=== PATIENT | female | born 1950 | race Caucasian/White ===

== ENCOUNTER → 2020-05-10 12:41 | Outpatient (BNVA) | payer MEDICARE, OTHER, SELFPAY | PROVIDERS: PCP Internal Medicine; Referring Provider Internal Medicine; Visit Provider Internal Medicine | DX: I49.1 Atrial premature depolarization (principal); I49.3 Ventricular premature depolarization; Z79.899 Other long term (current) drug therapy | CPT/HCPCS: 93005; 99214 ==

== ENCOUNTER 2020-08-05 08:45 | Outpatient (REF) | payer MEDICARE, OTHER, SELFPAY ==
--- NOTE | 2020-08-05 | US_ITS ---
EXAMINATION: US ABDOMEN COMPLETE CLINICAL INFORMATION: History of hepatitis C. COMPARISON: Ultrasound abdomen complete 01/30/2017. TECHNIQUE: Real-time imaging of the abdominal viscera. FINDINGS: PANCREAS: The pancreas is homogeneous in echotexture without enlargement or focal lesion. ABDOMINAL AORTA: The proximal, mid, and distal segments are normal in caliber. INFERIOR VENA CAVA: Visualized portions are normal. LIVER: The liver is normal size, hepatic contour but mildly echogenic. No focal hepatic lesion. There is no intrahepatic biliary duct dilatation seen. GALLBLADDER: The bile is echogenic. The gallbladder is physiologically distended without evidence of stones, polyps, wall thickening or pericholecystic fluid. COMMON BILE DUCT: Normal in caliber measuring 0.3 cm in diameter. RIGHT KIDNEY: There is an anechoic cyst in the upper/midpole measuring 1.6 x 1.4 x 1.3 cm. No additional lesions seen. No echogenic stones, caliectasis or hydronephrosis seen. The kidney measures 11.8 cm in maximum dimension. LEFT KIDNEY: Normal. No hydronephrosis. No renal calculi or focal parenchymal lesions. The kidney measures 12.1 cm in maximum dimension. SPLEEN: Normal. The spleen measures 9.4 cm in maximum dimension. FREE FLUID: None. US/US abdomen complete IMPRESSION: Slightly heterogeneous liver without any focal lesions. There is echogenic mobile bile but no echogenic stones or wall thickening. There is an upper midpole right renal cyst. The rest of the abdominal ultrasound is unremarkable.
[2020-08-06 11:47] LABS: Alpha Fetoprotein 6.4 ng/mL
== END 2020-08-05 08:46 | disposition home or self-care (01) ==
LOC: HO.US 08:45
PROVIDERS: PCP Internal Medicine; Visit Provider Internal Medicine
DX: Z86.19 Personal history of other infectious and parasitic diseases (principal)
CPT/HCPCS: 36415; 76700; 82105

== ENCOUNTER → 2020-11-08 08:46 | Outpatient (BNVA) | payer MEDICARE, OTHER, SELFPAY | PROVIDERS: PCP Internal Medicine; Visit Provider Internal Medicine | DX: I49.1 Atrial premature depolarization (principal); I49.3 Ventricular premature depolarization; Z51.81 Encounter for therapeutic drug level monitoring; Z79.899 Other long term (current) drug therapy | CPT/HCPCS: 93005; 99212 ==

== ENCOUNTER 2021-02-02 03:42 | Emergency (ER) | payer MEDICARE, OTHER, SELFPAY ==
[2021-02-02 05:30] VITALS: BP 148/78; PULSE 74; RESP 16; TEMP 36.4; O2SAT 97; BMI 24.5
[2021-02-02 06:00] VITALS: RESP 18
--- NOTE | 2021-02-02 06:01 | ED.WOUNDLAC ---
HPI - Wound/Laceration General Chief Complaint: Wound/Laceration Stated Complaint: Fall Time Seen by Provider: 02/02/21 06:00 Source: patient Mode of arrival: ambulatory History of Present Illness HPI narrative: 70-year-old female presents with skin tears to left lower extremity after sustaining a mechanical fall without head strike or LOC and states that her last tetanus was 2016. Related Data Home Medications Medication Instructions Recorded Confirmed cholecalciferol (vitamin D3) 50 50 mcg PO DAILY 05/10/20 11/08/20 mcg (2,000 unit) capsule eletriptan 40 mg tablet 40 mg PO PRN tab 05/10/20 11/08/20 lysine 1,000 mg tablet 1,000 mg PO DAILY 05/10/20 11/08/20 riboflavin (vitamin B2) 100 mg 400 mg PO DAILY 05/10/20 11/08/20 tablet Previous Rx's Medication Instructions Recorded flecainide 50 mg tablet 50 mg PO BID #180 tab 05/10/20 metoprolol succinate 25 mg 12.5 mg PO DAILY 90 Days #45 tab 11/08/20 tablet,extended release 24 hr Allergies Allergy/AdvReac Type Severity Reaction Status Date / Time No Known Allergies Allergy Verified 11/08/20 08:51 Review of Systems Review of Systems: Pertinent positives and negatives as stated in HPI 10 point review systems is otherwise negative. [facility] Past Medical History Source: nursing notes reviewed Medical History PAC (premature atrial contraction) PVCs (premature ventricular contractions) Surgical History History of foot surgery History of hip replacement History of melanoma excision History of tonsillectomy Family History Family History Father No problems noted. Mother No problems noted. Social History Social History Advance Directives: No Advance Directives Information Provided: No Physical Exam Vital Signs: Vital Signs: Last Vital Signs Temp 97.5 F 02/02/21 05:30 Pulse 74 02/02/21 05:30 Resp 18 02/02/21 06:00 BP 148/78 H 02/02/21 05:30 Pulse Ox 97 02/02/21 05:30 Body Mass Index 24.5 VITAL SIGNS: Reviewed. GENERAL: Well developed, well nourished, in no acute distress. HEAD: Normocephalic/atraumatic EYES: PERRLA, EOMI EARS: Ext canals without abnormality OROPHARYNX: no oral lesions noted, posterior pharynx clear NECK: Supple, no adenopathy LUNGS: Normal breath sounds. No adventitious sounds or accessory muscle use. SpO2<97> CARDIOVASCULAR: Regular rate and rhythm without noted murmurs ABDOMEN: Soft, non-tender, non-distended with bowel sounds. LEFT LOWER EXTREMITY: 3 discrete skin tears on left anterior lower leg, hemostatic SKIN: Inspection of the skin reveals no rashes NEUROLOGIC: Alert and oriented x 4. Course Course Course Narrative: 70-year-old female with history and clinical presentation consistent with skin tears that were approximated. Patient tolerated procedure well and was discharged home Discharge Plan Discharge Clinical Impression: Noninfected skin tear of left lower extremity Patient Disposition: Home, Self-Care Instructions: Skin Tear (ED) Additional Instructions: 1. Resume all home medications as prescribed. 2. Recommend changing the dressing once a day and you may switch over to bacitracin instead of Vaseline/Xeroform gauze. 3. Recommend rinsing gently with water and blotting dry and then following with application of bacitracin over the skin tears and then layering Telfa pads over that with application of a gauze roll and then applying the Clay wrap from your ankle up towards your knee. You will likely need to do this daily for 1 week. 4. Please follow-up with your primary care provider in the next 2-3 days for re-evaluation. Return to the ER for acute worsening of your symptoms or any concerns regarding infection. Prescriptions: No Action eletriptan 40 mg tablet 40 mg PO PRNRF: 0 riboflavin (vitamin B2) 100 mg tablet 400 mg PO DAILY RF: 0 cholecalciferol (vitamin D3) 50 mcg (2,000 unit) capsule 50 mcg PO DAILY RF: 0 lysine 1,000 mg tablet 1,000 mg PO DAILY RF: 0 flecainide 50 mg tablet 50 mg PO BID Qty: 180 RF: 4 metoprolol succinate 25 mg tablet extended release 24 hr 12.5 mg PO DAILY 90 Days Qty: 45 RF: 4 Referrals: Ree Camp MD [Primary Care Provider] - 2 days (Three skin tears, moderate size, to left lower extremity.) Interventions: ED Discharge Assessment Last Done: 02/02/21 06:24 Discharge Date/Time: 02/02/21 06:39
== END 2021-02-02 06:39 | disposition home or self-care (01) ==
PROVIDERS: Emergency Provider Student in an Organized Health Care Education/Training Program; PCP Internal Medicine
DX: S81.812A Laceration without foreign body, left lower leg, initial encounter (principal); W19.XXXA Unspecified fall, initial encounter; Y93.9 Activity, unspecified; Y92.9 Unspecified place or not applicable; Y99.9 Unspecified external cause status
CPT/HCPCS: 99283; 99284

== ENCOUNTER → 2021-05-09 09:11 | Outpatient (BNVA) | payer MEDICARE, OTHER, SELFPAY | PROVIDERS: PCP Internal Medicine; Referring Provider Internal Medicine; Visit Provider Internal Medicine | DX: I49.1 Atrial premature depolarization (principal); I49.3 Ventricular premature depolarization; Z51.81 Encounter for therapeutic drug level monitoring; Z79.899 Other long term (current) drug therapy | CPT/HCPCS: 93005; 99212 ==

== ENCOUNTER → 2021-11-01 09:19 | Outpatient (BNVA) | payer MEDICARE, OTHER, SELFPAY | PROVIDERS: PCP Internal Medicine; Referring Provider Internal Medicine; Visit Provider Internal Medicine | DX: I49.1 Atrial premature depolarization (principal); I49.3 Ventricular premature depolarization; I44.0 Atrioventricular block, first degree; Z79.899 Other long term (current) drug therapy | CPT/HCPCS: 93005; 99212 ==

== ENCOUNTER 2022-03-27 08:29 | Day surgery (SDC) | payer MEDICARE, OTHER, SELFPAY ==
[2022-03-22 08:56] VITALS: BMI 24.0
[2022-03-24 08:46] VITALS: BMI 24.0
--- NOTE | 2022-03-24 12:57 | MHC.SHP ---
Pre-Procedural Eval Section A Date of Service: 03/24/22 The patient is an INPATIENT: No Changes since office visit: No Cold of Flu in the past 2 weeks, No New Medical Problems, No Changes in Medication and No Patient answered all questions The History & Physical has been completed within 30 days and I have reviewed it.: Yes Section B Chief Complaint: cataract Allergies: Allergies Allergy/AdvReac Type Severity Reaction Status Date / Time No Known Allergies Allergy Verified 03/22/22 13:45 Plan Diagnosis/Plan: Unchanged I have reviewed the history and physical and performed a pertinent physical examination on my patient. No changes have occurred unless specified.
[2022-03-27 08:57] VITALS: BP 148/86; PULSE 75; RESP 18; TEMP 36.6; O2SAT 96
[2022-03-27] MEDS: Tetracaine HCl/PF 0.5% Oph Sol 4 ML DROPS 1 DROP EYE-RIGHT (09:00)
[2022-03-27] MEDS: Tropicamide 1 % Ophth Sol 3 ML BTL 1 DROP EYE-RIGHT ×3 (09:00→09:20)
[2022-03-27] MEDS: Cyclopentolate 1 % Ophth Sol 2 ML DRPBTL 1 DROP EYE-RIGHT ×3 (09:00→09:20)
[2022-03-27] MEDS: Lactated Ringers 500 ML 50 ML IVCONT (09:00)
[2022-03-27] MEDS: Phenylephrine HCL 2.5% Oph SoL 2 ML BOTTLE 1 DROP EYE-RIGHT ×3 (09:01→09:20)
--- NOTE | 2022-03-27 09:45 | P.CONAN_ITS ---
HPI - Anesthesia Eval Consult details Narrative: right eye cataract PMFSH Active Problems Active Problems: All Active Problems (Updated 03/24/22 @ 08:43 by Marcela Jewell RN) Encounter for monitoring anti-arrhythmic therapy (Acute) First degree heart block by electrocardiogram (Acute) Bleeding disorder (Acute) Osteoarthritis of right hip (Acute) MVP (mitral valve prolapse) (Acute) Migraine (Acute) MTHFR gene mutation (Acute) PVCs (premature ventricular contractions) (Acute) PAC (premature atrial contraction) (Acute) Past Medical History Medical History Bleeding disorder History of Weiner's esophagus Hx of hepatitis C Hx of melanoma of skin Migraine MTHFR gene mutation MVP (mitral valve prolapse) Osteoarthritis of right hip PAC (premature atrial contraction) Post-operative nausea and vomiting PVCs (premature ventricular contractions) Family History Family History Father Leukemia Mother SLE (systemic lupus erythematosus) Sister HTN (hypertension) Hypercholesterolemia Family history of problems with anesthesia: No Surgical History Surgical History H/O colonoscopy History of bunionectomy of both great toes History of foot surgery History of hip replacement History of melanoma excision History of tonsillectomy Hx of breast augmentation History of Problems with Anesthesia: No Social History Social History Housing: House Are you a primary rn progressive care to a significant other at home: No Do you presently have visiting nurse or other home services: No Alcohol intake: current Alcohol intake frequency: a few times a week Patient Tobacco Use Status: Never used Tobacco e-Cigarette/Vaping Use: Never Used Use of substances other than those prescribed or required for medical reasons: No Have you been hit, kicked, punched, or otherwise hurt by someone within the past year? If so, by whom?: No Are you DNR?: No Advance Directives: Yes Advance Directives Information Provided: Yes Advance Directives on File: Yes Advance Directives Date on File: 10/15/17 Recently lost weight without trying: No Eating poorly because of decreased appetite: No Nutrition Risks: No Nutritional Risk Poor oral hygiene: No service: No Current occupational status: retired Cognitive needs: No Hearing needs: No Vision needs: Yes Meds Allergies Allergy/AdvReac Type Severity Reaction Status Date / Time No Known Allergies Allergy Verified 03/27/22 08:41 Active Medications: Current Medications Lactated Ringer's (Lr) 500 mls @ 50 mls/hr IVCONT .Q10H HENRY Last Admin: 03/27/22 09:00 Dose: 50 mls/hr Povidone Iodine (Povidone Iodine 5 % Ophth Soln 30 Ml Bottle) 1 appl EYE-RIGHT PREOP PRN PRN Reason: Pre-Op Surgical Implant Prophy Home Medications Medication Instructions Recorded Confirmed Last Taken Type cholecalciferol (vitamin D3) 50 50 mcg PO DAILY 05/10/20 03/24/22 Unknown History mcg (2,000 unit) capsule lysine 1,000 mg tablet 1,000 mg PO DAILY 05/10/20 03/24/22 Unknown History vitamin B12 500 mcg-folic acid 400 1 tab PO DAILY 06/02/21 03/24/22 Unknown History mcg tablet latanoprost 0.005 % eye drops 1 drp ophthalmic (eye) BEDTIME 03/22/22 03/24/22 Unknown History psyllium husk 0.4 gram capsule 0.4 g PO BEDTIME 03/22/22 03/24/22 Unknown History (Metamucil) magnesium glycinate-mag oxide 120 mg PO DAILY 03/24/22 03/24/22 Unknown History Exam Exam Date and Time: March 27, 2022 0945 Height,Weight and Vital Signs: Height 5 ft 10 in Weight 76.204 kg Last Vital Signs Temp 97.9 F 03/27/22 08:57 Pulse 75 03/27/22 08:57 Resp 18 03/27/22 08:57 BP 148/86 H 03/27/22 08:57 Pulse Ox 96 03/27/22 08:57 O2 Del Method 03/27/22 08:57 Airway Mallampati Class: II TM Dist: >3cm Neck ROM: Full Loose/Missing/Broken Teeth: No Heart: rrr+s1s2 Lungs: cta b/l Assessment and Plan Assessment Anesthesia Assessment: Anesthesia Plan Discussed and Chart Reviewed Final Anesthetic Review Family History of Problems with Anesthesia: No History of Problems with Anesthesia: No NPO: Yes ASA Class: II Final Preanesthetic Review: No Changes in Pt Med Stat, Meds/Allgs Chart Reviewed, Consent Obtained/Reviewed and Anes Risks/Benef Reviewed Patient Risk: Low Procedure Risk: Low Assessment/Block/Sedation in SS: Assess/Block/Sedation-SS Anesthetic Plan Anesthetic Plan: MAC: and Agree w/ Assess. and Plan Disposition: Standard PACU
--- NOTE | 2022-03-27 10:35 | P.PCNO_ITS ---
Ophthalmology Procedure Procedure Date of Service: 03/27/22 Ophthalmology Viscoelastic: Edwige Gant Dual Pack Pro Ophthalmology Lenses: TECGRICELDA [id number] (20) Procedure Notes: PREOPERATIVE DIAGNOSIS: Decreased visual acuity right eye secondary to cataract POSTOPERATIVE DIAGNOSIS: Same PROCEDURE: Right cataract extraction with intraocular lens insertion SURGEON: Dave Evans M.D. ANESTHESIA: Topical/MAC ESTIMATED BLOOD LOSS: None COMPLICATIONS: Zonular weakness After obtaining informed consent, the patient was brought to the operating room suite and placed in the supine position. After adequate sedation per anesthesia, topical drops of Tetracaine were given to the right eye. The eye was then prepped and draped in the usual sterile fashion. The operating room microscope was then positioned over the operative eye and a lid speculum placed. A paracentesis was created. Viscoelastic was then instilled into the anterior chamber. A three plane incision was then created temporally, utilizing a 2.85 mm keratome. Capsulotomy forceps were then utilized to create a circular tear capsulotomy. Hydrodissection and hydrodelineation were carried out until adequate mobilization of the nucleus occurred. Phacoemulsification was then utilized to remove the dense central nu cleus followed by removal of the cortical material utilizing the automated aspiration irrigation unit. Mild zonular weakness was notedand a capsular ring was placed. Viscoelastic was instilled into the posterior capsular bag followed by placement of a posterior chamber intraocular lens without difficulty. The residual Viscoelastic was then removed utilizing the automated IA machine. The wound was checked and found to be watertight. The patient tolerated the procedure well and the lid speculum was removed. Intracameral injection of Vigamox 0.1 mL followed by a subtenon injection of Kenalog-40 0.2 mL were administered. The patient will be seen in the a.m.
[2022-03-27 10:59] VITALS: BP 129/72; PULSE 61; RESP 18; TEMP 36.6; O2SAT 98
== END 2022-03-27 11:20 | disposition home or self-care (01) ==
PROVIDERS: PCP Internal Medicine; Visit Provider Ophthalmology
PROC: (CPT 66985; principal; 2022-03-27 10:00)
DX: H25.11 Age-related nuclear cataract, right eye (principal); H40.051 Ocular hypertension, right eye; H59.88 Other intraoperative complications of eye and adnexa, not elsewhere classified; H27.8 Other specified disorders of lens; Y84.8 Other medical procedures as the cause of abnormal reaction of the patient, or of later complication, without mention of misadventure at the time of the procedure; Y92.234 Operating room of hospital as the place of occurrence of the external cause
CPT/HCPCS: 66982; J2405; J3300; V2632

== ENCOUNTER 2022-04-03 08:45 | Day surgery (SDC) | payer MEDICARE, OTHER, SELFPAY ==
[2022-03-22 08:57] VITALS: BMI 24.0
[2022-03-24 08:49] VITALS: BMI 24.0
--- NOTE | 2022-03-30 13:46 | MHC.SHP ---
Pre-Procedural Eval Section A Date of Service: 03/30/22 The patient is an INPATIENT: No Changes since office visit: No Cold of Flu in the past 2 weeks, No New Medical Problems, No Changes in Medication and No Patient answered all questions The History & Physical has been completed within 30 days and I have reviewed it.: Yes Section B Chief Complaint: cataract Allergies: Allergies Allergy/AdvReac Type Severity Reaction Status Date / Time No Known Allergies Allergy Verified 03/27/22 08:41 Plan Diagnosis/Plan: Unchanged I have reviewed the history and physical and performed a pertinent physical examination on my patient. No changes have occurred unless specified.
--- NOTE | 2022-03-31 09:51 | P.CONAN_ITS ---
Documented by User: Roberta Alcocer NP 03/31/22 09:52 HPI - Anesthesia Eval Consult details Narrative: 71yo F for Left Cataract Extraction IOL Insertion PCP cleared Right eye 03/27/22 with MAC: Zofran 4 PMFSH Active Problems Active Problems: All Active Problems (Updated 03/24/22 @ 08:43 by Marcela Jewell RN) Encounter for monitoring anti-arrhythmic therapy (Acute) First degree heart block by electrocardiogram (Acute) Bleeding disorder (Acute) Osteoarthritis of right hip (Acute) MVP (mitral valve prolapse) (Acute) Migraine (Acute) MTHFR gene mutation (Acute) PVCs (premature ventricular contractions) (Acute) PAC (premature atrial contraction) (Acute) Past Medical History Medical History Bleeding disorder History of Weiner's esophagus Hx of hepatitis C Hx of melanoma of skin Migraine MTHFR gene mutation MVP (mitral valve prolapse) Osteoarthritis of right hip PAC (premature atrial contraction) Post-operative nausea and vomiting PVCs (premature ventricular contractions) Family History Family History Father Leukemia Mother SLE (systemic lupus erythematosus) Sister HTN (hypertension) Hypercholesterolemia Family history of problems with anesthesia: No Surgical History Surgical History H/O colonoscopy History of bunionectomy of both great toes History of foot surgery History of hip replacement History of melanoma excision History of tonsillectomy Hx of breast augmentation History of Problems with Anesthesia: No Social History Social History Housing: House Are you a primary day care director to a significant other at home: No Do you presently have visiting nurse or other home services: No Alcohol intake: current Alcohol intake frequency: a few times a week Patient Tobacco Use Status: Never used Tobacco e-Cigarette/Vaping Use: Never Used Use of substances other than those prescribed or required for medical reasons: No Have you been hit, kicked, punched, or otherwise hurt by someone within the past year? If so, by whom?: No Are you DNR?: No Advance Directives: Yes Advance Directives Information Provided: Yes Advance Directives on File: Yes Advance Directives Date on File: 10/15/17 Recently lost weight without trying: No Eating poorly because of decreased appetite: No Nutrition Risks: No Nutritional Risk Poor oral hygiene: No service: No Current occupational status: retired Cognitive needs: No Hearing needs: No Vision needs: Yes Meds Allergies Allergy/AdvReac Type Severity Reaction Status Date / Time No Known Allergies Allergy Verified 03/27/22 08:41 Home Medications Medication Instructions Recorded Confirmed Last Taken Type cholecalciferol (vitamin D3) 50 50 mcg PO DAILY 05/10/20 03/24/22 Unknown History mcg (2,000 unit) capsule lysine 1,000 mg tablet 1,000 mg PO DAILY 05/10/20 03/24/22 Unknown History vitamin B12 500 mcg-folic acid 400 1 tab PO DAILY 06/02/21 03/24/22 Unknown History mcg tablet latanoprost 0.005 % eye drops 1 drp ophthalmic (eye) BEDTIME 03/22/22 03/24/22 Unknown History psyllium husk 0.4 gram capsule 0.4 g PO BEDTIME 03/22/22 03/24/22 Unknown History (Metamucil) magnesium glycinate-mag oxide 120 mg PO DAILY 03/24/22 03/24/22 Unknown History Exam Exam Date and Time: March 31, 2022 0951 Height,Weight and Vital Signs: Height 5 ft 10 in Weight 76.204 kg Assessment and Plan Assessment Anesthesia Assessment: Chart Reviewed Final Anesthetic Review Family History of Problems with Anesthesia: No History of Problems with Anesthesia: No Documented by User: Miguel Ángel Clinton MD 04/03/22 10:55 [facility] Past Medical History Medical History Bleeding disorder History of Weiner's esophagus Hx of hepatitis C Hx of melanoma of skin Migraine MTHFR gene mutation MVP (mitral valve prolapse) Osteoarthritis of right hip PAC (premature atrial contraction) Post-operative nausea and vomiting PVCs (premature ventricular contractions) Family History Family History Father Leukemia Mother SLE (systemic lupus erythematosus) Sister HTN (hypertension) Hypercholesterolemia Surgical History Surgical History H/O colonoscopy History of bunionectomy of both great toes History of foot surgery History of hip replacement History of melanoma excision History of tonsillectomy Hx of breast augmentation Social History Social History Housing: House Are you a primary day care director to a significant other at home: No Do you presently have visiting nurse or other home services: No Alcohol intake: current Alcohol intake frequency: a few times a week Patient Tobacco Use Status: Never used Tobacco e-Cigarette/Vaping Use: Never Used Use of substances other than those prescribed or required for medical reasons: No Have you been hit, kicked, punched, or otherwise hurt by someone within the past year? If so, by whom?: No Are you DNR?: No Advance Directives: Yes Advance Directives Information Provided: Yes Advance Directives on File: Yes Advance Directives Date on File: 10/15/17 Recently lost weight without trying: No Eating poorly because of decreased appetite: No Nutrition Risks: No Nutritional Risk Poor oral hygiene: No service: No Current occupational status: retired Cognitive needs: No Hearing needs: No Vision needs: Yes Meds Allergies Allergy/AdvReac Type Severity Reaction Status Date / Time No Known Allergies Allergy Verified 03/27/22 08:41 Home Medications Medication Instructions Recorded Confirmed Last Taken Type cholecalciferol (vitamin D3) 50 50 mcg PO DAILY 05/10/20 03/24/22 Unknown History mcg (2,000 unit) capsule lysine 1,000 mg tablet 1,000 mg PO DAILY 05/10/20 03/24/22 Unknown History vitamin B12 500 mcg-folic acid 400 1 tab PO DAILY 06/02/21 03/24/22 Unknown History mcg tablet latanoprost 0.005 % eye drops 1 drp ophthalmic (eye) BEDTIME 03/22/22 03/24/22 Unknown History psyllium husk 0.4 gram capsule 0.4 g PO BEDTIME 03/22/22 03/24/22 Unknown History (Metamucil) magnesium glycinate-mag oxide 120 mg PO DAILY 03/24/22 03/24/22 Unknown History Exam Airway Mallampati Class: II TM Dist: >3cm Neck ROM: Full Loose/Missing/Broken Teeth: No Heart: rrr+s1s2 Lungs: cta b/l Assessment and Plan Assessment Anesthesia Assessment: Anesthesia Plan Discussed Final Anesthetic Review NPO: Yes ASA Class: III Final Preanesthetic Review: No Changes in Pt Med Stat, Meds/Allgs Chart Reviewed, Consent Obtained/Reviewed and Anes Risks/Benef Reviewed Patient Risk: Intermediate Procedure Risk: Low Assessment/Block/Sedation in SS: Assess/Block/Sedation-SS Anesthetic Plan Anesthetic Plan: MAC: and Agree w/ Assess. and Plan Disposition: Standard PACU
[2022-04-03] MEDS: Tetracaine HCl/PF 0.5% Oph Sol 4 ML DROPS 1 DROP EYE-LEFT (10:26)
[2022-04-03] MEDS: Cyclopentolate 1 % Ophth Sol 2 ML DRPBTL 1 DROP EYE-LEFT ×3 (10:31→10:51)
[2022-04-03] MEDS: Tropicamide 1 % Ophth Sol 3 ML BTL 1 DROP EYE-LEFT ×3 (10:44→10:51)
[2022-04-03] MEDS: Phenylephrine HCL 2.5% Oph SoL 2 ML BOTTLE 1 DROP EYE-LEFT ×3 (10:46→10:53)
--- NOTE | 2022-04-03 11:26 | HO.PNOPHT ---
Ophthalmology Procedure Procedure Date of Service: 04/03/22 Ophthalmology Viscoelastic: Healdavid Duet Dual Pack Pro Ophthalmology Lenses: TECGRICELDA [id number] (21) Procedure Notes: PREOPERATIVE DIAGNOSIS: Decreased visual acuity left eye secondary to cataract POSTOPERATIVE DIAGNOSIS: Same PROCEDURE: Left cataract extraction with intraocular lens insertion SURGEON: Dave Evans M.D. ANESTHESIA: Topical/MAC ESTIMATED BLOOD LOSS: None COMPLICATIONS: None After obtaining informed consent, the patient was brought to the operation room suite and placed in the supine position. After adequate sedation per anesthesia, topical drops of Tetracaine were given to the left eye. The eye was then prepped and draped in the usual sterile fashion. The operating room microscope was then positioned over the operative eye and a lid speculum placed. A paracentesis was created. Viscoelastic was then instilled into the anterior chamber. A three plane incision was then created temporally, utilizing a 2.85 mm keratome. Capsulotomy forceps were then utilized to create a circular tear capsulotomy. Hydrodissection and hydrodelineation were carried out until adequate mobilization of the nucleus occurred. Phacoemulsification was then utilized to remove the dense central nucleus followed by removal of the cortical material utilizing the automated aspiration irrigation unit. Viscoat elastic was instilled into the posterior capsular bag followed by placement of a posterior chamber intraocular lens without difficulty. The residual Viscoat elastic was then removed utilizing the automated IA machine. The wound was check and found to be watertight. The patient tolerated the procedure well and the lid speculum was removed. Intracameral injection of Vigamox 0.1 mL followed by a subtenon injection of Kenalog-40 0.2 mL were administered. The patient will be seen in the a.m.
[2022-04-03 11:53] VITALS: BP 147/68; PULSE 64; RESP 16; TEMP 36.4; O2SAT 100
== END 2022-04-03 14:34 | disposition home or self-care (01) ==
PROVIDERS: PCP Internal Medicine; Visit Provider Ophthalmology
PROC: (CPT 66985; principal; 2022-04-03 11:20)
DX: H25.12 Age-related nuclear cataract, left eye (principal); H52.4 Presbyopia; H40.051 Ocular hypertension, right eye; G43.909 Migraine, unspecified, not intractable, without status migrainosus; Z79.899 Other long term (current) drug therapy
CPT/HCPCS: 66984; J3300; V2632

== ENCOUNTER → 2022-04-18 09:31 | Outpatient (BNVA) | payer MEDICARE, OTHER, SELFPAY | PROVIDERS: PCP Internal Medicine; Referring Provider Internal Medicine; Visit Provider Internal Medicine | DX: I49.1 Atrial premature depolarization (principal); Z51.81 Encounter for therapeutic drug level monitoring; I49.3 Ventricular premature depolarization; I44.0 Atrioventricular block, first degree; Z79.899 Other long term (current) drug therapy | CPT/HCPCS: 93005; 99212 ==

== ENCOUNTER → 2022-04-27 11:16 | Outpatient (REF) | payer MEDICARE, OTHER, SELFPAY ==
--- NOTE | 2022-04-27 11:19 | HM_ITS ---
* Total monitoring time 3 days. * Underlying rhythm is sinus. Average rate 76/Min. Range 36 to 152/Min. * Frequent supraventricular ectopy. Pitman of 9.3%. Short runs noted. * Rare ventricular ectopy with burden of less than 1%. * Patient marker correlates with PVC as well as PACs. MTDD
== END ==
LOC: HO.CARD 11:16
PROVIDERS: Visit Provider Internal Medicine
DX: I49.1 Atrial premature depolarization (principal); R00.2 Palpitations
CPT/HCPCS: 93242

== ENCOUNTER 2022-08-07 12:29 | Outpatient (REF) | payer MEDICARE, OTHER, SELFPAY ==
--- NOTE | ~2022-08-07 | XR_ITS ---
EXAMINATION: XR FOOT, LEFT CLINICAL INFORMATION: Pain in the left foot COMPARISON: None TECHNIQUE: 3 views of the left foot. FINDINGS: No acute abnormality. No fracture or dislocation. No focal bone lesion or abnormal periosteal reaction. There is mild degenerative change of the minimal marginal spur of the metatarsal head and proximal phalange of the first MTP joint of the great toe. Old change of resection of the head of the fifth metatarsal. Small exostosis at the dorsum of foot involving the talar neck. Small spur of the posterior calcaneus at the insertion of Achilles tendon. There is a small plantar calcaneal spur. XR/XR foot LT min 3V IMPRESSION: 1. No acute abnormality. 2. Mild degenerative change of the first MTP joint. 3. Prior resection of the head of the fifth metatarsal.
== END 2022-08-07 12:30 | disposition home or self-care (01) ==
LOC: HO.HMGCX 12:29
PROVIDERS: PCP Internal Medicine; Visit Provider Physician Assistant
DX: M79.672 Pain in left foot (principal)
CPT/HCPCS: 73630

== ENCOUNTER 2022-08-10 10:40 | Outpatient (REF) | payer MEDICARE, OTHER, SELFPAY ==
[2022-08-10 10:56] LABS: MANUAL DIFF FLAG NO
[2022-08-10 10:58] LABS: Basophils Percent Auto 0.6 % (0-2); Eosinophils Absolute Auto 0.1 X10*3/uL (0.0-0.4); Eosinophils Percent Auto 1.6 % (0-4); Hematocrit 42.1 % (37.0-47.0); Hemoglobin 13.5 g/dl (12.0-16.0); Imm Gran Abs Auto 0.01 X10*3/uL (0.00-0.03); Imm Gran Pct Auto 0.2 % (0.0-0.4); Lymphocytes Absolute Auto 1.3 X10*3/uL (1.2-4.9); Lymphocytes Percent Auto 24.9 % (20-40); Mean Corpuscular HGB Conc 32.1 g/dl (31.0-35.0); Mean Corpuscular Volume 93.6 fL (80.0-98.0); Mean Platelet Volume 9.7 fL (9.4-12.3); Monocytes Absolute Auto 0.6 X10*3/uL (0.1-1.2); Neutrophils Absolute Auto 3.1 x10*3/uL (2.0-8.3); Neutrophils Percent Auto 61.7 % (45-73); Platelet Count 195 X10*3/uL (160-400)
[2022-08-10 11:11] LABS: Prothrombin Time 11.2 SEC (10.0-13.1)
[2022-08-10 11:18] LABS: Alanine Aminotransferase 12 U/L (0-31); Albumin Level 4.4 g/dL (3.5-5.0); Alkaline Phosphatase 64 U/L (39-117); Aspartate Amino Transferase 19 U/L (5-31); Bilirubin Direct 0.2 mg/dL (0.0-0.5); Bilirubin Total 0.6 mg/dL (0.0-1.0); Total Protein 7.2 g/dL (6.5-8.0)
[2022-08-14 14:09] LABS: Alpha Fetoprotein 5.2 ng/mL
[2022-08-16 15:33] LABS: FIB-ALT 10 U/L (6-29); FIB-Alpha-2-Macroglobulin 215 mg/dL (106-279); FIB-Apolipoprotein A1 256 mg/dL (101-198); FIB-GGT 13 U/L (3-65); FIB-Haptoglobin 122 mg/dL (43-212); FIB-Total Bilirubin 0.5 mg/dL (0.2-1.2); Liver Fibrosis Score 0.09; Liver Fibrosis Stage F0; Nec Inflam Act Grade A0; Nec Inflam Act Score 0.02
== END 2022-08-10 10:41 | disposition home or self-care (01) ==
LOC: HO.LAB 10:40
PROVIDERS: PCP Internal Medicine; Visit Provider Internal Medicine
DX: Z86.19 Personal history of other infectious and parasitic diseases (principal)
CPT/HCPCS: 36415; 80076; 81596; 82105; 85025; 85610

== ENCOUNTER 2022-08-16 10:18 | Outpatient (REF) | payer MEDICARE, OTHER, SELFPAY ==
--- NOTE | ~2022-08-16 | US_ITS ---
EXAMINATION: US COMPLETE ABDOMEN WITH LIVER ELASTOGRAPHY CLINICAL INFORMATION: Hepatitis C. COMPARISON: Abdominal ultrasound dated August 05, 2020. TECHNIQUE: Real-time imaging of the abdominal viscera. Noninvasive ultrasound liver fibrosis assessment is performed using Constanza ElastPQ point quantification shear wave elastography (2D-SWE) with a C5-2 MHz transducer. Multiple elastography samples are obtained. FINDINGS: PANCREAS: Head and body appear unremarkable. Tail not visualized. ABDOMINAL AORTA: The proximal, middle, and distal aortic segments are normal in caliber. INFERIOR VENA CAVA: Visualized portions appear unremarkable. LIVER: The liver appears unremarkable size, contour and echogenicity. No focal lesion or intrahepatic biliary duct dilatation appreciated. The right lobe measures 13.6 cm in length. The left lobe measures 10.9 cm in length. Portal flow is towards the liver (hepatopetal). Relative compliance of the liver measures 1.3 meters per second. The findings are consistent with minimal risk of clinically significant hepatic fibrosis, Metavir F0 or F1. GALLBLADDER: The gallbladder is physiologically distended without evidence of stones, sludge, polyps, wall thickening or pericholecystic fluid. COMMON BILE DUCT: Normal in caliber measuring 0.5 cm in diameter. RIGHT KIDNEY: No hydronephrosis. No renal calculi or focal parenchymal lesion identified. The kidney measures 11.1 cm in maximum dimension. LEFT KIDNEY: No hydronephrosis. No renal calculi or focal parenchymal lesion identified. The kidney measures 10.6 cm in maximum dimension. SPLEEN: The spleen measures 9.5 cm in maximum dimension. FREE FLUID: None. US/US abdomen comp w elastography IMPRESSION: Minimal risk of clinically significant fibrosis.
== END 2022-08-16 10:19 | disposition home or self-care (01) ==
LOC: HO.US 10:18
PROVIDERS: Visit Provider Internal Medicine
DX: Z86.19 Personal history of other infectious and parasitic diseases (principal)
CPT/HCPCS: 76705; 76981

== ENCOUNTER 2022-09-05 08:17 | Outpatient (REF) | payer MEDICARE, OTHER, SELFPAY | END 2022-09-05 08:18 | disposition home or self-care (01) | LOC: HO.LAB 08:17 | PROVIDERS: PCP Internal Medicine; Visit Provider Internal Medicine | DX: Z13.89 Encounter for screening for other disorder (principal) ==

== ENCOUNTER 2022-09-06 06:50 | Day surgery (SDC) | payer MEDICARE, OTHER, SELFPAY ==
[2022-09-06] VITALS (7 sets, daily range): BP systolic 97–133; BP diastolic 51–92; PULSE 60–83; RESP 14–16; TEMP 36.2–36.8; O2SAT 94–100; BMI 23.3
[2022-09-06] MEDS: Acetaminophen 325 MG TABLET 975 MG PO (07:42)
[2022-09-06] MEDS: Hydrocortisone Sod Succ/PF 100 MG VIAL IVPUSH (07:43)
[2022-09-06] MEDS: diphenhydrAMINE HCL 50 MG/ML VIAL 25 MG IVPUSH (07:43)
[2022-09-06] MEDS: Lactated Ringers 1,000 ML 100 ML IVCONT (07:53)
[2022-09-06 07:54] LABS: INTERNATIONAL NORM RATIO 1.1 (0.9-1.1); Prothrombin Time 12.1 SEC (10.0-13.1)
--- NOTE | 2022-09-06 08:35 | HO.ANESPROP2 ---
HPI - Anesthesia Eval Consult details Narrative: for EGD and colonoscopy [facility] Active Problems Active Problems: All Active Problems (Updated 09/06/22 @ 07:27 by Susy Mendoza RN) Encounter for monitoring anti-arrhythmic therapy (Acute) First degree heart block by electrocardiogram (Acute) Bleeding disorder (Acute) Osteoarthritis of right hip (Acute) MVP (mitral valve prolapse) (Acute) Migraine (Acute) MTHFR gene mutation (Acute) PVCs (premature ventricular contractions) (Acute) PAC (premature atrial contraction) (Acute) Past Medical History Medical History (Updated 09/06/22 @ 07:27 by Susy Mendoza RN) Bleeding disorder Cataract (lens) fragments in eye following cataract surgery, bilateral History of Weiner's esophagus Hx of hepatitis C Hx of melanoma of skin Migraine MTHFR gene mutation MVP (mitral valve prolapse) Osteoarthritis of right hip PAC (premature atrial contraction) Post-operative nausea and vomiting PVCs (premature ventricular contractions) Sleep apnea Family History Family History Father Leukemia Mother SLE (systemic lupus erythematosus) Sister HTN (hypertension) Hypercholesterolemia Family history of problems with anesthesia: No Surgical History Surgical History H/O colonoscopy History of bunionectomy of both great toes History of foot surgery History of hip replacement History of melanoma excision History of tonsillectomy Hx of breast augmentation History of Problems with Anesthesia: Yes (PONV) Social History Social History Housing: House Are you a primary career portals teacher to a significant other at home: No Do you presently have visiting nurse or other home services: No Alcohol intake: current Alcohol intake frequency: a few times a week Patient Tobacco Use Status: Never used Tobacco e-Cigarette/Vaping Use: Never Used Use of substances other than those prescribed or required for medical reasons: No Are you DNR?: No Advance Directives: Yes Advance Directives on File: Yes Advance Directives Date on File: 10/15/17 Recently lost weight without trying: No How much weight loss: 2-13 pounds Nutrition Risks: No Nutritional Risk service: No Current occupational status: retired Cognitive needs: No Hearing needs: No Vision needs: Yes Meds Allergies Allergy/AdvReac Type Severity Reaction Status Date / Time No Known Allergies Allergy Verified 08/07/22 11:55 Active Medications: Current Medications Sodium Biphosphate/Sodium Phosphate (Sodium Phosphate,[place]-Dibasic 133 Ml Enema) 133 ml SD ONCE PRN PRN Reason: Poor Colonoscopy Prep Results Home Medications Medication Instructions Recorded Confirmed Last Taken Type cholecalciferol (vitamin D3) 50 50 mcg PO DAILY 05/10/20 09/06/22 Unknown History mcg (2,000 unit) capsule lysine 1,000 mg tablet 1,000 mg PO DAILY 05/10/20 09/06/22 Unknown History vitamin B12 500 mcg-folic acid 400 1 tab PO DAILY 06/02/21 09/06/22 Unknown History mcg tablet senna 600 mg tablet 600 mg PO BID 06/07/22 09/06/22 Unknown History Exam Exam Date and Time: September 06, 2022 0835 Height,Weight and Vital Signs: Height 5 ft 10 in Weight 73.936 kg Last Vital Signs Temp 97.7 F 09/06/22 08:33 Pulse 65 09/06/22 08:33 Resp 16 09/06/22 08:33 BP 127/92 H 09/06/22 08:33 Pulse Ox 98 09/06/22 07:32 O2 Del Method 09/06/22 07:32 Pertinent Lab Results Pertinent Lab Results: Laboratory Tests 09/05/22 09/06/22 08:38 07:21 PT 12.1 INR 1.1 Blood Type O Positive Antibody Screen NEGATIVE Airway Mallampati Class: I TM Dist: >3cm Neck ROM: Full Loose/Missing/Broken Teeth: No Heart: ok Lungs: ok Assessment and Plan Assessment Anesthesia Assessment: Anesthesia Plan Discussed and Chart Reviewed Final Anesthetic Review Family History of Problems with Anesthesia: No History of Problems with Anesthesia: Yes (PONV) NPO: Yes ASA Class: III Final Preanesthetic Review: No Changes in Pt Med Stat, Meds/Allgs Chart Reviewed, Consent Obtained/Reviewed and Anes Risks/Benef Reviewed Patient Risk: Intermediate Procedure Risk: Intermediate Anesthetic Plan Anesthetic Plan: MAC: and Agree w/ Assess. and Plan Disposition: Standard PACU
--- NOTE | 2022-09-06 09:52 | PM.OP ---
Brief Operative Note Date of Service: 09/06/22 Pre-op diagnosis: Weiner's, Screening Post-op diagnosis: other (Hiatal hernia, Polyp) Procedure: EGD with biopsies, Colonoscopy to the cecum and TI with bx/removal of polyp Surgeon: Jamsihd Loredo Anesthesia: MAC Was an Butting Saw Operator used for this Procedure?: No Estimated blood loss (mL): 2.0 Pathology: other (A. EG Junction at 40cm B. Transverse colon polyp) Condition: stable Disposition: PACU
--- NOTE | 2022-09-06 20:20 | OP_ITS ---
SURGEON: Jamshid Loredo MD INDICATIONS: The patient presents for evaluation of gastroesophageal reflux, history of Weiner's esophagus, and colorectal cancer screening. Full consent has been obtained from her for this, including risks of bleeding and perforation. PREOPERATIVE DIAGNOSIS: POSTOPERATIVE DIAGNOSIS: PROCEDURE PERFORMED: Esophagogastroduodenoscopy with biopsies and colonoscopy to the cecum and terminal ileum with biopsy and removal of polyp. ESTIMATED BLOOD LOSS: COMPLICATIONS: ANESTHESIA: Medication used, monitored anesthesia care. ASSISTANTS: SPECIMENS: PREOPERATIVE DIAGNOSES: Weiner's esophagus and colorectal cancer screening. POSTOPERATIVE DIAGNOSES: Weiner's esophagus and colorectal cancer screening, minimal hiatal hernia, small colon polyp, diverticulosis, internal hemorrhoids. DESCRIPTION OF PROCEDURE: The patient was placed in the left lateral decubitus position. The Olympus video gastroscope was passed in the posterior oropharynx and upper esophagus under direct vision. The scope was passed slowly to the distal esophagus. The gastroesophageal junction appeared at 40 cm. There was some very minimal irregularity consistent with reflux, but no evidence of esophagitis nor any definitive evidence of Weiner's esophagus. The scope entered into the stomach. The scope was advanced to the pylorus, and the duodenum was cannulated to the descending portion. The duodenum, including the bulb, appeared normal without mass or ulceration. The scope was withdrawn back into the stomach. The gastric antrum and body appeared normal with good peristalsis. The scope was retroflexed visualizing the proximal stomach carefully, which appeared normal, without any sign of mass or ulceration. The scope was straightened and withdrawn back into the esophagus. Biopsies were taken at the EG junction at 40 cm. Proximal to this, the esophageal mucosa appeared normal. The scope was withdrawn from the patient. She was turned around for the colonoscopy. The digital rectal exam revealed no abnormalities. The Olympus video pediatric colonoscope was entered into the rectum and advanced easily to the cecum. Once in the cecum, I did identify normal-appearing cecal pouch with appendiceal orifice and a normal-appearing ileocecal valve. The terminal ileum was cannulated and appeared normal. The scope was withdrawn back into the colon. The entire cecum and ileocecal valve appeared normal. The scope was slowly withdrawn assessing all mucosal surfaces carefully. Preparation was excellent. In the transverse colon there was an approximately 3 mm polyp which was biopsied and completely removed by cold biopsy forceps. I did not visualize any other polyps, colitis nor angiodysplasia. There was a mild amount of sigmoid diverticulosis. In the rectum, scope was retroflexed, visualizing small internal hemorrhoids, but no other pathology. The rectal mucosa appeared normal. The scope was straightened and withdrawn from the patient. She tolerated the procedure well and was returned to the recovery area in stable condition. IMPRESSION: 1. Minimal hiatal hernia, history of reflux, rule out Weiner's esophagus. 2. Small colon polyp. 3. Mild diverticulosis. 4. Small internal hemorrhoids. PLAN: The results of the biopsies will be checked. Given her age and these findings, as well as previous exams, I do not think she would need any further screening colonoscopies nor upper endoscopies. Recent workup with liver ultrasound and lab work did not reveal any abnormalities in regard to the distant history of hepatitis C. She was advised to see me in 1 year for a followup visit. MD BIANCA Argueta/ANOOP / [id number] MTDD
== END 2022-09-06 11:07 | disposition home or self-care (01) ==
PROVIDERS: PCP Internal Medicine; Visit Provider Internal Medicine
PROC: (CPT 45380; principal; 2022-09-06 08:30)
DX: Z12.11 Encounter for screening for malignant neoplasm of colon (principal); D12.3 Benign neoplasm of transverse colon; K57.30 Diverticulosis of large intestine without perforation or abscess without bleeding; K64.8 Other hemorrhoids; K22.70 Barrett's esophagus without dysplasia; K21.9 Gastro-esophageal reflux disease without esophagitis; K44.9 Diaphragmatic hernia without obstruction or gangrene; Z86.19 Personal history of other infectious and parasitic diseases; Z79.899 Other long term (current) drug therapy
CPT/HCPCS: 45380; 43239; 36415; 85610; 86850; 86900; 86901; 88305; J1200; J2405; J3010; P9073

== ENCOUNTER → 2022-10-16 12:14 | Outpatient (BNVA) | payer MEDICARE, OTHER, SELFPAY | PROVIDERS: PCP Internal Medicine; Referring Provider Internal Medicine; Visit Provider Internal Medicine | DX: Z01.810 Encounter for preprocedural cardiovascular examination (principal); I49.1 Atrial premature depolarization; I49.3 Ventricular premature depolarization; I44.0 Atrioventricular block, first degree; Z51.81 Encounter for therapeutic drug level monitoring; Z79.899 Other long term (current) drug therapy | CPT/HCPCS: 93005; 99212 ==

== ENCOUNTER 2023-04-24 10:25 | Outpatient (AMB) | payer MEDICARE, OTHER, SELFPAY ==
--- NOTE | 2023-04-24 10:28 | MHC.OFFVIS ---
Intake Vital Signs 04/24/23 10:31 Height 5 ft 10 in Weight 171 lb 1.259 oz BMI 24.5 BP 112/62 Blood Pressure Location Lt brachial Position Sitting Pulse 78 Intake Visit Reasons: 6 month follow-up Intake Note: 6 month follow up w/ EKG Quality Control Associate Required: No Accompanied by: Self / Same As Patient Allergies No Known Allergies Allergy (Verified 10/16/22 12:33) Medication List - Last Reconciled 04/24/23 by Ulices Perez MD cholecalciferol (vitamin D3) 50 mcg PO DAILY eletriptan 40 mg PO BID PRN flecainide 50 mg PO BID lysine 1,000 mg PO DAILY metoprolol succinate ER 12.5 mg (1/2 x 25 mg) PO DAILY 90 days psyllium husk (Metamucil) 0.4 grams PO DAILY senna 600 mg PO BID HPI HPI Comments History of Present Illness Details Izabella returns for follow-up regarding palpitations. She is on a small dose of beta-blockers well as flecainide. From the cardiac standpoint, no specific complaints. Feels fine. Otherwise, no specific concerns. [facility] Medical History (Updated 04/05/23 @ 00:47 by Ree Camp MD) Sleep apnea in adult Sleep apnea Cataract (lens) fragments in eye following cataract surgery, bilateral Post-operative nausea and vomiting Bleeding disorder Osteoarthritis of right hip Hx of melanoma of skin MVP (mitral valve prolapse) Migraine Hx of hepatitis C History of Weiner's esophagus MTHFR gene mutation PVCs (premature ventricular contractions) PAC (premature atrial contraction) Surgical History (Updated 04/24/23 @ 10:33 by Autumn Barajas) H/O colonoscopy History of bunionectomy of both great toes Hx of breast augmentation History of hip replacement History of melanoma excision History of foot surgery History of tonsillectomy Family History Father Leukemia Mother SLE (systemic lupus erythematosus) Sister HTN (hypertension) Hypercholesterolemia Social History Housing: House Are you a primary insurance healthcare consultant to a significant other at home: No Do you presently have visiting nurse or other home services: No Alcohol intake: current Alcohol intake frequency: a few times a week Patient Tobacco Use Status: Never used Tobacco e-Cigarette/Vaping Use: Never Used Advance Directives Date on File: 10/15/17 service: No Current occupational status: retired Cognitive needs: No Hearing needs: No Vision needs: Yes Review of Systems Const Denies weakness ENT Denies dizziness Card Denies chest pain, Denies chest pain with activity, Denies syncope, Denies rapid heart rate, Denies pedal edema, Denies edema, Denies leg edema, Denies lightheadedness, Denies palpitations, Denies dyspnea, Denies dyspnea on exertion and Denies orthopnea Resp Denies cough, Denies dyspnea and Denies dyspnea on exertion GI Denies hematochezia and Denies change in stool character Musc Denies abnormal gait, Denies muscle cramps, Denies muscle weakness, Denies numbness, Denies radiating pain into limb and Denies tingling Neuro Denies abnormal gait, Denies dizziness, Denies syncope, Denies numbness, Denies tingling and Denies weakness Endo Denies palpitations Physical Exam Vital Signs: Last Vital Signs Pulse 78 04/24/23 10:31 BP 112/62 04/24/23 10:31 BMI result Body Mass Index 24.5 Const General: comfortable and no acute distress Orientation/consciousness: patient oriented x3 HEENT Other: Unremarkable Head: Yes normal to inspection Neck Neck: Yes normal visual inspection Chest Chest palpation & inspection: normal inspection of the chest Resp Auscultation: clear to auscultation bilaterally Cardio Palpation: normal PMI Heart sounds: S1 normal heart sound present, S2 normal heart sound present, no gallops, no murmurs and no rubs GI Palpation (GI): Soft to palpation Back/Spine/Pelvis Other: unremarkable Skin General skin exam: no rashes or lesions noted Neuro General: patient oriented x3 Extrem General: Yes normal to inspection Psych Mental Status: mental status grossly normal Office Procedures EKG Details: EKG with sinus rhythm at 78/Min; NM prolongation to 280 millisecond; premature atrial contraction; [place]. [id number], Complete Assessment & Plan Assessment & Plan (1) PAC (premature atrial contraction): Code(s): I49.1 - Atrial premature depolarization (2) PVCs (premature ventricular contractions): Code(s): I49.3 - Ventricular premature depolarization (3) First degree heart block by electrocardiogram: Code(s): I44.0 - Atrioventricular block, first degree (4) Encounter for monitoring anti-arrhythmic therapy: Code(s): Z51.81 - Encounter for therapeutic drug level monitoring; Z79.899 - Other lobsterman (current) drug therapy Plan Cardiac studies reviewed. Holter 2021 shows underlying sinus rhythm and occasional premature atrial /ventricular complexes but no other arrhythmias. Echocardiogram from 2018-difficult study mainly due to body habitus but LVEF thought to be about 50%. Coronary CTA 2018- does not show any significant coronary disease. Currently, stable on flecainide and metoprolol. May continue without changes. Follow-up in 6 months. Coding Level of Care Code Est Pt Level 4 (05556) Diagnoses PAC (premature atrial contraction) I49.1 PVCs (premature ventricular contractions) I49.3 First degree heart block by electrocardiogram I44.0 Encounter for monitoring anti-arrhythmic therapy Z51.81; Z79.899 CPT Codes EKG - CPT: 03289-[id number], Complete ([id number])
[2023-04-24 10:31] VITALS: BP 112/62; PULSE 78; BMI 24.5
== END 2023-04-24 10:52 | disposition home or self-care (01) ==
PROVIDERS: PCP Internal Medicine; Visit Provider Internal Medicine
DX: I49.1 Atrial premature depolarization (principal); I49.3 Ventricular premature depolarization; I44.0 Atrioventricular block, first degree; Z51.81 Encounter for therapeutic drug level monitoring; Z79.899 Other long term (current) drug therapy
CPT/HCPCS: 93010; 99214

== ENCOUNTER → 2023-04-24 10:25 | Outpatient (BNVA) | payer MEDICARE, OTHER, SELFPAY | PROVIDERS: PCP Internal Medicine; Visit Provider Internal Medicine | DX: I49.1 Atrial premature depolarization (principal); I49.3 Ventricular premature depolarization; I44.0 Atrioventricular block, first degree; Z51.81 Encounter for therapeutic drug level monitoring; Z79.899 Other long term (current) drug therapy | CPT/HCPCS: 93005; 99212 ==

== ENCOUNTER 2023-06-12 08:27 | Outpatient (AMB) | payer MEDICARE, OTHER, SELFPAY ==
--- NOTE | 2023-06-12 08:37 | AM.OFFVISMDC ---
Intake Vital Signs 06/12/23 08:38 Height 5 ft 10 in Weight 172 lb BMI 24.7 BP 128/76 Blood Pressure Location Lt brachial Position Sitting Pulse 64 Pulse Source Pulse Oximeter Pulse Oximetry (%) 96 Oxygen Delivery Method Room Air Intake Visit Reasons: JOSE E [id number] 05/16/22 Bill ACP on file-Health Care Pr Allergies No Known Allergies Allergy (Verified 06/12/23 08:57) Medication List - Last Reconciled 06/12/23 by Ree Camp MD cholecalciferol (vitamin D3) 50 mcg PO DAILY eletriptan 40 mg PO BID PRN flecainide 50 mg PO BID lysine 1,000 mg PO DAILY metoprolol succinate ER 12.5 mg (1/2 x 25 mg) PO DAILY 90 days psyllium husk (Metamucil) 0.4 grams PO DAILY senna 600 mg PO BID HPI YUNGV [id number] 05/16/22 Bill ACP on file-Health Care Pr HPI Details SWV ? 73-year-old lady presents today for her subsequent Annual Wellness Visit, initial visit.? She is up-to-date with her screening mammogram, has an appointment already scheduled for next month for her repeat screening. Her last bone density scan was done 09/01/2021 which showed normal findings. She no longer gets cervical cancer screenings, has had normal Paps in the past. She had a screening colonoscopy done 09/06/[address] Loredo with removal of a tubular adenoma, to get it recheck again in 1-2 years. She is up-to-date with her lipid and diabetes mellitus screening, done 02/13/2020 with normal findings. She is up-to-date with her pneumonia vaccination and Shingrix vaccine as well as Tdap, has not yet had her COVID booster but does not want to get it nor does she want to get RSV vaccine. She does have an appointment to get her flu shot at the pharmacy scheduled for this week. ? Medical / Social History Reviewed? Past Medical History ?Yes . ? [place] of Care / Care Team list updated ?Yes . ? Surgical/Hospitalization History ?Yes . ? Current Medications (including OTC and supplements) ?Yes . ? Family History ?Yes . ? Tobacco Control form ?Yes . ? AUDIT-C (Alcohol use) form ?Yes . ? Illicit drug use in Social History ?Yes . ? Current diagnosis of depression? ?No ? Appropriate PHQ2/PHQ9 completed ?Yes . ? Data entered by ?Storekeeper Helper and reviewed by provider ? Fall Risk ? Fall History? Have you had any falls with injury in the past year? ?No . ? Have you had two or more falls in the past year? ?No . ? Fall Risk Assessment: ?No falls in the past year . ? HRA filled out by the patient, reviewed by Provider and scanned. ? SWV ? Balance? Romberg ?Yes . ? Tandem walk ?Yes . ? Walk and Turn ?Yes . ? Rise from sit to stand ?Yes . ?Vision? Corrective lens ?Yes ? Vision screen ? Up-to-date, she sees Dr. Evans for her routine eye exam ?Hearing? Whisper test ?failed, does have decreased hearing, thinking of getting fitted for hearing aid in the near future ?Written Plan?Completed. See Patient Documents.? HPI Comments History of Present Illness Details She also has been complaining of difficulty with maintaining sleep, frequently would wake up every 2 hours to use the bathroom, and unable to go back to sleep. She has tried [id number] sleep aids in the past some of which gave heard opposite effect and kept her very wired. He also has tried taking Ambien, but it stopped working. She has history of obstructive sleep apnea, failed CPAP, referred [facility] [place] who initiated home sleep study to be done. Patient states that she will be contacted with results once available [facility] Medical History (Updated 06/13/23 @ 02:40 by Ree Camp MD) Insomnia Sleep apnea in adult Sleep apnea Cataract (lens) fragments in eye following cataract surgery, bilateral Post-operative nausea and vomiting Bleeding disorder Osteoarthritis of right hip Hx of melanoma of skin MVP (mitral valve prolapse) Migraine Hx of hepatitis C History of Weiner's esophagus MTHFR gene mutation PVCs (premature ventricular contractions) PAC (premature atrial contraction) Surgical History (Updated 06/12/23 @ 09:00 by Ree Camp MD) Hx of esophagogastroduodenoscopy H/O colonoscopy History of bunionectomy of both great toes Hx of breast augmentation History of hip replacement History of melanoma excision History of foot surgery History of tonsillectomy Family History Father Leukemia Mother SLE (systemic lupus erythematosus) Sister HTN (hypertension) Hypercholesterolemia Social History Housing: House Are you a primary director day care center to a significant other at home: No Do you presently have visiting nurse or other home services: No Alcohol intake: current Alcohol intake frequency: a few times a week Patient Tobacco Use Status: Never used Tobacco e-Cigarette/Vaping Use: Never Used Advance Directives Date on File: 10/15/17 service: No Current occupational status: retired Cognitive needs: No Hearing needs: No Vision needs: Yes Female Reproductive History Menstrual Date of Mammogram: 06/22/22 Date of last Bone Density Screenin09/01/21 Questionnaire Medicare Wellness Checkup [age] What gender do you identify with?: female During the past 4 weeks, how much have you been bothered by emotional problems such as feeling anxious, depressed, irritable, sad or downhearted, and blue?: slightly During the past 4 weeks, has your physical & emotional health limited your social activities with family, friends, neighbors, or groups?: not at all During the past 4 weeks, how much bodily pain have you generally had?: mild pain During the past 4 weeks, was someone available to help you if you needed & wanted help?: yes, as much as I wanted During the past 4 weeks, what was the hardest physical activity you could do for at least 2 minutes?: heavy Can you get to places out of walking distance without help? (For eg., can you travel alone on buses, taxis or drive your car?): Yes Can you go shopping for groceries or clothes without someone's help?: Yes Can you prepare your own meals?: Yes Can you do your housework without help?: Yes Because of any health problems, do you need the help of another person with your personal care needs such as eating, bathing, dressing or getting around the house?: No Can you handle your own money without help?: Yes During the past 4 weeks, how would you rate your health in general?: very good During the past 4 weeks how have things been going for you?: very well; could hardly better Are you having difficulties driving your car?: no Do you always fasten your seat belt when you are in a car?: yes, usually During past 4 weeks, have you been bothered by the following: never: Falling or dizzy when standing up, Sexual problems?, Trouble eating well?, Teeth or denture problems? and Problems using the telephone? and sometimes: Tiredness or fatigue? Have you fallen 2 or more times in the past year?: No Are you afraid of falling?: No Are you a smoker?: no During the past 4 weeks, how many drinks of wine, beer, or other alcoholic beverages did you have?: 2-5 drinks per week Do you exercise for about 20 minutes 3 or more times a week?: yes, most of the time Have you been given information to help with the following?: no: Hazards in your house that might hurt you? and no: Keeping track of your medications? How often do you have trouble taking medicines the way you have been told to take them?: I always take medicine as prescribed How confident are you that you can control & manage most of your health problems?: very confident What is your race?: White Mini Mental State Exam (MMSE) Orientation What is the (year) (season) (date) (day) (month)?: year (2022), season (Fall), date (06/12/2023), day (Sunday) and month (May) Where are we (state) (county) (town or city) (hospital) (floor)?: state ([place]), county ([place]), town or city ([place]) and hospital/clinic ([facility]) Score Score: 9 Activity of Daily Living Bathing - sponge bath, tub bath or shower: receives no assistance (gets in/out by self, if usual bathing means Dressing - getting clothes from closets & drawers, including inner/outer garments & fasteners.: gets clothes & gets completely dressed without help Toileting - going to the 'toilet room' for urine/bowel elimination & cleaning self/arranging clothes: goes to toilet room, cleans self, arranges clothes without help Transfer: moves in & out of bed and chair without help (may use support object) Continence: has occasional 'accidents' Feeding: feeds self without help Total Score: 0 Information obtained from: patient Using telephone: independent Traveling: independent Shopping: independent Preparing meals: independent Housework: independent Taking medicine: independent Managing money: independent PHQ-9 Over the last 2 weeks, how often have you been bothered by any of the following problems? 1. Little interest or pleasure in doing things: not at all 2. Feeling down, depressed, or hopeless: not at all 3. Trouble falling or staying asleep, or sleeping too much: more than half the days 4. Feeling tired or having little energy: not at all 5. Poor appetite or overeating: not at all 6. Feeling bad about yourself - or that you are a failure or have let yourself or your family down: not at all 7. Trouble concentrating on things, such as reading the newspaper or watching television: not at all 8. Moving or speaking so slowly that other people could have noticed. Or the opposite - being so fidgety or restless that you have been moving around a lot more than usual: not at all 9. Thoughts that you would be better off or of hurting yourself in some way: not at all Total score: 2 Depression Screening Interpretation: Negative Depression Screening Done: Yes 99907 - PHQ-9 Billing: Yes Source: Developed by Drs. Jamshid Martines, Charu Valdes, Christopher Lee and colleagues, with an educational gary from [employer]. Review of Systems Const All systems reviewed & are unremarkable except as noted in HPI and below Physical Exam Vital Signs: Last Vital Signs Pulse 64 06/12/23 08:38 BP 128/76 06/12/23 08:38 Pulse Ox 96 06/12/23 08:38 Oxygen Delivery Method Room Air 06/12/23 08:38 BMI result Body Mass Index 24.7 Const General: cooperative, healthy appearing, comfortable and no acute distress Nutritional Appearance: average body habitus Orientation/consciousness: patient oriented x3 Limitations: no limitations HEENT Head: Yes normocephalic Ears: hearing grossly normal bilaterally, external ears normal and TM's normal bilaterally General nose exam: Normal external nose present and Normal nasal mucous membranes and turbinates present Face and sinus: Yes face symmetric Mouth: Normal oral and palatal mucosa present, tongue normal and oropharynx normal Neck Neck: Yes full ROM, Yes no lymphadenopathy and Yes supple Resp Auscultation: clear to auscultation bilaterally Cardio Other: S1-S2 present regular rate and rhythm Neuro General: patient oriented x3, gait normal, tone normal, moves all extremities, Normal light touch and pain sensation, no focal motor deficits and CN's II-XI intact bilaterally Gait exam (Neuro): Normal gait present Motor exam (neuro): 5/5 motor strength present throughout Psych Appearance: grossly normal and well kempt Mental Status: mental status grossly normal Speech and movement: Normal speech and movement present Affect: normal affect Assessment & Plan Assessment & Plan (1) Encounter for subsequent annual wellness visit (AWV) in Medicare patient: Code(s): Z00.00 - Encounter for general adult medical examination without abnormal findings Plan: Medicare wellness checklist reviewed, discussed with patient and updated. Copy given (2) Bleeding disorder: Comment: ff'd by Dr Muñoz at [facility] Code(s): D69.9 - Hemorrhagic condition, unspecified (3) Sleep apnea in adult: Code(s): G47.30 - Sleep apnea, unspecified Plan: Has been referred to [facility] [place] study and underwent home sleep study test with results still pending (4) Migraine: Code(s): G43.909 - Migraine, unspecified, not intractable, without status migrainosus Plan: Currently on eletriptan as needed (5) MTHFR gene mutation: Code(s): Z15.89 - Genetic susceptibility to other disease (6) PVCs (premature ventricular contractions): Code(s): I49.3 - Ventricular premature depolarization Plan: Currently on flecainide 50 mg 1 tablet twice a day and metoprolol succinate ER 12.5 mg daily, followed by cardiology (7) Insomnia: Code(s): G47.00 - Insomnia, unspecified Qualifiers: Insomnia type: primary Qualified Code(s): F51.01 - Primary insomnia Plan: Will try her on eszopiclone 2 mg per tablet to take 1 tablet once at bedtime. Call if no improvement of symptoms seen Medications: New eszopiclone 2 mg PO BEDTIME 30 tabs 0RF Quality Reporting (2019) Depression/Bipolar (159/160/161/177) PHQ-9: Total score: 2 Coding Level of Care Code Medicare Subsequent (G0439) Est Pt Level 3 (29031) Diagnoses Encounter for subsequent annual wellness visit (AWV) in Medicare patient Z00.00 Bleeding disorder D69.9 Sleep apnea in adult G47.30 Migraine G43.909 MTHFR gene mutation Z15.89 PVCs (premature ventricular contractions) I49.3 Primary insomnia F51.01 Insomnia type: primary CPT Codes Advance Care Planning - Advance Care Planning discussion: On file, no changes ([id number]) Advance Care Planning - Time spent: 1-15 minutes, on File ([id number]) Advance Care Planning Advance Care Planning discussion: On file, no changes Date of discussion: 06/12/23 Who was present: Patient Forms completed: Health Care Proxy and MOLST Time spent: 1-15 minutes, on File Actual minutes spent: 15
[2023-06-12 08:38] VITALS: BP 128/76; PULSE 64; O2SAT 96; BMI 24.7
== END 2023-06-12 09:35 | disposition home or self-care (01) ==
PROVIDERS: Visit Provider Internal Medicine
DX: Z00.00 Encounter for general adult medical examination without abnormal findings (principal); D69.9 Hemorrhagic condition, unspecified; G47.30 Sleep apnea, unspecified; F51.01 Primary insomnia; G43.909 Migraine, unspecified, not intractable, without status migrainosus; Z15.89 Genetic susceptibility to other disease; I49.3 Ventricular premature depolarization
CPT/HCPCS: 1123F; 99213; G0439

== ENCOUNTER 2023-10-09 07:48 | Outpatient (REF) | payer MEDICARE, OTHER, SELFPAY ==
--- NOTE | ~2023-10-09 | US_ITS ---
EXAMINATION: US COMPLETE ABDOMEN WITH LIVER ELASTOGRAPHY CLINICAL INFORMATION: Hepatitis C. COMPARISON: None available. TECHNIQUE: Real-time imaging of the abdominal viscera. Noninvasive ultrasound liver fibrosis assessment is performed using Constanza ElastPQ point quantification shear wave elastography (2D-SWE) with a C5-2 MHz transducer. Multiple elastography samples are obtained. FINDINGS: PANCREAS: Normal. The visualized pancreatic head and body are normal in appearance. The remainder of the pancreas is obscured from visualization by the overlying bowel gas. ABDOMINAL AORTA: The proximal, middle, and distal aortic segments are normal in caliber. There are atherosclerotic calcifications. INFERIOR VENA CAVA: Visualized portions are normal. LIVER: The liver demonstrates demonstrates normal size, contour and mild increase in echogenicity. No focal lesion or intrahepatic biliary duct dilatation. The right lobe measures 14.0 cm in length. The left lobe measures 12.0 cm in length. Portal flow is towards the liver (hepatopetal). Shear wave liver elastography median stiffness is 1.44 m/s (reference: normal median stiffness is 1.3 m/s or less). IQR/median stiffness to assess sampling precision is 0.13 (reference: good quality data set is IQR/median stiffness of 0.15 or less). GALLBLADDER: Normal. The gallbladder is physiologically distended without evidence of stones, sludge, polyps, wall thickening or pericholecystic fluid. COMMON BILE DUCT: Normal in caliber measuring 0.3 cm in diameter. RIGHT KIDNEY: At the interpolar aspect, a 1.7 cm benign, simple cyst is seen, which requires no imaging follow-up. No hydronephrosis. No renal calculi or focal parenchymal lesions. The kidney measures 11.7 cm in maximum dimension. LEFT KIDNEY: Normal. No hydronephrosis. No renal calculi or focal parenchymal lesions. The kidney measures 11.8 cm in maximum dimension. SPLEEN: Normal. The spleen measures 10.7 cm in maximum dimension. FREE FLUID: None. US/US abdomen comp w elastography IMPRESSION: 1. There is mild increase in hepatic echotexture, consistent with fatty infiltration or hepatocellular disease. Please correlate clinically. No focal hepatic mass or intrahepatic biliary dilatation is seen. 2. Liver elastography: In the absence of other known clinical signs, measurements rule out compensated advanced chronic liver disease. If there are known clinical signs, further testing may be needed for confirmation. When compared with prior exam, there is a statistically significant increase in liver stiffness (increase at least 10%). REFERENCE: Society of Radiologists in Ultrasound Liver Stiffness Thresholds (2020): LIVER STIFFNESS THRESHOLDS: *Liver Stiffness equal or less than 1.3 m/s: High probability of being normal. *Liver Stiffness less than 1.7 m/s: In the absence of other known clinical signs, rules out compensated advanced chronic liver disease. *Liver Stiffness 1.7-2.1 m/s: Suggestive of compensated advanced chronic liver disease but need further test for confirmation. *Liver Stiffness over 2.1 m/s: Rules in compensated advanced chronic liver disease. *Liver Stiffness over 2.4 m/s: Suggestive of clinically significant portal hypertension. QUALITY OF DATA SET: *IQR/Median value equal or less than 0.15 implies a quality data set. *IQR/Median value over 0.15 implies a poor quality data set. SIGNIFICANT CHANGE FROM PRIOR EXAM: Significant change if liver stiffness measurement is 10% or greater from prior exam. OTHER CONSIDERATIONS: The stage of liver fibrosis may be overestimated in the setting of acute hepatitis, liver inflammation, elevated liver function tests, hepatic vascular congestion, obstructive cholestasis, non-fasting state, and infiltrative diseases such as amyloidosis and lymphoma. In some patients with NAFLD, the liver stiffness thresholds for compensated advanced chronic liver disease may be lower. In causes other than viral hepatitis and NAFLD, liver stiffness thresholds are not well established.
== END 2023-10-09 07:49 | disposition home or self-care (01) ==
LOC: HO.US 07:48
PROVIDERS: PCP Internal Medicine; Visit Provider Internal Medicine
DX: Z86.19 Personal history of other infectious and parasitic diseases (principal)
CPT/HCPCS: 76700; 76981

== ENCOUNTER 2023-11-07 10:24 | Outpatient (AMB) | payer MEDICARE, OTHER, SELFPAY ==
--- NOTE | 2023-11-07 10:27 | MHC.OFFVIS ---
Vital Signs 11/07/23 10:28 Height 5 ft 10 in Weight 169 lb 12.095 oz BMI 24.4 BP 110/72 Blood Pressure Location Lt brachial Position Sitting Pulse 91 Intake Visit Reasons: 6 month f/u Intake Note: 6 month follow-up feeling ok Audit Senior Associate Required: No Allergies No Known Allergies Allergy (Verified 06/12/23 08:57) Medication List - Last Reconciled 11/07/23 by Ulices Perez MD cholecalciferol (vitamin D3) 50 mcg PO DAILY eletriptan 40 mg PO BID PRN eszopiclone 2 mg PO BEDTIME flecainide 50 mg PO BID lysine 1,000 mg PO DAILY metoprolol succinate ER 12.5 mg (1/2 x 25 mg) PO DAILY 90 days psyllium husk (Metamucil) 0.4 grams PO DAILY senna 600 mg PO BID HPI Comments Details: Izabella returns for follow-up regarding palpitations. She is on a small dose of beta-blockers well as flecainide. She still feels some palpitations off and on but not too much. For the most part, she is doing good. [facility] Medical History (Updated 08/27/23 @ 13:09 by Ree Camp MD) Moderate obstructive sleep apnea Insomnia Sleep apnea in adult Sleep apnea Cataract (lens) fragments in eye following cataract surgery, bilateral Post-operative nausea and vomiting Bleeding disorder Osteoarthritis of right hip Hx of melanoma of skin MVP (mitral valve prolapse) Migraine Hx of hepatitis C History of Weiner's esophagus MTHFR gene mutation PVCs (premature ventricular contractions) PAC (premature atrial contraction) Surgical History (Updated 06/12/23 @ 09:00 by Ree Camp MD) Hx of esophagogastroduodenoscopy H/O colonoscopy History of bunionectomy of both great toes Hx of breast augmentation History of hip replacement History of melanoma excision History of foot surgery History of tonsillectomy Family History Father Leukemia Mother SLE (systemic lupus erythematosus) Sister HTN (hypertension) Hypercholesterolemia Social History Housing: House Are you a primary acute care surgeon to a significant other at home: No Do you presently have visiting nurse or other home services: No Alcohol intake: current Alcohol intake frequency: a few times a week Patient Tobacco Use Status: Never used Tobacco e-Cigarette/Vaping Use: Never Used Advance Directives Date on File: 10/15/17 service: No Current occupational status: retired Cognitive needs: No Hearing needs: No Vision needs: Yes Review of Systems Const Denies chills, Denies fatigue, Denies fever(s), Denies frequent falls, Denies weakness, Denies weight gain and Denies weight loss ENT Denies dizziness Card Denies chest pain, Denies leg edema, Denies lightheadedness, Denies palpitations, Denies dyspnea, Denies dyspnea on exertion, Denies orthopnea and Denies other (loss of consciousness) Resp Denies cough, Denies dyspnea and Denies dyspnea on exertion GI Denies hematochezia and Denies change in stool character Musc Denies abnormal gait, Denies muscle weakness, Denies numbness, Denies radiating pain into limb and Denies tingling Neuro Denies abnormal gait, Denies dizziness, Denies frequent falls, Denies numbness, Denies tingling and Denies weakness Endo Denies fatigue and Denies palpitations Physical Exam Vital Signs: Last Vital Signs Pulse 91 11/07/23 10:28 BP 110/72 11/07/23 10:28 BMI result Body Mass Index 24.4 Const General: comfortable and no acute distress Orientation/consciousness: patient oriented x3 HEENT Other: Unremarkable Head: Yes normal to inspection Neck Neck: Yes normal visual inspection Chest Chest palpation & inspection: normal inspection of the chest Resp Auscultation: clear to auscultation bilaterally Cardio Palpation: normal PMI Heart sounds: S1 normal heart sound present, S2 normal heart sound present, no gallops, no murmurs and no rubs GI Palpation (GI): Soft to palpation Back/Spine/Pelvis Other: unremarkable Skin General skin exam: no rashes or lesions noted Neuro General: patient oriented x3 Extrem General: Yes normal to inspection Psych Mental Status: mental status grossly normal Office Procedures EKG Details: EKG with sinus rhythm at 91/Min; incomplete right bundle-branch block; can not exclude old septal infarct but could be from body habitus; borderline DC prolongation to 204 milliseconds; [place]. [id number], Complete Assessment & Plan Assessment & Plan (1) PAC (premature atrial contraction): Code(s): I49.1 - Atrial premature depolarization Category: Medical (2) PVCs (premature ventricular contractions): Code(s): I49.3 - Ventricular premature depolarization Category: Medical (3) First degree heart block by electrocardiogram: Code(s): I44.0 - Atrioventricular block, first degree Category: Medical (4) Encounter for monitoring anti-arrhythmic therapy: Code(s): Z51.81 - Encounter for therapeutic drug level monitoring; Z79.899 - Other joint terminal attack controller (current) drug therapy Category: Medical Plan Cardiac studies reviewed. Holter 2021 shows underlying sinus rhythm and occasional premature atrial /ventricular complexes but no other arrhythmias. Echocardiogram from 2018-difficult study mainly due to body habitus but LVEF thought to be about 50%. Coronary CTA 2018- does not show any significant coronary disease. Overall, generally stable but does get breakthrough palpitations off and on. She is asking about taking extra flecainide and okay to go up and take an extra 50 mg as needed. However, if she consistently goes to 100 mg b.i.d. dose, will need to come back for another EKG to ensure there is no conduction system disease. She is aware of that. We will repeat her cardiac studies before next appointment. She also has longstanding obstructive sleep apnea and that contributes to arrhythmias and she is aware of that. Orders: Orders CA echo transthoracic complete 6 Months I49.1 - Atrial premature depolarization ECG 3 day holter monitor 6 Months I49.1 - Atrial premature depolarization Coding Level of Care Code Est Pt Level 4 (56980) Diagnoses PAC (premature atrial contraction) I49.1 PVCs (premature ventricular contractions) I49.3 First degree heart block by electrocardiogram I44.0 Encounter for monitoring anti-arrhythmic therapy Z51.81; Z79.899 CPT Codes EKG - CPT: [id number], Complete ([id number])
[2023-11-07 10:28] VITALS: BP 110/72; PULSE 91; BMI 24.4
== END 2023-11-07 10:52 | disposition home or self-care (01) ==
PROVIDERS: PCP Internal Medicine; Visit Provider Internal Medicine
DX: I49.1 Atrial premature depolarization (principal); I49.3 Ventricular premature depolarization; I44.0 Atrioventricular block, first degree; Z51.81 Encounter for therapeutic drug level monitoring; Z79.899 Other long term (current) drug therapy
CPT/HCPCS: 93010; 99214

== ENCOUNTER → 2023-11-07 10:24 | Outpatient (BNVA) | payer MEDICARE, OTHER, SELFPAY | PROVIDERS: PCP Internal Medicine; Visit Provider Internal Medicine | DX: I49.1 Atrial premature depolarization (principal); I49.3 Ventricular premature depolarization; I44.0 Atrioventricular block, first degree; Z51.81 Encounter for therapeutic drug level monitoring; Z79.899 Other long term (current) drug therapy | CPT/HCPCS: 93005; 99212 ==

== ENCOUNTER 2023-11-15 07:48 | Outpatient (REF) | payer MEDICARE, OTHER, SELFPAY ==
[2023-11-15 08:24] LABS: Basophils Absolute Auto 0.1 X10*3/uL (0.0-0.2); Eosinophils Absolute Auto 0.3 X10*3/uL (0.0-0.4); Eosinophils Percent Auto 5.8 % (0-4); Hematocrit 41.3 % (37.0-47.0); Hemoglobin 13.2 g/dl (12.0-16.0); INTERNATIONAL NORM RATIO 0.9 (0.9-1.1); Imm Gran Abs Auto 0.02 X10*3/uL (0.00-0.03); Imm Gran Pct Auto 0.4 % (0.0-0.4); Lymphocytes Absolute Auto 1.5 X10*3/uL (1.2-4.9); Lymphocytes Percent Auto 29.2 % (20-40); MANUAL DIFF FLAG SCAN; Mean Corpuscular Hemoglobin 30.3 pg (27.0-33.0); Mean Corpuscular Volume 94.7 fL (80.0-98.0); Monocytes Absolute Auto 0.6 X10*3/uL (0.1-1.2); Monocytes Percent Auto 11.2 % (2-11); Neutrophils Absolute Auto 2.7 x10*3/uL (2.0-8.3); Neutrophils Percent Auto 52.4 % (45-73); PLT CLUMP 1; Prothrombin Time 11.1 SEC (11.1-13.3); Red Blood Count 4.36 X10*6/uL (4.20-5.50); Red Cell Distribution Width 13.5 % (11.0-16.0); SCAN SMEAR FLAG 1
[2023-11-15 08:52] LABS: Alanine Aminotransferase 9 U/L (0-31); Albumin Level 4.3 g/dL (3.5-5.0); Alkaline Phosphatase 69 U/L (39-117); Aspartate Amino Transferase 16 U/L (5-31); Bilirubin Direct 0.2 mg/dL (0.0-0.5); Bilirubin Total 0.6 mg/dL (0.0-1.0); Total Protein 7.6 g/dL (6.5-8.0)
[2023-11-15 09:38] LABS: White Blood Count 5.2 X10*3/uL (4.8-10.8)
[2023-11-15 09:47] LABS: SLIDE REVIEW VERIFIED
[2023-11-16 13:43] LABS: Alpha Fetoprotein 5.1 ng/mL
[2023-11-26 15:44] LABS: FIB-ALT 7 U/L (6-29); FIB-Alpha-2-Macroglobulin 193 mg/dL (106-279); FIB-Apolipoprotein A1 222 mg/dL (101-198); FIB-GGT 11 U/L (3-65); FIB-Haptoglobin 123 mg/dL (43-212); FIB-Total Bilirubin 0.6 mg/dL (0.2-1.2); Liver Fibrosis Score 0.11; Liver Fibrosis Stage F0; Nec Inflam Act Grade A0; Nec Inflam Act Score 0.01
== END 2023-11-15 07:49 | disposition home or self-care (01) ==
LOC: HO.LAB 07:48
PROVIDERS: PCP Internal Medicine; Visit Provider Internal Medicine
DX: Z86.19 Personal history of other infectious and parasitic diseases (principal)
CPT/HCPCS: 36415; 80076; 81596; 82105; 85025; 85610

== ENCOUNTER → 2024-04-03 08:25 | Outpatient (BNVA) | payer MEDICARE, OTHER, SELFPAY | PROVIDERS: PCP Internal Medicine; Visit Provider Internal Medicine ==

== ENCOUNTER → 2024-04-10 08:53 | Outpatient (REF) | payer MEDICARE, OTHER, SELFPAY ==
--- NOTE | 2024-04-10 08:55 | HM_ITS ---
* Total monitoring time 14 days. * Underlying rhythm is sinus with an average rate of 78/Min. * Frequent supraventricular ectopy with a burden of 16%. Brief runs noted. * Atrial fibrillation with rapid rate noted; longest episode 1hr 3min. Max rate 132/min. Overall burden 0.3%. * Ventricular ectopy noted with a burden of about 1%. Rare couplets, triplets, bigeminy, trigeminy. 3 very brief runs, longest 3 beats. * No significant pauses or AV blocks. * Patient marker used 3 times in association with sinus rhythm, supraventricular ectopy and ventricular ectopy. * Irregular heartbeat, lightheadedness in patient diary associated with sinus rhythm with supraventricular/ventricular ectopy. MTDD
--- NOTE | 2024-04-10 08:55 | CA_ITS ---
Transthoracic Echocardiogram Patient (Last, First, Middle): Izabella Beverly E Gender: Female Date of : 1950 Age: 73 Procedure Date: 04/10/2024 Procedure Type: Transthoracic Echocardiogram Location: OP Height: 177.8 cm Weight: 75.3 kg BSA: 1.93 m2 Heart Rate: bpm BP: 112 / 70 mmHg Glass Mould Cleaner: LEONIE Referring MD: Ulices Perez MD Symptoms: I49.1 - Atrial premature depolarization Study Quality: Technically Difficult ECG Rhythm: Sinus with PACs Conclusions: - The left ventricular systolic function is low normal. The visually estimated ejection fraction is between 50-55%. - No obvious valvular pathology seen on this study. Findings Procedure Information The quality of the study was technically difficult. The study quality is limited by patients body habitus. Left Ventricle Normal left ventricular cavity size. There is normal left ventricular wall thickness. The left ventricular systolic function is low normal. The visually estimated ejection fraction is between 50-55%. There is no evidence of regional wall motion abnormalities. Evidence suggests grade I (mild) diastolic dysfunction. Right Ventricle Normal right ventricular cavity size. There is low normal right ventricular systolic function. Atria The left atrium is mildly dilated. The right atrium is normal in size. Aortic Valve The aortic valve was not well visualized. There is no aortic valve stenosis. There is no aortic valve regurgitation. Mitral Valve The mitral valve appears normal. There is no mitral valve regurgitation. There is no mitral valve stenosis. Pulmonic Valve The pulmonic valve is likely normal. Tricuspid Valve There is trace tricuspid valve regurgitation. There is no evidence of pulmonary hypertension. Great Vessels The sinuses of valsalva and asc aorta are normal in size. Venous The inferior vena cava is mildly dilated and collapses greater than 50% with inspiration. Pericardium/Pleural There is no evidence of pericardial effusion. Prior Study Comparison No significant change compared to prior study dated: 07/03/2018. Recommendations, Care & Conclusions No obvious valvular pathology seen on this study. Measurements 2D Linear Measurements IVSd: 1.01 0.6-0.9/0.6-1.0 cm LVIDd: 4.19 3.9-5.3/4.2-5.9 cm LVIDd Index: 2.17 2.4-3.2/2.2-3.1 cm/m2 LVIDs: 2.98 2.0-3.6 cm LVPWd: 1.21 0.7-1.1 cm LA Diam: 3.20 2.7-3.8/3.0-4.0 cm LAIDs Index: 1.66 1.5-2.3 cm/m2 LV Mass: 197.41 67-162/88-224 g LV Mass Index: 102.28 43-95/49-115 g/m2 LVOT Diam: 2.10 3.0+(-)1.3 cm 2D Systolic Function EF 4C: 65.90 >55% EF 2C: 56.30 >55% EF BiP: 59.00 >55% Mitral Valve MV Pk E: 0.42 MV PK A: 0.74 MV Decel Time: 289.00 E/A: 0.60 E'Lateral: 5.16 E'Medial: 3.48 E/E' Med: 12.20 E/E' Lat: 8.20 PHT: 85.00 MVA PHT: 2.59 Decel Henry: 1.52 Aortic Valve AoV Pk Prabhakar: 1.11 AoV Mn Prabhakar: 0.73 AoV VTI: 0.25 AoV Pk Grad: 5.00 Aov Mn Grad: 3.00 BRITNEY Cont.VTI: 2.49 LVOT LVOT Pk Prabhakar: 0.69 LVOT Mn Prabhakar: 0.45 LVOT VTI: 0.18 LVOT Pk Grad: 2.00 LVOT Mn Grad: 1.00 LVOT Diam: 2.10 LVOT Area: 3.46 Diastolic Function MV Pk E: 0.42 MV Pk A: 0.74 E/A: 0.60 E'Medial: 3.48 E/E' Med: 12.20 E' Laterial: 5.16 E/E' Lat: 8.20 Right Ventricle TAPSE (mm): 18.90 TVS' Prabhakar: 9.89 Tricuspid Valve TR Pk Prabhakar: 1.81 TR Pk Grad: 13.00 RA Press: 8.00 RVSP: 21.00 Great Vessels Aorta Sinus of Valsalva: 3.15 2.0-3.5 cm Ao Asc: 3.30 2.1-3.4 cm Updated in Other Vendor System with Status of Final Ulices Perez MD electronically signed on 04/12/2024 9:54:54 AM with status of Final
== END ==
LOC: HO.CARD 08:53
PROVIDERS: PCP Internal Medicine; Visit Provider Internal Medicine
DX: I49.1 Atrial premature depolarization (principal); R00.2 Palpitations
CPT/HCPCS: 93246; 93306

== ENCOUNTER → 2024-04-10 08:55 | Outpatient (BNV) | payer MEDICARE, OTHER, SELFPAY | PROVIDERS: PCP Internal Medicine; Visit Provider Internal Medicine | DX: I47.10 Supraventricular tachycardia, unspecified (principal); I48.91 Unspecified atrial fibrillation | CPT/HCPCS: 93248; 93306 ==

== ENCOUNTER 2024-05-14 12:45 | Outpatient (AMB) | payer MEDICARE, OTHER, SELFPAY ==
[2024-05-14 12:50] VITALS: BP 100/64; PULSE 85; BMI 24.5
--- NOTE | 2024-05-14 12:50 | MHC.OFFVIS ---
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 100 mg in the PM; lysine 1,000 mg PO DAILY metoprolol succinate ER 12.5 mg (1/2 x 25 mg) PO DAILY 90 days multivitamin 1 tab PO DAILY psyllium husk (Metamucil) 0.4 grams PO DAILY senna 600 mg PO BID HPI Comments Details: Izabella returns for follow-up regarding palpitations. She is on a small dose of beta-blockers well as flecainide. She still feels palpitations off and on. Some days she feels okay but other days she can feel a lot. No other symptoms like angina. [facility] Medical History (Updated 05/14/24 @ 14:05 by Ulices Perez MD) Moderate obstructive sleep apnea Insomnia Sleep apnea in adult Sleep apnea Cataract (lens) fragments in eye following cataract surgery, bilateral Post-operative nausea and vomiting Bleeding disorder Osteoarthritis of right hip Hx of melanoma of skin MVP (mitral valve prolapse) Migraine Hx of hepatitis C History of Weiner's esophagus MTHFR gene mutation PVCs (premature ventricular contractions) PAC (premature atrial contraction) Surgical History Hx of esophagogastroduodenoscopy H/O colonoscopy History of bunionectomy of both great toes Hx of breast augmentation History of hip replacement History of melanoma excision History of foot surgery History of tonsillectomy Family History Father Leukemia Mother SLE (systemic lupus erythematosus) Sister HTN (hypertension) Hypercholesterolemia Social History Housing: House Are you a primary healthcare administrator to a significant other at home: No Do you presently have visiting nurse or other home services: No Alcohol intake: current Alcohol intake frequency: a few times a week Patient Tobacco Use Status: Never used Tobacco e-Cigarette/Vaping Use: Never Used Advance Directives Date on File: 10/15/17 service: No Current occupational status: retired Cognitive needs: No Hearing needs: No Vision needs: Yes Review of Systems Const Denies chills, Denies fatigue, Denies fever(s), Denies weight gain and Denies weight loss ENT Denies dizziness Card Denies chest pain, Denies leg edema, Denies lightheadedness, Denies palpitations, Denies dyspnea on exertion, Denies orthopnea and Denies other Resp Denies cough and Denies dyspnea on exertion GI Denies hematochezia and Denies change in stool character Musc Denies abnormal gait, Denies muscle weakness, Denies numbness, Denies radiating pain into limb and Denies tingling Neuro Denies abnormal gait, Denies dizziness, Denies numbness and Denies tingling Endo Denies fatigue and Denies palpitations Physical Exam Vital Signs: Last Vital Signs Pulse 85 05/14/24 12:50 BP 100/64 05/14/24 12:50 BMI result Body Mass Index 24.5 Const General: comfortable and no acute distress Orientation/consciousness: patient oriented x3 HEENT Other: Unremarkable Head: Yes normal to inspection Neck Neck: Yes normal visual inspection Chest Chest palpation & inspection: normal inspection of the chest Resp Auscultation: clear to auscultation bilaterally Cardio Palpation: normal PMI Heart sounds: S1 normal heart sound present, S2 normal heart sound present, no gallops, no murmurs and no rubs GI Palpation (GI): Soft to palpation Back/Spine/Pelvis Other: unremarkable Skin General skin exam: no rashes or lesions noted Neuro General: patient oriented x3 Extrem General: Yes normal to inspection Psych Mental Status: mental status grossly normal Office Procedures EKG Details: EKG shows underlying sinus rhythm at 85/Min; mild MD prolongation 238 milliseconds; incomplete right bundle-branch block pattern; can not exclude old septal infarct but could be from body habitus; corrected QT likely within normal limits but difficult to calculate as there is frequent ectopy. [id number], Complete Assessment & Plan Assessment & Plan (1) PAC (premature atrial contraction): Code(s): I49.1 - Atrial premature depolarization Category: Medical (2) PAF (paroxysmal atrial fibrillation): Code(s): I48.0 - Paroxysmal atrial fibrillation Category: Medical (3) PVCs (premature ventricular contractions): Code(s): I49.3 - Ventricular premature depolarization Category: Medical (4) First degree heart block by electrocardiogram: Code(s): I44.0 - Atrioventricular block, first degree Category: Medical (5) Encounter for monitoring anti-arrhythmic therapy: Code(s): Z51.81 - Encounter for therapeutic drug level monitoring; 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 In the Holter, underlying rhythm is sinus with frequent supraventricular ectopy and a burden of 16%. Brief episode of atrial fibrillation with rapid rate lasting for about an hour. Occasional ventricular ectopy. In the echocardiogram, LVEF is 50-55%. Coronary CTA 2018- does not show any significant coronary disease. As she still has very frequent supraventricular ectopy in spite of flecainide, we can stop it and try a different agent. We discussed options including Multaq and Amiodarone and we decided that we will try Multaq if the insurance approves. We will get an EKG few days after the switch. She will stop the flecainide for about a week or so for washout before starting Multaq. With regard to the atrial fibrillation episode, very brief and lasting just about an hour. We discussed about anticoagulation but apparently she has some bleeding tendency that she has had for decades but unknown etiology. She did see Hematology at [facility]. Hence we may have an issue with anticoagulation due to elevated bleeding risk. If she indeed has increasing atrial fibrillation burden, we will need to address this issue. For now, we will hold anticoagulation. She agrees with this plan. She also has longstanding obstructive sleep apnea and that contributes to arrhythmias and she is aware of that. Discussed with significant other. Patient to return for EKG few days after starting Multaq. Otherwise follow-up in 3 months. Medications: New dronedarone (Multaq) must administer with a meal/food 400 mg PO BID 180 tabs 1RF 90 days Discontinued flecainide Discontinued Reason: Doctor's Order 50 mg in the AM. 100 mg in the PM; 270 tabs 3RF I49.1 - Atrial premature depolarization Coding Level of Care Code Est Pt Level 4 (03667) Diagnoses PAC (premature atrial contraction) I49.1 PAF (paroxysmal atrial fibrillation) I48.0 PVCs (premature ventricular contractions) I49.3 First degree heart block by electrocardiogram I44.0 Encounter for monitoring anti-arrhythmic therapy Z51.81; Z79.899 CPT Codes EKG - CPT: 21545-[id number], Complete ([id number])
== END 2024-05-14 13:29 | disposition home or self-care (01) ==
LOC: HO.HCS 12:45
PROVIDERS: PCP Internal Medicine; Visit Provider Internal Medicine
DX: I49.1 Atrial premature depolarization (principal); I48.0 Paroxysmal atrial fibrillation; I49.3 Ventricular premature depolarization; I44.0 Atrioventricular block, first degree; Z51.81 Encounter for therapeutic drug level monitoring; Z79.899 Other long term (current) drug therapy
CPT/HCPCS: 93010; 99214

== ENCOUNTER → 2024-05-14 12:45 | Outpatient (BNVA) | payer MEDICARE, OTHER, SELFPAY | PROVIDERS: PCP Internal Medicine; Visit Provider Internal Medicine | DX: I49.1 Atrial premature depolarization (principal); R00.2 Palpitations; I48.0 Paroxysmal atrial fibrillation; I49.3 Ventricular premature depolarization; I44.0 Atrioventricular block, first degree; Z51.81 Encounter for therapeutic drug level monitoring; Z79.899 Other long term (current) drug therapy | CPT/HCPCS: 93005; 99212 ==

== ENCOUNTER 2024-06-17 13:23 | Outpatient (AMB) | payer MEDICARE, OTHER, SELFPAY ==
[2024-06-17 13:39] VITALS: BP 108/60; PULSE 91; O2SAT 96; BMI 24.5
--- NOTE | 2024-06-17 13:39 | A.OFFVIS_ITS ---
Intake Vital Signs 06/17/24 13:39 06/17/24 13:44 Height 5 ft 10 in Weight 171 lb BMI 24.5 24.5 BP 108/60 Blood Pressure Location Lt brachial Position Sitting Pulse 91 Pulse Source Pulse Oximeter Pulse Oximetry (%) 96 Oxygen Delivery Method Room Air Intake Visit Reasons: SWV [id number] Intake Note: Pt is here today for her SWV Allergies No Known Allergies Allergy (Verified 06/17/24 13:41) HPI SWV G0439 HPI Details [facility] Medical History (Updated 06/17/24 @ 14:34 by Ree Camp MD) Hx of fracture of rib Osteoarthritis of fingers of hands, bilateral Moderate obstructive sleep apnea Insomnia Sleep apnea in adult Sleep apnea Cataract (lens) fragments in eye following cataract surgery, bilateral Post-operative nausea and vomiting Bleeding disorder Osteoarthritis of right hip Hx of melanoma of skin MVP (mitral valve prolapse) Migraine Hx of hepatitis C History of Weiner's esophagus MTHFR gene mutation PVCs (premature ventricular contractions) PAC (premature atrial contraction) Surgical History Hx of esophagogastroduodenoscopy H/O colonoscopy History of bunionectomy of both great toes Hx of breast augmentation History of hip replacement History of melanoma excision History of foot surgery History of tonsillectomy Family History Father Leukemia Mother SLE (systemic lupus erythematosus) Sister HTN (hypertension) Hypercholesterolemia Social History Housing: House Are you a primary date night caregiver to a significant other at home: No Do you presently have visiting nurse or other home services: No Alcohol intake: current Alcohol intake frequency: a few times a week Patient Tobacco Use Status: Never used Tobacco e-Cigarette/Vaping Use: Never Used Advance Directives Date on File: 10/15/17 service: No Current occupational status: retired Cognitive needs: No Hearing needs: No Vision needs: Yes Questionnaire Medicare Wellness Checkup [age] What gender do you identify with?: female During the past 4 weeks, how much have you been bothered by emotional problems such as feeling anxious, depressed, irritable, sad or downhearted, and blue?: slightly During the past 4 weeks, has your physical & emotional health limited your social activities with family, friends, neighbors, or groups?: not at all During the past 4 weeks, how much bodily pain have you generally had?: mild pain During the past 4 weeks, was someone available to help you if you needed & wanted help?: yes, as much as I wanted During the past 4 weeks, what was the hardest physical activity you could do for at least 2 minutes?: very heavy Can you get to places out of walking distance without help? (For eg., can you travel alone on buses, taxis or drive your car?): Yes Can you go shopping for groceries or clothes without someone's help?: Yes Can you prepare your own meals?: Yes Can you do your housework without help?: Yes Because of any health problems, do you need the help of another person with your personal care needs such as eating, bathing, dressing or getting around the house?: No Can you handle your own money without help?: Yes During the past 4 weeks, how would you rate your health in general?: very good During the past 4 weeks how have things been going for you?: pretty well Are you having difficulties driving your car?: no Do you always fasten your seat belt when you are in a car?: yes, usually During past 4 weeks, have you been bothered by the following: never: Falling or dizzy when standing up, Sexual problems?, Trouble eating well?, Teeth or denture problems? and Problems using the telephone? and sometimes: Tiredness or fatigue? Have you fallen 2 or more times in the past year?: No Are you afraid of falling?: No During the past 4 weeks, how many drinks of wine, beer, or other alcoholic beverages did you have?: 2-5 drinks per week Do you exercise for about 20 minutes 3 or more times a week?: yes, all the time Have you been given information to help with the following?: no: Hazards in your house that might hurt you? and no: Keeping track of your medications? How often do you have trouble taking medicines the way you have been told to take them?: I always take medicine as prescribed How confident are you that you can control & manage most of your health problems?: very confident What is your race?: White PHQ-9 Over the last 2 weeks, how often have you been bothered by any of the following problems? 1. Little interest or pleasure in doing things: not at all 2. Feeling down, depressed, or hopeless: not at all 3. Trouble falling or staying asleep, or sleeping too much: several days 4. Feeling tired or having little energy: not at all 5. Poor appetite or overeating: not at all 6. Feeling bad about yourself - or that you are a failure or have let yourself or your family down: not at all 7. Trouble concentrating on things, such as reading the newspaper or watching television: not at all 8. Moving or speaking so slowly that other people could have noticed. Or the opposite - being so fidgety or restless that you have been moving around a lot more than usual: not at all 9. Thoughts that you would be better off or of hurting yourself in some way: not at all Total score: 1 Source: Developed by Drs. Jamshid Martines, Charu Valdes, Christopher Lee and colleagues, with an educational gary from [employer]. Physical Exam Vital Signs: Last Vital Signs Pulse 91 06/17/24 13:39 BP 108/60 06/17/24 13:39 Pulse Ox 96 06/17/24 13:39 Oxygen Delivery Method Room Air 06/17/24 13:39 BMI result Body Mass Index 24.5 Assessment & Plan Assessment & Plan (1) Postmenopausal status: Code(s): Z78.0 - Asymptomatic menopausal state (2) Nocturia more than twice per night: Code(s): R35.1 - Nocturia (3) Annual visit for general adult medical examination with abnormal findings: Code(s): Z00. - Encounter for general adult medical examination with abnormal findings Orders: Orders Lipid Panel Today Z00.01 - Encounter for general adult medical examination with abnormal findings XR DEXA axial skeleton Today Z78.0 - Asymptomatic menopausal state, Z87.81 - Personal history of (healed) traumatic fracture Vitamin D 25-OH Total Today Z00. - Encounter for general adult medical examination with abnormal findings Referrals Urology Referral R35.1 - Nocturia, Z00. - Encounter for general adult medical examination with abnormal findings Quality Reporting (2019) Depression/Bipolar (159/160/161/177) PHQ-9: Total score: 1 Coding Diagnoses Postmenopausal status Z78.0 Nocturia more than twice per night R35.1 Annual visit for general adult medical examination with abnormal findings Z00.01
--- NOTE | 2024-06-17 14:40 | A.OFFPC_ITS ---
Vital Signs 06/17/24 13:39 Height 5 ft 10 in Weight 171 lb BMI 24.5 BP 108/60 Blood Pressure Location Lt brachial Position Sitting Pulse 91 Pulse Source Pulse Oximeter Pulse Oximetry (%) 96 Oxygen Delivery Method Room Air Intake Visit Reasons: PE/secondary pays Intake Note: Pt is here for her PE Allergies No Known Allergies Allergy (Verified 06/17/24 15:50) Medication List - Last Reconciled 06/17/24 by Ree Camp MD dronedarone (Multaq) 400 mg PO BID 90 days eletriptan 40 mg PO BID PRN eszopiclone 2 mg PO BEDTIME PRN lysine 1,000 mg PO DAILY metoprolol succinate ER 12.5 mg (1/2 x 25 mg) PO DAILY 90 days multivitamin 1 tab PO DAILY psyllium husk (Metamucil) 0.4 grams PO DAILY senna 600 mg PO BID Tobacco use date assessed: 03/22/22 HPI PE/secondary pays HPI Details The patient is a 74-year-old female presenting for a comprehensive physical examination. She has a history of hyperlipidemia, noted with a history of elevated cholesterol first documented in 2019. There is a noted history of Hepatitis C, diagnosed in 1997 and treated successfully. She also describes long-standing osteoarthritis with symptoms exacerbated in cold weather, particularly affecting her finger joints. She reports receiving recent finger joint injections and struggles with difficult movements due to joint stiffness. The patient's medical history includes sleep apnea, for which a recent sleep study was conducted Has hx of PVC's First degree AV block, and a brief a history of atrial fibrillation lasting about one hour and occasional ectopic beats. There are no reported incidences of fainting. Management with Multaq has shown improvement. Anticoagulation discussed by her instructional services specialist, but apparently she has some bleeding tendency that she has had for decades but unknown etiology. She did see Hematology at [facility]. Hence, she may have an issue with anticoagulation due to elevated bleeding risk. If she indeed has increasing atrial fibrillation burden, they will need to address this issue. For now, they are holding off on anticoagulation. The patient experiences hearing loss and recently obtained hearing aids. Despite this, she still finds it difficult to discern speech clearly in noisy environments Takes prophylactic Lysine for cold sores. . Medical visits include regular check-ups with a kiosk sales representative for her Ostearthritis. She has been having nocturia, getting up frequently during the night, with ongoing inquiry regarding a urology referral. Lifestyle and social habits include limited alcohol consumption with routine exercise. - Recent vaccinations include flu; decli fredis COVID booster with past infection experiences. - Pneumonia vaccination with Prevnar 20 completed. - Shingles vaccination confirmed. - Tetanus vaccination in 2017. - Mammograms up to date, next due Decemb er 16th. - Bone density scan recommended, last re corded in 2021. - Regular lipid and glycemic checks emph asized. - Previous colonoscopy in 2022 - Engaged in stress-reducing activities and discussion about vitamin D and supplements. [facility] Medical History Hx of fracture of rib Osteoarthritis of fingers of hands, bilateral Moderate obstructive sleep apnea Insomnia Sleep apnea in adult Sleep apnea Cataract (lens) fragments in eye following cataract surgery, bilateral Post-operative nausea and vomiting Bleeding disorder Osteoarthritis of right hip Hx of melanoma of skin MVP (mitral valve prolapse) Migraine Hx of hepatitis C History of Weiner's esophagus MTHFR gene mutation PVCs (premature ventricular contractions) PAC (premature atrial contraction) Surgical History Hx of esophagogastroduodenoscopy H/O colonoscopy History of bunionectomy of both great toes Hx of breast augmentation History of hip replacement History of melanoma excision History of foot surgery History of tonsillectomy Family History Father Leukemia Mother SLE (systemic lupus erythematosus) Sister HTN (hypertension) Hypercholesterolemia Social History Housing: House Are you a primary primary care nurse practitioner to a significant other at home: No Do you presently have visiting nurse or other home services: No Alcohol intake: current Alcohol intake frequency: a few times a week Patient Tobacco Use Status: Never used Tobacco e-Cigarette/Vaping Use: Never Used Advance Directives Date on File: 10/15/17 service: No Current occupational status: retired Cognitive needs: No Hearing needs: No Vision needs: Yes Female Reproductive History Menstrual Menopause type: natural Date of Mammogram: 06/25/23 Date of last Bone Density Screenin09/01/21 Questionnaire PHQ-9 Over the last 2 weeks, how often have you been bothered by any of the following problems? 1. Little interest or pleasure in doing things: not at all 2. Feeling down, depressed, or hopeless: not at all 3. Trouble falling or staying asleep, or sleeping too much: several days 4. Feeling tired or having little energy: not at all 5. Poor appetite or overeating: not at all 6. Feeling bad about yourself - or that you are a failure or have let yourself or your family down: not at all 7. Trouble concentrating on things, such as reading the newspaper or watching television: not at all 8. Moving or speaking so slowly that other people could have noticed. Or the opposite - being so fidgety or restless that you have been moving around a lot more than usual: not at all 9. Thoughts that you would be better off or of hurting yourself in some way: not at all Total score: 1 Depression Screening Interpretation: Negative Depression Screening Done: Yes 16668 - PHQ-9 Billing: Yes Source: Developed by Drs. Jamshid Martines, Charu Valdes, Christopher Lee and colleagues, with an educational gary from [employer]. AUDIT C Alcohol Use Questionnaire (AUDIT-C) 1. How often do you have a drink containing alcohol?: Monthly or less 2. How many drinks containing alcohol do you have on a typical day when you are drinking?: 1 or 2 3. How often do you have six or more drinks on one occasion?: Never Total Score: 1 SREE-7 AMB Questionnaire SREE-7 Date SREE - 7 assessed: 06/17/24 Feeling nervous, anxious, or on edge: 0 = Not at all Not being able to stop or control worryin = Not at all Worrying too much about different things: 0 = Not at all Trouble relaxin = Not at all Being so restless that it is hard to sit still: 0 = Not at all Becoming easily annoyed or irritable: 0 = Not at all Feeling afraid as if something awful might happen: 0 = Not at all Total SREE-7 score (0-4 normal; 5-9 mild; 10-14 moderate; 15-21 severe): 0 Source: Developed by Kulwnider Sheehanet B.W. Lucio, Christopher Lee and colleagues, with an educational gary from [employer]. SREE-7 Assessment Billing SREE-7 Assessment Tool: SREE-7 Assessment 49573 Review of Systems Const Denies body aches, Denies chills, Denies fatigue, Denies fever(s), Denies headache(s), Denies weight gain and Denies weight loss Eyes Reports no additional complaints ENT Denies dizziness and Denies headache(s) Card Denies chest pain, Denies leg edema, Denies lightheadedness, Denies p alpitations, Denies dyspnea on exertion, Denies orthopnea and Denies other Resp Denies cough and Denies dyspnea on exertion GI Denies hematochezia and Denies change in stool character Reports as per HPI Musc Denies abnormal gait, Denies muscle weakness, Denies numbness, Denies radiating pain into limb and Denies tingling Skin/Breast Denies breast pain, Denies breast mass and Denies rash Neuro Denies abnormal gait, Denies dizziness, Denies headache(s), Denies numbness and Denies tingling Psych Reports no additional complaints Endo Denies fatigue and Denies palpitations Jonatan/Lymph Reports easy bleeding Aller/Immun Reports no additional complaints Physical exam (Primary Care) Vital Signs: Last Vital Signs Pulse 91 06/17/24 13:39 BP 108/60 06/17/24 13:39 Pulse Ox 96 06/17/24 13:39 Oxygen Delivery Method Room Air 06/17/24 13:39 BMI result Body Mass Index 24.5 Tobacco/Smoking Status: Tobacco use Status Tobacco use date assessed 03/22/22 06/17/24 14:40 Patient Tobacco Use Status Never used Tobacco 06/17/24 14:40 e-Cigarette/Vaping Use Never Used 06/17/24 14:40 PHQ-9: PHQ-9 Score PHQ-9: Total score 1 06/17/24 15:54 Depression Screening Interpretation: Negative Const Other: Alert oriented x3, in no acute distress noted , ambulatory, no acute distress Orientation/consciousness: patient oriented x3 HENMT Head: Yes normocephalic and Yes atraumatic Ears: TM's normal bilaterally and EAC's normal General nose exam: Normal external nose present and No nasal discharge present Face and sinus: Yes face symmetric Mouth: Normal oral and palatal mucosa present, lip normal, tongue normal and oropharynx normal Eyes General: appearance normal, both eyes and all related structures Neck Neck: Yes full ROM, Yes no lymphadenopathy and Yes supple Thyroid: Thyroid normal Carotids: normal carotid upstroke and no bruits Chest Breast/axilla palpation: normal palpation of the breasts Resp Effort & Inspection: normal respiratory effort and able to speak in complete sentences Auscultation: clear to auscultation bilaterally Cardio Other: S1-S2 present regular rate and rhythm GI Inspection: Yes normal to inspection Palpation (GI): Soft to palpation, nontender, no guarding and no masses Auscultation: normal bowel sounds General: Yes no CVA tenderness Back/Spine/Pelvis Back: no CVA tenderness and No back tenderness Skin General skin exam: no rashes or lesions noted Neuro General: patient oriented x3, gait normal, moves all extremities, Normal light touch and pain sensation and no focal motor deficits Extrem General: Yes full ROM, Yes no joint enlargement, Yes no pedal edema and Yes normal gait Psych Appearance: grossly normal Mental Status: mental status grossly normal Speech and movement: Normal speech and movement present Affect: normal affect Attitude: cooperative Thought process: Normal thought process present Thought content: Normal thought content present Coding Level of Care Code Est Pt Prev Care >65y(54794) Diagnoses Nocturia more than twice per night R35.1 Additional Codes SREE-7 Assessment Billing - SREE-7 Assessment Tool: SREE-7 Assessment 35422 ([id number]) PHQ-9 - 19925 - PHQ-9 Billing: Yes ([id number]) Assessment & Plan Assessment & Plan (1) Nocturia more than twice per night: Code(s): R35.1 - Nocturia Category: Medical Plan - Hyperlipidemia: Plan for recheck and management of cholesterol levels. - Osteoarthritis: Continue current interventions with recommended exercises and reassessment. - Sleep Apnea: Await sleep study results to evaluate the efficacy of the mandibular device. - Arrhythmia: Continue with Multaq; monitor and manage as symptoms dictate. - Hearing loss: Adjustments to hearing aids are recommended, further assessment if needed. - Rheumatoid Arthritis: Regular follow-ups with kiosk sales representative to manage joint issues. - Nocturia: Referral to urology for further evaluation and management. I emphasized the importance of having a comprehensive examination to address multiple health concerns and clearly swap the wellness assessment previously scheduled to a physical. We discussed the current management strategies for her osteoarthritis, emphasizing exercises and alternative therapies like Salonpas. I explained the changes in vaccine policies but respected her preferences. I answered her queries about the importance of regular check-ups, especially concerning bone health and cholesterol levels. We discussed the sleep study outcomes and future plans surrounding sleep apnea management while acknowledging the need for urological evaluation to comprehend the nocturia problem further. Follow-up arrangements were established depending on ongoing needs and responses to interventions. - Schedule and complete fasting blood work as ordered. - Follow up on hearing aid adjustments with the water systems engineer. - Continue current osteoarthritis management and engage in advised exercises. - Monitor and note any arrhythmia-related symptoms for reporting. - Maintain regular rheumatology appointments for arthritis management. - [facility] - Stay informed on sleep study results and subsequent steps. - Monitor nocturia symptoms and follow through with pending urology referral. - Attend upcoming mammogram appointment and coordinate with scheduling if possible. Patient was informed and verbally consented to the use of an ambient scribe for clinic note documentation during this visit. Orders: Orders Lipid Panel 06/17/24 Z00.01 - Encounter for general adult medical examination with abnormal findings XR DEXA axial skeleton 06/17/24 Z78.0 - Asymptomatic menopausal state, Z87.81 - Personal history of (healed) traumatic fracture Vitamin D 25-OH Total 06/17/24 Z00.01 - Encounter for general adult medical examination with abnormal findings Referrals Urology Referral R35.1 - Nocturia, Z00.01 - Encounter for general adult medical examination with abnormal findings
--- OUTSIDE RECORDS SUMMARY | 2024-06-24 14:26 | XMS_ITS | Clinical Summary ---
Author Organization Unknown Care Team Providers Care Shaper Set Up Operator Name Role Phone SANTIAGO SANDERS, BARBIE SEVERINO Unavailable Unavailanuel ARCINIEGA RN, MOMO Unavailable Unavailable Payers Payer Name Policy Type Policy Number Effective Date Expira tion Date MEDICARE.NGS.PDGM [id number] Problems Condition Name Condition Details Condition Category Status Onset Date Resolution Date Last Treatment Date Treating Clinician Comments AFTERCARE FOLLOWING JOINT REPLACEMENT SURGERY Active 12-15 00:00: 00 PRESENCE OF LEFT ARTIFICIAL HIP JOINT Active 12-15 00:00: 00 PERSONAL HISTORY OF MALIGNANT MELANOMA OF SKIN Active 30 00:00: 00 PRESENCE OF RIGHT ARTIFICIAL HIP JOINT Active 2-14 00:00: 00 CARE HOME (CURRENT) USE OF OPIATE ANALGESIC Active 12-15 00:00: 00 Allergies, Adverse Reactions, Alerts Allergy Name Allergy Type Status Severity Reaction(s) Onset Date Inactive Date Treating Clinician Comments NO KNOWN ALLERGIES Propensity to adverse reactions Active 4-10 11:20: 30 Medications Ordered Medication Name Filled Medication Name Start Date Stop Date Current Medication? Ordering Clinician Indication Dosage Frequency Signature (SIG) Comments Components acetaminoph en 325 mg tablet 12-15 00:00: 00 Yes [id number] PAIN MANAGEMENT 3 tablet EVERY 8 HOURS 3 tablet EVERY 8 HOURS (route: oral) Med Classific ation: Analgesic , Anti-infl ammatory or Antipyret ic bisacodyl 10 mg rectal suppository 12-15 00:00: 00 Yes [id number] CONSTIPATIO N 1 supposi tory, rectal DAILY 1 suppositor y, rectal DAILY (route: rectal) Med Classific ation: Gastroint estinal Therapy Agents cholecalcif guillaume (vitamin D3) 50 mcg (2,000 unit) capsule 12-15 00:00: 00 Yes [id number] SUPPLEMENT 1 capsule DAILY 1 capsule DAILY (route: oral) Med Classific ation: Electroly te Balance-N utritiona l Products eletriptan 40 mg tablet 12-15 00:00: 00 Yes [id number] MIGRAINE 1 tablet DAILY 1 tablet DAILY (route: oral) Med Classific ation: Central Nervous System Agents flecainide 50 mg tablet 12-15 00:00: 00 Yes [id number] IRREGULAR HEART RHYTHM 1 tablet 2 TIMES DAILY 1 tablet 2 TIMES DAILY (route: oral) Med Classific ation: Cardiovas cular Therapy Agents metoprolol succinate ER 25 mg tablet,exte nded release 24 hr 12-15 00:00: 00 Yes [id number] IRREGULAR HEART RHYTHM 0.5 tablet DAILY 0.5 tablet DAILY (route: oral) Med Classific ation: Cardiovas cular Therapy Agents oxycodone 5 mg tablet 12-15 00:00: 00 Yes [id number] PAIN MANAGEMENT 0.5-1.5 tablet EVERY 4 HOURS 0.5-1.5 tablet EVERY 4 HOURS (route: oral) Med Classific ation: Analgesic , Anti-infl ammatory or Antipyret ic polyethylen e glycol 3350 17 gram oral powder packet 12-15 00:00: 00 Yes [id number] CONSTIPATIO N 17 g DAILY 17 g DAILY (route: oral) Med Classific ation: Gastroint estinal Therapy Agents psyllium husk 0.52 gram capsule 12-15 00:00: 00 Yes [id number] SUPPLEMENT 4 capsule DAILY 4 capsule DAILY (route: oral) Med Classific ation: Gastroint estinal Therapy Agents Senna Lax 8.6 mg tablet 12-15 00:00: 00 Yes [id number] CONSTIPATIO N 2 tablet DAILY 2 tablet DAILY (route: oral) Med Classific ation: Gastroint estinal Therapy Agents Vital Signs Vital Name Observation Time Observation Value Commen ts Temperature 2022-12-26 09:08:00.000 97.1 [degF] Temperature 2022-12-25 09:06:00.000 97.5 [degF] Temperature 2022-12-21 11:05:00.000 97.2 [degF] Temperature 2022-12-20 16:39:00.000 97 [degF] Temperature 2022-12-18 13:16:00.000 97.2 [degF] Temperature 2022-12-15 10:02:00.000 97.3 [degF] BMI (%) 2022-12-15 10:00:38.000 25 kg/m2 Height 2022-12-15 09:36:27.000 70 [in_us] Pulse 2022-12-26 09:08:00.000 76 /min Pulse 2022-12-25 09:06:00.000 86 /min Pulse 2022-12-21 11:05:00.000 75 /min Pulse 2022-12-20 16:39:00.000 72 /min Pulse 2022-12-18 13:16:00.000 64 /min Pulse 2022-12-15 10:02:00.000 64 /min O2 Saturation (%) 2022-12-26 09:08:00.000 95 % O2 Saturation (%) 2022-12-25 09:06:00.000 97 % O2 Saturation (%) 2022-12-21 11:05:00.000 97 % O2 Saturation (%) 2022-12-18 13:16:00.000 97 % O2 Saturation (%) 2022-12-15 10:02:00.000 93 % Respirations 2022-12-26 09:08:00.000 16 /min Respirations 2022-12-25 09:06:00.000 18 /min Respirations 2022-12-21 11:05:00.000 18 /min Respirations 2022-12-20 16:39:00.000 18 /min Respirations 2022-12-18 13:16:00.000 18 /min Respirations 2022-12-15 10:02:00.000 16 /min Weight (lbs) 2022-12-15 10:00:38.000 175.5 [lb_av] Systolic Blood Pressure 2022-12-26 09:08:00.000 108 mm [Hg] Systolic Blood Pressure 2022-12-25 09:06:00.000 104 mm [Hg] Systolic Blood Pressure 2022-12-21 11:05:00.000 118 mm [Hg] Systolic Blood Pressure 2022-12-20 16:39:00.000 110 mm [Hg] Systolic Blood Pressure 2022-12-18 13:16:00.000 102 mm [Hg] Systolic Blood Pressure 2022-12-15 10:02:00.000 110 mm [Hg] Diastolic Blood Pressure 2022-12-26 09:08:00.000 68 mm [Hg] Diastolic Blood Pressure 2022-12-25 09:06:00.000 62 mm [Hg] Diastolic Blood Pressure 2022-12-21 11:05:00.000 60 mm [Hg] Diastolic Blood Pressure 2022-12-20 16:39:00.000 60 mm [Hg] Diastolic Blood Pressure 2022-12-18 13:16:00.000 70 mm [Hg] Diastolic Blood Pressure 2022-12-15 10:02:00.000 56 mm [Hg] Plan of Treatment Planned Activity Planned Date Details Comments Future Scheduled Test MEDICATION MANAGEMENT; SKILLED NURSE TO REVIEW MEDICATIONS FOR INTERACTIONS, EFFECTIVENESS OF DRUG THERAPY, AND SIGNS/SYMPTOMS OF ADVERSE REACTIONS. MAY INSTRUCT AND REINFORCE MEDICATION TEACHING RELATED TO THE USE OF MEDICATIONS, DOSAGE, FREQUENCY, PURPOSE, SIDE EFFECTS, AND TO REPORT COMPLICATIONS. [code = MEDICATION MANAGEMENT; SKILLED NURSE TO REVIEW MEDICATIONS FOR INTERACTIONS, EFFECTIVENESS OF DRUG THERAPY, AND SIGNS/SYMPTOMS OF ADVERSE REACTIONS. MAY INSTRUCT AND REINFORCE MEDICATION TEACHING RELATED TO THE USE OF MEDICATIONS, DOSAGE, FREQUENCY, PURPOSE, SIDE EFFECTS, AND TO REPORT COMPLICATIONS.] Future Scheduled Test FALL REDUC TION MANAGEMENT; NURSING TO PROVIDE SKILLED ASSESSMENT, EDUCATION, AND INTERVENTION TO IDENTIFY FALL RISK FACTORS SUCH MEDICATIONS THAT MAY CAUSE DIZZINESS, CHRONIC DISEASES, PSYCHOLOGICAL FACTORS, AND EMPOWER/EDUCATE PATIENT/CAREGIVER TO MINIMIZE FALL RISK. [code = FALL REDUCTION MANAGEMENT; NURSING TO PROVIDE SKILLED ASSESSMENT, EDUCATION, AND INTERVENTION TO IDENTIFY FALL RISK FACTORS SUCH MEDICATIONS THAT MAY CAUSE DIZZINESS, CHRONIC DISEASES, PSYCHOLOGICAL FACTORS, AND EMPOWER/EDUCATE PATIENT/CAREGIVER TO MINIMIZE FALL RISK.] Future Scheduled Test SKILLED NU RSE TO ASSESS, EVALUATE, AND DEVELOP AN INDIVIDUALIZED PLAN OF CARE. AGENCY MAY ACCEPT ORDERS FROM CONSULTING PHYSICIANS. SN TO OBSERVE/ASSESS RISK FOR FALLS AND INSTRUCT IN FALL PREVENTION, HOME SAFETY, MEDICATION MANAGEMENT, INFECTION PREVENTION, AND NUTRITION MANAGEMENT. SN MAY PERFORM O2 SATURATION LEVEL ON ADMISSION AND PRN TO ASSESS PATIENT, WITH NOTIFICATION TO THE PHYSICIAN IF SATURATION IS 90% IN THE ABSENCE OF MORE SPECIFIC PARAMETERS FROM THE PHYSICIAN. AGENCY MAY PERFORM A RESUMPTION OF CARE VISIT FOLLOWING ANY HOSPITAL ADMISSION. SKILLED NURSE TO ASSESS/EVALUATE CO-MORBID CONDITIONS AND ANY NEW CONDITIONS THAT PRESENT THEMSELVES DURING THIS EPISODE TO IDENTIFY CHANGES AND INTERVENE TO MINIMIZE COMPLICATIONS. [code = SKILLED NURSE TO ASSESS, EVALUATE, AND DEVELOP AN INDIVIDUALIZED PLAN OF CARE. AGENCY MAY ACCEPT ORDERS FROM CONSULTING PHYSICIANS. SN TO OBSERVE/ASSESS RISK FOR FALLS AND INSTRUCT IN FALL PREVENTION, HOME SAFETY, MEDICATION MANAGEMENT, INFECTION PREVENTION, AND NUTRITION MANAGEMENT. SN MAY PERFORM O2 SATURATION LEVEL ON ADMISSION AND PRN TO ASSESS PATIENT, WITH NOTIFICATION TO THE PHYSICIAN IF SATURATION IS 90% IN THE ABSENCE OF MORE SPECIFIC PARAMETERS FROM THE PHYSICIAN. AGENCY MAY PERFORM A RESUMPTION OF CARE VISIT FOLLOWING ANY HOSPITAL ADMISSION. SKILLED NURSE TO ASSESS/EVALUATE CO-MORBID CONDITIONS AND ANY NEW CONDITIONS THAT PRESENT THEMSELVES DURING THIS EPISODE TO IDENTIFY CHANGES AND INTERVENE TO MINIMIZE COMPLICATIONS.] Future Scheduled Test PAIN MANAG EMENT; SKILLED NURSE TO OBSERVE, ASSESS, AND PROVIDE EDUCATION ON PAIN MANAGEMENT TECHNIQUES. [code = PAIN MANAGEMENT; SKILLED NURSE TO OBSERVE, ASSESS, AND PROVIDE EDUCATION ON PAIN MANAGEMENT TECHNIQUES.] Future Scheduled Test RISK FOR H OSPITALIZATION; SKILLED NURSE TO INSTRUCT PATIENT/CAREGIVER ON RISK FOR HOSPITALIZATION/EMERGENCY ROOM VISITS, TEACH SIGNS AND SYMPTOMS THAT PUT PATIENT AT RISK, WHEN TO NOTIFY NURSE/PHYSICIAN OF COMPLICATIONS/DECLINE, AND WHEN TO CALL 911. [code = RISK FOR HOSPITALIZATION; SKILLED NURSE TO INSTRUCT PATIENT/CAREGIVER ON RISK FOR HOSPITALIZATION/EMERGENCY ROOM VISITS, TEACH SIGNS AND SYMPTOMS THAT PUT PATIENT AT RISK, WHEN TO NOTIFY NURSE/PHYSICIAN OF COMPLICATIONS/DECLINE, AND WHEN TO CALL 911.] Future Scheduled Test SKIN INTEG RITY - SN OBSERVE AND ASSESS INTEGUMENTARY STATUS TO IDENTIFY CHANGES AND INTERVENE TO MINIMIZE COMPLICATIONS. PROVIDE SKILLED TEACHING OF GENERAL WOUND AND SKIN CARE AND PREVENTION RELATED TO POTENTIAL FOR OR ACTUAL ALTERED SKIN INTEGRITY. SN TO ASSESS LEEFT HIP INCISION AT EVERY VISIT UNTIL HEALED,INSTRUCT ON CARE OF SURGICAL INCISION [code = SKIN INTEGRITY - SN OBSERVE AND ASSESS INTEGUMENTARY STATUS TO IDENTIFY CHANGES AND INTERVENE TO MINIMIZE COMPLICATIONS. PROVIDE SKILLED TEACHING OF GENERAL WOUND AND SKIN CARE AND PREVENTION RELATED TO POTENTIAL FOR OR ACTUAL ALTERED SKIN INTEGRITY. SN TO ASSESS LEEFT HIP INCISION AT EVERY VISIT UNTIL HEALED,INSTRUCT ON CARE OF SURGICAL INCISION ] Future Scheduled Test AGENCY MAY PERFORM A RESUMPTION OF CARE VISIT FOLLOWING ANY HOSPITAL ADMISSION. PHYSICAL THERAPY TO EVALUATE, ASSESS AND MONITOR, PROVIDE SKILLED THERAPEUTIC INTERVENTION, ACTIVITY, EDUCATION, AND TRAINING TO ADDRESS: TRANSFER TRAINING (PT) GAIT TRAINING (PT) THERAPEUTIC EXERCISES (PT) STAIR TRAINING (PT) PHYSICAL THERAPY TO OBSERVE WOUND/INCISION AND/OR INTACT DRESSING ON LEFT HIP AND REPORT EARLY SIGNS AND SYMPTOMS OF WOUND DETERIORATION, COMPLICATIONS, OR INFECTION TO RN CLINICAL QUILTER FIXER AND/OR PHYSICIAN. ORTHOPEDIC SURGICAL AFTERCARE (PT) MAY TEACH PATIENT APPLICATION OF CRYOTHERAPY FOR PAIN AND/OR SWELLING UP TO 20 MIN AT A TIME OVER INCISION/JOINT HIP REPLACEMENT SELF-MANAGEMENT (PT) IDENTIFY FALL RISK FACTORS AND ESTABLISH HOME EXERCISE PROGRAM TO MINIMIZE FALL RISK. MAY TEACH THE PATIENT FLOOR RECOVERY WHEN CLINICALLY APPROPRIATE (PT) [code = AGENCY MAY PERFORM A RESUMPTION OF CARE VISIT FOLLOWING ANY HOSPITAL ADMISSION. PHYSICAL THERAPY TO EVALUATE, ASSESS AND MONITOR, PROVIDE SKILLED THERAPEUTIC INTERVENTION, ACTIVITY, EDUCATION, AND TRAINING TO ADDRESS: TRANSFER TRAINING (PT) GAIT TRAINING (PT) THERAPEUTIC EXERCISES (PT) STAIR TRAINING (PT) PHYSICAL THERAPY TO OBSERVE WOUND/INCISION AND/OR INTACT DRESSING ON LEFT HIP AND REPORT EARLY SIGNS AND SYMPTOMS OF WOUND DETERIORATION, COMPLICATIONS, OR INFECTION TO RN CLINICAL QUILTER FIXER AND/OR PHYSICIAN. ORTHOPEDIC SURGICAL AFTERCARE (PT) MAY TEACH PATIENT APPLICATION OF CRYOTHERAPY FOR PAIN AND/OR SWELLING UP TO 20 MIN AT A TIME OVER INCISION/JOINT HIP REPLACEMENT SELF-MANAGEMENT (PT) IDENTIFY FALL RISK FACTORS AND ESTABLISH HOME EXERCISE PROGRAM TO MINIMIZE FALL RISK. MAY TEACH THE PATIENT FLOOR RECOVERY WHEN CLINICALLY APPROPRIATE (PT)] Goal 2022-12-26 Patient Goal - T O BE ABLE TO WALK OUT IN THE ROAD, TO GET BACK TO THE GYM Goal Provider Goal - PATIENT/CAREGIVER TO VERBALIZE, AND CONSISTENTLY DEMONSTRATE EFFECTIVE, SAFE MANAGEMENT OF MEDICATION INCLUDING KNOWLEDGE OF EFFECTIVENESS, POTENTIAL SIDE EFFECTS AND DRUG REACTIONS AND WHEN TO CONTACT THE APPROPRIATE CARE PROVIDER. PATIENT/CAREGIVER WILL BE ABLE TO VERBALIZE UNDERSTANDING OF MEDICATION REGIMEN AND ACCURATELY TAKE MEDICATIONS PRESCRIBED WITHOUT ADVERSE EFFECTS BY 02/12/23 Goal Provider Goal - PATIENT/CAREGIVER ABLE TO IDENTIFY FALL RISK FACTORS AND IMPLEMENT STRATEGIES TO MINIMIZE FALL RISK. PATIENT/CAREGIVER WILL VERBALIZE/DEMONSTRATE AN ABILITY TO ADHERE TO FALL REDUCTION SELF MANAGEMENT AND LIFE-STYLE CHANGES AT DISCHARGE. PERSONAL GOAL(S) STATED BY PATIENT/CAREGIVER WILL BE MET BY 02/12/23. Goal Provider Goal - A PLAN OF CARE WILL BE ESTABLISHED THAT MEETS THE PATIENTS NEEDS. PATIENT WILL DEMONSTRATE OXYGEN SATURATION WITHIN NORMAL LIMITS OR PATIENTS OPTIMAL LEVEL ESTABLISHED BY THE PHYSICIAN THROUGHOUT CARE. CHANGES TO CO-MORBID CONDITIONS AND ANY NEW CONDITIONS WILL BE IDENTIFIED AND REPORTED TO THE PHYSICIAN. Goal Provider Goal - PATIENT / CAREGIVER WILL VERBALIZE / DEMONSTRATE UNDERSTANDING OF PAIN CONTROL MEASURES BY 02/12/23 Goal Provider Goal - PATIENT/CAREGIVER WILL VERBALIZE UNDERSTANDING OF SIGNS AND SYMPTOMS THAT PUT THE PATIENT AT RISK FOR HOSPITALIZATION /EMERGENCY ROOM VISITS, WHEN TO NOTIFY NURSE/PHYSICIAN OF COMPLICATIONS/DECLINE AND WHEN TO CALL 911. Goal Provider Goal - CHANGES IN SKIN INTEGRITY STATUS WILL BE IDENTIFIED AND REPORTED TO THE PHYSICIAN FOR PROMPT INTERVENTION. PATIENT / CAREGIVER WILL VERBALIZE/DEMONSTRATE ADEQUATE KNOWLEDGE OF INTEGUMENTARY STATUS AND APPROPRIATE MEASURES TO PROMOTE SKIN INTEGRITY AND PREVENT INJURY BY EOE Goal Provider Goal - PT LTG: PATIENT WILL DEMONSTRATE IMPROVED TRANSFERS FROM SUP TO INDEP WITHIN 2 WEEKS PT LTG: PATIENT WILL DEMONSTRATE IMPROVED AMBULATION FROM SUP TO INDEP WITHIN 2 WEEKS PT STG: PATIENT WILL DEMONSTRATE INDEPENDENCE WITH BILATERAL LOWER EXTREMITY HEP WITHIN 1 WEEKS PT LTG: PATIENT WILL DEMONSTRATE INCREASED STRENGTH OF L HIP FROM 3+/5 TO 4/5 WITHIN 2 WEEKS IN ORDER TO IMPROVE GAIT AND TRANSFERS PT LTG: PATIENT WILL DEMONSTRATE IMPROVED ABILITY TO SAFELY NEGOTIATE STAIRS FROM SBA TO INDEP WITHIN 2 WEEKS THE PATIENT WILL NOT DEMONSTRATE ANY WOUND COMPLICATIONS DURING THE EPISODE OF CARE. PATIENT WILL DEMONSTRATE NORMAL HEALING FOLLOWING SURGERY WITH NO COMPLICATIONS BY END OF EPISODE. PT GOAL: PATIENT WILL DEMONSTRATE OPTIMAL OUTCOMES INCLUDING INCREASED ROM AND STRENGTH WITH NO COMPLICATIONS FOLLOWING DEMARIO BY END OF EPISODE. PATIENT/CAREGIVER WILL DEMONSTRATE ADHERENCE TO FALL REDUCTION SELF MANAGEMENT TO MINIMIZE FALL BY END OF EPISODE. Reason for Visit [facility] Encounters Start Date/Time End Date/Time Encounter Type Admission Type Attending [facility] Care Department Encounter ID Discharge Date Discharge Status Discharge Condition Discharge Reason Percent Goals Met 2022-12-15 00:00:00 2022-12-26 00:00:00 Outpatient NEW ADMISSION MOMO ARCINIEGA [facility] [id number] 2022-12-26 00:00:00 DISCHARGE TO HOME OR SELF CARE INDEPENDEN T IN THE COMMUNITY HH OR [facility]- GOALS MET 100.00
== END 2024-06-17 15:35 | disposition home or self-care (01) ==
PROVIDERS: PCP Internal Medicine; Visit Provider Internal Medicine
DX: Z00.00 Encounter for general adult medical examination without abnormal findings (principal); R35.1 Nocturia

== ENCOUNTER → 2024-06-17 13:23 | Outpatient (BNVA) | payer MEDICARE, OTHER, SELFPAY | PROVIDERS: PCP Internal Medicine; Visit Provider Internal Medicine | DX: Z00.01 Encounter for general adult medical examination with abnormal findings (principal); R35.1 Nocturia; E78.5 Hyperlipidemia, unspecified; Z78.0 Asymptomatic menopausal state; Z87.81 Personal history of (healed) traumatic fracture; R50.9 Fever, unspecified; M06.9 Rheumatoid arthritis, unspecified; G47.30 Sleep apnea, unspecified | CPT/HCPCS: 96127; 99397 ==

== ENCOUNTER 2024-07-03 20:23 | Inpatient (IN) | payer MEDICARE, OTHER, SELFPAY ==
--- NOTE | 2024-07-03 | ECG_ITS ---
Test Reason : CHEST PRESSURE Blood Pressure : / mmHG Vent. Rate : 118 BPM Atrial Rate : 000 BPM P-R Int : 000 ms QRS Dur : 088 ms QT Int : 294 ms P-R-T Axes : 000 005 057 degrees QTc Int : 412 ms Atrial fibrillation with rapid ventricular response with premature ventricular or aberrantly conducted complexes Nonspecific ST abnormality Abnormal ECG No previous ECGs available Referred By: Generic ED Physician Electronically Signed By:OTONIEL COWATR
--- NOTE | ~2024-07-03 | XR_ITS ---
EXAMINATION: XR CHEST CLINICAL INFORMATION: sob, chest pain COMPARISON: Chest 04/27/2015 TECHNIQUE: 2 views of the chest were obtained. FINDINGS: There is mild cardiomegaly with normal pulmonary vascularity. Both lungs are fairly well-expanded and clear of acute process. No gross bony abnormality seen. XR/XR chest 2V IMPRESSION: Cardiomegaly. No acute process seen. Electronically signed by: Henry Hernandez MD 07/03/2024 10:04 PM [facility]
--- OUTSIDE RECORDS SUMMARY | 2024-07-03 20:25 | XMS_ITS | Clinical Summary ---
Author Organization Unknown Care Team Providers Care Tap Out Operator Name Role Phone SANTIAGO SANDERS, BARBIE SEVERINO Unavailable Unavailanuel ARCINIEGA RN, MOMO Unavailable Unavailable Payers Payer Name Policy Type Policy Number Effective Date Expira tion Date MEDICARE.NGS.PDGM [id number] Problems Condition Name Condition Details Condition Category Status Onset Date Resolution Date Last Treatment Date Treating Clinician Comments AFTERCARE FOLLOWING JOINT REPLACEMENT SURGERY Active 12-15 00:00: 00 PRESENCE OF LEFT ARTIFICIAL HIP JOINT Active 12-15 00:00: 00 PERSONAL HISTORY OF MALIGNANT MELANOMA OF SKIN Active 30 00:00: 00 PRESENCE OF RIGHT ARTIFICIAL HIP JOINT Active 2-14 00:00: 00 [facility] (CURRENT) USE OF OPIATE ANALGESIC Active 12-15 [...] 325 mg tablet 12-15 00:00: 00 Yes [id number] PAIN MANAGEMENT 3 tablet EVERY 8 HOURS 3 tablet EVERY 8 HOURS (route: oral) Med Classific ation: Analgesic , Anti-infl ammatory or Antipyret ic bisacodyl 10 mg rectal suppository 12-15 00:00: 00 Yes [id number] CONSTIPATIO N 1 supposi tory, rectal DAILY 1 suppositor y, rectal DAILY (route: rectal) Med Classific ation: Gastroint estinal Therapy Agents cholecalcif guillaume (vitamin D3) 50 mcg (2,000 unit) capsule 12-15 00:00: 00 Yes [id number] SUPPLEMENT 1 capsule DAILY 1 capsule DAILY (route: oral) Med Classific ation: Electroly te Balance-N utritiona l Products eletriptan 40 mg tablet 12-15 00:00: 00 Yes [id number] MIGRAINE 1 tablet DAILY 1 tablet DAILY (route: oral) Med Classific ation: Central Nervous System Agents flecainide 50 mg tablet 12-15 00:00: 00 Yes [id number] IRREGULAR HEART RHYTHM 1 tablet 2 TIMES DAILY 1 tablet 2 TIMES DAILY (route: oral) Med Classific ation: Cardiovas cular Therapy Agents metoprolol succinate ER 25 mg tablet,exte nded release 24 hr 12-15 00:00: 00 Yes [id number] IRREGULAR HEART RHYTHM 0.5 tablet DAILY 0.5 tablet DAILY (route: oral) Med Classific ation: Cardiovas cular Therapy Agents oxycodone 5 mg tablet 12-15 00:00: 00 Yes [id number] PAIN MANAGEMENT 0.5-1.5 tablet EVERY 4 HOURS 0.5-1.5 tablet EVERY 4 HOURS (route: oral) Med Classific ation: Analgesic , Anti-infl ammatory or Antipyret ic polyethylen e glycol 3350 17 gram oral powder packet 12-15 00:00: 00 Yes [id number] CONSTIPATIO N 17 g DAILY 17 g DAILY (route: oral) Med Classific ation: Gastroint estinal Therapy Agents psyllium husk 0.52 gram capsule 12-15 00:00: 00 Yes [id number] SUPPLEMENT 4 capsule DAILY 4 capsule DAILY (route: oral) Med Classific ation: Gastroint estinal Therapy Agents Senna Lax 8.6 mg tablet 12-15 00:00: 00 Yes [id number] CONSTIPATIO N 2 tablet DAILY 2 tablet [...] DETERIORATION, COMPLICATIONS, OR INFECTION TO RN CLINICAL RECEIVER/LABORER AND/OR PHYSICIAN. ORTHOPEDIC SURGICAL AFTERCARE (PT) MAY [...] DETERIORATION, COMPLICATIONS, OR INFECTION TO RN CLINICAL RECEIVER/LABORER AND/OR PHYSICIAN. ORTHOPEDIC SURGICAL AFTERCARE (PT) MAY [...] End Date/Time Encounter Type Admission Type Attending [facility] Care Department Encounter ID Discharge Date Discharge Status Discharge Condition Discharge Reason Percent Goals Met 2022-12-15 00:00:00 2022-12-26 00:00:00 Outpatient NEW ADMISSION MOMO ARCINIEGA [facility] [id number] 2022-12-26 00:00:00 DISCHARGE TO HOME OR SELF CARE INDEPENDEN T IN THE COMMUNITY HH OR PAL- GOALS MET 100.00
[2024-07-03 20:32] VITALS: BP 165/96; PULSE 123; RESP 20; TEMP 36.8; O2SAT 97; BMI 23.8
--- NOTE | 2024-07-03 20:32 | ED.SOB ---
HPI - SOB/Dyspnea General Chief Complaint: Chest Pain Stated Complaint: SOB, Chest Pain Time Seen by Provider: 07/03/24 20:53 Source: patient Mode of arrival: ambulatory Limitations: no limitations History of Present Illness ED Provider: Autumn Orellana NP HPI Narrative: Patient is a 74-year-old female past medical history of ROD, bleeding disorder, mitral valve prolapse, hepatitis-C, MTHFR gene mutation, paroxysmal atrial fibrillation, PAC/PVC who presents emergency department for evaluation. She follows closely with [facility] Cardiology Dr. Perez, most recent Holter monitor revealing underlying rhythm to be sinus with frequent supraventricular ectopy and a brief episode of atrial fibrillation with a rapid late lasting for about an hour, echo with LVEF 50-55%. She is not anticoagulated due to an unknown bleeding disorder, she describes extensive bleeding even from minor procedures, follows with Dr. Marroquin through [facility], ongoing for 40+ years, without specific identifiable cause. She was previously treated with a low dose beta-lynette and flecainide which was most recently transitioned to Multaq after office visit 05/14/2024. She states that she was feeling improvement in her symptoms and was having less frequent symptomatic episodes. However she states over the past 4 days she is now having shortness of breath on exertion and a heaviness in her chest which is atypical. She has had to leave her exercise step class which by her account is high exertion due to the shortness of breath that she is experiencing. She was also dyspneic when going up the stairs. She states that she has noticed an increase in the palpitations and her smart watch has been indicating atrial fibrillation more consistently even while at rest. Related Data Home Medications ?Medication ?Instructions ?Recorded ?Confirmed lysine 1,000 mg tablet 1,000 mg PO DAILY 05/10/20 05/14/24 senna 600 mg tablet 600 mg PO BID 06/07/22 05/14/24 psyllium husk 0.4 gram capsule 0.4 g PO DAILY 10/16/22 05/14/24 (Metamucil) multivitamin 1 tab PO DAILY 05/14/24 05/14/24 Previous Rx's ?Medication ?Instructions ?Recorded metoprolol succinate 25 mg 12.5 mg (1/2 x 25 mg) PO DAILY 90 03/12/24 tablet,extended release 24 hr days #45 tabs dronedarone 400 mg tablet (Multaq) 400 mg PO BID 90 days #180 tabs 05/14/24 eletriptan 40 mg tablet 40 mg PO BID PRN Migraine Headache 05/16/24 #9 tabs eszopiclone 2 mg tablet 2 mg PO BEDTIME PRN insomnia #30 05/16/24 tabs Allergies Allergy/AdvReac Type Severity Reaction Status Date / Time No Known Allergies Allergy Verified 07/03/24 20:36 Review of Systems Review of Systems: Yes all other systems are reviewed and are negative [facility] Past Medical History Attestation statement: The following information was validated with the patient. Source: old records reviewed Medical History Hx of fracture of rib Osteoarthritis of fingers of hands, bilateral Moderate obstructive sleep apnea Insomnia Sleep apnea in adult Sleep apnea Cataract (lens) fragments in eye following cataract surgery, bilateral Post-operative nausea and vomiting Bleeding disorder Osteoarthritis of right hip Hx of melanoma of skin MVP (mitral valve prolapse) Migraine Hx of hepatitis C History of Weiner's esophagus MTHFR gene mutation PVCs (premature ventricular contractions) PAC (premature atrial contraction) Surgical History Hx of esophagogastroduodenoscopy H/O colonoscopy History of bunionectomy of both great toes Hx of breast augmentation History of hip replacement History of melanoma excision History of foot surgery History of tonsillectomy Family History Family History Father Leukemia Mother SLE (systemic lupus erythematosus) Sister HTN (hypertension) Hypercholesterolemia Social History Social History Housing: House Are you a primary acute care physician to a significant other at home: No Do you presently have visiting nurse or other home services: No Alcohol intake: current Alcohol intake frequency: 0-2 drinks per day Alcohol type: wine Patient Tobacco Use Status: Never used Tobacco Smoked in Last 30 Days: No e-Cigarette/Vaping Use: Never Used Use of substances other than those prescribed or required for medical reasons: No Advance Directives: Yes Advance Directives on File: Yes Advance Directives Date on File: 10/15/17 service: No Current occupational status: retired Cognitive needs: No Hearing needs: No Vision needs: Yes Physical Exam Vital Signs: Vital Signs: Last Vital Signs Temp 97.6 F 07/03/24 22:20 Pulse 82 07/03/24 22:20 Resp 19 07/03/24 22:20 BP 129/85 07/03/24 22:20 Pulse Ox 96 07/03/24 22:20 O2 Del Method Room Air 07/03/24 22:20 BMI result Body Mass Index 23.8 Appearance: Alert.?Oriented to person, place and time. No acute distress.?Normal affect. Eyes: Pupils equal, round and reactive to light.? ENT: Pharynx normal.?? Neck: Normal inspection.? Neck supple.?? CVS: Heart sounds normal. Irregularly irregular rhythm? Pulses normal.?? Respiratory: No respiratory distress.? Lung sounds clear to auscultation bilaterally?? Abdomen: Soft and non-tender. Normoactive bowel sounds. Skin: Skin warm and dry.? Normal skin color.? Extremities: No lower extremity edema.? No calf ttp? Neuro: Moves all extremities spontaneously. Sensation intact bilaterally. No focal neuro deficits. Ambulates with normal steady gait. Course Course Course Narrative: This is a Rapid Medical Examination (RME) performed by Trinh Cole PA-C in triage. Full HPI, ROS, assessment and treatment plan per primary provider in the Main ED. 74 yo female with history of afib not on anticoagulation due to an unknown bleeding disorder, who follows w/ Dr. Perez and was recently changed from flecinide to Multaq, low dose lopressor presents to the ER for evaluation SOB and PARTIDA that started 4 days ago after exercising at the gym. also reports central chest pressure, nonradiating and comes w/ SOB. EF 50-55% on recent ECHO. found to be in rapid afib here. Plan: ekg, cxr, labs, viral studies Medications Administered Discontinued Medications Generic Name Dose Route Start Last Admin Trade Name Freq PRN Reason Stop Dose Admin Digoxin 0.25 mg 07/03/24 21:57 07/03/24 22:48 Digoxin 0.25 Mg Tablet PO 07/03/24 21:58 0.25 mg ONCE ONE Administration Protocol Medical Decision Making Medical Decision Making MDM Narrative: Patient is a 74-year-old female with past medical history of ROD, bleeding disorder, mitral valve prolapse, hepatitis-C, MTHFR gene mutation, paroxysmal atrial fibrillation, PAC/PVC presenting for evaluation of shortness a breath dyspnea on exertion chest heaviness as per HPI. Initial EKG revealing atrial flutter, At the time my evaluation rate is consistently in the 90s-low 100s, would defer rate control at this time pending consultation with Dr. Perez from cardiology. She is not amenable to anticoagulation this time until consulting with her monitoring analyst. Clinically she does not appear to be volume overloaded on pedal edema, LS CTA. She is in no respiratory distress at rest. Differential Diagnosis Differential Diagnoses: The differential diagnosis associated with the presentation includes (Atrial flutter, atrial fibrillation, CHF, pulmonary embolism, ACS) Admission/Observation Consideration of admission/observation: Escalation of care including admission/observation considered (See narrative above and below for further detail.) Consult Healthcare Provider Management of the patient was discussed with: Hospitalist (Dr. Garrido) and Resident Service Coordinator Consulted with Cardiology Dr. Perez - patient is amenable to inpatient stay. He recommends initiating digoxin 250 mcg PO now and repeat in 6 hours. Keep NPO. Multaq to be discontinued at this time. Recommends admission to hospitalist service Lab Data MDM Lab Attestation statement: I reviewed the patient's lab results. CBC is without leukocytosis, no anemia, thrombocytopenia; 86,000. No electrolyte derangement. No BATSHEVA. LFTs within normal range. High sensitive troponin 3.2. BNP 292. Urinalysis without evidence of infection. Viral serologies are negative. 07/03/24 20:48 07/03/24 20:48 Labs: Lab Results 07/03/24 07/03/24 07/03/24 Range/Units 20:43 20:44 20:48 WBC 7.0 (4.8-10.8) X10*3/uL RBC 4.43 (4.20-5.50) X10*6/uL Hgb 13.6 (12.0-16.0) g/dl Hct 41.6 (37.0-47.0) % MCV 93.9 (80.0-98.0) fL MCH 30.7 (27.0-33.0) pg MCHC 32.7 (31.0-35.0) g/dl RDW 12.7 (11.0-16.0) % Plt Count 86 L D (160-400) X10*3/uL MPV 12.3 (9.4-12.3) fL Immature Gran % (Auto) 0.3 (0.0-0.4) % Neut % (Auto) 60.1 (45-73) % Lymph % (Auto) 24.3 (20-40) % [place] % (Auto) 10.6 (2-11) % Eos % (Auto) 4.0 (0-4) % Baso % (Auto) 0.7 (0-2) % Lymph # (Auto) 1.7 (1.2-4.9) X10*3/uL [place] # (Auto) 0.7 (0.1-1.2) X10*3/uL Eos # (Auto) 0.3 (0.0-0.4) X10*3/uL Baso # (Auto) 0.1 (0.0-0.2) X10*3/uL Abs Immat Gran (auto) 0.02 (0.00-0.03) X10*3/uL Absolute Neuts (auto) 4.2 (2.0-8.3) x10*3/uL Absolute Nucleated RBC 0.000 (0.0-0.012) X10*3/uL Nucleated RBC % (auto) 0.0 (0.0-0.2) /100WBC Sodium 141 (135-145) mmol/L Potassium 4.8 (3.3-5.1) mmol/L Chloride 107 (96-108) mmol/L Carbon Dioxide 26 (22-29) mmol/L Anion Gap 13 (12-20) BUN 21 H (9-16) mg/dL Creatinine 1.18 (0.5-1.4) mg/dL Estim Creat Clear Calc 43.9 Estimated GFR 45 Random Glucose 106 (60-115) mg/dL Calcium 9.2 (8.4-10.2) mg/dL Magnesium 2.3 (1.6-2.6) mg/dL Total Bilirubin 0.2 (0.0-1.0) mg/dL Direct Bilirubin < 0.2 (0.0-0.5) mg/dL AST 27 (5-31) U/L ALT 23 (0-31) U/L Alkaline Phosphatase 75 (39-117) U/L Troponin I High Sens 3.2 (<3.5-17.0) ng/L B-Natriuretic Peptide 292 H (<100) pg/mL Total Protein 7.7 (6.5-8.0) g/dL Albumin 4.4 (3.5-5.0) g/dL Urine Color Yellow Urine Appearance Clear Urine pH 5.0 (5.0-9.0) Ur Specific [place] 1.025 (1.005-1.025) Urine Protein Negative (Neg-Trace) mg/dL Urine Glucose (UA) Negative (Negative) mg/dL Urine Ketones Trace (Negative) mg/dL Urine Blood Negative (Negative) Urine Nitrite Negative (Negative) Ur Leukocyte Esterase Trace H (Negative) Urine RBC 0-2 (0-2) /HPF Urine WBC 0-5 (0-5) /HPF Ur Squamous Epith Cells 0-2 (0-2) /HPF Urine Bacteria None Seen (None Seen) Hyaline Casts 0-2 (0-2) /LPF Influenza Type A (PCR) NEGATIVE (Negative) Influenza Type B (PCR) NEGATIVE (Negative) RSV RNA Qual (PCR) NEGATIVE (Negative) SARS-CoV-2 RNA (RT-PCR) NEGATIVE (Negative) Independent Interpretation I performed an independent interpretation of an: EKG (My interpretation is atrial flutter with QTC 412, no ST elevation, no ST depression, ventricular rate of 118) and Plain X-Ray (No pleural effusions, consolidation or infiltrate) Independent Historian Clinical information obtained from an independent historian. History obtained from or confirmed by: Spouse External Record Review External record reviewed: Outpatient record Prescription Management I considered prescription management with: Other (See narrative above) Critical Care Time Critical Care Time Critical Care Time: Yes Total Critical Care Time: 35 Attestation: I personally attest to this critical care time spent taking care of the patient exclusive of all other billable procedures was approximately 35 minutes including initial evaluation of patient, ordering tests, x-ray interpretation, EKG interpretation, chart review, consulting Cardiology, documentation, re-evaluation. Discharge Plan Discharge Clinical Impression: Paroxysmal atrial fibrillation Patient Disposition: Admitted As Inpatient
--- NOTE | 2024-07-03 20:34 | MHC.EDTECH ---
Patient brought to triage area,EKG taken per order and signed by provider
[2024-07-03 20:55] LABS: MANUAL DIFF FLAG NO
[2024-07-03 20:56] LABS: Appearance Urine Clear; Color Urine Yellow; Glucose Urine UA Negative (Negative); Leukocyte Esterase Urine Trace (Negative); Nitrite Urine Negative (Negative); Specific Gravity - Urine 1.025 (1.005-1.025); UMIC TRIGGER UACC YES; Urine Blood Negative (Negative); Urine Ketones Trace mg/dL (Negative); Urine Protein Negative (Neg-Trace)
[2024-07-03 21:01] LABS: Bacteria Urine None Seen (None Seen); Hyaline Casts Urine 0-2 /LPF (0-2); RBC Urine 0-2 /HPF (0-2); Squamous Epithelial Cell Urine 0-2 /HPF (0-2); WBC Urine 0-5 /HPF (0-5)
[2024-07-03 21:05] LABS: Basophils Absolute Auto 0.1 X10*3/uL (0.0-0.2); Basophils Percent Auto 0.7 % (0-2); Eosinophils Absolute Auto 0.3 X10*3/uL (0.0-0.4); Hematocrit 41.6 % (37.0-47.0); Hemoglobin 13.6 g/dl (12.0-16.0); Imm Gran Abs Auto 0.02 X10*3/uL (0.00-0.03); Imm Gran Pct Auto 0.3 % (0.0-0.4); Lymphocytes Absolute Auto 1.7 X10*3/uL (1.2-4.9); Lymphocytes Percent Auto 24.3 % (20-40); Mean Corpuscular HGB Conc 32.7 g/dl (31.0-35.0); Mean Corpuscular Hemoglobin 30.7 pg (27.0-33.0); Mean Corpuscular Volume 93.9 fL (80.0-98.0); Mean Platelet Volume 12.3 fL (9.4-12.3); Monocytes Absolute Auto 0.7 X10*3/uL (0.1-1.2); Monocytes Percent Auto 10.6 % (2-11); Neutrophils Absolute Auto 4.2 x10*3/uL (2.0-8.3); Neutrophils Percent Auto 60.1 % (45-73); Red Blood Count 4.43 X10*6/uL (4.20-5.50); Red Cell Distribution Width 12.7 % (11.0-16.0)
[2024-07-03 21:09] LABS: Alanine Aminotransferase 23 U/L (0-31); Albumin Level 4.4 g/dL (3.5-5.0); Alkaline Phosphatase 75 U/L (39-117); Anion Gap 13 (12-20); Aspartate Amino Transferase 27 U/L (5-31); Bilirubin Direct < 0.2 mg/dL (0.0-0.5); Bilirubin Total 0.2 mg/dL (0.0-1.0); Blood Urea Nitrogen 21 mg/dL (9-16); Calcium 9.2 mg/dL (8.4-10.2); Carbon Dioxide 26 mmol/L (22-29); Chloride 107 mmol/L (96-108); Creatinine Clr Calc Pharmacy 43.9; Estimated Glomerular Filt Rate 45; Glucose Random 106 mg/dL (60-115); Magnesium 2.3 mg/dL (1.6-2.6); Potassium 4.8 mmol/L (3.3-5.1); Sodium 141 mmol/L (135-145); Total Protein 7.7 g/dL (6.5-8.0)
[2024-07-03 21:11] LABS: Platelet Count 86 X10*3/uL (160-400)
[2024-07-03 21:15] LABS: B Type Natriuretic Peptide 292 pg/mL (<100)
[2024-07-03 21:16] LABS: Troponin-I High Sensitivity 3.2 ng/L (<3.5-17.0)
[2024-07-03 21:18] VITALS: BP 110/63; PULSE 106; PULSE 110; PULSE 94; RESP 15; TEMP 36.6; O2SAT 94
[2024-07-03 21:39] LABS: Influenza A PCR NEGATIVE (Negative); Influenza B PCR NEGATIVE (Negative); Resp Syncy Virus RNA Qual PCR NEGATIVE (Negative); SARS COV2 PCR INHOUSE NEGATIVE (Negative)
--- OUTSIDE RECORDS SUMMARY | 2024-07-03 22:06 | XMS_ITS | Clinical Summary ---
Author Organization Unknown Care Team Providers Care Watch Inspector Name Role Phone SANTIAGO SANDERS, BARBIE SEVERINO Unavailable Unavailanuel ARCINIEGA RN, MOMO Unavailable Unavailable Payers Payer Name Policy Type Policy Number Effective Date Expira tion Date MEDICARE.NGS.PDGM [id number] Problems Condition Name Condition Details Condition Category Status Onset Date Resolution Date Last Treatment Date Treating Clinician Comments AFTERCARE FOLLOWING JOINT REPLACEMENT SURGERY Active 12-15 00:00: 00 PRESENCE OF LEFT ARTIFICIAL HIP JOINT Active 12-15 00:00: 00 PERSONAL HISTORY OF MALIGNANT MELANOMA OF SKIN Active 30 00:00: 00 PRESENCE OF RIGHT ARTIFICIAL HIP JOINT Active 2-14 00:00: 00 USP (CURRENT) USE OF OPIATE ANALGESIC Active 12-15 [...] 325 mg tablet 12-15 00:00: 00 Yes [id number] PAIN MANAGEMENT 3 tablet EVERY 8 HOURS 3 tablet EVERY 8 HOURS (route: oral) Med Classific ation: Analgesic , Anti-infl ammatory or Antipyret ic bisacodyl 10 mg rectal suppository 12-15 00:00: 00 Yes [id number] CONSTIPATIO N 1 supposi tory, rectal DAILY 1 suppositor y, rectal DAILY (route: rectal) Med Classific ation: Gastroint estinal Therapy Agents cholecalcif guillaume (vitamin D3) 50 mcg (2,000 unit) capsule 12-15 00:00: 00 Yes [id number] SUPPLEMENT 1 capsule DAILY 1 capsule DAILY (route: oral) Med Classific ation: Electroly te Balance-N utritiona l Products eletriptan 40 mg tablet 12-15 00:00: 00 Yes [id number] MIGRAINE 1 tablet DAILY 1 tablet DAILY (route: oral) Med Classific ation: Central Nervous System Agents flecainide 50 mg tablet 12-15 00:00: 00 Yes [id number] IRREGULAR HEART RHYTHM 1 tablet 2 TIMES DAILY 1 tablet 2 TIMES DAILY (route: oral) Med Classific ation: Cardiovas cular Therapy Agents metoprolol succinate ER 25 mg tablet,exte nded release 24 hr 12-15 00:00: 00 Yes [id number] IRREGULAR HEART RHYTHM 0.5 tablet DAILY 0.5 tablet DAILY (route: oral) Med Classific ation: Cardiovas cular Therapy Agents oxycodone 5 mg tablet 12-15 00:00: 00 Yes [id number] PAIN MANAGEMENT 0.5-1.5 tablet EVERY 4 HOURS 0.5-1.5 tablet EVERY 4 HOURS (route: oral) Med Classific ation: Analgesic , Anti-infl ammatory or Antipyret ic polyethylen e glycol 3350 17 gram oral powder packet 12-15 00:00: 00 Yes [id number] CONSTIPATIO N 17 g DAILY 17 g DAILY (route: oral) Med Classific ation: Gastroint estinal Therapy Agents psyllium husk 0.52 gram capsule 12-15 00:00: 00 Yes [id number] SUPPLEMENT 4 capsule DAILY 4 capsule DAILY (route: oral) Med Classific ation: Gastroint estinal Therapy Agents Senna Lax 8.6 mg tablet 12-15 00:00: 00 Yes [id number] CONSTIPATIO N 2 tablet DAILY 2 tablet [...] DETERIORATION, COMPLICATIONS, OR INFECTION TO RN CLINICAL PARISH NURSE AND/OR PHYSICIAN. ORTHOPEDIC SURGICAL AFTERCARE (PT) MAY [...] DETERIORATION, COMPLICATIONS, OR INFECTION TO RN CLINICAL PARISH NURSE AND/OR PHYSICIAN. ORTHOPEDIC SURGICAL AFTERCARE (PT) MAY [...] End Date/Time Encounter Type Admission Type Attending [facility] Care Department Encounter ID Discharge Date Discharge Status Discharge Condition Discharge Reason Percent Goals Met 2022-12-15 00:00:00 2022-12-26 00:00:00 Outpatient NEW ADMISSION MOMO ARCINIEGA [facility] [id number] 2022-12-26 00:00:00 DISCHARGE TO HOME OR SELF CARE INDEPENDEN T IN THE [facility] OR [facility]- GOALS MET 100.00
--- NOTE | 2024-07-03 22:15 | PC.NURSE ---
Medication not available in pxysis. Called pharmacy. awaiting delivery
--- NOTE | 2024-07-03 22:18 | P.HPHOSP_ITS ---
History of Present Illness Date of Service: 07/03/24 Chief Complaint: Palpitations This is a 74-year-old female with pertinent history of paroxysmal atrial fibrillation, frequent PVCs/PACs, unknown bleeding disorder, insomnia, migraine, obstructive sleep apnea who presents to the emergency department for evaluation of palpitations. Patient states she started having palpitations 2 days prior to presentation. It is worse with exertion. Also has been having dyspnea during her episodes of palpitations. No orthopnea or PND. No leg swelling. Patient was seen by Cardiology on 05/14/2024 when flecainide was discontinued and patient was started on Multaq. Recent Holter monitor with AFib with RVR and frequent supraventricular ectopy. Patient is not on anticoagulation due to elevated bleeding risk due to unknown bleeding disorder and follows with [facility]. No fever, chills, chest pain, abdominal pain, changes in urinary or bowel habits. In the emergency department, patient was found to be in AFib with RVR. Cardiology was consulted who requested admission. Review of Systems 2 Constitutional: Constitutional: Reports fatigue Cardiovascular: Cardiovascular: Reports rapid heart rate Respiratory: Respiratory: Reports no additional respiratory complaints Gastrointestinal: Gastrointestinal: Reports no additional gastrointestinal complaints Genitourinary: Genitourinary: Reports no additional female genitourinary complaints Endocrine: Endocrine: Reports fatigue [facility] Medical History Hx of fracture of rib Osteoarthritis of fingers of hands, bilateral Moderate obstructive sleep apnea Insomnia Sleep apnea in adult Sleep apnea Cataract (lens) fragments in eye following cataract surgery, bilateral Post-operative nausea and vomiting Bleeding disorder Osteoarthritis of right hip Hx of melanoma of skin MVP (mitral valve prolapse) Migraine Hx of hepatitis C History of Weiner's esophagus MTHFR gene mutation PVCs (premature ventricular contractions) PAC (premature atrial contraction) Family History Father Leukemia Mother SLE (systemic lupus erythematosus) Sister HTN (hypertension) Hypercholesterolemia Surgical History Hx of esophagogastroduodenoscopy H/O colonoscopy History of bunionectomy of both great toes Hx of breast augmentation History of hip replacement History of melanoma excision History of foot surgery History of tonsillectomy Social History Housing: House Are you a primary customer care voice consultant to a significant other at home: No Do you presently have visiting nurse or other home services: No Alcohol intake: current Alcohol intake frequency: 0-2 drinks per day Alcohol type: wine Patient Tobacco Use Status: Never used Tobacco Smoked in Last 30 Days: No e-Cigarette/Vaping Use: Never Used Use of substances other than those prescribed or required for medical reasons: No Advance Directives: Yes Advance Directives on File: Yes Advance Directives Date on File: 10/15/17 service: No Current occupational status: retired Cognitive needs: No Hearing needs: No Vision needs: Yes Meds Allergies Allergy/AdvReac Type Severity Reaction Status Date / Time No Known Allergies Allergy Verified 07/03/24 20:36 Home Medications ?Medication ?Instructions ?Recorded ?Confirmed ?Last Taken ?Type lysine 1,000 mg tablet 1,000 mg PO DAILY 05/10/20 05/14/24 Unknown History senna 600 mg tablet 600 mg PO BID 06/07/22 05/14/24 Unknown History psyllium husk 0.4 gram capsule 0.4 g PO DAILY 10/16/22 05/14/24 Unknown History (Metamucil) multivitamin 1 tab PO DAILY 05/14/24 05/14/24 Unknown History Physical Exam 2 Vital Signs and Narrative: Vital Signs: Last Vital Signs Temp 97.8 F 07/03/24 21:18 Pulse 110 H 07/03/24 21:18 Resp 15 07/03/24 21:18 BP 110/63 07/03/24 21:18 Pulse Ox 94 07/03/24 21:18 O2 Del Method Room Air 07/03/24 21:18 BMI result Body Mass Index 23.8 Middle-aged female lying in bed in no distress Neck supple, no JVD Irregularly irregular, S1-S2 heard Regular breath sounds bilaterally, no wheezing or crackles appreciated Abdomen soft nontender, no guarding, no rigidity Patient is awake, alert and oriented to self, place, time and person ; no focal motor deficit Psych: Normal mood No pedal edema Results Labs 07/03/24 20:48 07/03/24 20:48 Labs: Laboratory Results - last 24 hr 07/03/24 07/03/24 07/03/24 20:43 20:44 20:48 MCV 93.9 MCH 30.7 MCHC 32.7 RDW 12.7 Plt Count 86 L D MPV 12.3 Immature Gran % (Auto) 0.3 Neut % (Auto) 60.1 Lymph % (Auto) 24.3 [place] % (Auto) 10.6 Eos % (Auto) 4.0 Baso % (Auto) 0.7 Lymph # (Auto) 1.7 [place] # (Auto) 0.7 Eos # (Auto) 0.3 Baso # (Auto) 0.1 Abs Immat Gran (auto) 0.02 Absolute Neuts (auto) 4.2 Absolute Nucleated RBC 0.000 Nucleated RBC % (auto) 0.0 Anion Gap 13 Estim Creat Clear Calc 43.9 Estimated GFR 45 Random Glucose 106 Calcium 9.2 Magnesium 2.3 Total Bilirubin 0.2 Direct Bilirubin < 0.2 AST 27 ALT 23 Alkaline Phosphatase 75 Troponin I High Sens 3.2 B-Natriuretic Peptide 292 H Total Protein 7.7 Albumin 4.4 Urine Color Yellow Urine Appearance Clear Urine pH 5.0 Ur Specific [place] 1.025 Urine Protein Negative Urine Glucose (UA) Negative Urine Ketones Trace Urine Blood Negative Urine Nitrite Negative Ur Leukocyte Esterase Trace H Urine RBC 0-2 Urine WBC 0-5 Ur Squamous Epith Cells 0-2 Urine Bacteria None Seen Hyaline Casts 0-2 Influenza Type A (PCR) NEGATIVE Influenza Type B (PCR) NEGATIVE RSV RNA Qual (PCR) NEGATIVE SARS-CoV-2 RNA (RT-PCR) NEGATIVE Imaging Radiologist's Impressions: Impressions Chest X-Ray 07/03/24 20:31 IMPRESSION: Cardiomegaly. No acute process seen. Electronically signed by: Henry Hernandez MD 07/03/2024 10:04 PM [facility] Assessment and Plan (1) PAF (paroxysmal atrial fibrillation): Status: Acute Plan This is a 74-year-old female with pertinent history of paroxysmal atrial fibrillation, frequent PVCs/PACs, unknown bleeding disorder, insomnia, migraine, obstructive sleep apnea who presents to the emergency department for evaluation of palpitations. #. AFib with RVR, symptomatic: Will admit patient with cardiac monitoring. Cardiology was consulted from the ER. Stop Multaq and initiating digoxin. Unable to do anticoagulation due to elevated bleeding risk #. Insomnia: On eszopiclone p.r.n. #. Migraine: On Eletriptan p.r.n. #. Obstructive sleep apnea: Uses mandibular advancement device at night Med rec pending DVT prophylaxis: Mechanical. Unable to do prophylactic Lovenox due to thrombocytopenia Full code Admit as inpatient and will require two night minimum hospital stay for close monitoring of heart rate (as above), which is not possible in a lesser acute setting. Specialist consult pending Quality Stroke Does the patient have a stroke diagnosis?: No VTE Prior VTE?: No VTE Risk Level:: Medical - moderate - high VTE Device Contraindication: N/A - Device Ordered VTE Drug Contraindication: Treatment Not Indicated
[2024-07-03 22:20] VITALS: BP 129/85; PULSE 82; RESP 19; TEMP 36.4; O2SAT 96
[2024-07-03] MEDS: Digoxin 0.25 MG TABLET PO (22:48)
[2024-07-04] MEDS: 0.9 % Sodium Chloride Flush 3 ML SYRINGE IVFLUSH ×2 (00:39→09:19)
[2024-07-04 00:55] VITALS: BP 125/74; PULSE 76; RESP 22; TEMP 36.6; O2SAT 95
[2024-07-04 03:18] VITALS: BP 145/81; PULSE 96; RESP 20; TEMP 36.4; O2SAT 97
[2024-07-04] MEDS: Digoxin 0.25 MG TABLET PO (04:13)
[2024-07-04 07:04] LABS: Hematocrit 42.8 % (37.0-47.0); Hemoglobin 13.9 g/dl (12.0-16.0); Mean Corpuscular HGB Conc 32.5 g/dl (31.0-35.0); Mean Corpuscular Hemoglobin 30.9 pg (27.0-33.0); Mean Corpuscular Volume 95.1 fL (80.0-98.0); PLT CLUMP 1; Red Cell Distribution Width 12.7 % (11.0-16.0)
[2024-07-04 07:25] LABS: Anion Gap 11 (12-20); Blood Urea Nitrogen 18 mg/dL (9-16); Calcium 9.2 mg/dL (8.4-10.2); Carbon Dioxide 28 mmol/L (22-29); Chloride 108 mmol/L (96-108); Creatinine Clr Calc Pharmacy 51.7; Estimated Glomerular Filt Rate 54; Glucose Random 97 mg/dL (60-115); Potassium 4.6 mmol/L (3.3-5.1); Sodium 142 mmol/L (135-145)
[2024-07-04 08:00] VITALS: BP 130/75; PULSE 75; RESP 18; TEMP 36.4; O2SAT 96
--- NOTE | 2024-07-04 08:18 | PHA.MEDREC ---
Pharmacy Consult ? Medication Reconciliation Pharmacy has completed the medication reconciliation. Spoke with patient at bedside, she was able to tell me all her medications which matched claims. She states she was switched from Flecanide to Dronedarone recently, and from psyllium husk to miralax. Also stated she is taking a Prevagen supplement. Last took her meds yesterday.
[2024-07-04 08:46] LABS: Platelet Count (Citrate) 197 X10*3/uL (150-310)
[2024-07-04] MEDS: polyethylene glycoL 3350 17 GM POWD.PACK PO (09:13)
[2024-07-04] MEDS: Metoprolol Succinate ER 12.5 MG HALFTAB.ER.24H PO (09:14)
[2024-07-04] MEDS: Sennosides 8.6 MG TABLET PO (09:14)
[2024-07-04] MEDS: Multivitamin TABLET 1 TAB PO (09:14)
--- NOTE | 2024-07-04 09:36 | PM.CNCAR ---
History of Present Illness History of Present Illness Date of Service: 07/04/24 Chief complaint: Palpitations Narrative: This is a cardiology consultation regarding atrial fibrillation. Patient is well known to us and is followed up in the clinic. Last appointment was in April of this year. She has a history of frequent supraventricular ectopy with a burden of almost 16%. She also has paroxysmal atrial fibrillation. She was maintained on a small dose of beta-blockers and flecainide vital spite of this, she was still having palpitations and we stopped the flecainide and started Multaq. For the last few days, she states that she has not been feeling good and was having increasing shortness of breath and hence came to the ER. In that context, diagnosed with atrial fibrillation rapid rate. Multaq was stopped and then she was started on digoxin load. Currently, she is still in atrial fibrillation but the rate seems lower. She is okay when she is resting but when she starts doing physical activities, she can feel short of breath. Some palpitations. No angina. She is not able to take anticoagulation because of a bleeding disorder for which she sees Hematology at [facility]. Review of Systems Review of Systems: Yes all other systems are reviewed and are negative Constitutional: Constitutional: Reports as per HPI and Reports no additional constitutional complaints Eyes: Eyes: Reports as per HPI and Denies no additional eye complaints ENT: Denies system reviewed and no additional complaints, except as documented and Reports as per HPI Cardiovascular: Cardiovascular: Reports as per HPI, Reports no additional cardiovascular complaints, Denies acrocyanosis, Denies cool extremities, Denies chest pain, Denies leg edema, Denies lightheadedness, Reports palpitations and Reports dyspnea Respiratory: Respiratory: Reports as per HPI, Denies no additional respiratory complaints and Reports dyspnea Gastrointestinal: Gastrointestinal: Reports as per HPI and Denies no additional gastrointestinal complaints Genitourinary: Genitourinary: Reports as per HPI Musculoskeletal: Musculoskeletal: Reports no additional musculoskeletal complaints and Reports as per HPI Integumentary/Breasts: Skin/Breast: Reports system reviewed and no additional complaints, except as docu Neurologic: Reports system reviewed and no additional complaints, except as documented and Reports as per HPI Psychiatric: Psychiatric: Reports no additional psychiatric complaints and Reports as per HPI Endocrine: Endocrine: Reports no additional endocrine complaints, Reports as per HPI and Reports palpitations Hematologic/Lymphatic: Hematologic/Lymphatic: Reports no additional hematologic/lymphatic complaints and Reports as per HPI Allergic/Immunologic: Allergic/Immunologic: Reports no additional allergic/immunologic complaints and Reports as per HPI PMFSH Past Medical History Medical History Hx of fracture of rib Osteoarthritis of fingers of hands, bilateral Moderate obstructive sleep apnea Insomnia Sleep apnea in adult Sleep apnea Cataract (lens) fragments in eye following cataract surgery, bilateral Post-operative nausea and vomiting Bleeding disorder Osteoarthritis of right hip Hx of melanoma of skin MVP (mitral valve prolapse) Migraine Hx of hepatitis C History of Weiner's esophagus MTHFR gene mutation PVCs (premature ventricular contractions) PAC (premature atrial contraction) Family History Family History Father Leukemia Mother SLE (systemic lupus erythematosus) Sister HTN (hypertension) Hypercholesterolemia Surgical History Surgical History Hx of esophagogastroduodenoscopy H/O colonoscopy History of bunionectomy of both great toes Hx of breast augmentation History of hip replacement History of melanoma excision History of foot surgery History of tonsillectomy Social History Social History Household Members: Spouse Housing: House Are you a primary hospice care transitions coordinator to a significant other at home: No Do you presently have visiting nurse or other home services: No Alcohol intake: current Alcohol intake frequency: 0-2 drinks per day Alcohol type: wine Patient Tobacco Use Status: Never used Tobacco e-Cigarette/Vaping Use: Never Used Advance Directives Date on File: 10/15/17 service: No Current occupational status: retired Cognitive needs: No Hearing needs: No Vision needs: Yes Meds Allergies Allergy/AdvReac Type Severity Reaction Status Date / Time No Known Allergies Allergy Verified 07/03/24 20:36 Active Medications: Current Medications Acetaminophen (Acetaminophen 325 Mg Tablet) 650 mg PO Q6H PRN PRN Reason: Pain, Mild (Pain Scale 1-3), fever or headache Calcium Carbonate (Calcium Carbonate 750 Mg Tab.Chew) 750 mg PO Q4H PRN PRN Reason: Heartburn Digoxin (Digoxin 0.25 Mg Tablet) 0.25 mg PO ONCE@0400 HENRY; Protocol Last Admin: 12/20/24 04:13 Dose: 0.25 mg Magnesium Hydroxide (Milk Of Magnesia 30 Ml Oral.Susp) 30 ml PO DAILY PRN PRN Reason: Constipation Melatonin (Melatonin 3 Mg Tablet) 6 mg PO BEDTIME PRN PRN Reason: Insomnia Metoprolol Succinate (Metoprolol Succinate Er 12.5 Mg Halftab.Er.24h) 12.5 mg PO DAILY COUNT INCLUDES THE [facility]; Protocol Last Admin: 07/04/24 09:14 Dose: 12.5 mg Multivitamins/Vitamin C (Multivitamin Tablet) 1 tab PO DAILY COUNT INCLUDES THE [facility] Last Admin: 07/04/24 09:14 Dose: 1 tab Non-Formulary Medication (Eletriptan) 40 mg PO BID PRN PRN Reason: Migraine Headache Non-Formulary Medication (Eszopiclone) 2 mg PO BEDTIME PRN PRN Reason: insomnia Polyethylene Glycol (Polyethylene Glycol 3350 17 Gm Powd.Pack) 17 gm PO DAILY COUNT INCLUDES THE [facility] Last Admin: 07/04/24 09:13 Dose: 17 gm Senna (Sennosides 8.6 Mg Tablet) 8.6 mg PO BID COUNT INCLUDES THE [facility] Last Admin: 07/04/24 09:14 Dose: 8.6 mg Sodium Chloride (0.9 % Sodium Chloride Flush 3 Ml Syringe) 3 ml IVFLUSH PSYCHIATRIC Last Admin: 07/04/24 09:19 Dose: 3 ml Home Medications ?Medication ?Instructions ?Recorded ?Confirmed ?Last Taken ?Type lysine 1,000 mg tablet 1,000 mg PO DAILY 05/10/20 07/04/24 07/03/24 History senna 600 mg tablet 600 mg PO BID 06/07/22 07/04/24 07/03/24 History multivitamin 1 tab PO DAILY 05/14/24 07/04/24 07/03/24 History Prevagen 1 tab PO DAILY 07/04/24 07/04/24 07/03/24 History polyethylene glycol 3350 17 gram 17 g PO DAILY 07/04/24 07/04/24 07/03/24 History oral powder packet Physical Exam Vital Signs: Vital Signs: Last Vital Signs Temp 97.5 F 07/04/24 08:00 Pulse 75 07/04/24 08:00 Resp 18 07/04/24 08:00 BP 130/75 07/04/24 08:00 Pulse Ox 96 07/04/24 08:00 O2 Del Method Room Air 07/04/24 08:00 BMI result Body Mass Index 23.8 Const: General: comfortable and no acute distress Orientation/consciousness: patient oriented x3 HEENT: Other: Unremarkable Head: Yes normal to inspection Neck: Neck: Yes normal visual inspection Chest: Chest palpation & inspection: normal inspection of the chest Resp: Auscultation: clear to auscultation bilaterally Cardio: Palpation: normal PMI Heart sounds: S1 normal heart sound present, S2 normal heart sound present, no gallops, no murmurs and no rubs GI: Palpation (GI): Soft to palpation Back/Spine/Pelvis: Other: unremarkable Skin: General skin exam: no rashes or lesions noted Neuro: General: patient oriented x3 Extrem: General: Yes normal to inspection Psych: Mental Status: mental status grossly normal Objective Labs and Meds 07/04/24 06:42 07/04/24 06:42 Lab results: Laboratory Results - last 24 hr 07/03/24 07/03/24 07/03/24 20:43 20:44 20:48 WBC 7.0 RBC 4.43 Hgb 13.6 Hct 41.6 MCV 93.9 MCH 30.7 MCHC 32.7 RDW 12.7 Plt Count 86 L D MPV 12.3 Immature Gran % (Auto) 0.3 Neut % (Auto) 60.1 Lymph % (Auto) 24.3 [place] % (Auto) 10.6 Eos % (Auto) 4.0 Baso % (Auto) 0.7 Lymph # (Auto) 1.7 [place] # (Auto) 0.7 Eos # (Auto) 0.3 Baso # (Auto) 0.1 Abs Immat Gran (auto) 0.02 Absolute Neuts (auto) 4.2 Absolute Nucleated RBC 0.000 Nucleated RBC % (auto) 0.0 Plt Count ,Citrate Sodium 141 Potassium 4.8 Chloride 107 Carbon Dioxide 26 Anion Gap 13 BUN 21 H Creatinine 1.18 Estim Creat Clear Calc 43.9 Estimated GFR 45 Random Glucose 106 Calcium 9.2 Magnesium 2.3 Total Bilirubin 0.2 Direct Bilirubin < 0.2 AST 27 ALT 23 Alkaline Phosphatase 75 Troponin I High Sens 3.2 B-Natriuretic Peptide 292 H Total Protein 7.7 Albumin 4.4 Urine Color Yellow Urine Appearance Clear Urine pH 5.0 Ur Specific [place] 1.025 Urine Protein Negative Urine Glucose (UA) Negative Urine Ketones Trace Urine Blood Negative Urine Nitrite Negative Ur Leukocyte Esterase Trace H Urine RBC 0-2 Urine WBC 0-5 Ur Squamous Epith Cells 0-2 Urine Bacteria None Seen Hyaline Casts 0-2 Influenza Type A (PCR) NEGATIVE Influenza Type B (PCR) NEGATIVE RSV RNA Qual (PCR) NEGATIVE SARS-CoV-2 RNA (RT-PCR) NEGATIVE 07/04/24 07/04/24 06:42 08:33 WBC 6.0 RBC 4.50 Hgb 13.9 Hct 42.8 MCV 95.1 MCH 30.9 MCHC 32.5 RDW 12.7 Plt Count TNP MPV Not Reportable Immature Gran % (Auto) Neut % (Auto) Lymph % (Auto) [place] % (Auto) Eos % (Auto) Baso % (Auto) Lymph # (Auto) [place] # (Auto) Eos # (Auto) Baso # (Auto) Abs Immat Gran (auto) Absolute Neuts (auto) Absolute Nucleated RBC 0.000 Nucleated RBC % (auto) 0.0 Plt Count ,Citrate 197 Sodium 142 Potassium 4.6 Chloride 108 Carbon Dioxide 28 Anion Gap 11 L BUN 18 H Creatinine 1.00 Estim Creat Clear Calc 51.7 Estimated GFR 54 Random Glucose 97 Calcium 9.2 Magnesium Total Bilirubin Direct Bilirubin AST ALT Alkaline Phosphatase Troponin I High Sens B-Natriuretic Peptide Total Protein Albumin Urine Color Urine Appearance Urine pH Ur Specific [place] Urine Protein Urine Glucose (UA) Urine Ketones Urine Blood Urine Nitrite Ur Leukocyte Esterase Urine RBC Urine WBC Ur Squamous Epith Cells Urine Bacteria Hyaline Casts Influenza Type A (PCR) Influenza Type B (PCR) RSV RNA Qual (PCR) SARS-CoV-2 RNA (RT-PCR) ECG Interpretation: EKG shows atrial fibrillation at a rate of 118/Min. PVCs. In the prior EKG from April, sinus rhythm with frequent PACs. There is prolonged SD at 238 milliseconds. Imaging Radiologist's impression: Impressions Chest X-Ray 07/03/24 20:31 IMPRESSION: Cardiomegaly. No acute process seen. Electronically signed by: Henry Hernandez MD 07/03/2024 10:04 PM [facility] Assessment and Plan (1) Atrial fibrillation with rapid ventricular response: Status: Acute (2) Bleeding disorder: Status: Acute Plan Cardiac studies reviewed. While she is in sinus rhythm, she has a prolonged SD. Frequent supraventricular ectopy. Upon arrival, she was in atrial fibrillation with slightly rapid rate, but currently rate is around 70/Min but still in atrial fibrillation. In the echocardiogram, LVEF 50-55%. No significant valvular findings. For medications, she has failed both Multaq as well as flecainide. She runs lowish blood pressures and hence we can only give her a small dose of beta-lynette. Keep her on digoxin. 125 mcg daily maintenance. Check levels in 1-2 weeks. We discussed about that. With regard to anticoagulation, she has a history of bleeding disorder followed by Dr. Muñoz at [facility]. I requested an appointment with him and he agrees to see her soon. Need to decide if we can safely put her on at least short-term anticoagulation. Long-term, she may be better off with a Watchman device. With regard to the atrial fibrillation management itself, if we can indeed do short-term anticoagulation, then possibly pulmonary vein isolation but that is still leaves her with a high PAC burden and future likelihood of recurrent atrial fibrillation. Then, we may just keep her on a small dose of amiodarone for that purpose and accept the associated risks. Other option would be to do AV yareli ablation with conduction system pacing as she does have conduction system disease at baseline as well. For this reason, we will refer her to Dr. Fields at [facility] for further evaluation. Discussed about this today with patient and she agrees with the plan. She will avoid strenuous exertion for the time being as she does go slightly rapid and also gets short of breath. Minimize activity and await the above appointments. Procedures Date of Service Date of Service: 07/04/24
--- NOTE | 2024-07-04 11:19 | MHC.CM.PN ---
IMM 07/04/24, EMR REVIEWED, PT W/PALPITATIONS, CM MET W/PT WHO REPORTS WHO LIVES W/HER , IS FULLY INDEP W/ALL CARE, DENIES USE OF DME OTHER THAN HER MANDIBULAR ADVANCEMENT DEVICE FOR SLEEP APNEA, NO HOME SERVICES, PT'S GOAL FOR DC IS HOME NO SERVICES. PCP/HCP ON FILE VERIFIED. PLAN FOR PT TO DISCHARGE LATER TODAY W/OUTPT FOLLOW-UP AND FAMILY FOR TRANSPORT.
[2024-07-04 12:00] VITALS: BP 114/66; PULSE 78; RESP 18; TEMP 36.6; O2SAT 94
--- NOTE | 2024-07-04 13:59 | P.DS_ITS ---
DS: Providers Provider Date of Service: 07/04/24 Date of admission: 07/03/24 22:16 Date of discharge: 07/04/24 Primary care physician: Ree Camp MD Consults: 07/03/24 22:15 Consult to Cardiology Routine Consulting Provider: [facility] Reason for consultation: afib with rvr Has provider been notified: Yes DS: Diagnosis Discharge Diagnosis (1) Atrial fibrillation with rapid ventricular response: Status: Acute (2) Bleeding disorder: Status: Acute DS: Summary Hospital Course Hospital Course: From the history and physical by the admitting hospitalist, Chante Garrido MD, 07/03/24: This is a 74-year-old female with pertinent history of paroxysmal atrial fibrillation, frequent PVCs/PACs, unknown bleeding disorder, insomnia, migraine, obstructive sleep apnea who presents to the emergency department for evaluation of palpitations. Patient states she started having palpitations 2 days prior to presentation. It is worse with exertion. Also has been having dyspnea during her episodes of palpitations. No orthopnea or PND. No leg swelling. Patient was seen by Cardiology on 05/14/2024 when flecainide was discontinued and patient was started on Multaq. Recent Holter monitor with AFib with RVR and frequent supraventricular ectopy. Patient is not on anticoagulation due to elevated bleeding risk due to unknown bleeding disorder and follows with [facility] Hematology. No fever, chills, chest pain, abdominal pain, changes in urinary or bowel habits. In the emergency department, patient was found to be in AFib with RVR. Cardiology was consulted who requested admission. And from the cardiology consultation by Ulices Perez MD, 07/04/24: This is a cardiology consultation regarding atrial fibrillation. Patient is well known to us and is followed up in the clinic. Last appointment was in April of this year. She has a history of frequent supraventricular ectopy with a burden of almost 16%. She also has paroxysmal atrial fibrillation. She was maintained on a small dose of beta-blockers and flecainide vital spite of this, she was still having palpitations and we stopped the flecainide and started Multaq. For the last few days, she states that she has not been feeling good and was having increasing shortness of breath and hence came to the ER. In that context, diagnosed with atrial fibrillation rapid rate. Multaq was stopped and then she was started on digoxin load. Currently, she is still in atrial fibrillation but the rate seems lower. She is okay when she is resting but when she starts doing physical activities, she can feel short of breath. Some palpitations. No angina. She is not able to take anticoagulation because of a bleeding disorder for which she sees Hematology at [facility]... ...While she is in sinus rhythm, she has a prolonged CO. Frequent supraventricular ectopy. Upon arrival, she was in atrial fibrillation with slightly rapid rate, but currently rate is around 70/Min but still in atrial fibrillation. In the echocardiogram, LVEF 50-55%. No significant valvular findings. For medications, she has failed both Multaq as well as flecainide. She runs lowish blood pressures and hence we can only give her a small dose of beta- lynette. Keep her on digoxin. 125 mcg daily maintenance. Check levels in 1-2 weeks. We discussed about that. With regard to anticoagulation, she has a history of bleeding disorder followed by Dr. Muñoz at [facility]. I requested an appointment with him and he agrees to see her soon. Need to decide if we can safely put her on at least short-term anticoagulation. Long-term, she may be better off with a Watchman device. With regard to the atrial fibrillation management itself, if we can indeed do short-term anticoagulation, then possibly pulmonary vein isolation but that is still leaves her with a high PAC burden and future likelihood of recurrent atrial fibrillation. Then, we may just keep her on a small dose of amiodarone for that purpose and accept the associated risks. Other option would be to do AV yareli ablation with conduction system pacing as she does have conduction system disease at baseline as well. For this reason, we will refer her to Dr. Weber at [facility] for further evaluation. Discussed about this today with patient and she agrees with the plan. She will avoid strenuous exertion for the time being as she does go slightly rapid and also gets short of breath. Minimize activity and await the above appointments. She ended up converting to sinus rhythm. She was placed on 125 mcg/day of digoxin with a level to be checked in 2 weeks. She will need follow-up appointments as above with Dr Jose Weber [[facility]], Dr Charly Muñoz [[facility]], and Dr Contreras. Time Attestation Discharge Coordination Time (in mins): 40 Quality: Safe Use of Opioids Does Pt have an Active Cancer Diagnosis on the Problem List?: No Quality: Stroke Does the patient have a stroke diagnosis?: No Physical Exam Vital Signs: Vital Signs: Last Vital Signs Temp 97.8 F 07/04/24 12:00 Pulse 78 07/04/24 12:00 Resp 18 07/04/24 12:00 BP 114/66 07/04/24 12:00 Pulse Ox 94 07/04/24 12:00 O2 Del Method Room Air 07/04/24 12:00 BMI result Body Mass Index 23.8 Gen: in no acute distress HEENT: sclera anicteric, moist mucus membranes Neck: supple Lungs: clear to auscultation bilaterally Heart: irregular, no murmurs Abd: soft, non-tender, non-distended Ext: no edema Skin: warm/well-perfused Neuro: alert and oriented x3, no focal findings Psych: appropriate affect DS: Data Data Completed and Pending Completed studies during hospitalization [Text1]: Laboratory Results WBC 6.0 X10*3/uL (4.8-10.8) 07/04/24 06:42 RBC 4.50 X10*6/uL (4.20-5.50) 07/04/24 06:42 Hgb 13.9 g/dl (12.0-16.0) 07/04/24 06:42 Hct 42.8 % (37.0-47.0) 07/04/24 06:42 MCV 95.1 fL (80.0-98.0) 07/04/24 06:42 MCH 30.9 pg (27.0-33.0) 07/04/24 06:42 MCHC 32.5 g/dl (31.0-35.0) 07/04/24 06:42 RDW 12.7 % (11.0-16.0) 07/04/24 06:42 Plt Count TNP 07/04/24 06:42 MPV Not Reportable 07/04/24 06:42 Immature Gran % (Auto) 0.3 % (0.0-0.4) 07/03/24 20:48 Neut % (Auto) 60.1 % (45-73) 07/03/24 20:48 Lymph % (Auto) 24.3 % (20-40) 07/03/24 20:48 [place] % (Auto) 10.6 % (2-11) 07/03/24 20:48 Eos % (Auto) 4.0 % (0-4) 07/03/24 20:48 Baso % (Auto) 0.7 % (0-2) 07/03/24 20:48 Lymph # (Auto) 1.7 X10*3/uL (1.2-4.9) 07/03/24 20:48 [place] # (Auto) 0.7 X10*3/uL (0.1-1.2) 07/03/24 20:48 Eos # (Auto) 0.3 X10*3/uL (0.0-0.4) 07/03/24 20:48 Baso # (Auto) 0.1 X10*3/uL (0.0-0.2) 07/03/24 20:48 Abs Immat Gran (auto) 0.02 X10*3/uL (0.00-0.03) 07/03/24 20:48 Absolute Neuts (auto) 4.2 x10*3/uL (2.0-8.3) 07/03/24 20:48 Absolute Nucleated RBC 0.000 X10*3/uL (0.0-0.012) 07/04/24 06:42 Nucleated RBC % (auto) 0.0 /100WBC (0.0-0.2) 07/04/24 06:42 Plt Count ,Citrate 197 X10*3/uL (150-310) 07/04/24 08:33 Sodium 142 mmol/L (135-145) 07/04/24 06:42 Potassium 4.6 mmol/L (3.3-5.1) 07/04/24 06:42 Chloride 108 mmol/L (96-108) 07/04/24 06:42 Carbon Dioxide 28 mmol/L (22-29) 07/04/24 06:42 Anion Gap 11 (12-20) L 07/04/24 06:42 BUN 18 mg/dL (9-16) H 07/04/24 06:42 Creatinine 1.00 mg/dL (0.5-1.4) 07/04/24 06:42 Estim Creat Clear Calc 51.7 07/04/24 06:42 Estimated GFR 54 07/04/24 06:42 Random Glucose 97 mg/dL (60-115) 07/04/24 06:42 Calcium 9.2 mg/dL (8.4-10.2) 07/04/24 06:42 Magnesium 2.3 mg/dL (1.6-2.6) 07/03/24 20:48 Total Bilirubin 0.2 mg/dL (0.0-1.0) 07/03/24 20:48 Direct Bilirubin < 0.2 mg/dL (0.0-0.5) 07/03/24 20:48 AST 27 U/L (5-31) 07/03/24 20:48 ALT 23 U/L (0-31) 07/03/24 20:48 Alkaline Phosphatase 75 U/L (39-117) 07/03/24 20:48 Troponin I High Sens 3.2 ng/L (<3.5-17.0) 07/03/24 20:48 B-Natriuretic Peptide 292 pg/mL (<100) H 07/03/24 20:48 Total Protein 7.7 g/dL (6.5-8.0) 07/03/24 20:48 Albumin 4.4 g/dL (3.5-5.0) 07/03/24 20:48 Urine Color Yellow 07/03/24 20:43 Urine Appearance Clear 07/03/24 20:43 Urine pH 5.0 (5.0-9.0) 07/03/24 20:43 Ur Specific [place] 1.025 (1.005-1.025) 07/03/24 20:43 Urine Protein Negative mg/dL (Neg-Trace) 07/03/24 20:43 Urine Glucose (UA) Negative mg/dL (Negative) 07/03/24 20:43 Urine Ketones Trace mg/dL (Negative) 07/03/24 20:43 Urine Blood Negative (Negative) 07/03/24 20:43 Urine Nitrite Negative (Negative) 07/03/24 20:43 Ur Leukocyte Esterase Trace (Negative) H 07/03/24 20:43 Urine RBC 0-2 /HPF (0-2) 07/03/24 20:43 Urine WBC 0-5 /HPF (0-5) 07/03/24 20:43 Ur Squamous Epith Cells 0-2 /HPF (0-2) 07/03/24 20:43 Urine Bacteria None Seen (None Seen) 07/03/24 20:43 Hyaline Casts 0-2 /LPF (0-2) 07/03/24 20:43 Influenza Type A (PCR) NEGATIVE (Negative) 07/03/24 20:44 Influenza Type B (PCR) NEGATIVE (Negative) 07/03/24 20:44 RSV RNA Qual (PCR) NEGATIVE (Negative) 07/03/24 20:44 SARS-CoV-2 RNA (RT-PCR) NEGATIVE (Negative) 07/03/24 20:44 Impressions Chest X-Ray 07/03/24 20:31 IMPRESSION: Cardiomegaly. No acute process seen. Electronically signed by: Henry Hernandez MD 07/03/2024 10:04 PM [facility] Discharge Plan Discharge Anticipated Discharge Date/Time: 07/04/24 13:59 Patient Disposition: Home, Self-Care Discharge Diagnosis: paroxysmal atrial fibrillation bleeding disorder Referrals: Ree Camp MD [Primary Care Provider] - 1 Week Jose Weber MD [Physician] - 1 Week ([facility] REFERING YOU TO DR. WEBER AT [facility]. ) Charly Muñoz MD [Physician] - 2 Weeks Ulices Perez MD [Physician] - 2 Weeks Discharge Medications: New digoxin 125 mcg (0.125 mg) Tablet 0.125 mg PO DAILY Qty: 30 0RF Protocol: Hold for HR <: HOLD for HR < : 60 Continued metoprolol succinate 25 mg tablet extended release 24 hr 12.5 mg PO DAILY 90 Days Qty: 45 3RF eletriptan 40 mg tablet 40 mg PO BID PRN (Reason: Migraine Headache) Qty: 9 2RF eszopiclone 2 mg tablet 2 mg PO BEDTIME PRN (Reason: insomnia) Qty: 30 0RF polyethylene glycol 3350 17 gram Powder In Packet 17 g PO DAILY Prevagen 1 tab PO DAILY senna 600 mg tablet 600 mg PO BID lysine 1,000 mg tablet 1,000 mg PO DAILY multivitamin Tablet 1 tab PO DAILY Discharge Orders: Discharge Order (Routine); Ordered 07/04/24 Ordered By: Chintan Rodriguez Diet: Advance to usual diet Activity on Discharge: As tolerated Stand Alone Forms: Patient Portal Discharge page, Work/School Release Print Language: [place] Other Ambulatory Orders: Digoxin (Routine) Timeframe: 2 Weeks Facility: [facility] - Location: Laboratory Ordered By: Chintan Rodriguez Care Plan Goals: cardiac health Health Concerns: paroxysmal atrial fibrillation bleeding disorder Plan of Treatment: stop dronaderone [Multaq] take digoxin 125 mcg daily; check level in 2 weeks follow up with: - Dr Jose Weber, [facility] in 1-2 weeks - Dr Ulices Perez, [facility] Cardiology in 2 weeks - Dr Charly Muñoz, [facility] in 2 weeks Please follow up with your primary care doctor within 1 week. Return to the hospital if you experience recurrent or worsening symptoms. Assessment: See Discharge Summary.
== END 2024-07-04 14:45 | disposition home or self-care (01) | DRG 309 ==
LOC: HO.ED 22:04 → HO.EDOVER 22:26 → HO.IMC 07-04 00:23
PROVIDERS: Physician Assistant; Admitting Provider Student in an Organized Health Care Education/Training Program; Emergency Provider Emergency Medicine; PCP Internal Medicine; Visit Provider Family Medicine
DX: I48.0 Paroxysmal atrial fibrillation (principal); D68.9 Coagulation defect, unspecified; E72.12 Methylenetetrahydrofolate reductase deficiency; G47.00 Insomnia, unspecified; D69.6 Thrombocytopenia, unspecified; G43.909 Migraine, unspecified, not intractable, without status migrainosus; G47.33 Obstructive sleep apnea (adult) (pediatric); Z20.822 Contact with and (suspected) exposure to COVID-19; Z79.899 Other long term (current) drug therapy
CPT/HCPCS: 0241U; 36415; 71046; 80048; 80076; 81001; 83735; 83880; 84484; 85025; 85027; 93005; 99285

== ENCOUNTER → 2024-07-03 22:16 | Outpatient (BNV) | payer MEDICARE, OTHER, SELFPAY | PROVIDERS: Admitting Provider Student in an Organized Health Care Education/Training Program; Emergency Provider Emergency Medicine; PCP Internal Medicine; Visit Provider Internal Medicine | DX: I48.91 Unspecified atrial fibrillation (principal); D69.9 Hemorrhagic condition, unspecified | CPT/HCPCS: 93010; 99222 ==

== ENCOUNTER → 2024-07-03 22:16 | Outpatient (BNV) | payer MEDICARE, OTHER, SELFPAY | PROVIDERS: Admitting Provider Student in an Organized Health Care Education/Training Program; Emergency Provider Emergency Medicine; PCP Internal Medicine; Visit Provider Student in an Organized Health Care Education/Training Program | DX: I48.91 Unspecified atrial fibrillation (principal); D69.9 Hemorrhagic condition, unspecified | CPT/HCPCS: 99222; 99239 ==

== ENCOUNTER 2024-07-15 10:50 | Outpatient (REF) | payer MEDICARE, OTHER, SELFPAY ==
--- OUTSIDE RECORDS SUMMARY | 2024-07-15 11:02 | XMS_ITS | Clinical Summary ---
Author Organization Unknown Care Team Providers Care Manager Of Revenue Name Role Phone SANTIAGO SANDERS, BARBIE SEVERINO Unavailable Unavailanuel ARCINIEGA RN, MOMO Unavailable Unavailable Payers Payer Name Policy Type Policy Number Effective Date Expira tion Date MEDICARE.NGS.PDGM [id number] Problems Condition Name Condition Details Condition Category Status Onset Date Resolution Date Last Treatment Date Treating Clinician Comments AFTERCARE FOLLOWING JOINT REPLACEMENT SURGERY Active 12-15 00:00: 00 PRESENCE OF LEFT ARTIFICIAL HIP JOINT Active 12-15 00:00: 00 PERSONAL HISTORY OF MALIGNANT MELANOMA OF SKIN Active 30 00:00: 00 PRESENCE OF RIGHT ARTIFICIAL HIP JOINT Active 2-14 00:00: 00 FDC (CURRENT) USE OF OPIATE ANALGESIC Active 12-15 [...] 325 mg tablet 12-15 00:00: 00 Yes [id number] PAIN MANAGEMENT 3 tablet EVERY 8 HOURS 3 tablet EVERY 8 HOURS (route: oral) Med Classific ation: Analgesic , Anti-infl ammatory or Antipyret ic bisacodyl 10 mg rectal suppository 12-15 00:00: 00 Yes [id number] CONSTIPATIO N 1 supposi tory, rectal DAILY 1 suppositor y, rectal DAILY (route: rectal) Med Classific ation: Gastroint estinal Therapy Agents cholecalcif guillaume (vitamin D3) 50 mcg (2,000 unit) capsule 12-15 00:00: 00 Yes [id number] SUPPLEMENT 1 capsule DAILY 1 capsule DAILY (route: oral) Med Classific ation: Electroly te Balance-N utritiona l Products eletriptan 40 mg tablet 12-15 00:00: 00 Yes [id number] MIGRAINE 1 tablet DAILY 1 tablet DAILY (route: oral) Med Classific ation: Central Nervous System Agents flecainide 50 mg tablet 12-15 00:00: 00 Yes [id number] IRREGULAR HEART RHYTHM 1 tablet 2 TIMES DAILY 1 tablet 2 TIMES DAILY (route: oral) Med Classific ation: Cardiovas cular Therapy Agents metoprolol succinate ER 25 mg tablet,exte nded release 24 hr 12-15 00:00: 00 Yes [id number] IRREGULAR HEART RHYTHM 0.5 tablet DAILY 0.5 tablet DAILY (route: oral) Med Classific ation: Cardiovas cular Therapy Agents oxycodone 5 mg tablet 12-15 00:00: 00 Yes [id number] PAIN MANAGEMENT 0.5-1.5 tablet EVERY 4 HOURS 0.5-1.5 tablet EVERY 4 HOURS (route: oral) Med Classific ation: Analgesic , Anti-infl ammatory or Antipyret ic polyethylen e glycol 3350 17 gram oral powder packet 12-15 00:00: 00 Yes [id number] CONSTIPATIO N 17 g DAILY 17 g DAILY (route: oral) Med Classific ation: Gastroint estinal Therapy Agents psyllium husk 0.52 gram capsule 12-15 00:00: 00 Yes [id number] SUPPLEMENT 4 capsule DAILY 4 capsule DAILY (route: oral) Med Classific ation: Gastroint estinal Therapy Agents Senna Lax 8.6 mg tablet 12-15 00:00: 00 Yes [id number] CONSTIPATIO N 2 tablet DAILY 2 tablet [...] DETERIORATION, COMPLICATIONS, OR INFECTION TO RN CLINICAL CLIENT SOLUTIONS SPECIALIST AND/OR PHYSICIAN. ORTHOPEDIC SURGICAL AFTERCARE (PT) MAY [...] DETERIORATION, COMPLICATIONS, OR INFECTION TO RN CLINICAL CLIENT SOLUTIONS SPECIALIST AND/OR PHYSICIAN. ORTHOPEDIC SURGICAL AFTERCARE (PT) MAY [...] End Date/Time Encounter Type Admission Type Attending [facility] Care Department Encounter ID Discharge Date Discharge Status Discharge Condition Discharge Reason Percent Goals Met 2022-12-15 00:00:00 2022-12-26 00:00:00 Outpatient NEW ADMISSION MOMO ARCINIEGA [facility] [id number] 2022-12-26 00:00:00 DISCHARGE TO HOME OR SELF CARE INDEPENDEN T IN THE COMMUNITY HH OR PAL- GOALS MET 100.00
--- OUTSIDE RECORDS SUMMARY | 2024-07-15 11:03 | XMS_ITS | Clinical Summary ---
Author Organization Unknown Care Team Providers Care Press Operator Assistant Name Role Phone SANTIAGO SANDERS, BARBIE SEVERINO Unavailable Unavailanuel ARCINIEGA RN, MOMO Unavailable Unavailable Payers Payer Name Policy Type Policy Number Effective Date Expira tion Date MEDICARE.NGS.PDGM [id number] Problems Condition Name Condition Details Condition Category [...] 325 mg tablet 12-15 00:00: 00 Yes [id number] PAIN MANAGEMENT 3 tablet EVERY 8 HOURS 3 tablet EVERY 8 HOURS (route: oral) Med Classific ation: Analgesic , Anti-infl ammatory or Antipyret ic bisacodyl 10 mg rectal suppository 12-15 00:00: 00 Yes [id number] CONSTIPATIO N 1 supposi tory, rectal DAILY 1 suppositor y, rectal DAILY (route: rectal) Med Classific ation: Gastroint estinal Therapy Agents cholecalcif guillaume (vitamin D3) 50 mcg (2,000 unit) capsule 12-15 00:00: 00 Yes [id number] SUPPLEMENT 1 capsule DAILY 1 capsule DAILY (route: oral) Med Classific ation: Electroly te Balance-N utritiona l Products eletriptan 40 mg tablet 12-15 00:00: 00 Yes [id number] MIGRAINE 1 tablet DAILY 1 tablet DAILY (route: oral) Med Classific ation: Central Nervous System Agents flecainide 50 mg tablet 12-15 00:00: 00 Yes [id number] IRREGULAR HEART RHYTHM 1 tablet 2 TIMES DAILY 1 tablet 2 TIMES DAILY (route: oral) Med Classific ation: Cardiovas cular Therapy Agents metoprolol succinate ER 25 mg tablet,exte nded release 24 hr 12-15 00:00: 00 Yes [id number] IRREGULAR HEART RHYTHM 0.5 tablet DAILY 0.5 tablet DAILY (route: oral) Med Classific ation: Cardiovas cular Therapy Agents oxycodone 5 mg tablet 12-15 00:00: 00 Yes [id number] PAIN MANAGEMENT 0.5-1.5 tablet EVERY 4 HOURS 0.5-1.5 tablet EVERY 4 HOURS (route: oral) Med Classific ation: Analgesic , Anti-infl ammatory or Antipyret ic polyethylen e glycol 3350 17 gram oral powder packet 12-15 00:00: 00 Yes [id number] CONSTIPATIO N 17 g DAILY 17 g DAILY (route: oral) Med Classific ation: Gastroint estinal Therapy Agents psyllium husk 0.52 gram capsule 12-15 00:00: 00 Yes [id number] SUPPLEMENT 4 capsule DAILY 4 capsule DAILY (route: oral) Med Classific ation: Gastroint estinal Therapy Agents Senna Lax 8.6 mg tablet 12-15 00:00: 00 Yes [id number] CONSTIPATIO N 2 tablet DAILY 2 tablet [...] DETERIORATION, COMPLICATIONS, OR INFECTION TO RN CLINICAL PLATING TANK OPERATOR AND/OR PHYSICIAN. ORTHOPEDIC SURGICAL AFTERCARE (PT) MAY [...] DETERIORATION, COMPLICATIONS, OR INFECTION TO RN CLINICAL PLATING TANK OPERATOR AND/OR PHYSICIAN. ORTHOPEDIC SURGICAL AFTERCARE (PT) MAY [...] End Date/Time Encounter Type Admission Type Attending [facility] Care Department Encounter ID Discharge Date Discharge Status Discharge Condition Discharge Reason Percent Goals Met 2022-12-15 00:00:00 2022-12-26 00:00:00 Outpatient NEW ADMISSION MOMO ARCINIEGA [facility] [id number] 2022-12-26 00:00:00 DISCHARGE TO HOME OR SELF CARE INDEPENDEN T IN THE COMMUNITY HH OR PAL- GOALS MET 100.00
[2024-07-15 14:17] LABS: Cholesterol 251 mg/dL (<200); HDL Cholesterol 74 mg/dL (>40); LDL Cholesterol Calculated 156 mg/dL (<100); Triglycerides 106 mg/dL (<150); Vitamin D 25-OH Total 103.1 ng/mL (>30)
== END 2024-07-15 10:51 | disposition home or self-care (01) ==
LOC: HO.HMGCLDS 10:50
PROVIDERS: PCP Internal Medicine; Visit Provider Internal Medicine
DX: Z00.01 Encounter for general adult medical examination with abnormal findings (principal); Z13.6 Encounter for screening for cardiovascular disorders; I48.0 Paroxysmal atrial fibrillation; F51.01 Primary insomnia; G47.33 Obstructive sleep apnea (adult) (pediatric); D69.9 Hemorrhagic condition, unspecified
CPT/HCPCS: 36415; 80061; 82306; 99495

== ENCOUNTER 2024-07-15 11:17 | Outpatient (AMB) | payer MEDICARE, OTHER, SELFPAY ==
--- OUTSIDE RECORDS SUMMARY | 2024-07-15 11:19 | XMS_ITS | Clinical Summary ---
Author Organization Unknown Care Team Providers Care Senior Caregiver Name Role Phone SANTIAGO SANDERS, BARBIE SEVERINO Unavailable Unavailanuel ARCINIEGA RN, MOMO Unavailable Unavailable Payers Payer Name Policy Type Policy Number Effective Date Expira tion Date MEDICARE.NGS.PDGM [id number] Problems Condition Name Condition Details Condition Category Status Onset Date Resolution Date Last Treatment Date Treating Clinician Comments AFTERCARE FOLLOWING JOINT REPLACEMENT SURGERY Active 12-15 00:00: 00 PRESENCE OF LEFT ARTIFICIAL HIP JOINT Active 12-15 00:00: 00 PERSONAL HISTORY OF MALIGNANT MELANOMA OF SKIN Active 30 00:00: 00 PRESENCE OF RIGHT ARTIFICIAL HIP JOINT Active 2-14 00:00: 00 [facility]PC (CURRENT) USE OF OPIATE ANALGESIC Active 12-15 [...] 325 mg tablet 12-15 00:00: 00 Yes [id number] PAIN MANAGEMENT 3 tablet EVERY 8 HOURS 3 tablet EVERY 8 HOURS (route: oral) Med Classific ation: Analgesic , Anti-infl ammatory or Antipyret ic bisacodyl 10 mg rectal suppository 12-15 00:00: 00 Yes [id number] CONSTIPATIO N 1 supposi tory, rectal DAILY 1 suppositor y, rectal DAILY (route: rectal) Med Classific ation: Gastroint estinal Therapy Agents cholecalcif guillaume (vitamin D3) 50 mcg (2,000 unit) capsule 12-15 00:00: 00 Yes [id number] SUPPLEMENT 1 capsule DAILY 1 capsule DAILY (route: oral) Med Classific ation: Electroly te Balance-N utritiona l Products eletriptan 40 mg tablet 12-15 00:00: 00 Yes [id number] MIGRAINE 1 tablet DAILY 1 tablet DAILY (route: oral) Med Classific ation: Central Nervous System Agents flecainide 50 mg tablet 12-15 00:00: 00 Yes [id number] IRREGULAR HEART RHYTHM 1 tablet 2 TIMES DAILY 1 tablet 2 TIMES DAILY (route: oral) Med Classific ation: Cardiovas cular Therapy Agents metoprolol succinate ER 25 mg tablet,exte nded release 24 hr 12-15 00:00: 00 Yes [id number] IRREGULAR HEART RHYTHM 0.5 tablet DAILY 0.5 tablet DAILY (route: oral) Med Classific ation: Cardiovas cular Therapy Agents oxycodone 5 mg tablet 12-15 00:00: 00 Yes [id number] PAIN MANAGEMENT 0.5-1.5 tablet EVERY 4 HOURS 0.5-1.5 tablet EVERY 4 HOURS (route: oral) Med Classific ation: Analgesic , Anti-infl ammatory or Antipyret ic polyethylen e glycol 3350 17 gram oral powder packet 12-15 00:00: 00 Yes [id number] CONSTIPATIO N 17 g DAILY 17 g DAILY (route: oral) Med Classific ation: Gastroint estinal Therapy Agents psyllium husk 0.52 gram capsule 12-15 00:00: 00 Yes [id number] SUPPLEMENT 4 capsule DAILY 4 capsule DAILY (route: oral) Med Classific ation: Gastroint estinal Therapy Agents Senna Lax 8.6 mg tablet 12-15 00:00: 00 Yes [id number] CONSTIPATIO N 2 tablet DAILY 2 tablet [...] DETERIORATION, COMPLICATIONS, OR INFECTION TO RN CLINICAL DINING SERVICES MANAGER AND/OR PHYSICIAN. ORTHOPEDIC SURGICAL AFTERCARE (PT) MAY [...] DETERIORATION, COMPLICATIONS, OR INFECTION TO RN CLINICAL DINING SERVICES MANAGER AND/OR PHYSICIAN. ORTHOPEDIC SURGICAL AFTERCARE (PT) MAY [...] End Date/Time Encounter Type Admission Type Attending [facility] Care Department Encounter ID Discharge Date Discharge Status Discharge Condition Discharge Reason Percent Goals Met 2022-12-15 00:00:00 2022-12-26 00:00:00 Outpatient NEW ADMISSION MOMO ARCINIEGA [facility] [id number] 2022-12-26 00:00:00 DISCHARGE TO HOME OR SELF CARE INDEPENDEN T IN THE COMMUNITY HH OR PAL- GOALS MET 100.00
[2024-07-15 11:46] VITALS: BP 132/90; PULSE 77; O2SAT 97; BMI 24.2
--- NOTE | 2024-07-15 11:46 | MHC.PC.OV ---
Vital Signs 07/15/24 11:46 Height 5 ft 10 in Weight 169 lb BMI 24.2 BP 132/90 H Blood Pressure Location Lt brachial Position Sitting Pulse 77 Pulse Source Pulse Oximeter Pulse Oximetry (%) 97 Oxygen Delivery Method Room Air Intake Visit Reasons: TCM Intake Note: Pt is here today for her TCM f/u Allergies No Known Allergies Allergy (Verified 07/15/24 12:11) Medication List - Last Reconciled 07/15/24 by Ree Camp MD digoxin 0.125 mg See Protocol PO DAILY eletriptan 40 mg PO BID PRN eszopiclone 2 mg PO BEDTIME PRN lysine 1,000 mg PO DAILY metoprolol succinate ER 12.5 mg (1/2 x 25 mg) PO DAILY 90 days multivitamin 1 tab PO DAILY polyethylene glycol 3350 17 grams PO DAILY [Prevagen 1 tab PO DAILY] senna 600 mg PO BID Tobacco use date assessed: 07/15/24 Fall risk assessment: No Falls in past year Last assessed Fall Risk: 07/15/24 Dental Screening Dental Screen Date: 07/15/24 Did you have a dental visit in the last 12 months?: Yes Did you have a dental problem in the last 6 months where you did not have access to dental care?: No Was dental information given to patient?: Patient has dentist HPI TCM HPI Details 74 Year old lady here to for a TCM visit. She has history of paroxysmal atrial fibrillation, with frequent PVCs and PACs, unknown bleeding disorder, insomnia, migraine, obstructive sleep apnea who was recently admitted due to having palpitations days prior to presentation. Patient states that was worse with exertion and accompanied by dyspnea. Denies any leg swelling no chest pain. She was previously on flecainide and beta-lynette but was still having palpitations, does flecainide was stopped and started on Multaq. Recent Holter monitor showed AFib with RVR and frequent supraventricular ectopy. Multaq was stopped during her recent admission, and was started on digoxin. Patient is not on any anticoagulation due to elevated bleeding risk from an unknown bleeding disorder and follows with Dr. Muñoz at [facility]. She was advised to consult with him with regards to whether she can be safely put on short-term anticoagulation, and discussion regarding Watchman device maybe feasible. She has been referred to Dr. Fields at [facility] for further evaluation with regards to treatment of her recurrent atrial fibrillation. During this admission patient converted to sinus rhythm currently on 08/04 5 mcg per day of digoxin with levels to be checked again in 2 weeks. She has an appointment again for follow-up with Dr. Perez on 07/21/2023 and is scheduled to follow-up with Dr. Darlene soto and Dr. Brenden Fields at [facility]. At present patient states that she has been feeling better, with no complaints of chest pain, no palpitations or shortness of breath or lightheadedness. [facility] Medical History (Updated 07/21/24 @ 01:11 by Ree Camp MD) Hx of fracture of rib Osteoarthritis of fingers of hands, bilateral Moderate obstructive sleep apnea Insomnia Sleep apnea in adult Sleep apnea Cataract (lens) fragments in eye following cataract surgery, bilateral Post-operative nausea and vomiting Bleeding disorder Osteoarthritis of right hip Hx of melanoma of skin MVP (mitral valve prolapse) Migraine Hx of hepatitis C History of Weiner's esophagus MTHFR gene mutation PVCs (premature ventricular contractions) PAC (premature atrial contraction) Surgical History Hx of esophagogastroduodenoscopy H/O colonoscopy History of bunionectomy of both great toes Hx of breast augmentation History of hip replacement History of melanoma excision History of foot surgery History of tonsillectomy Family History Father Leukemia Mother SLE (systemic lupus erythematosus) Sister HTN (hypertension) Hypercholesterolemia Social History Household Members: Spouse Housing: House Are you a primary career discovery teacher to a significant other at home: No Do you presently have visiting nurse or other home services: No Alcohol intake: current Alcohol intake frequency: 0-2 drinks per day Alcohol type: wine Patient Tobacco Use Status: Never used Tobacco e-Cigarette/Vaping Use: Never Used Advance Directives Date on File: 10/15/17 service: No Current occupational status: retired Cognitive needs: No Hearing needs: No Vision needs: Yes Questionnaire Thrive Questionnaire Date Thrive assessed: 07/04/24 I am a: Patient What is your living situation today?: I have a steady place to live Within the past 12 months, did the food you bought not last and you didn't have the money to get more?: Never true Within the past 12 months, did you worry whether your food would run out before you got money to buy more?: Never true Do you have trouble paying for medicines?: No Do you have trouble getting transportation to medical appointments?: No Do you have trouble paying your heating and electricity bill?: No Do you have trouble taking care of your child, family member or friend?: No Do you have trouble with day-to-day activities such as bathing, preparing meals, shopping, managing finances, etc.?: No Are you currently unemployed and looking for a job?: No Are you interested in more education?: No Please select the resources that you would like help with: None Currently or been in a relationship where the following occur: No concerns reported THRIVE Score: 0 AUDIT C Alcohol Use Questionnaire (AUDIT-C) 1. How often do you have a drink containing alcohol?: 2-3 times a week Total Score: 3 SREE-7 AMB Questionnaire SREE-7 Date SREE - 7 assessed: 06/17/24 Feeling nervous, anxious, or on edge: 1 = Several days Not being able to stop or control worryin = Not at all Worrying too much about different things: 0 = Not at all Trouble relaxin = Not at all Being so restless that it is hard to sit still: 0 = Not at all Becoming easily annoyed or irritable: 0 = Not at all Feeling afraid as if something awful might happen: 0 = Not at all Total SREE-7 score (0-4 normal; 5-9 mild; 10-14 moderate; 15-21 severe): 1 Source: Developed by Drs. Jamshid Martines, Charu Valdes, Christopher Lee and colleagues, with an educational gary from [employer]. Review of Systems Const Denies body aches, Denies fatigue, Denies fever(s) and Denies headache(s) Eyes Reports no additional complaints ENT Denies dizziness and Denies headache(s) Card Denies chest pain, Denies leg edema, Denies lightheadedness, Denies palpitations and Denies orthopnea Resp Denies cough GI Denies hematochezia and Denies change in stool character Reports as per HPI Musc Denies abnormal gait, Denies muscle weakness, Denies numbness, Denies radiating pain into limb and Denies tingling Neuro Denies abnormal gait, Denies dizziness, Denies headache(s), Denies numbness and Denies tingling Psych Reports no additional complaints Endo Denies fatigue and Denies palpitations Jonatan/Lymph Reports easy bleeding Aller/Immun Reports no additional complaints Physical exam (Primary Care) Vital Signs: Last Vital Signs Pulse 77 07/15/24 11:46 BP 132/90 H 07/15/24 11:46 Pulse Ox 97 07/15/24 11:46 Oxygen Delivery Method Room Air 07/15/24 11:46 BMI result Body Mass Index 24.2 Tobacco/Smoking Status: Tobacco use Status Tobacco use date assessed 07/15/24 07/15/24 11:58 Patient Tobacco Use Status Never used Tobacco 07/15/24 11:46 e-Cigarette/Vaping Use Never Used 07/15/24 11:46 Thrive Assessment: Date of Thrive Assessment Date Thrive assessed 07/04/24 07/15/24 11:46 Currently or been in a relationship where the following occur: No concerns reported Const Other: Alert oriented x3, in no acute distress noted , ambulatory, no acute distress Orientation/consciousness: patient oriented x3 [facility] General nose exam: Normal external nose present Face and sinus: Yes face symmetric Mouth: Normal oral and palatal mucosa present and oropharynx normal Eyes General: appearance normal, both eyes and all related structures Neck Neck: Yes full ROM, Yes no lymphadenopathy and Yes supple Thyroid: Thyroid normal Resp Effort & Inspection: normal respiratory effort and able to speak in complete sentences Auscultation: clear to auscultation bilaterally Cardio Other: S1-S2 present regular rate and rhythm GI Inspection: Yes normal to inspection Palpation (GI): Soft to palpation, nontender, no guarding and no masses Auscultation: normal bowel sounds General: Yes no CVA tenderness Back/Spine/Pelvis Back: no CVA tenderness and No back tenderness Skin General skin exam: no rashes or lesions noted Neuro General: patient oriented x3, gait normal, moves all extremities, Normal light touch and pain sensation and no focal motor deficits Extrem General: Yes full ROM, Yes no joint enlargement, Yes no pedal edema and Yes normal gait Coding Level of Care Code TCM High MDM <= 14 days Diagnoses Paroxysmal atrial fibrillation I48.0 Primary insomnia F51.01 Insomnia type: primary Moderate obstructive sleep apnea G47.33 Bleeding disorder D69.9 Assessment & Plan Assessment & Plan (1) Paroxysmal atrial fibrillation: Code(s): I48.0 - Paroxysmal atrial fibrillation Category: Medical Plan: Currently on digoxin 0.125 mcg daily. Now in sinus rhythm, has an appointment for follow-up with Dr. Perez on 07/21/2024 and has been referred to see Dr. Brenden Fields for further evaluation and management. (2) Insomnia: Code(s): G47.00 - Insomnia, unspecified Category: Medical Qualifiers: Insomnia type: primary Qualified Code(s): F51.01 - Primary insomnia Plan: Takes eszopiclone 2 mg per tablet 1/2-1 tablet at bedtime as needed for episodes of insomnia. (3) Moderate obstructive sleep apnea: Comment: Seen on last sleep study 05/25/2023, needs CPAP Code(s): G47.33 - Obstructive sleep apnea (adult) (pediatric) Category: Medical Plan: Using CPAP (4) Bleeding disorder: Comment: ff'd by Dr Muñoz at [facility] Code(s): D69.9 - Hemorrhagic condition, unspecified Category: Medical Plan: Followed by Dr. Muñoz Medications: Refilled eszopiclone 2 mg PO BEDTIME PRN 30 tabs 0RF insomnia
== END 2024-07-15 13:44 | disposition home or self-care (01) ==
PROVIDERS: PCP Internal Medicine; Visit Provider Internal Medicine
DX: I48.0 Paroxysmal atrial fibrillation (principal); F51.01 Primary insomnia; G47.33 Obstructive sleep apnea (adult) (pediatric); D69.9 Hemorrhagic condition, unspecified

== ENCOUNTER → 2024-07-21 09:19 | Outpatient (REF) | payer MEDICARE, OTHER, SELFPAY | LOC: HO.CARD 09:19 | PROVIDERS: PCP Internal Medicine; Visit Provider Internal Medicine | DX: I48.91 Unspecified atrial fibrillation (principal) | CPT/HCPCS: 93242 ==

== ENCOUNTER → 2024-07-21 09:22 | Outpatient (BNV) | payer MEDICARE, OTHER, SELFPAY | PROVIDERS: PCP Internal Medicine; Visit Provider Internal Medicine | DX: I44.1 Atrioventricular block, second degree (principal) | CPT/HCPCS: 93244 ==

== ENCOUNTER 2024-07-24 07:56 | Outpatient (REF) | payer MEDICARE, OTHER, SELFPAY ==
--- NOTE | ~2024-07-24 | MM_ITS ---
EXAMINATION: Dual-Energy X-ray Absorptiometry - Bone Density Study HISTORY: Estrogen deficiency TECHNIQUE: [employer] Resistant Bedding Dual energy absorptiometry (DEXA) of the lumbar spine and distal radius was performed. The hips were not evaluated due to history of bilateral total hip arthroplasty. COMPARISON: There are no prior studies for comparison. FINDINGS: The bone mineral density of the lumbar spine is 1.387 with a T-score of 1.7, and a Z-score of 3.1. The bone mineral density of the distal radius is 0.769 with a T-score of -1.2, and a Z-score of 1.1. MM/XR DEXA appendicular skeleton IMPRESSION: Based on bone mineral density, and according to World Health Organization (WHO) criteria, the diagnosis is consistent with osteopenia. All bone density values are in grams per centimeter squared. At this facility, the least significant change in BMD with 95% confidence is 0.022 at the lumbar spine, 0.027 at the hip, and 0.023 at the distal 1/3 radius. Electronically signed by: Jamshid Wright MD 08/05/2024 07:02 AM BLAIR
--- OUTSIDE RECORDS SUMMARY | 2024-07-24 07:58 | XMS_ITS | Clinical Summary ---
Author Organization Unknown Care Team Providers Care Footwear Sales Associate Name Role Phone SANTIAGO SANDERS, BARBIE SEVERINO Unavailable Unavailanuel ARCINIEGA RN, MOMO Unavailable Unavailable Payers Payer Name Policy Type Policy Number Effective Date Expira tion Date MEDICARE.NGS.PDGM [id number] Problems Condition Name Condition Details Condition Category Status Onset Date Resolution Date Last Treatment Date Treating Clinician Comments AFTERCARE FOLLOWING JOINT REPLACEMENT SURGERY Active 12-15 00:00: 00 PRESENCE OF LEFT ARTIFICIAL HIP JOINT Active 12-15 00:00: 00 PERSONAL HISTORY OF MALIGNANT MELANOMA OF SKIN Active 30 00:00: 00 PRESENCE OF RIGHT ARTIFICIAL HIP JOINT Active 2-14 00:00: 00 [employer] BPM DEVELOPER (CURRENT) USE OF OPIATE ANALGESIC Active 12-15 [...] 325 mg tablet 12-15 00:00: 00 Yes [id number] PAIN MANAGEMENT 3 tablet EVERY 8 HOURS 3 tablet EVERY 8 HOURS (route: oral) Med Classific ation: Analgesic , Anti-infl ammatory or Antipyret ic bisacodyl 10 mg rectal suppository 12-15 00:00: 00 Yes [id number] CONSTIPATIO N 1 supposi tory, rectal DAILY 1 suppositor y, rectal DAILY (route: rectal) Med Classific ation: Gastroint estinal Therapy Agents cholecalcif guillaume (vitamin D3) 50 mcg (2,000 unit) capsule 12-15 00:00: 00 Yes [id number] SUPPLEMENT 1 capsule DAILY 1 capsule DAILY (route: oral) Med Classific ation: Electroly te Balance-N utritiona l Products eletriptan 40 mg tablet 12-15 00:00: 00 Yes [id number] MIGRAINE 1 tablet DAILY 1 tablet DAILY (route: oral) Med Classific ation: Central Nervous System Agents flecainide 50 mg tablet 12-15 00:00: 00 Yes [id number] IRREGULAR HEART RHYTHM 1 tablet 2 TIMES DAILY 1 tablet 2 TIMES DAILY (route: oral) Med Classific ation: Cardiovas cular Therapy Agents metoprolol succinate ER 25 mg tablet,exte nded release 24 hr 12-15 00:00: 00 Yes [id number] IRREGULAR HEART RHYTHM 0.5 tablet DAILY 0.5 tablet DAILY (route: oral) Med Classific ation: Cardiovas cular Therapy Agents oxycodone 5 mg tablet 12-15 00:00: 00 Yes [id number] PAIN MANAGEMENT 0.5-1.5 tablet EVERY 4 HOURS 0.5-1.5 tablet EVERY 4 HOURS (route: oral) Med Classific ation: Analgesic , Anti-infl ammatory or Antipyret ic polyethylen e glycol 3350 17 gram oral powder packet 12-15 00:00: 00 Yes [id number] CONSTIPATIO N 17 g DAILY 17 g DAILY (route: oral) Med Classific ation: Gastroint estinal Therapy Agents psyllium husk 0.52 gram capsule 12-15 00:00: 00 Yes [id number] SUPPLEMENT 4 capsule DAILY 4 capsule DAILY (route: oral) Med Classific ation: Gastroint estinal Therapy Agents Senna Lax 8.6 mg tablet 12-15 00:00: 00 Yes [id number] CONSTIPATIO N 2 tablet DAILY 2 tablet [...] DETERIORATION, COMPLICATIONS, OR INFECTION TO RN CLINICAL DECISION SUPPORT ANALYST AND/OR PHYSICIAN. ORTHOPEDIC SURGICAL AFTERCARE (PT) MAY [...] DETERIORATION, COMPLICATIONS, OR INFECTION TO RN CLINICAL DECISION SUPPORT ANALYST AND/OR PHYSICIAN. ORTHOPEDIC SURGICAL AFTERCARE (PT) MAY [...] End Date/Time Encounter Type Admission Type Attending [facility] Care Department Encounter ID Discharge Date Discharge Status Discharge Condition Discharge Reason Percent Goals Met 2022-12-15 00:00:00 2022-12-26 00:00:00 Outpatient NEW ADMISSION MOMO ARCINIEGA [facility] [id number] 2022-12-26 00:00:00 DISCHARGE TO HOME OR SELF CARE INDEPENDEN T IN THE COMMUNITY HH OR PAL- GOALS MET 100.00
--- OUTSIDE RECORDS SUMMARY | 2024-07-24 07:58 | XMS_ITS | Clinical Summary ---
Author Organization Unknown Care Team Providers Care Plug Maker Name Role Phone SANTIAGO SANDERS, BARBIE SEVERINO Unavailable Unavailanuel ARCINIEGA RN, MOMO Unavailable Unavailable Payers Payer Name Policy Type Policy Number Effective Date Expira tion Date MEDICARE.NGS.PDGM [id number] Problems Condition Name Condition Details Condition Category Status Onset Date Resolution Date Last Treatment Date Treating Clinician Comments AFTERCARE FOLLOWING JOINT REPLACEMENT SURGERY Active 12-15 00:00: 00 PRESENCE OF LEFT ARTIFICIAL HIP JOINT Active 12-15 00:00: 00 PERSONAL HISTORY OF MALIGNANT MELANOMA OF SKIN Active 30 00:00: 00 PRESENCE OF RIGHT ARTIFICIAL HIP JOINT Active 2-14 00:00: 00 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 (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) USE OF OPIATE ANALGESIC Active 12-15 [...] 325 mg tablet 12-15 00:00: 00 Yes [id number] PAIN MANAGEMENT 3 tablet EVERY 8 HOURS 3 tablet EVERY 8 HOURS (route: oral) Med Classific ation: Analgesic , Anti-infl ammatory or Antipyret ic bisacodyl 10 mg rectal suppository 12-15 00:00: 00 Yes [id number] CONSTIPATIO N 1 supposi tory, rectal DAILY 1 suppositor y, rectal DAILY (route: rectal) Med Classific ation: Gastroint estinal Therapy Agents cholecalcif guillaume (vitamin D3) 50 mcg (2,000 unit) capsule 12-15 00:00: 00 Yes [id number] SUPPLEMENT 1 capsule DAILY 1 capsule DAILY (route: oral) Med Classific ation: Electroly te Balance-N utritiona l Products eletriptan 40 mg tablet 12-15 00:00: 00 Yes [id number] MIGRAINE 1 tablet DAILY 1 tablet DAILY (route: oral) Med Classific ation: Central Nervous System Agents flecainide 50 mg tablet 12-15 00:00: 00 Yes [id number] IRREGULAR HEART RHYTHM 1 tablet 2 TIMES DAILY 1 tablet 2 TIMES DAILY (route: oral) Med Classific ation: Cardiovas cular Therapy Agents metoprolol succinate ER 25 mg tablet,exte nded release 24 hr 12-15 00:00: 00 Yes [id number] IRREGULAR HEART RHYTHM 0.5 tablet DAILY 0.5 tablet DAILY (route: oral) Med Classific ation: Cardiovas cular Therapy Agents oxycodone 5 mg tablet 12-15 00:00: 00 Yes [id number] PAIN MANAGEMENT 0.5-1.5 tablet EVERY 4 HOURS 0.5-1.5 tablet EVERY 4 HOURS (route: oral) Med Classific ation: Analgesic , Anti-infl ammatory or Antipyret ic polyethylen e glycol 3350 17 gram oral powder packet 12-15 00:00: 00 Yes [id number] CONSTIPATIO N 17 g DAILY 17 g DAILY (route: oral) Med Classific ation: Gastroint estinal Therapy Agents psyllium husk 0.52 gram capsule 12-15 00:00: 00 Yes [id number] SUPPLEMENT 4 capsule DAILY 4 capsule DAILY (route: oral) Med Classific ation: Gastroint estinal Therapy Agents Senna Lax 8.6 mg tablet 12-15 00:00: 00 Yes [id number] CONSTIPATIO N 2 tablet DAILY 2 tablet [...] DETERIORATION, COMPLICATIONS, OR INFECTION TO RN CLINICAL SENIOR TAX MANAGER AND/OR PHYSICIAN. ORTHOPEDIC SURGICAL AFTERCARE (PT) [...] DETERIORATION, COMPLICATIONS, OR INFECTION TO RN CLINICAL SENIOR TAX MANAGER AND/OR PHYSICIAN. ORTHOPEDIC SURGICAL AFTERCARE (PT) [...] End Date/Time Encounter Type Admission Type Attending [facility] Care Department Encounter ID Discharge Date Discharge Status Discharge Condition Discharge Reason Percent Goals Met 2022-12-15 00:00:00 2022-12-26 00:00:00 Outpatient NEW ADMISSION MOMO [facility] [id number] 2022-12-26 00:00:00 DISCHARGE TO HOME OR SELF CARE INDEPENDEN T IN THE [facility] OR [facility]- GOALS MET 100.00
== END 2024-07-24 07:57 | disposition home or self-care (01) ==
LOC: HO.MAMMO 07:56
PROVIDERS: PCP Internal Medicine; Visit Provider Internal Medicine
DX: Z13.820 Encounter for screening for osteoporosis (principal); Z78.0 Asymptomatic menopausal state; Z87.81 Personal history of (healed) traumatic fracture
CPT/HCPCS: 77081

== ENCOUNTER → 2024-07-24 08:15 | Outpatient (BNV) | payer MEDICARE, OTHER, SELFPAY | PROVIDERS: PCP Internal Medicine; Visit Provider Radiology Diagnostic Radiology | DX: M85.89 Other specified disorders of bone density and structure, multiple sites (principal) | CPT/HCPCS: 77081 ==

== ENCOUNTER 2024-08-13 13:13 | Outpatient (REF) | payer MEDICARE, OTHER, SELFPAY ==
[2024-08-13 15:57] LABS: TSH reflex Free T4 0.78 uIU/mL (0.32-4.0)
== END 2024-08-13 13:14 | disposition home or self-care (01) ==
LOC: HO.LAB 13:13
PROVIDERS: PCP Internal Medicine; Visit Provider Internal Medicine
DX: I49.3 Ventricular premature depolarization (principal); I48.0 Paroxysmal atrial fibrillation; I49.1 Atrial premature depolarization; I44.0 Atrioventricular block, first degree; R94.6 Abnormal results of thyroid function studies
CPT/HCPCS: 36415; 84443; 93005; 99212

== ENCOUNTER → 2024-08-21 07:42 | Outpatient (BNVA) | payer MEDICARE, OTHER, SELFPAY | PROVIDERS: PCP Internal Medicine; Visit Provider Nurse Practitioner Family | DX: R35.1 Nocturia (principal) | CPT/HCPCS: 51798; 81003; 99202 ==

== ENCOUNTER 2024-09-11 09:51 | Outpatient (REF) | payer MEDICARE, OTHER, SELFPAY ==
[2024-09-11 10:27] LABS: Basophils Percent Auto 0.5 % (0-2); Hemoglobin 14.5 g/dl (12.0-16.0); Lymphocytes Percent Auto 22.8 % (20-40); PLT CLUMP 1; SCAN SMEAR FLAG 1
[2024-09-11 10:29] LABS: Eosinophils Absolute Auto 0.4 X10*3/uL (0.0-0.4); Eosinophils Percent Auto 6.1 % (0-4); Hematocrit 44.2 % (37.0-47.0); Imm Gran Abs Auto 0.03 X10*3/uL (0.00-0.03); Imm Gran Pct Auto 0.5 % (0.0-0.4); Lymphocytes Absolute Auto 1.4 X10*3/uL (1.2-4.9); MANUAL DIFF FLAG SCAN; Mean Corpuscular HGB Conc 32.8 g/dl (31.0-35.0); Mean Corpuscular Hemoglobin 30.8 pg (27.0-33.0); Mean Corpuscular Volume 93.8 fL (80.0-98.0); Monocytes Absolute Auto 0.6 X10*3/uL (0.1-1.2); Monocytes Percent Auto 10.2 % (2-11); Neutrophils Absolute Auto 3.8 x10*3/uL (2.0-8.3); Neutrophils Percent Auto 59.9 % (45-73); Red Blood Count 4.71 X10*6/uL (4.20-5.50); Red Cell Distribution Width 12.3 % (11.0-16.0)
[2024-09-11 10:38] LABS: INTERNATIONAL NORM RATIO 0.9 (0.9-1.1); Prothrombin Time 10.7 SEC (10.9-12.4)
[2024-09-11 10:47] LABS: White Blood Count 6.3 X10*3/uL (4.8-10.8)
[2024-09-11 10:48] LABS: SLIDE REVIEW VERIFIED
--- OUTSIDE RECORDS SUMMARY | 2024-09-11 11:20 | XMS_ITS ---
Author Organization [facility] Address [address] [place] [address] Care Team Providers Care Box Nailer Name Role Phone Conrado SANDERS, Ree Primary Care Provider Jamshid Dang [phone] ALLERGIES No Known Allergies RESULTS Component Value Reference Range Notes Prothrombin Time INR Reviewed date:09/11/2024 10:44:32 AM Interpretation: Performing Lab:[facility], [address] [place] [id number] Notes/Report: Prothrombin Time 10.7 10.9-12.4 SEC INTERNATIONAL NORM RATIO 0.9 0.9-1.1 INTERNATIONAL NORMALIZED RATIO (INR) REFERENCE RANGES Reference Range For patients not on anticoagulant therapy: 0.9 - 1.1 INR ranges for oral anticoagulant therapy: For prevention and treatment of venous thrombosis and pulmonary embolism: 2.0 - 3.0 For acute myocardial infarction with aspirin therapy: 2.0 - 3.0 For acute myocardial infarction without aspirin therapy: 3.0 - 4.0 For patients with mechanical prosthetic heart valves: 2.5 - 3.5 REASON FOR VISIT Patient presents today for hx hep c MEDICATIONS Medication SIG (Take, Route, Frequency, Duration) Notes Start Date End Date Status Betamethasone Dipropionate prn Not-Taking Amiodarone HCl 200 MG Oral for 14 Days Active Senna Laxative 8.6 MG 1tablets at am Ora lly daily Active Metoprolol Tartrate 25 MG 1 tablet with food Orally once a day Active Relpax 40 MG TAKE 1 TABLET BY EMMA MAY REPEAT DOSE IN HOURS IF NEEDED MAX 2TAB/24HRS Oral for 5 Active Lysine 1000mg Active Metamucil 0.36 GM 5 capsules once a da y once a day prn Active Lunesta 2 MG Oral Tablet Active Hair Skin Nails - as directed Orally Active SOCIAL HISTORY Sex Assigned At : Social History Observation Description Sex Assigned At Unknown Alcohol Screen Question Answer Notes Did you have a drink contain ing alcohol in the past year? Yes How often did you have a dri nk containing alcohol in the past year? 2 to 4 times a month (2 points) How many drinks did you have on a typical day when you were drinking in the past year? 1 or 2 drinks (0 point) How often did you have 6 or more drinks on one occasion in the past year? Never (0 point) Points 2 Interpretation Negative PROBLEMS Problem Type ICD Code Onset Dates Problem Status W/U Status Risk SNOMED Code Notes Problem Constipation (K59.00) Active confirmed Constipation (29874820) VITAL SIGNS Blood pressure systolic 111 mm Hg 09/11/19 25 Blood pressure diastolic 11 mm Hg 025 Height 70 in 09/11/2024 Weight 170 lbs 09/11/2024 BMI 24.39 kg/m2 09/11/2024 Encounters Encounter Location Date Provider Diagnosis [facility] [address] [place] [id number] 09/11/2024 Jamshid Loredo Gastroesophageal ref lux disease without esophagitis K21.9 ; History of hepatitis C Z86.19 and Constipation K59.00 ASSESSMENTS Encounter Date Diagnosis Assessment Notes Treatment Notes Treatment Clinical Notes 09/11/2024 Gastroesophageal ref lux disease without esophagitis (ICD-10 - K21.9) 09/11/2024 History of hepatitis C (ICD-10 - Z86.19) 09/11/2024 Constipation (ICD-10 - K59.00) Try adding 2 Metamucil fiber pills with a lot of water to the daily Senokot. Use the Miralax as needed. PLAN OF TREATMENT Treatment Notes Assessment Notes Constipation Try adding 2 Metamuc il fiber pills with a lot of water to the daily Senokot. Use the Miralax as needed. Pending Test Test Name Order Date LIVER PROFILE 09/11/2024 CBC w DIFF 09/11/2024 ALPHA-FETOPROTEIN,TUMOR MARKER Liver Fibrosis Pnl 09/11/2024 US abdomen comp w elastography Next Appt Details Follow Up: 1 Year, Reason: Provider Name:Jamshid Loredo , 09/10/2025 09:00:00 AM, [address] [place] [address], [address], [place], [phone],
--- OUTSIDE RECORDS SUMMARY | 2024-09-11 11:20 | XMS_ITS | Patient Health Record ---
Author Organization [facility] Address [address] [place] [address] Care Team Providers Care Scout Professional Sports Name Role Phone Conrado SANDERS, Ree Hall Primary Care Provider Un available Barrett Caceres Unavailable [phone] Allergies No Known Allergies Reason For Referral No Information Medications Medication SIG (Take, Route, Frequency, Duration) Notes Start Date End Date Status Vitamin D3 Active Walking Boot/Pneumatic As directed Wear Daily for Until further notice 09/07/2022 Not-Los ing Relpax PRN Active Vitamin B12 Not-Taki ng Physical Therapy . . . 2-3x/week--use U S and ES and or iontophoresis for 30 days Active Metoprolol Succinate ER 25 MG Oral for 90 Active Senokot S Senna Active L-Lysine Active Metamucil Active Flecainide Acetate 50 MG Oral for 90 Active Latanoprost 0.005 % Ophthalmic for 90 Not-Taking Immunizations Vaccine Route Administration Date Status Comme nts COVID-19 Pfizer BioNTech Vaccine Unknown 10/21/2021 Administered 07/02/20,07/23/20 04/17/21 Influenza Unknown 05/24/2022 Administered Social History Tobacco Use: Social History Observation Description Date Details (start date - stop date) Never Smoker NA - NA Tobacco Use/Smoking Question Answer Notes Are you a: nonsmoker Additional Findings: Tobacco Non-User Current no n-smoker Alcohol Screen Question Answer Notes Did you have a drink contain ing alcohol in the past year? Yes How often did you have a dri nk containing alcohol in the past year? 4 or more times a week (4 points) Points 4 Interpretation Positive Tobacco use other than smoking: Question Answer Notes Are you an other tobacco user? No Problems Problem Type SNOMED Code ICD Code Onset Dates Problem Status W/U Status Risk Notes Problem Localized, primary osteoarthritis of the ankle and/or foot (134250144) Primary osteoarthritis, left ankle and foot (M19.072) Active confirmed Problem 66192177 Leg length discrepancy (M21.70) Active confirmed Plan Of Treatment Pending Test Test Name Order Date X ray : Foot, left 3V 09/07/2022 Insurance Providers Payer Name Payer Address Payer Phone Subscriber Number Group Number Insured Name Patient Relationship to Insured Coverage Start Date Coverage End Date Medicare National Govt [employer] [address] [place] [address] [id number] Izabella Estrella Self - patient is the insured [facility] ([facility] [address] [place] [address] [id number] Faraz Estrella Spouse - patient is the spouse of the insured Medical (General) History Medical History History ICD Code Arthritis hip pain Cataracts covid-19 Migraines Heart disease Measles Mumps Chicken pox Joint implants/screws Transfusions bleeding disorder needs platelets pre op Surgical History Surgery Date(Month/Year) tonsillectomy and adenoidectomy child right hip arthroplasty 08/29/2016 skin melenoma x3 D&C 1975 KENNETH cataract surgery OU 03/2022
--- OUTSIDE RECORDS SUMMARY | 2024-09-11 11:21 | XMS_ITS ---
Author Organization [facility] Address [address] [place] [address] Care Team Providers Care Safety Assistant Name Role Phone Ree Camp MD Primary Care Provider Jamshid Dang Unavailable [phone] ALLERGIES No Known Allergies REASON FOR VISIT Patient presents today for HEP C MEDICATIONS Medication SIG (Take, Route, Frequency, Duration) Notes Start Date End Date Status Flecainide Acetate 50 MG as directed Orally bid Active Metoprolol Tartrate 25 MG 1/2 tablet wit h food Orally once a day Active Relpax 40 MG TAKE 1 TABLET BY MAY REPEAT DOSE IN HOURS IF NEEDED MAX 2TAB/24HRS Oral for 5 Active Senna Laxative 8.6 MG 1tablets at am Ora lly daily Active Betamethasone Dipropionate Active Lysine 1000mg Active Vitamin D 2000mg Act luci Metamucil 0.36 GM 5 capsules once a da y once a day Active Turmeric 500 MG as directed Orally Active SOCIAL HISTORY Sex Assigned At : Social History Observation Description Sex Assigned At Unknown Alcohol Screen Question Answer Notes Did you have a drink contain ing alcohol in the past year? Yes How often did you have a dri nk containing alcohol in the past year? 4 or more times a week (4 points) How many drinks did you have on a typical day when you were drinking in the past year? 1 or 2 drinks (0 point) How often did you have 6 or more drinks on one occasion in the past year? Never (0 point) Points 4 Interpretation Positive VITAL SIGNS Temperature 96.2 degrees Fahrenheit 09/11/19 24 Blood pressure systolic 000 mm Hg 09/11/19 24 Blood pressure diastolic 00 mm Hg 024 Height 70 in 09/11/2023 Weight 171 lbs 09/11/2023 BMI 24.53 kg/m2 09/11/2023 Encounters Encounter Location Date Provider Diagnosis 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 (ICD-10 - K22.70) 09/11/2023 History of hepatitis C (ICD-10 - Z86.19) 09/11/2023 Gastroesophageal ref lux disease without esophagitis (ICD-10 - K21.9) 09/11/2023 Change in bowel habi ts (ICD-10 - R19.4) PLAN OF TREATMENT Pending Test Test Name Order Date LIVER PROFILE 09/11/2023 CBC w DIFF 09/11/2023 Prothrombin Time INR 09/11/2023 Alpha Fetoprotein 09/11/2023 Liver Fibrosis Pnl 09/11/2023 US abdomen comp w elastography Next Appt Details Follow Up: 1 Year, Reason: Provider Name:Jamshid Loredo , 09/10/2025 09:00:00 AM, [address], [address], [place], [address], Progress Notes * Examination Category Sub-Category Detail Notes General Examination GENERAL APPEARANCE: pleasant , well nourished, well developed, in no acute distress EYES: sclera non-icteric NECK/THYROID: no cervical lymphade nopathy, neck supple HEART: S1, S2 normal LUNGS: clear to auscultatio n bilaterally ABDOMEN: normal bowel sounds, no guarding or rigidity, no hepatosplenomegaly, no masses palpable, soft, nontender, nondistended. NEUROLOGIC: alert and oriented SKIN: nonjaundiced, no spi waldo angiomata. EXTREMITIES: no edema ORAL CAVITY: mucosa moist
--- OUTSIDE RECORDS SUMMARY | 2024-09-11 11:21 | XMS_ITS | Data Portability ---
Author Organization [facility], OFFICE Address [address] [address] Assessment Encounter Date Assessment Date Assessment LastModified by Organization Details LastModified Time 08/02/2020 08/02/2020 Izabelal has deep groin pain which can occur at start up or after walking more than a mile. I've recommended a CBC, ESR, CRP, and MARS MR. This visit was conducted as a real-time telehealth interactive video visit during this the national emergency and ongoing COVID-19 pandemic. She was identified and consented to this telehealth visit. She was at her home and I was at my home office. I spent a total of 15 minutes during this clinical encounter. Greater than 50% of the time was devoted to counseling and coordinating care. This included reviewing records and pertinent studies, discussing diagnostic evaluation and workup, planning therapeutic interventions, and formulating the future disposition of care. sbm Not available 08/02/2020 15:10:30 09/06/2020 09/06/2020 Izabella's right hip remains bothersome. She can function at a high level, walking 4 miles often, but she always has some degree of awareness. Her hip was asymptomatic until the fall of 2018. Her inflammatory markers were not concerning. Her MR shows a gluteus minimus tear and atrophy. I plan to review the images with radiology and discuss further. This visit was conducted as a real-time telehealth interactive video visit during this the national emergency and ongoing COVID-19 pandemic. She was identified and consented to this telehealth visit. She was at her home and I was at my home office. I spent a total of 15 minutes during this clinical encounter. Greater than 50% of the time was devoted to counseling and coordinating care. This included reviewing records and pertinent studies, discussing diagnostic evaluation and workup, planning therapeutic interventions, and formulating the future disposition of care. sbm Not available 09/06/2020 20:11:10 11/08/2020 11/08/2020 Mrs. Beverly continues to have pain and limitation that are consistent with the MR finding of a gluteus minimus tear. We plan to obtain Dr. Ortiz's opinion concerning repair. This visit was conducted as a real-time telehealth interactive video visit during this the national emergency and ongoing COVID-19 pandemic. She was identified and consented to this telehealth visit. I spent a total of 10 minutes during this clinical encounter. Greater than 50% of the time was devoted to counseling and coordinating care. This included reviewing records and pertinent studies, discussing diagnostic evaluation and workup, planning therapeutic interventions, and formulating the future disposition of care. sbm Not available 11/08/2020 12:27:55 05/15/2022 05/15/2022 We discussed the issues related to her treatment. 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 She has a functional disability from the arthritis. Her biggest problem is trying to stand and walk after sitting. Activity worsens that. Conservative therapy in the form of NSAIDs and flexibility and muscle strengthening exercises have been insufficiently helpful. Total hip arthroplasty is therefore appropriately indicated. We discussed the issues related to total hip arthroplasty in a lot of detail today including the preoperative process, the operative techniques, less invasive techniques, computer-assisted techniques, the types of implants, and the perioperative risks. In addition, we discussed the typical course following surgery and reasonable expectations for recovery, outcome, activity level, and long-term followup. We will discuss scheduling options and determine the time of surgical treatment depending upon what she'd like to do. sbm Not available 05/15/2022 12:03:48 01/26/2023 01/26/2023 Mrs. Beverly is progressing well now following elective LTHR. She had a lot of bruising and groin pain early on. The bruising is gone. The groin pain is mostly better and still improving. She's going to continue to work on progression to all reasonable activities as tolerated. This visit was conducted as a real-time telehealth interactive video visit. She was identified and consented to this telehealth visit. I spent a total of 15 minutes during this encounter. Greater than 50% of the time was devoted to counseling and coordinating care. This included reviewing records and pertinent studies, discussing diagnostic evaluation and workup, planning therapeutic interventions, and formulating the future disposition of care. sbm Not available 01/26/2023 18:47:30 Plan of Treatment Reminders Order Date Submit Date Provider Last Modified By Organization Details Last Modified Time Details Appointments None record ed. Lab None record ed. Referral None record ed. Procedures None record ed. Surgeries None record ed. Imaging None record ed. Medication Orders None record ed. Patient TargetsNo targets recorded. Patient InstructionsNo instructions recorded. Reason for Referral None Reported. Results Created Date Observation Date Name Description Value Unit Range Abnormal Flag Note LastModifiedBy Organization Detail LastModifiedTime 08/30/19 21 imagi ng/di agnos tic resul t No observ ation record ed. Not Available 08/30 10:58:32 Result Notes None recorded. 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 Leticia Blandon MA - [facility] 01/26/2023 14:20:41 Ankle/Foot Surgery completed Juve Fountain MD [address], [place], [address], [place] - [facility] and [facility] 05/17/2016 15:06:23 General Surgery completed Juve Fountain MD [address], [place], [address], [place] - [facility] 05/17/2016 15:06:57 Tonsillectomy/A denoidectomy completed Juve Fountain MD [address], [place], [address], [place] - [facility]Ass[facility] and [facility] 05/17/2016 15:07:05 Hand Surgery completed Juve Fountain MD [address], [place], [address], [place] - [facility]Ass[facility]d and [facility] 05/17/2016 15:07:23 Imaging Results Imaging Date Name Status LastModified by [facility] Details LastModified Time 08/30/2020 imaging/diag nostic result completed [email or web address] Information not available 08/30/2020 10:58:32 Procedure Notes None recorded. Medical Equipment None Reported. Allergies No known drug allergies Medications Name Sig Start Date Stop Date Status Note LastModified by Organization Details LastModified Time celecoxib 200 mg capsule Pre op: Take 2 tablets po the night before surgery and 1 tablet po the morning of surgery. Post op: One po qd 11/29 completed Not Available Not Available Not Available cyclobenzap rine 10 mg tablet TAKE 1 TABLET BY MOUTH 2 TIMES A DAY IF NEEDED FOR MUSCLE SPASMS FOR UP TO 10 DAYS. active Not Available Not Available No t Available amoxicillin 500 mg capsule Take 4 capsule(s ) 1hr prior to dental work 2023 active Not Available Not Available Not Avai lable latanoprost 0.005 % eye drops PUT 1 DROP INTO RIGHT EYE EVERY DAY AT BEDTIME active Not Available Not Available No t Available methocarbam ol 500 mg tablet TAKE 1 TABLET BY MOUTH EVERY 6 HOURS NEEDED FOR MUSCLE SPASMS NOT COVERED active Not Available Not Available No t Available Vitamin B-2 100 mg tablet TAKE 4 TABLETS BY MOUTH ONCE A DAY active Not Available Not Available No t Available azithromyci n 250 mg tablet active Not Available Not Available Not Available ofloxacin 0.3 % eye drops active Not Available Not Available Not Available ranitidine 300 mg tablet active Not Available Not Available Not Available sumatriptan 100 mg tablet active Not Available Not Available Not Available ondansetron HCl 4 mg tablet TAKE 1 TABLET BY MOUTH EVERY 6 HOURS FOR 7 DAYS. active Not Available Not Available No t Available prednisone 20 mg tablet TAKE 3 TABLETS BY MOUTH 1 TIME EACH DAY FOR 5 DAYS. active Not Available Not Available No t Available fluorouraci l 5 % topical cream PLEASE SEE ATTACHED FOR DETAILED DIRECTION S active Not Available Not Available No t Available prednisone 5 mg tablet active Not Available Not Available Not Available moxifloxaci n 400 mg tablet active Not Available Not Available Not Available prochlorper azine maleate 10 mg tablet Take 1 tablet 3 times a day by oral route. active Not Available Not Available No t Available tramadol 50 mg tablet active Not Available Not Available No t Available oxycodone-a cetaminophe n 5 mg-325 mg tablet PLEASE SEE ATTACHED FOR DETAILED DIRECTION S active Not Available Not Available No t Available lorazepam 0.5 mg tablet active Not Available Not Available Not Available cephalexin 500 mg capsule active Not Available Not Available Not Available ranitidine 300 mg capsule active Not Available Not Available Not Available flecainide 50 mg tablet TAKE 1 TABLET BY MOUTH TWICE A DAY active Not Available Not Available No t Available betamethaso ne dipropionat e 0.05 % topical cream APPLY SPARINGLY TOPICALLY TWICE A DAY FOR ECZEMA ON FEET. active Not Available Not Available No t Available gabapentin 300 mg capsule active Not Available Not Available Not Available omeprazole 20 mg capsule,del ayed release active Not Available Not Available Not Available mupirocin 2 % topical ointment APPLY 1-2 TIMES DAILY TO BIOPSY SITE UNTIL HEALED. active Not Available Not Available No t Available gabapentin 100 mg capsule active Not Available Not Available Not Available metoprolol succinate ER 25 mg tablet,exte nded release 24 hr TAKE 1/2 TABLET BY MOUTH EVERY DAY active Not Available Not Available No t Available warfarin 1 mg tablet Pre op: Starting 7 days prior to surgery take 1 tablet po nightly, Post op: Take as directed, up to 10 tablets, nightly po. 11/29 completed Not Available Not Available Not Available timolol maleate 0.5 % eye drops INSTILL 1 DROP IN RIGHT EYE EVERY MORNING active Not Available Not Available No t Available cefdinir 300 mg capsule active Not Available Not Available Not Available naproxen 500 mg tablet PLEASE SEE ATTACHED FOR DETAILED DIRECTION S active Not Available Not Available No t Available oxycodone 5 mg tablet PLEASE SEE ATTACHED FOR DETAILED DIRECTION S active Not Available Not Available No t Available neomycin 3.5 mg/g-polymy chadd B 10,000 unit/g-dexa meth 0.1 % eye oint APPLY 1/4 INCH STRIP TO AFFECTED AREA THREE TO FOUR TIMES A DAY AFTER HOT PACK AND MASSAGE active Not Available Not Available No t Available enoxaparin 40 mg/0.4 mL subcutaneou s syringe active Not Available Not Available No t Available ezetimibe 10 mg tablet active Not Available Not Available Not Available divalproex ER 250 mg tablet,exte nded release 24 hr active Not Available Not Available Not Available eletriptan 40 mg tablet TAKE 1 TABLET BY MOUTH TWICE A DAY NEEDED FOR MIGRAINE active Not Available Not Available No t Available levomefolat e calcium 7.5 mg tablet active Not Available Not Available Not Available dexamethaso ne sodium phosphate (PF) 10 mg/mL injection solution APPLY TOPICALLY VIA IONTOPHOR ESIS DURING PHYSICAL THERAPY active Not Available Not Available No t Available Eliquis 2.5 mg tablet Take 1 tablet(s) 2 TIMES A DAY by oral route for 30 days after surgery 2022 active Not Available Not Available Not Avai kim GarrisonaxNATALIE COVID-19 Ag Self Test kit REFER TO MANUFACTU RER INSTRUCTI ONS INCLUDED IN PACKAGING active Not Available Not Available No t Available Vitals Date Recorded Body height Body mass index (BMI) Body weight Provider Name and Address Organization Details Last Updated DateTime 05/15/2022 177.8 cm 23 kg/m2 53454.78 g Leticia Blandon MA - [facility] 05/15/2022 10:22:23 Date Recorded Body height Body mass index (BMI) Body weight Provider Name and Address Organization Details Last Updated DateTime 01/26/2023 177.8 cm 23.4 kg/m2 67466.56 g Leticia Blandon MA - [facility]Ass[facility] 01/26/2023 14:21:07 Social History Question Answer Notes LastModified by Organizat ion Details LastModified Time Tobacco Smoking Status Never Smoker Juve Fountain MD [address] [place] [address],[facility] [address], [place], [address], [place] - [facility]Ass[facility]d and [facility] 05/17/2016 15:06:04 Do You Have An Advance Directive? Yes [email or web address] Information not available 05/15/2022 Do You Have A Medical Power Of Kitchen Supervisor? Yes [email or web address] Information not available 05/15/2022 What Was The Date Of Your Most Recent Tobacco Screening? 05/15/2022 [email or web address] Information not available 05/15/2022 Do You Or Have You Ever Used Any Other Forms Of Tobacco Or Nicotine? No [email or web address] Information not available 05/15/2022 Sex: Unknown Functional Status Question Answer Note LastModified by Organization D etails LastModified Time Are you able to care for yourself? Yes [email or web address] Information n ot available 05/15/2022 Mental Status None recorded. Family History Relationship Description Onset Age of this Age Resolved Age Notes LastModified by Organization Details LastModified Time Paternal Grandmother Arthritis sbm Not available 08/2015 15:05:52 Medical History Condition Response Heart Problems N Coronary Artery Disease N Gout N Anxiety/Depression N Blood Transfusion N Hernia N Migraines Y Thyroid Problems N COPD N Pacemaker N Anemia N Heart Attack ([place]) N Ulcers N Diabetes N Bleeding Disorder Y Orthotics N Arthritis N Seizures/Epilepsy N Blood Clot N Tuberculosis N AIDS/HIV N Cancer N Stroke N Asthma N Peripheral Vascular Disease N High Cholesterol N Hepatitis Y Liver Disease N Rheumatoid Arthritis N Pulmonary Embolism N Hypertension N Osteoporosis N Kidney Disease N Gynecological HistoryNo gynecological history recorded. Obstetrics History GPAL:G 0 P 0 0 0 0 Past Encounters Encounter ID Performer Location Encounter Start Date Encounter Closed Date Diagnosis/Indication Diagnosis SNOMED-CT Code Diagnosis ICD10 Code Diagnosis Note [id number] Juve Fountain MD OFFICE [address] [facility] [place], [address] [address] 05/17/2016 13:13:11 05/17/2016 16:28:53 [id number] Juve Fountain MD OFFICE [address] [place], [address] [address] 09/22/2016 10:07:50 12/01/2016 16:26:04 [id number] Juve Fountain MD OFFICE [address] [place], [address] [address] 11/29/2016 09:31:35 12/06/2016 15:17:52 [id number] Juve Fountain MD OFFICE [address] [facility] [address] [address] 12/12/2017 09:55:50 01/23/2018 10:53:07 [id number] [facility] [address] [place] [address] 08/02/2020 12:21:04 08/02/2020 16:08:49 [id number] [facility] [place] [address] 09/06/2020 14:49:29 09/06/2020 21:08:21 [id number] Juve Fountain MD [facility] [address] [place] [address] 11/08/2020 09:39:24 11/08/2020 17:31:01 [id number] Juve Fountain MD OFFICE [address] [facility] [address] [place] [address] 05/15/2022 09:55:26 05/16/2022 02:37:55 [id number] Juve Fountain MD [facility] [address] [place] [address] 01/26/2023 14:19:34 01/28/2023 12:24:59 Health Concerns Section Related Observation LastModified by Organization Detai ls LastModified Time None Recorded Concern Status LastModified by Organization Details LastModified Time None Recorded Advance Directives Directive Y: Payers Encounter Date Sequence Insurance Name Policy Number Policy Lopez Covered Member ID Lopez Member ID Guarantor Name 08/02/2020 2 [facility] INDEMNITY PLAN - [employer] [id number] 38 Faraz E Siria [id number] Izabella Siria 08/02/2020 1 [place] [employer] Izabella E Siria [id number] Izabella Siria 09/06/2020 2 [employer] INDEMNITY PLAN - [employer] [id number] Faraz E Siria [id number] Izabella Siria 09/06/2020 1 [place] Izabella E Siria [id number] Izabella Siria 11/08/2020 2 [employer] IN[employer]ITY [employer]AN - [employer] [id number] Faraz E Siria [id number] Izabella Siria 11/08/2020 1 [place] Izabella E Siria [id number] Izabella Siria 05/15/2022 2 [employer] INDEMNITY PLAN - [employer] [id number] 38 Faraz E Siria [id number] Izabella Siria 05/15/2022 1 [place] Izabella E Siria [id number] Izabella Siria 01/26/2023 2 [facility] [id number] 38 Faraz Beverly [id number] Izabella Beverly 01/26/2023 1 [place] [facility] Izabella Beverly [id number] Izabella Beverly Notes Date Note Type Note Provider Name and Address Organization Details Recorded Time 08/02/2020 text/html Hip(s) AthenaReported bypatient.Location:r ight; groin Severity:mild Alleviating Factors:rest Aggravating Factors:twisting; turning when standing can hurt in the groin. Leg presses made it worse. Not really changing now. Step class for an hour is fine. Associated Symptoms:no weakness; no numbness; no tingling; no swelling; no redness; no warmth; no ecchymosis; no catching/locking; no popping/clicking; no buckling; no grinding; no instability; no radiation down leg; no drainage; no fever; no chills; no weight loss; no change in bowel/bladder habits Juve Fountain MD [address],[facility] [address], [place], [address], [place] - Comp-Assistd and [facility] 08/02/2020 15:10:35 09/06/2020 text/html Hip(s) AthenaReported bypatient.Location:r ight; groin; unchanged. Fine until the fall, possibly precipitated by leg presses. Pain sometimes transferring weight and after distance especially. Sometimes feels unready for a step. Severity:mild Alleviating Factors:rest Aggravating Factors:twisting; standing and turn and make it feel unreliable. Associated Symptoms:no weakness; no numbness; no tingling; no swelling; no redness; no warmth; no ecchymosis; no catching/locking; no popping/clicking; no buckling; no grinding; no instability; no radiation down leg; no drainage; no fever; no chills; no weight loss; no change in bowel/bladder habits Prior Imaging:x ray; MRI; CT scan Juve Fountain MD [address], [place], [address], [place] - Comp-Assistd and [facility]cnstrctive S[facility] 09/06/2020 20:11:15 11/08/2020 text/html Hip(s) AthenaReported bypatient.Location:r ight; groin; unchanged. Again, felt fine until the fall of 2018, possibly precipitated by leg presses. Pain sometimes transferring weight and after distance especially. Sometimes feels unready for a step. Severity:mild Alleviating Factors:rest Aggravating Factors:twisting; standing and turn and make it feel unreliable. Associated Symptoms:no weakness; no numbness; no tingling; no swelling; no redness; no warmth; no ecchymosis; no catching/locking; no popping/clicking; no buckling; no grinding; no instability; no radiation down leg; no drainage; no fever; no chills; no weight loss; no change in bowel/bladder habits Prior Imaging:x ray; MRI; CT scan Juve Fountain MD [address],[facility] [address], [address], [facility] - Comp-Assistd and Rcnstrctive Surgry 11/08/2020 12:27:59 05/15/2022 text/html Hip(s) AthenaReported bypatient.Location:l eft; buttocks Severity:moderate Duration:8 months Alleviating Factors:rest Aggravating Factors:going from sit to stand Associated Symptoms:no weakness; no numbness; no tingling; no swelling; no redness; no warmth; no ecchymosis; no catching/locking; no popping/clicking; no buckling; no grinding; no instability; no radiation down leg; no drainage; no fever; no chills; no weight loss; no change in bowel/bladder habits Prior Imaging:x ray; CT scan Previous PT:did not help Juev Fountain MD [address],[facility] [address], [place], [address], [place] - Comp-Assistd and Rcnstrctive Surgry 05/15/2022 12:03:52 01/26/2023 text/html Hip(s) AthenaReported bypatient.Location:l eft; groin Severity:mild Alleviating Factors:rest; stretching Aggravating Factors:exercise Associated Symptoms:no weakness; no numbness; no tingling; no swelling; no redness; no warmth; no ecchymosis; no catching/locking; no popping/clicking; no buckling; no grinding; no instability; no radiation down leg; no drainage; no fever; no chills; no weight loss; no change in bowel/bladder habits Prior Imaging:x ray; CT scan Previous PT:helped significantly Juve Fountain MD [address] [place] [address],[facility] [address], [place], [address], [facility] - Comp-Assistd and Rcnstrctive Surgry 01/26/2023 18:47:34 OBGyn Episode No OBEpisode recorded.
[2024-09-11 11:31] LABS: Alanine Aminotransferase 20 U/L (0-31); Albumin Level 4.3 g/dL (3.5-5.0); Alkaline Phosphatase 63 U/L (39-117); Aspartate Amino Transferase 22 U/L (5-31); Bilirubin Direct 0.2 mg/dL (0.0-0.5); Bilirubin Total 0.7 mg/dL (0.0-1.0); Total Protein 7.9 g/dL (6.5-8.0)
[2024-09-15 23:33] LABS: FIB-ALT 11 U/L (6-29); FIB-Alpha-2-Macroglobulin 201 mg/dL (106-279); FIB-Apolipoprotein A1 192 mg/dL (101-198); FIB-GGT 14 U/L (3-65); FIB-Haptoglobin 180 mg/dL (43-212); FIB-Total Bilirubin 0.6 mg/dL (0.2-1.2); Liver Fibrosis Score 0.15; Liver Fibrosis Stage F0; Nec Inflam Act Grade A0; Nec Inflam Act Score 0.02
[2024-09-16 10:58] LABS: Alpha Fetoprotein 4.5 ng/mL
== END 2024-09-11 09:52 | disposition home or self-care (01) ==
LOC: HO.10HDL 09:51
PROVIDERS: Visit Provider Internal Medicine
DX: Z86.19 Personal history of other infectious and parasitic diseases (principal)
CPT/HCPCS: 36415; 80076; 81596; 82105; 85025; 85610

== ENCOUNTER → 2024-10-10 08:46 | Outpatient (REF) | payer MEDICARE, OTHER, SELFPAY ==
--- NOTE | 2024-10-10 08:48 | CA_ITS ---
Acquisition Time: 2024-10-10 09:16:54 Total Exercise Time: 00:05:05 Test Indications: PRECORDIAL PAIN, PAROXYSMAL AFIB Medications: SEE MED SHEET Protocol: JAIDEN Max HR: 157 BPM 109% of Pred: 144 BPM Max BP: 132/78 mmHG Max Work Load: 7.0 METS Exercise stress test with exercise 6 mins 55 secs of Jaiden Protocol, achieving 107% MPHR, with reports of mild SOB, no chest pain, with frequent PACs, atrial runs- max 5 beats, frequent PVCs, longest 7 beats, nonconducted P waves- nonsymptoms with all the arrythmias, with normotensive response to exercise. Without EKG changes meeting criteria for ischemia. In recovery, breathing returned to baseline. Nuclear images pending. Test reviewed with Dr. Fraser. Referred By: Ulices Perez Electronically Signed By: Pierce Francois
== END ==
LOC: HO.CARD 08:46
PROVIDERS: PCP Internal Medicine; Visit Provider Internal Medicine
DX: R07.2 Precordial pain (principal); I48.0 Paroxysmal atrial fibrillation
CPT/HCPCS: 78452; 93017; A9500

== ENCOUNTER → 2024-10-10 08:48 | Outpatient (BNV) | payer MEDICARE, OTHER, SELFPAY | PROVIDERS: PCP Internal Medicine | DX: R06.02 Shortness of breath (principal); I49.1 Atrial premature depolarization; I49.3 Ventricular premature depolarization | CPT/HCPCS: 78452; 93016; 93018 ==

== ENCOUNTER 2024-10-13 08:15 | Outpatient (REF) | payer MEDICARE, OTHER, SELFPAY ==
--- NOTE | ~2024-10-13 | US_ITS ---
EXAMINATION: US ABDOMEN COMPLETE WITH LIVER ELASTOGRAPHY HISTORY: HEP C TECHNIQUE: Real-time grayscale ultrasound imaging of the abdomen was performed and images were reviewed. COMPARISON: Comparison is made with the prior examination dated 10/09/2023. FINDINGS: Liver: The right lobe of the liver measures 15.5 cm in size. The left lobe of the liver measures 10.5 cm in size. The liver demonstrates mildly heterogeneous increased echotexture, consistent with steatosis. No focal mass or intrahepatic biliary ductal dilatation is identified. There is normal hepatopedal flow in the portal vein. Ultrasound elastography of the liver was performed with 10 separate measurements of the liver parenchyma with the patient in the supine position. Measurements were obtained approximately 2 cm below Shirley's capsule and perpendicular to the capsule. Images are of satisfactory quality. The median shear wave velocity is 1.35 m/s (previously 1.44 m/s). The interquartile range/median (IQR/median) is 0.05. Gallbladder and biliary tree: The gallbladder is unremarkable, without evidence of calculi, wall thickening, or pericholecystic fluid. There is no sonographic Fountain sign. The common bile duct is normal in caliber measuring 3 mm. Kidneys: The right kidney measures 12.1 cm in length and demonstrates an upper pole cyst measuring 2.3 x 1.8 x 1.6 cm. The left kidney measures 10.8 cm in length. The kidneys are otherwise unremarkable, without evidence of masses, hydronephrosis, or calculi. Pancreas: The pancreatic head, neck, and body are unremarkable. The pancreatic tail is obscured by bowel gas. Spleen: The spleen is normal in size and contour, measuring 9.6 cm in length. Abdominal aorta and inferior vena cava: The visualized portions of the abdominal aorta and inferior vena cava are normal in caliber. There is no free fluid in the abdomen. US/US abdomen comp w elastography IMPRESSION: Mild hepatic steatosis. The median shear wave velocity in the liver is 1.35 m/s, corresponding to a median liver stiffness of 5.64 kPa. The IQR/median value is 0.05. This is indicative of a quality data set. Findings are indicative of a low elastography value which rules out advanced chronic liver disease in asymptomatic patients. REFERENCE: Society of Radiologists in Ultrasound Liver Stiffness Thresholds (2020): LIVER STIFFNESS THRESHOLDS: *Shear wave velocity less than 1.3 m/s (Liver Stiffness equal or less than 5 kPa): High probability of being normal. *Shear wave velocity less than 1.7 m/s (Liver Stiffness less than 9 kPa): In the absence of other known clinical signs, rules out compensated advanced chronic liver disease. *Shear wave velocity between 1.7-2.1 m/s (Liver Stiffness 9-13 kPa): Suggestive of compensated advanced chronic liver disease but need further test for confirmation. *Shear wave velocity between 2.1-2.4 m/s (Liver Stiffness 13-17 kPa): Rules in compensated advanced chronic liver disease. *Shear wave velocity greater than 2.4 m/s (Liver Stiffness over 17 kPa): Suggestive of clinically significant portal hypertension. QUALITY OF DATA SET: *IQR/Median value equal or less than 0.15 implies a quality data set. *IQR/Median value over 0.15 implies a poor quality data set. SIGNIFICANT CHANGE FROM PRIOR EXAM: Significant change if liver stiffness measurement is 10% or greater from prior exam. OTHER CONSIDERATIONS: The stage of liver fibrosis may be overestimated in the setting of acute hepatitis, liver inflammation, elevated liver function tests, hepatic vascular congestion, obstructive cholestasis, non-fasting state, and infiltrative diseases such as amyloidosis and lymphoma. In some patients with NAFLD, the liver stiffness thresholds for compensated advanced chronic liver disease may be lower. In causes other than viral hepatitis and NAFLD, liver stiffness thresholds are not well established. Electronically signed by: Jamshid Wright MD 10/13/2024 09:36 AM EDT
== END 2024-10-13 08:16 | disposition home or self-care (01) ==
LOC: HO.US 08:15
PROVIDERS: PCP Internal Medicine; Visit Provider Internal Medicine
DX: Z86.19 Personal history of other infectious and parasitic diseases (principal)
CPT/HCPCS: 76700; 76981

== ENCOUNTER → 2024-10-13 09:03 | Outpatient (BNV) | payer MEDICARE, OTHER, SELFPAY | PROVIDERS: PCP Internal Medicine; Visit Provider Radiology Diagnostic Radiology | DX: B19.20 Unspecified viral hepatitis C without hepatic coma (principal) | CPT/HCPCS: 76700; 76981 ==

== ENCOUNTER 2024-10-28 08:24 | Outpatient (REF) | payer MEDICARE, OTHER, SELFPAY ==
--- NOTE | ~2024-10-28 | US_ITS ---
CLINICAL HISTORY: R35.1 - Nocturia US Renal Comparison: US - US ABDOMEN COMP W ELASTOGRAPHY - 10/13/24 08:37 EDT Findings: Right kidney normal size and echotexture, 11.6 cm length. Simple appearing cyst in the upper pole measuring up to 2.4 cm, Unchanged. Left kidney normal size and echotexture, 11.0 cm length. No hydronephrosis of either kidney. Normal color Doppler. Urinary bladder is unremarkable. Prevoid volume 449 mL. Postvoid volume 51 mL. Bilateral ureteral jets are visualized. IMPRESSION: 1. Benign-appearing right renal cyst. Otherwise unremarkable kidneys. 2. Postvoid residual in the bladder of 51 mL. This document has been electronically signed by: Concepción Fitzgerald MD on 10/29/2024 09:09:33
--- OUTSIDE RECORDS SUMMARY | 2024-10-28 08:30 | XMS_ITS ---
Author Organization [facility] Address [address] [place] [address] Care Team Providers Care Gasoline Pump Installer Name Role Phone Conrado SANDERS, Ree Primary Care Provider Jamshid Dang [phone] REASON FOR VISIT please complete 09-11-24 note Encounters Encounter Location Date Provider Diagnosis [facility] [address] [place] [address] 10/08/2024 Jamshid Loredo Plan Of Treatment Next Appt Details Provider Name:Jamshid Loredo , 09/10/2025 09:00:00 AM, [address], [address], [place], [address], Progress Notes * BING GOODMAN EDOB: (74 yo F)Acc No.[id number]:10/08/2024 Patient:?BING GOODMAN :1950???Age:74 Y???Sex:Female [address] [place] [address] * true * Date:? Generated for Anita henning/Maribeth/eTransmitting on:?10/28/2024 08:30 AM EDT
--- OUTSIDE RECORDS SUMMARY | 2024-10-28 08:30 | XMS_ITS ---
Author Organization [facility] Address [address] [place] [address] Care Team Providers Care Mosaic Worker Name Role Phone Conrado SANDERS, Ree Primary Care Provider Jamshid Dang [phone] Allergies No Known Allergies Results Component Value Reference Range Notes Prothrombin Time INR Reviewed date:09/11/2024 10:44:32 AM Interpretation: Performing Lab:[facility], [address] [place] [phone] Notes/Report: Prothrombin Time 10.7 10.9-12.4 SEC INTERNATIONAL [...] mechanical prosthetic heart valves: 2.5 - 3.5 Liver Fibrosis Pnl Reviewed date:09/16/2024 12:46:34 PM Interpretation: Performing Lab:[facility], [address] [place] [phone] Notes/Report: Liver Fibrosis Score 0.15 Liver Fibrosis Stage F0 Liver Fibrosis Interpretation SEE NOTE no fibrosis Fibro Test Score (f) Metavir Score f>=0 and f<=0.21 : F0 (no fibrosis) f>0.21 and f<=0.27 : F0-F1 (no fibrosis) f>0.27 and f<=0.31 : F1 (minimal fibrosis) f>0.31 and f<=0.48 : F1-F2 (minimal fibrosis) f>0.48 and f<=0.58 : F2 (moderate fibrosis) f>0.58 and f<=0.72 : F3 (advanced fibrosis) f>0.72 and f<=0.74 : F3-F4 (advanced fibrosis) f>0.74 and f<=1.00 : F4 (severe fibrosis) Nec Inflam Act Score 0.02 Nec Inflam Act Grade A0 Nec Inflam Act Interpretation SEE NOTE no activity ActiTest Score (a) Metavir Score a>=0 and a<=0.17 : A0 (no activity) a>0.17 and a<=0.29 : A0-A1 (no activity) a>0.29 and a<=0.36 : A1 (minimal activity) a>0.36 and a<=0.52 : A1-A2 (minimal activity) a>0.52 and a<=0.60 : A2 (significant activity) a>0.60 and a<=0.62 : A2-A3 (significant activity) a>0.62 and a<=1.00 : A3 (severe activity) EKM-Lfkha-5-Macroglobulin 201 106-279 mg/dL FIB-Haptoglobin 180 43-212 mg/dL FIB-Apolipoprotein A1 192 101-198 mg/dL FIB-Total Bilirubin 0.6 0.2-1.2 mg/dL FIB-GGT 14 3-65 U/L FIB-ALT 11 6-29 U/L Reference ID [id number] Footnote SEE NOTE The reliability of results is dependent on compliance with the preanalytical and analytical conditions recommended by [employer]. The tests have to be deferred for: acute hemolysis, acute hepatitis, acute inflammation, extra hepatic cholestasis. The advice of a specialist should be sought for interpretation in chronic hemolysis and Gilbert's syndrome. The test interpretation is not validated in liver transplant patients. Isolated extreme values of one of the components should lead to caution in interpreting the results. In case of discordance between a biopsy result and a test, it is recommended to seek the advice of a specialist. The causes of these discordances could be due to a flaw of the test or to a flaw in the biopsy: i.e. a liver biopsy has a 33% variability rate for one fibrosis stage. FibroTest is interpretable for chronic hepatitis B and C, alcoholic and non alcoholic steatosis. ActiTest is interpretable for chronic hepatitis B and C. The performance characteristics have been determined by [employer] [facility]. It has not been cleared or approved by the U.S. Food and Drug Administration. Performance characteristics refer to the analytical performance of the test. [employer], the associated logo, [employer] and all associated [employer]roga are the registered trademarks of [employer]. All third democrat quiroga - (R) and (TM) - are the property of their respective owners. (C) 2249-9870 [employer]. All rights reserved. THIS TEST WAS PERFORMED AT: [employer] [facility] [place] [address] [place] [address] MOUNIKA MALDONADO MD,PHD,JACKIE REASON FOR VISIT Patient presents today for hx hep c Medications Medication SIG (Take, Route, Frequency, Duration) Notes Start Date End Date Status Betamethasone Dipropionate prn Not-Taking Amiodarone HCl 200 MG Oral for 14 Days Active Senna Laxative 8.6 MG 1tablets at am Ora lly daily Active Metoprolol Tartrate 25 MG 1 tablet with food Orally once a day Active Relpax 40 MG TAKE 1 TABLET BY EMMA TH MAY REPEAT DOSE IN HOURS IF NEEDED MAX 2TAB/24HRS Oral for 5 Active Lysine 1000mg Active Metamucil 0.36 GM 5 capsules once a da y once a day prn Active Lunesta 2 MG Oral Tablet Active Hair Skin Nails - as directed Orally Active Social History Alcohol Screen Question Answer Notes Did you [...] Never (0 point) Points 2 Interpretation Negative Section Notes: Nonsmoker; 1-2 drinks going out socially on weekend Problems Problem Type SNOMED Code ICD Code Onset Dates Problem Status W/U Status Risk Notes Problem Constipation (31287697) Constipation (K59.00) Active confirmed Vital Signs Blood pressure systolic 111 mm Hg 09/11/19 25 Blood pressure diastolic 11 mm Hg 025 Height 70 in 09/11/2024 Weight 170 lbs 09/11/2024 BMI 24.39 kg/m2 09/11/2024 Encounters Encounter Location Date Provider Diagnosis [facility] [address] [place] [address] 09/11/2024 Jamshid Loredo Gastroesophageal ref lux disease without esophagitis K21.9 ; History of hepatitis C Z86.19 and Constipation K59.00 Assessments Encounter Date Diagnosis (ICD Code) Assessment Notes Treatment Notes Treatment Clinical Notes Section Notes 09/11/2024 Gastroesophageal reflux disease without esophagitis (ICD-10 - K21.9) 09/11/2024 History of hepatitis C (ICD-10 - Z86.19) 09/11/2024 Constipation (ICD-10 - K59.00) Try adding 2 Metamucil fiber pills with a lot of water to the daily Senokot. Use the Miralax as needed. Plan Of Treatment Treatment Notes Assessment Notes Constipation Try adding 2 Metamuc il fiber pills with a lot of water to the daily Senokot. Use the Miralax as needed. Pending Test Test Name Order Date LIVER PROFILE 09/11/2024 CBC w DIFF 09/11/2024 ALPHA-FETOPROTEIN,TUMOR MARKER 5 US abdomen comp w elastography 5 Next Appt Details Follow Up: 1 Year, Reason: Provider Name:Jamshid Loredo , 09/10/2025 09:00:00 AM, [address], [address], [place], [address], Progress Notes * BING GOODMAN EDOB: (74 yo F)Acc No.[id number]:09/11/2024 Progress Notes Patient:?MAXINEBING BUNDY Provider:?Jamshid Loredo MD :1950???Age:74 Y???Sex:Female D ate:09/11/2024 Address:[address], [id number] Pcp:Ree Camp MD Subjective: * Chief Complaints: * ???Patient presents today fo r hx hep c * Medical History:? * Surgical History:?Bunion russ antonino Melanoma removed from right thigh 05/2012 Right hip replacement 08/2016Bilateral cataracts 03/2022Left hip replacement 2022 * Hospitalization/Major Diagno stic Procedure:?No Hospitalization History. * Family History:?Father: dece ased, Cancer of the blood.?Mother: , Lupus, diagnosed with HTN (hypertension).? No family history of colorectal cancer; daughter has Crohn's. * Social History:?Tobacco Use:?Tobacco Use/Smoking?Are you a: nonsmoker.?Drugs/Alcohol:?Alcohol Screen?Did you have a drink containing alcohol in the past year??Yes,?How often did you have a drink containing alcohol in the past year??2 to 4 times a month (2 points),?How many drinks did you have on a typical day when you were drinking in the past year??1 or 2 drinks (0 point),?How often did you have 6 or more drinks on one occasion in the past year??Never (0 point),?Points?2,?Interpretation?Negative.?Miscellaneous:?Marital status: . Occupation: retired. ???Nonsmoker; 1-2 drinks going out socially on weekend. * Medications:?TakingLunesta 2 MG Oral Tablet Hair Skin Nails - Capsule as directed Orally Metamucil 0.36 GM Capsule 5 capsules once a day once a day , Notes to Pharmacist: prnLysine 1000mg Relpax 40 MG Tablet TAKE 1 TABLET BY MOUTH MAY REPEAT DOSE IN HOURS IF NEEDED MAX 2TAB/24HRS Oral Metoprolol Tartrate 25 MG Tablet 1 tablet with food Orally once a day Senna Laxative 8.6 MG Tablet 1tablets at am Orally daily Amiodarone HCl 200 MG Tablet Oral Taking Lunesta 2 MG Oral Tablet Taking Hair Skin Nails - Capsule as directed Orally Taking Metamucil 0.36 GM Capsule 5 capsules once a day once a day , Notes to Pharmacist: prnTaking Lysine 1000mg Taking Relpax 40 MG Tablet TAKE 1 TABLET BY MOUTH MAY REPEAT DOSE IN HOURS IF NEEDED MAX 2TAB/24HRS Oral Taking Metoprolol Tartrate 25 MG Tablet 1 tablet with food Orally once a day Taking Senna Laxative 8.6 MG Tablet 1tablets at am Orally daily Taking Amiodarone HCl 200 MG Tablet Oral Not-Taking/PRNBetamethasone Dipropionate , Notes to Pharmacist: prnNot-Taking/PRN Betamethasone Dipropionate , Notes to Pharmacist: prnDiscontinuedFlecainide Acetate 50 MG Tablet as directed Orally bid Turmeric 500 MG Capsule as directed Orally Vitamin D 2000mg Medication List reviewed and reconciled with the patientDiscontinued Flecainide Acetate 50 MG Tablet as directed Orally bid Discontinued Turmeric 500 MG Capsule as directed Orally Discontinued Vitamin D 2000mg Medication List reviewed and reconciled with the patient * Allergies:?N.K.D.A.yes[Aller gies Verified] Objective: * Vitals:?Wt: 170 lbs, Ht: 70 in, BMI: 24.39 Index, BP: 111/11 mm Hg, Wt-k.11. Assessment: * Assessment: 1.?Gastroesophageal reflux d isease without esophagitis - K21.9 (Primary)???2.?History of hepatitis C - Z86.19???3.?Constipation - K59.00??? Plan: * Treatment: ? Value Reference Range ?Prothrombin Time 10.7 L 10.9-1 2.4 - SEC * ?INTERNATIONAL NORM RATIO 0.9 0.9-1.1 - ?LAB: Liver Fibrosis Pnl (Collection Date & Time - 09/11/2024 10:00 AM)* ? Value Reference Range ?Liver Fibrosis Score 0.15 - * ?Liver Fibrosis Stage F0 - * ?Liver Fibrosis Interpretation SEE NOTE - * ?Nec Inflam Act Score 0.02 - * ?Nec Inflam Act Grade A0 - * ?Nec Inflam Act Interpretation SEE NOTE - * ?GNA-Vzavw-0-Macroglobulin 201 106-279 - mg/dL * ?FIB-Haptoglobin 180 43-212 - mg/dL * ?FIB-Apolipoprotein A1 192 1 01-198 - mg/dL * ?FIB-Total Bilirubin 0.6 0.2 -1.2 - mg/dL * ?FIB-GGT 14 3-65 - U/L * ?FIB-ALT 11 6-29 - U/L * ?Reference ID [id number] - * ?Footnote SEE NOTE - ?Imaging: US abdomen comp w elastography* sched for 10/13/24 at 8:30 am [facility] [place] [facility] 2[facility]fasting 8 hrs prior * 2.?Constipation? Notes: Try adding 2 Metamucil fiber pills with a lot of water to the daily Senokot. Use the Miralaxas needed.?? * Procedure Codes:?1036F TOBAC CO [id number] BP SCR NOT PRFRM REC REASON NOS * Preventive Medicine:? ??Urinary Incontinence:?Urinary Incontinence?Assessment:?Absent,?Plan of care documented:?No, reason not specified.? ??Screenings:?Fall Risk Screening?Fall Risk Assessment:?No falls in the past year,?Screening:?No falls in the past year,?Assessment:?Not performed, no reason specified,?Plan of Care:?Not documented, no reason specified.? * Follow Up:?1 Year * * Sign off status: Completed true * Provider:?Jamshid Loredo MD Date:? 025 Generated for Anita henning/Maribeth/eTransmitting on:?10/28/2024 08:30 AM EDT
--- OUTSIDE RECORDS SUMMARY | 2024-10-28 08:31 | XMS_ITS ---
Author Organization [facility] Address [address] [place] [address] Care Team Providers Care Cook Dinner Name Role Phone Ree Camp MD Primary Care Provider Jamshid Dang Unavailable [phone] Allergies No Known Allergies REASON FOR VISIT Patient presents today for HEP C Medications Medication SIG (Take, Route, Frequency, Duration) [...] Turmeric 500 MG as directed Orally Active Social History Alcohol [...] Never (0 point) Points 4 Interpretation Positive Section Notes: Nonsmoker; 1 drink QD Vital Signs Temperature 96.2 degrees Fahrenheit 02/27/20 24 Blood pressure systolic 000 mm Hg 09/11/19 24 Blood pressure diastolic 00 mm Hg 024 Height 70 in 09/11/2023 Weight 171 lbs 09/11/2023 BMI 24.53 kg/m2 09/11/2023 Encounters Encounter Location Date Provider Diagnosis [facility] [address] [place] [address] 09/11/2023 Jamshid Loredo Weiner's esophagus without dysplasia K22.70 ; History of hepatitis C Z86.19 ; Gastroesophageal reflux disease without esophagitis K21.9 and Change in bowel habits R19.4 Assessments Encounter Date Diagnosis (ICD Code) Assessment Notes Treatment Notes Treatment Clinical Notes Section Notes 09/11/2023 Weiner's esophagus without dysplasia (ICD-10 - K22.70) Overall, Bing appears quite well. We did review her GI procedures from one year ago in regard to the minimal findings of both the upper endoscopy and colonoscopy. She is doing very well in regard to the previous history of reflux without any particular medication at the present time. I advised her that I do not think she will need any further screening colonoscopies for surveillance upper endoscopies at this point given the findings last year and her age. I advised her to continue her current bowel regimen as this does seem to be working well for her. Her previous history of hepatitis C appears very stable and without any sign of liver disease based on her exam, her history, and previous studies from just a year ago. I shall schedule her for her yearly abdominal ultrasound, alpha-fetoprotei n level, and the other tests as outlined below. If things remains stable I will plan to see her in one year for a followup office visit. I did advise her certainly call should any problems or questions I can be of assistance with the interim. Bing was comfortable with this plan. Thank you again for allowing me to participate in Bing's care. I shall continue to keep you advised of her progress. 09/11/2023 History of hepatitis C (ICD-10 - Z86.19) Overall, Bing appears quite well. We did review her GI procedures from one year ago in regard to the minimal findings of both the upper endoscopy and colonoscopy. She is doing very well in regard to the previous history of reflux without any particular medication at the present time. I advised her that I do not think she will need any further screening colonoscopies for surveillance upper endoscopies at this point given the findings last year and her age. I advised her to continue her current bowel regimen as this does seem to be working well for her. Her previous history of hepatitis C appears very stable and without any sign of liver disease based on her exam, her history, and previous studies from just a year ago. I shall schedule her for her yearly abdominal ultrasound, alpha-fetoprotei n level, and the other tests as outlined below. If things remains stable I will plan to see her in one year for a followup office visit. I did advise her certainly call should any problems or questions I can be of assistance with the interim. Bing was comfortable with this plan. Thank you again for allowing me to participate in Bing's care. I shall continue to keep you advised of her progress. 09/11/2023 Gastroesophageal reflux disease without esophagitis (ICD-10 - K21.9) Overall, Bing appears quite well. We did review her GI procedures from one year ago in regard to the minimal findings of both the upper endoscopy and colonoscopy. She is doing very well in regard to the previous history of reflux without any particular medication at the present time. I advised her that I do not think she will need any further screening colonoscopies for surveillance upper endoscopies at this point given the findings last year and her age. I advised her to continue her current bowel regimen as this does seem to be working well for her. Her previous history of hepatitis C appears very stable and without any sign of liver disease based on her exam, her history, and previous studies from just a year ago. I shall schedule her for her yearly abdominal ultrasound, alpha-fetoprotei n level, and the other tests as outlined below. If things remains stable I will plan to see her in one year for a followup office visit. I did advise her certainly call should any problems or questions I can be of assistance with the interim. Bing was comfortable with this plan. Thank you again for allowing me to participate in Bing's care. I shall continue to keep you advised of her progress. 09/11/2023 Change in bowel habits (ICD-10 - R19.4) Overall, Bing appears quite well. We did review her GI procedures from one year ago in regard to the minimal findings of both the upper endoscopy and colonoscopy. She is doing very well in regard to the previous history of reflux without any particular medication at the present time. I advised her that I do not think she will need any further screening colonoscopies for surveillance upper endoscopies at this point given the findings last year and her age. I advised her to continue her current bowel regimen as this does seem to be working well for her. Her previous history of hepatitis C appears very stable and without any sign of liver disease based on her exam, her history, and previous studies from just a year ago. I shall schedule her for her yearly abdominal ultrasound, alpha-fetoprotei n level, and the other tests as outlined below. If things remains stable I will plan to see her in one year for a followup office visit. I did advise her certainly call should any problems or questions I can be of assistance with the interim. Bing was comfortable with this plan. Thank you again for allowing me to participate in Bing's care. I shall continue to keep you advised of her progress. Plan Of Treatment Pending Test Test Name Order Date LIVER PROFILE 09/11/2023 CBC w DIFF 09/11/2023 Prothrombin Time INR 09/11/2023 Alpha Fetoprotein 09/11/2023 Liver Fibrosis Pnl 09/11/2023 US abdomen comp w elastography Next Appt Details Follow Up: 1 Year, Reason: Provider Name:Jamshid Loredo , 09/10/2025 09:00:00 AM, [address] [place] [address], [address], [place], [address], Progress Notes * BING GOODMAN EDOB: (73 yo F)Acc No.[id number]:09/11/2023 Progress Notes Patient:?BING GOODMAN E Provider:?Jamshid Loredo MD :1950???Age:73 Y???Sex:Female D ate:09/11/2023 Address:[address], [place], [place] Pcp:Ree Camp MD Subjective: * Chief Complaints: * ???Patient presents today fo r HEP C * HPI: ???incontinence:? I saw Bing in followup today in regard to her history of gastroesophageal reflux with associated Weiner's esophagus, constipation, and previous history of successfully treated hepatitis C. ?I last saw Bing in August of 2022, at which time she underwent an upper endoscopy and colonoscopy. The colonoscopy revealed a small tubular adenoma that was removed. The endoscopy revealed some minimal changes of reflux but biopsies were negative for any sign of Weiner's esophagus/intestinal metaplasia. Her abdominal ultrasound at that time did not reveal any sign of significant liver disease or portal hypertension. Laboratories at that time had revealed a normal CBC with platelet count, normal PT with INR, a normal liver profile, and a normal alpha-fetoprotein level. Her liver fibrosis score was normal at F0. ?She presently feels very well. She enjoys a good appetite, without any significant heartburn or dysphagia. She is presently not using any acid suppression. Her bowel movements remain stable on a regimen of fiber and senna. She has not noticed any signs of bleeding. She denies any abdominal pain, jaundice, weight loss, edema, increasing abdominal girth, pruritus, nor fatigue. * ROS:?General/Constitutional:?Change in appetite?denies.?Chills?denies.?Fatigue?denies.?Ophthalmologic:?Patient denies? Negative..?ENT:?Patient denies?Negative..?Respiratory:?Patient denies?No coughing/hemoptysis..?Cardiovascular:?Patient denies? No chest pain/orthopnea..?Gastrointestinal:?Comments?See HPI for details.?Genitourinary:?Patient denies? No dysuria/hematuria..?Musculoskeletal:?Patient denies? No specific arthralgias/myalgias..?Skin:?Patient denies?No rash/pruritus..?Neurologic:?Patient denies?No seizures-but does have a history of migraines-.?Psychiatric:?Patient denies?Negative..? * Medical History:? * Surgical History:?Bunion russ antonino Melanoma removed from right thigh 05/2012 Right hip replacement 08/2016Bilateral cataracts 03/2022Left hip replacement 2022 * Hospitalization/Major Diagno stic Procedure:?Denies Past Hospitalization * Family History:?Father: dece ased, Cancer of the blood.?Mother: , Lupus, diagnosed with HTN (hypertension).? No family history of colorectal cancer; daughter has Crohn's. * Social History:?Tobacco Use:?Tobacco Use/Smoking?Are you a: nonsmoker.?Drugs/Alcohol:?Alcohol Screen?Did you have a drink containing alcohol in the past year??Yes,?How often did you have a drink containing alcohol in the past year??4 or more times a week (4 points),?How many drinks did you have on a typical day when you were drinking in the past year??1 or 2 drinks (0 point),?How often did you have 6 or more drinks on one occasion in the past year??Never (0 point),?Points?4,?Interpretation?Positive.?Miscellaneous:?Marital status: . Occupation: retired. ???Nonsmoker; 1 drink QD. * Medications:?TakingTurmeric 500 MG Capsule as directed Orally Metamucil 0.36 GM Capsule 5 capsules once a day once a dayVitamin D 2000mg Lysine 1000mg Betamethasone Dipropionate Relpax 40 MG Tablet TAKE 1 TABLET BY MOUTH MAY REPEAT DOSE IN HOURS IF NEEDED MAX 2TAB/24HRS Oral Metoprolol Tartrate 25 MG Tablet 1/2 tablet with food Orally once a dayFlecainide Acetate 50 MG Tablet as directed Orally bidSenna Laxative 8.6 MG Tablet 1tablets at am Orally dailyTaking Turmeric 500 MG Capsule as directed Orally Taking Metamucil 0.36 GM Capsule 5 capsules once a day once a dayTaking Vitamin D 2000mg Taking Lysine 1000mg Taking Betamethasone Dipropionate Taking Relpax 40 MG Tablet TAKE 1 TABLET BY MOUTH MAY REPEAT DOSE IN HOURS IF NEEDED MAX 2TAB/24HRS Oral Taking Metoprolol Tartrate 25 MG Tablet 1/2 tablet with food Orally once a dayTaking Flecainide Acetate 50 MG Tablet as directed Orally bidTaking Senna Laxative 8.6 MG Tablet 1tablets at am Orally dailyDiscontinuedVitamin B12 Medication List reviewed and reconciled with the patientDiscontinued Vitamin B12 Medication List reviewed and reconciled with the patient * Allergies:?N.K.D.A.yes[Aller gies Verified] Objective: * Vitals:?Wt: 171 lbs, Ht: 70 in, BMI:24.53 Index, BP: 000/00 mm Hg, Temp: 96.2. * Examination: ???General Examination: ?GENERAL APPEARANCE:?pleasant, well nourished, well developed, in no acute distress.?EYES:?sclera non-icteric.?ORAL CAVITY:?mucosa moist.?NECK/THYROID:?no cervical lymphadenopathy, neck supple.?SKIN:?nonjaundiced, no spider angiomata..?HEART:?S1, S2 normal.?LUNGS:?clear to auscultation bilaterally.?ABDOMEN:?normal bowel sounds, no guarding or rigidity, no hepatosplenomegaly, no masses palpable, soft, nontender, nondistended..?EXTREMITIES:?no edema.?NEUROLOGIC:?alert and oriented.? Assessment: * Assessment: 1.?Weiner's esophagus witho ut dysplasia - K22.70 (Primary)?2.?History of hepatitis C - Z86.19?3.?Gastroesophageal reflux disease without esophagitis - K21.9?4.?Change in bowel habits - R19.4? Overall, Bing appears quit e well. We did review her GI procedures from one year ago in regard to the minimal findings of both the upper endoscopy and colonoscopy. She is doing very well in regard to the previous history of reflux without any particular medication at the present time. I advised her that I do not think she will need any further screening colonoscopies for surveillance upper endoscopies at this point given the findings last year and her age. I advised her to continue her current bowel regimen as this does seem to be working well for her. Her previous history of hepatitis C appears very stable and without any sign of liver disease based on her exam, her history, and previous studies from just a year ago. I shall schedule her for her yearly abdominal ultrasound, alpha-fetoprotein level, and the other tests as outlined below. If things remains stable I will plan to see her in one year for a followup office visit. I did advise her certainly call should any problems or questions I can be of assistance with the interim. Bing was comfortable with this plan. Thank you again for allowing me to participate in Bing's care. I shall continue to keep you advised of her progress. Plan: * Treatment: * * Procedure Codes:?3017F COLOR ECTAL CA SCREEN DOC [id number] TOBACCO NON-[id number] BP SCR NOT PRFRM REC REASON NOS * Preventive Medicine:? ??Urinary Incontinence:?Urinary Incontinence?Assessment:?Absent,?Plan of care documented:?No, reason not specified.? * Follow Up:?1 Year * * Sign off status: Completed true * Provider:?Jamshid Loredo MD Date:? 024 Generated for Anita henning/Maribeth/Michaelitting on:?10/28/2024 08:31 AM EDT History and Physical Notes * HPI (History of Present Illness) Category Sub-Category Detail Notes Category Not es incontinence I saw Bing in followup today in regard to her history of gastroesophageal reflux with associated Weiner's esophagus, constipation, and previous history of successfully treated hepatitis C. I last saw Bing in August of 2022, at which time she underwent an upper endoscopy and colonoscopy. The colonoscopy revealed a small tubular adenoma that was removed. The endoscopy revealed some minimal changes of reflux but biopsies were negative for any sign of Weiner's esophagus/intestinal metaplasia. Her abdominal ultrasound at that time did not reveal any sign of significant liver disease or portal hypertension. Laboratories at that time had revealed a normal CBC with platelet count, normal PT with INR, a normal liver profile, and a normal alpha-fetoprotein level. Her liver fibrosis score was normal at F0. She presently feels very well. She enjoys a good appetite, without any significant heartburn or dysphagia. She is presently not using any acid suppression. Her bowel movements remain stable on a regimen of fiber and senna. She has not noticed any signs of bleeding. She denies any abdominal pain, jaundice, weight loss, edema, increasing abdominal girth, pruritus, nor fatigue. Examination Category Sub-Category Detail Notes Category Not es General Examination GENERAL APPEARANCE: pleasant , well [...]
--- OUTSIDE RECORDS SUMMARY | 2024-10-28 08:31 | XMS_ITS | Data Portability ---
Author Organization [facility], OFFICE Address [address] [address] Assessment Encounter Date Assessment Date Assessment LastModified by Organization Details LastModified Time 08/02/2020 08/02/2020 Izabella has deep groin pain which can occur [...] Juve Fountain MD [address], [place], [address], [place] - [facility] 05/17/2016 15:06:23 General Surgery completed Juve Fountain MD [address], [place], [address], [place] [facility] 05/17/2016 15:06:57 Tonsillectomy/A denoidectomy completed Juve Fountain MD [address], [place], [address], [place] [facility] 05/17/2016 15:07:05 Hand Surgery completed Juve Fountain MD [address], [place], [address], [place] - [facility] 05/17/2016 15:07:23 Imaging Results Imaging Date Name Status [facility]Modified [facility] Details LastModified Time 08/30/2020 imaging/diag nostic result completed [email or web address] Information not available 08/30/2020 10:58:32 Procedure Notes [...] Updated DateTime 05/15/2022 177.8 cm 23 kg/m2 48011.78 g Leticia Blandon [place] - [facility] 05/15/2022 10:22:23 Date Recorded Body height Body mass index (BMI) Body weight Provider Name and Address Organization Details Last Updated DateTime 01/26/2023 177.8 cm 23.4 kg/m2 69442.56 g Leticia Blandon [place] - [facility] 01/26/2023 14:21:07 Social History Question Answer Notes LastModified by Organizat ion Details LastModified Time Tobacco Smoking Status Never Smoker Juve Fountain MD [address] [place] [address],[facility] [address], [place], [address], [place] - [facility] and [facility] 05/17/2016 15:06:04 Do You Have An Advance Directive? Yes [email or web address] Information not available 05/15/2022 Do You Have A Medical Power Of Banking Attorney? Yes [email or web address] Information not available 05/15/2022 What Was The Date Of Your Most Recent Tobacco Screening? 05/15/2022 [email or web address] Information not available 05/15/2022 Do You Or Have You Ever Used Any Other Forms Of Tobacco Or Nicotine? No Information not available 05/15/2022 Sex: Unknown Functional Status Question Answer Note LastModified by Organization D etails LastModified Time Are you able to care for yourself? Yes [email or web address] Information n ot available 05/15/2022 Mental Status None recorded. Family History Relationship Description Onset Age of this Age Resolved Age Notes LastModified by Organization Details LastModified Time Paternal Grandmother Arthritis [email or web address] Not available 08/2015 15:05:52 Medical History Condition Response Coronary Artery Disease N Heart Problems N Anxiety/Depression N Gout N Blood Transfusion N Hernia N Migraines Y Thyroid Problems N COPD N Pacemaker N Anemia N Ulcers N Heart Attack (IN) N Diabetes N Bleeding Disorder Y Orthotics [...] SNOMED-CT Code Diagnosis ICD10 Code Diagnosis Note [id number] Juve Fountain MD OFFICE [address] [facility] [place], [address] [address] 05/17/2016 13:13:11 05/17/2016 16:28:53 [id number] Juve Fountain MD OFFICE [address] [place], [address] [address] 09/22/2016 10:07:50 12/01/2016 16:26:04 [id number] Juve Fountain MD OFFICE [address] [place], [address] [address] 11/29/2016 09:31:35 12/06/2016 15:17:52 [id number] Juve Fountain MD OFFICE 125 [facility] [address] [address] 12/12/2017 09:55:50 01/23/2018 10:53:07 [id number] [facility] [address] [place] [address] 08/02/2020 12:21:04 08/02/2020 16:08:49 [id number] [facility] [place] [address] 09/06/2020 14:49:29 09/06/2020 21:08:21 [id number] Juve Fountain MD [facility] [address] [place] [address] 11/08/2020 09:39:24 11/08/2020 17:31:01 [id number] Juve Fountain MD OFFICE [address] [facility] [address] [place] [address] 05/15/2022 09:55:26 05/16/2022 02:37:55 [id number] Juve Fountain MD [facility] [address] [place] [address] 01/26/2023 14:19:34 01/28/2023 12:24:59 Health Concerns Section Related Observation LastModified by Organization Detai ls LastModified Time None Recorded Concern Status LastModified by Organization Details LastModified Time None Recorded Advance Directives Directive Y: Payers Encounter Date Sequence Insurance Name Policy Number Policy Lopez Covered Member ID Lopez Member ID Guarantor Name 08/02/2020 2 [facility]MERLY [facility] INDEMNITY PLAN - [employer] [id number] 38 [address] E Siria [id number] Izabella Siria 08/02/2020 1 [place] [employer] Izabella E Siria [id number] Izabella Siria 09/06/2020 2 [facility]LY [facility] INDEMNITY PLAN - [employer] [id number] Faraz E Siria [id number] Izabella Siria 09/06/2020 1 [place] [employer] Izabella E Siria [id number] Izabella Siria 11/08/2020 2 [facility] INDEMNITY PLAN - [employer] [id number] Faraz E Siria [id number] Izabella Siria 11/08/2020 1 [place] [employer] Izabella E Siria [id number] Izabella Siria 05/15/2022 2 [facility]LY [facility] INDEMNITY PLAN - [employer] [id number] 38 Faraz E Siria [id number] Izabella Siria 05/15/2022 1 [place] [employer] [place] Izabella E Siria [id number] Izabella Beverly 01/26/2023 2 [facility] [id number] 38 Faraz Beverly [id number] Izabella Beverly 01/26/2023 1 [place] [facility] Izabella Beverly [id number] Izabella Beverly Notes Date Note Type Note [...] change in bowel/bladder habits Juve Fountain MD [address] [place] [address], [address], [place] - [facility] 08/02/2020 [...] Juve Fountain MD [address], [place], [address], [place] - [facility] 09/06/2020 [...] Juve Fountain MD [address], [place], [address], [place] - [facility] 11/08/2020 12:27:59 [...] ray; CT scan Previous PT:did not help Juve Fountain MD [address], [place], [address], [place] - [facility]d and [facility] 05/15/2022 [...] Imaging:x ray; CT scan Previous PT:helped significantly Juev Fountain MD [address] [place] [address],[facility] [address], [place], [address], [place] - [facility]Ass[facility]d and [facility] 01/26/2023 18:47:34 OBGyn Episode No OBEpisode recorded.
--- OUTSIDE RECORDS SUMMARY | 2024-10-28 08:31 | XMS_ITS | Patient Health Record ---
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 Name Role Phone Conrado SANDERS, Ree Primary Care Provider Jamshid Dang Unavailable [phone] Allergies No Known Allergies Results Component Value Reference Range Notes Prothrombin Time INR Reviewed date:09/11/2024 10:44:32 AM Interpretation: Performing Lab:[facility], [address] [place] [phone] Notes/Report: Prothrombin Time 10.7 10.9-12.4 SEC INTERNATIONAL [...] Pnl Reviewed date:09/16/2024 12:46:34 PM Interpretation: Performing Lab:[facility], [address] [place] [phone] Notes/Report: Liver Fibrosis Score 0.15 Liver Fibrosis [...] a>0.62 and a<=1.00 : A3 (severe activity) ODY-Xwvjv-6-Macroglobuli n 201 106-279 mg/dL FIB-Haptoglobin 180 43-212 mg/dL FIB-Apolipoprotein A1 192 101-198 mg/dL FIB-Total Bilirubin 0.6 0.2-1.2 mg/dL FIB-GGT 14 3-65 U/L FIB-ALT 11 6-29 U/L Reference ID [id number] Footnote SEE NOTE The reliability of results is dependent on compliance with the preanalytical and analytical conditions recommended by Synchris. The tests have to be deferred for: [...] The performance characteristics have been determined by [facility]. It has not been cleared or approved by the U.S. Food and Drug Administration. Performance characteristics refer to the analytical performance of the test. You Software, the associated logo, [employer] and all associated [employer] are the registered trademarks of [employer]. All third republican quiroga - (R) and (TM) - are the property of their respective owners. (C) [id number] [employer]. All rights reserved. THIS TEST WAS PERFORMED AT: [facility] [address] [place] [address] MOUNIKA MALDONADO MD,PHD,JACKIE Complete Blood Count Auto Di ff Reviewed date:11/15/2023 09:51:23 AM Interpretation: Performing Lab:[facility], [address] [place] [phone] Notes/Report: White Blood Count 5.2 4.8-10.8 X10*3/uL Red Blood Count 4.36 4.20-5.50 X10*6/uL Hemoglobin 13.2 12.0-16.0 g/dl Hematocrit 41.3 37.0-47.0 % Mean Corpuscular Volume 94.7 80.0-98.0 fL Mean Corpuscular Hemoglobin 30.3 27.0-33.0 pg Mean Corpuscular HGB Conc 32.0 31.0-35.0 g/dl Red Cell Distribution Width 13.5 11.0-16.0 % Platelet Count TNP 160-400 X10*3/uL Platelet clumps noted. Platelet count will not be accurate. Platelet clumps noted. Platelet count will not be accurate. Recollecting the platelet count in a blue top tube may Recollecting the platelet count in a blue top tube may eliminate platelet clumps. Order platelet count blue top eliminate platelet clumps. Order platelet count blue top tube. A lavender top tube must be drawn if CBC is required. tube. A lavender top tube must be drawn if CBC is required. Mean Platelet Volume TNP 9.4-12.3 fL Neutrophils Percent Auto 52.4 45-73 % Imm Gran Pct Auto 0.4 0.0-0.4 % Lymphocytes Percent Auto 29.2 20-40 % Monocytes Percent Auto 11.2 2-11 % Eosinophils Percent Auto 5.8 0-4 % Basophils Percent Auto 1.0 0-2 % NRBC Pct Auto 0.0 0.0-0.2 /100WBC Neutrophils Absolute Auto 2.7 2.0-8.3 x10*3/uL Imm Gran Abs Auto 0.02 0.00-0.03 X10*3/uL Lymphocytes Absolute Auto 1.5 1.2-4.9 X10*3/uL Monocytes Absolute Auto 0.6 0.1-1.2 X10*3/uL Eosinophils Absolute Auto 0.3 0.0-0.4 X10*3/uL Basophils Absolute Auto 0.1 0.0-0.2 X10*3/uL NRBC Abs Auto 0.000 0.0-0.012 X10*3/uL White Blood Count 5.2 4.8-10.8 X10*3/uL Red Blood Count 4.36 4.20-5.50 X10*6/uL Hemoglobin 13.2 12.0-16.0 g/dl Hematocrit 41.3 37.0-47.0 % Mean Corpuscular Volume 94.7 80.0-98.0 fL Mean Corpuscular Hemoglobin 30.3 27.0-33.0 pg Mean Corpuscular HGB Conc 32.0 31.0-35.0 g/dl Red Cell Distribution Width 13.5 11.0-16.0 % Platelet Count TNP 160-400 X10*3/uL Platelet clumps noted. Platelet count will not be accurate. Platelet clumps noted. Platelet count will not be accurate. Recollecting the platelet count in a blue top tube may Recollecting the platelet count in a blue top tube may eliminate platelet clumps. Order platelet count blue top eliminate platelet clumps. Order platelet count blue top tube. A lavender top tube must be drawn if CBC is required. tube. A lavender top tube must be drawn if CBC is required. Mean Platelet Volume TNP 9.4-12.3 fL Neutrophils Percent Auto 52.4 45-73 % Imm Gran Pct Auto 0.4 0.0-0.4 % Lymphocytes Percent Auto 29.2 20-40 % Monocytes Percent Auto 11.2 2-11 % Eosinophils Percent Auto 5.8 0-4 % Basophils Percent Auto 1.0 0-2 % NRBC Pct Auto 0.0 0.0-0.2 /100WBC Neutrophils Absolute Auto 2.7 2.0-8.3 x10*3/uL Imm Gran Abs Auto 0.02 0.00-0.03 X10*3/uL Lymphocytes Absolute Auto 1.5 1.2-4.9 X10*3/uL Monocytes Absolute Auto 0.6 0.1-1.2 X10*3/uL Eosinophils Absolute Auto 0.3 0.0-0.4 X10*3/uL Basophils Absolute Auto 0.1 0.0-0.2 X10*3/uL NRBC Abs Auto 0.000 0.0-0.012 X10*3/uL C ORRECTED REPORT C ORRECTED REPORT Prothrombin Time INR Reviewed date:11/15/2023 09:50:47 AM Interpretation: Performing Lab:[facility], [address] [place] [phone] Notes/Report: Prothrombin Time 11.1 11.1-13.3 SEC INTERNATIONAL NORM RATIO 0.9 0.9-1.1 INTERNATIONAL [...] prosthetic heart valves: 2.5 - 3.5 Liver Panel Reviewed date:11/15/2023 09:50:56 AM Interpretation: Performing Lab:[facility], [address] [place] [phone] Notes/Report: Bilirubin Total 0.6 0.0-1.0 mg/dL Bilirubin Direct 0.2 0.0-0.5 mg/dL Aspartate Amino Transferase 16 5-31 U/L Alanine Aminotransferase 9 0-31 U/L Total Protein 7.6 6.5-8.0 g/dL Albumin Level 4.3 3.5-5.0 g/dL Alkaline Phosphatase 69 39-117 U/L Alpha Fetoprotein Reviewed date:11/28/2023 12:29:54 AM Interpretation: Performing Lab:[facility], [address] [place] [phone] Notes/Report: Alpha Fetoprotein 5.1 Reference Range: <6.1 The use of AFP as a tumor marker in females is not recommended. This test was performed using the Coleman [place] chemiluminescent method. Values obtained from different assay methods cannot be used interchangeably. AFP levels, regardless of value, should not be interpreted as absolute evidence of the presence or absence of disease. THIS TEST WAS PERFORMED AT: [email or web address] [address] [place] [phone] BRIE MALAGON MD Liver Fibrosis Pnl Reviewed date:11/28/2023 12:30:09 AM Interpretation: Performing Lab:[address] [phone] Notes/Report: Liver Fibrosis Score 0.11 Liver Fibrosis Stage F0 Liver Fibrosis Interpretation [...] F4 (severe fibrosis) Nec Inflam Act Score 0.01 Nec Inflam Act Grade A0 Nec Inflam [...] a>0.62 and a<=1.00 : A3 (severe activity) EEB-Jceji-1-Macroglobuli n 193 106-279 mg/dL FIB-Haptoglobin 123 43-212 mg/dL FIB-Apolipoprotein A1 222 101-198 mg/dL FIB-Total Bilirubin 0.6 0.2-1.2 mg/dL FIB-GGT 11 3-65 U/L FIB-ALT 7 6-29 U/L Reference ID [id number] Footnote SEE NOTE The reliability of results is dependent on compliance with the preanalytical and analytical conditions recommended by Synchris. The tests have to be deferred for: [...] The performance characteristics have been determined by [facility]. It has not been cleared or approved by the U.S. Food and Drug Administration. Performance characteristics refer to the analytical performance of the test. You Software, the associated logo, [employer] [place] and all associated [facility] [employer] quiroga are the registered trademarks of [employer]. All third republican quiroga - (R) and (TM) - are the property of their respective owners. (C) [id number] [employer]. All rights reserved. THIS TEST WAS PERFORMED AT: [facility] [address] [address] [address] MOUNIKA MALDONADO MD,PHD,JACKIE SLIDE REVIEW (Not yet review ed by provider) Interpretation: Performing Lab:[facility], [address] [place] [phone] Notes/Report: SLIDE REVIEW VERIFIED Complete Blood Count Auto Di ff Reviewed date:09/11/2024 11:02:14 AM Interpretation: Performing Lab:[facility], [address] [place] [phone] Notes/Report: White Blood Count 6.3 4.8-10.8 X10*3/uL Red Blood Count 4.71 4.20-5.50 X10*6/uL Hemoglobin 14.5 12.0-16.0 g/dl Hematocrit 44.2 37.0-47.0 % Mean Corpuscular Volume 93.8 80.0-98.0 fL Mean Corpuscular Hemoglobin 30.8 27.0-33.0 pg Mean Corpuscular HGB Conc 32.8 31.0-35.0 g/dl Red Cell Distribution Width 12.3 11.0-16.0 % Platelet Count TNP 160-400 X10*3/uL Platelet clumps noted. Platelet count will not be accurate. Platelet clumps noted. Platelet count will not be accurate. Recollecting the platelet count in a blue top tube may Recollecting the platelet count in a blue top tube may eliminate platelet clumps. Order platelet count blue top eliminate platelet clumps. Order platelet count blue top tube. A lavender top tube must be drawn if CBC is required. tube. A lavender top tube must be drawn if CBC is required. Mean Platelet Volume TNP 9.4-12.3 fL Neutrophils Percent Auto 59.9 45-73 % Imm Gran Pct Auto 0.5 0.0-0.4 % Lymphocytes Percent Auto 22.8 20-40 % Monocytes Percent Auto 10.2 2-11 % Eosinophils Percent Auto 6.1 0-4 % Basophils Percent Auto 0.5 0-2 % NRBC Pct Auto 0.0 0.0-0.2 /100WBC Neutrophils Absolute Auto 3.8 2.0-8.3 x10*3/uL Imm Gran Abs Auto 0.03 0.00-0.03 X10*3/uL Lymphocytes Absolute Auto 1.4 1.2-4.9 X10*3/uL Monocytes Absolute Auto 0.6 0.1-1.2 X10*3/uL Eosinophils Absolute Auto 0.4 0.0-0.4 X10*3/uL Basophils Absolute Auto 0.0 0.0-0.2 X10*3/uL NRBC Abs Auto 0.000 0.0-0.012 X10*3/uL White Blood Count 6.3 4.8-10.8 X10*3/uL Red Blood Count 4.71 4.20-5.50 X10*6/uL Hemoglobin 14.5 12.0-16.0 g/dl Hematocrit 44.2 37.0-47.0 % Mean Corpuscular Volume 93.8 80.0-98.0 fL Mean Corpuscular Hemoglobin 30.8 27.0-33.0 pg Mean Corpuscular HGB Conc 32.8 31.0-35.0 g/dl Red Cell Distribution Width 12.3 11.0-16.0 % Platelet Count TNP 160-400 X10*3/uL Platelet clumps noted. Platelet count will not be accurate. Platelet clumps noted. Platelet count will not be accurate. Recollecting the platelet count in a blue top tube may Recollecting the platelet count in a blue top tube may eliminate platelet clumps. Order platelet count blue top eliminate platelet clumps. Order platelet count blue top tube. A lavender top tube must be drawn if CBC is required. tube. A lavender top tube must be drawn if CBC is required. Mean Platelet Volume TNP 9.4-12.3 fL Neutrophils Percent Auto 59.9 45-73 % Imm Gran Pct Auto 0.5 0.0-0.4 % Lymphocytes Percent Auto 22.8 20-40 % Monocytes Percent Auto 10.2 2-11 % Eosinophils Percent Auto 6.1 0-4 % Basophils Percent Auto 0.5 0-2 % NRBC Pct Auto 0.0 0.0-0.2 /100WBC Neutrophils Absolute Auto 3.8 2.0-8.3 x10*3/uL Imm Gran Abs Auto 0.03 0.00-0.03 X10*3/uL Lymphocytes Absolute Auto 1.4 1.2-4.9 X10*3/uL Monocytes Absolute Auto 0.6 0.1-1.2 X10*3/uL Eosinophils Absolute Auto 0.4 0.0-0.4 X10*3/uL Basophils Absolute Auto 0.0 0.0-0.2 X10*3/uL NRBC Abs Auto 0.000 0.0-0.012 X10*3/uL C ORRECTED REPORT C ORRECTED REPORT Liver Panel Reviewed date:09/11/2024 11:55:27 AM Interpretation: Performing Lab:[facility], [address] [place] [phone] Notes/Report: Bilirubin Total 0.7 0.0-1.0 mg/dL Bilirubin Direct 0.2 0.0-0.5 mg/dL Aspartate Amino Transferase 22 5-31 U/L Alanine Aminotransferase 20 0-31 U/L Total Protein 7.9 6.5-8.0 g/dL Albumin Level 4.3 3.5-5.0 g/dL Alkaline Phosphatase 63 39-117 U/L Alpha Fetoprotein Reviewed date:09/16/2024 12:45:47 PM Interpretation: Performing Lab:[facility], [address] [place] [phone] Notes/Report: Alpha Fetoprotein 4.5 Reference Range: <6.1 The use of AFP as a tumor marker in females is not recommended. This test was performed using the Coleman [place] chemiluminescent method. Values obtained from different assay methods cannot be used interchangeably. AFP levels, regardless of value, should not be interpreted as absolute evidence of the presence or absence of disease. THIS TEST WAS PERFORMED AT: [email or web address] [address] [place] [phone] BRIE MALAGON MD SLIDE REVIEW Reviewed date:09/11/2024 11:02:22 AM Interpretation: Performing Lab:[facility], [address] [place] [phone] Notes/Report: SLIDE REVIEW VERIFIED US abdomen comp w elastograp hy Reviewed date:10/15/2024 08:03:36 AM Interpretation: Performing Lab: Notes/Report: [address] [address] Ultrasound Report Signed Patient: Izabella Goodman MR#: [id number] : 1950 Acct:[id number] Age/Sex: 74 / F ADM Date: 10/13/24 Loc: HO.US Attending Dr: Jamshid Loredo MD Ordering Physician: Jamshid Loredo MD Date of Service: 10/13/24 Procedure(s): US abdomen comp w elastography Accession Number(s): [id number] cc: Ree Camp MD; Jamshid Loredo MD EXAMINATION: US ABDOMEN COMPLETE WITH LIVER ELASTOGRAPHY HISTORY: HEP C TECHNIQUE: Real-time grayscale ultrasound imaging of the abdomen was performed and images were reviewed. COMPARISON: Comparison is made with the prior examination dated 10/09/2023. FINDINGS: Liver: The right lobe of the liver measures 15.5 cm in size. The left lobe of the liver measures 10.5 cm in size. The liver demonstrates mildly heterogeneous increased echotexture, consistent with steatosis. No focal mass or intrahepatic biliary ductal dilatation is identified. There is normal hepatopedal flow in the portal vein. Ultrasound elastography of the liver was performed with 10 separate measurements of the liver parenchyma with the patient in the supine position. Measurements were obtained approximately 2 cm below Shirley's capsule and perpendicular to the capsule. Images are of satisfactory quality. The median shear wave velocity is 1.35 m/s (previously 1.44 m/s). The interquartile range/median (IQR/median) is 0.05. Gallbladder and biliary tree: The gallbladder is unremarkable, without evidence of calculi, wall thickening, or pericholecystic fluid. There is no sonographic Fountain sign. The common bile duct is normal in caliber measuring 3 mm. Kidneys: The right kidney measures 12.1 cm in length and demonstrates an upper pole cyst measuring 2.3 x 1.8 x 1.6 cm. The left kidney measures 10.8 cm in length. The kidneys are otherwise unremarkable, without evidence of masses, hydronephrosis, or calculi. Pancreas: The pancreatic head, neck, and body are unremarkable. The pancreatic tail is obscured by bowel gas. Spleen: The spleen is normal in size and contour, measuring 9.6 cm in length. Abdominal aorta and inferior vena cava: The visualized portions of the abdominal aorta and inferior vena cava are normal in caliber. There is no free fluid in the abdomen. US/US abdomen comp w elastography IMPRESSION: Mild hepatic steatosis. The median shear wave velocity in the liver is 1.35 m/s, corresponding to a median liver stiffness of 5.64 kPa. The IQR/median value is 0.05. This is indicative of a quality data set. Findings are indicative of a low elastography value which rules out advanced chronic liver disease in asymptomatic patients. REFERENCE: Society of Radiologists in Ultrasound Liver Stiffness Thresholds (2020): LIVER STIFFNESS THRESHOLDS: *Shear wave velocity less than 1.3 m/s (Liver Stiffness equal or less than 5 kPa): High probability of being normal. *Shear wave velocity less than 1.7 m/s (Liver Stiffness less than 9 kPa): In the absence of other known clinical signs, rules out compensated advanced chronic liver disease. *Shear wave velocity between 1.7-2.1 m/s (Liver Stiffness 9-13 kPa): Suggestive of compensated advanced chronic liver disease but need further test for confirmation. *Shear wave velocity between 2.1-2.4 m/s (Liver Stiffness 13-17 kPa): Rules in compensated advanced chronic liver disease. *Shear wave velocity greater than 2.4 m/s (Liver Stiffness over 17 kPa): Suggestive of clinically significant portal hypertension. QUALITY OF DATA SET: *IQR/Median value equal or less than 0.15 implies a quality data set. *IQR/Median value over 0.15 implies a poor quality data set. SIGNIFICANT CHANGE FROM PRIOR EXAM: Significant change if liver stiffness measurement is 10% or greater from prior exam. OTHER CONSIDERATIONS: The stage of liver fibrosis may be overestimated in the setting of acute hepatitis, liver inflammation, elevated liver function tests, hepatic vascular congestion, obstructive cholestasis, non-fasting state, and infiltrative diseases such as amyloidosis and lymphoma. In some patients with NAFLD, the liver stiffness thresholds for compensated advanced chronic liver disease may be lower. In causes other than viral hepatitis and NAFLD, liver stiffness thresholds are not well established. Electronically signed by: Jamshid Wright MD 10/13/2024 09:36 AM EDT RP Dictated By: Jamshid Wright MD Signed By: <Electronically signed by Jamshid Wright MD in [place]> 10/13/24935 DD/ 2 TD/TT: 10/13/24902 Back Panel Padder: [place] [id number] Ultrasound Report Signed Patient: Izabella Goodman MR#: [id number] : 1950 Acct:[id number] Age/Sex: 74 / F ADM Date: 10/13/24 Loc: HO.US Attending Dr: Jamshid Loredo MD Ordering Physician: Jamshid Loredo MD Date of Service: 10/13/24 Procedure(s): US abdomen comp w elastography Accession Number(s): [id number] cc: Ree Camp MD; Jamshid Loredo MD EXAMINATION: US ABDO MEN COMPLETE WITH LIVER ELASTOGRAPHY HISTORY: HEP C TECHNIQUE: Real-time grayscale ultrasound imaging of the abdomen was performed and images were reviewed. COMPARISON: Comparis on is made with the prior examination dated 10/09/2023. FINDINGS: Liver: The right lob e of the liver measures 15.5 cm in size. The left lobe of the liver measures 10.5 cm in size. The liver demonstrates mildly heterogeneous increased echotexture, consistent with steatosis. No focal mass or intrahepatic biliary ductal dilatation is identified. There is normal hepatopedal flow in the portal vein. Ultrasound elastogra phy of the liver was performed with 10 separate measurements of the liver parenchyma with the patient in the supine position. Measuremen ts were obtained approximately 2 cm below Shirley's capsule an d perpendicular to the capsule. Images are of satisfactory quality. The median shear wav e velocity is 1.35 m/s (previously 1.44 m/s). The interquartile range/median (IQR/median) is 0.05. Gallbladder and bili naty tree: The gallbladder is unremarkable, without evidence of calculi, wall thickening, or pericholecystic fluid. There is no sonographic Fountain sign. The common bile duct is normal in caliber measuring 3 mm. Kidneys: The right kidney measures 12.1 cm in length and demonstrates an upper pole cyst measuring 2.3 x 1.8 x 1.6 cm. The left kidney measures 10.8 cm in length. The kidneys are otherwise unremarkable, without evidence of masses, hydronephrosis, or calculi. Pancreas: The pancreatic head, neck, and body are unremarkable. The pancreatic tail is obscured by bowel gas. Spleen: The spleen i s normal in size and contour, measuring 9.6 cm in length. Abdominal aorta and inferior vena cava: The visualized portions of the abdominal aorta and inferior vena cava are normal in caliber. There is no free flu id in the abdomen. US/US abdomen comp w elastography IMPRESSION: Mild hepatic steatosis. The median shear wav e velocity in the liver is 1.35 m/s, corresponding to a median liver stiffness of 5.64 kPa. The IQR/median value is 0.05. This is indicative o f a quality data set. Findings are indicat luci of a low elastography value which rules out advanced chronic tommie er disease in asymptomatic patients. REFERENCE: Society of Radiologi sts in Ultrasound Liver Stiffness Thresholds (2019): LIVER STIFFNESS THRESHOLDS: *Shear wave velocity less than 1.3 m/s (Liver Stiffness equal or less than 5 kPa): High probability of being normal. *Shear wave velocity less than 1.7 m/s (Liver Stiffness less than 9 kPa): In the absence of other known clinical signs, rules out compensated advanced chronic liver disease. *Shear wave velocity between 1.7-2.1 m/s (Liver Stiffness 9-13 kPa): Suggestive of compensated advanced chronic liver disease but need further test for confirmation. *Shear wave velocity between 2.1-2.4 m/s (Liver Stiffness 13-17 kPa): Rules in compensated advanced chronic liver disease. *Shear wave velocity greater than 2.4 m/s (Liver Stiffness over 17 kPa): Suggestive of clinically significant portal hypertension. QUALITY OF DATA SET: *IQR/Median value eq ual or less than 0.15 implies a quality data set. *IQR/Median value ov er 0.15 implies a poor quality data set. SIGNIFICANT CHANGE F ROM PRIOR EXAM: Significant change i f liver stiffness measurement is 10% or greater from prior exam. OTHER CONSIDERATIONS: The stage of liver fibrosis may be overestimated in the setting of acute hepatitis, tommie er inflammation, elevated liver function tests, hepatic vascular congestion, obstructive cholestasis, non-fasting state, and infiltrat luci diseases such as amyloidosis and lymphoma. In some patients with NAFLD, the liver stiffness thresholds for compensated advanced chronic liver disease may be lower. In causes other than viral hepatitis and NAFLD, liver stiffness thresholds are not well established. Electronically kasey d by: Jamshid Wright MD 10/13/2024 09:36 AM EDT RP Dictated By: Jamshid Wright MD Signed By: <Electronically signed by Jamshid Wright MD in [place]> 10/13/24935 DD/ 2 TD/TT: 10/13/24902 Back Panel Padder: Reason For Referral No Information Medications Medication SIG (Take, Route, Frequency, Duration) Notes Start Date End Date Status Lunesta 2 MG Oral Tablet Active Betamethasone Dipropionate prn Not-Taking Amiodarone HCl 200 [...] da y once a day prn Active Hair Skin Nails - as directed Orally Active Immunizations Vaccine Route Administration Date Status Comme nts Influenza Unknown 04/18/2017 Administered Influenza Unknown 03/16/2020 Administered Influenza Unknown 05/24/2022 Administered Social History Alcohol Screen Question Answer Notes [...] Points 2 Interpretation Negative Section Notes: Nonsmoker; 1 drink QD Nonsmoker; 1 drink QD Nonsmoker; 1 drink QD Nonsmoker; 1 drink QD Nonsmoker; 1 drink QD Nonsmoker; 1 drink QD Nonsmoker; 1-2 drinks going out socially on weekend Problems Problem Type SNOMED Code ICD Code Onset Dates Problem Status W/U Status Risk Notes Problem 261372714 Colon cancer screening (Z12.11) Active confirmed Problem Esophageal reflux (785043225) Esophageal reflux (K21.9) Active confirmed Problem Constipation (22574886) Constipation (K59.00) Active confirmed Problem Change in bowel habit (65988773) Change in bowel habits (R19.4) Active confirmed Problem 870935490 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 Problem 775607987 Nausea (R11.0) Active confirmed Problem 434314421 Gastroesophageal reflux disease without esophagitis (K21.9) Active confirmed Problem Weiner esophagus (406749182) Weiner esophagus (K22.70) Active confirmed Problem History of hepatitis C (79025814878056) History of hepatitis C (Z86.19) Active confirmed Problem 884650938 Indigestion (K30) Active confirmed Problem Diverticulosis of colon (012311762) Diverticulosis of colon (K57.30) Active confirmed Problem 50543086 Bleeding disorde r (D69.9) Active confirmed Problem 593633072 Platelet disease , 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 Vital Signs Blood pressure diastolic 11 mm Hg 09/11/2024 Height 70 in 09/11/2024 Blood pressure systolic 111 mm Hg 09/11/2024 Weight 170 lbs 09/11/2024 BMI 24.39 kg/m2 09/11/2024 Encounters Encounter Location Date Provider Diagnosis [facility] [address] [place] [phone] 09/11/2024 Jamshid Loredo Gastroesophageal ref lux disease without esophagitis K21.9 ; History of hepatitis C Z86.19 and Constipation K59.00 [facility] [address] [place] [phone] 10/08/2024 Jamshid Loredo Assessments Encounter Date Diagnosis (ICD Code) Assessment Notes Treatment Notes Treatment Clinical Notes Section Notes 09/11/2024 Gastroesophageal reflux disease without esophagitis (ICD-10 - K21.9) 09/11/2024 History of hepatitis C (ICD-10 - Z86.19) 09/11/2024 Constipation (ICD-10 - K59.00) Try adding 2 Metamucil fiber pills with a lot of water to the daily Senokot. Use the Miralax as needed. Plan Of Treatment Pending Test Test Name Order Date LIVER PROFILE 09/11/2023 LIVER PROFILE 09/11/2024 LIVER PROFILE 07/13/2022 CBC w DIFF 07/13/2022 CBC w DIFF 09/11/2023 CBC w DIFF 09/11/2024 TYPE AND SCREEN DONE NEED TRANSFUSION ALPHA-FETOPROTEIN,TUMOR MARKER 2 ALPHA-FETOPROTEIN,TUMOR MARKER 5 US ABD 07/29/2020 HCV LIVER FIBROSIS, FIBRO TEST 2 US ABDOMEN COMP WITH ELASTOGRAPHY 2021 Prothrombin Time INR 07/13/2022 Prothrombin Time INR 09/11/2023 Alpha Fetoprotein 09/11/2023 Liver Fibrosis Pnl 09/11/2023 US abdomen comp w elastography 5 US abdomen comp w elastography 4 US abdomen comp w elastography 4 SLIDE REVIEW 11/15/2023 Future Test Test Name Order Date UPPER GI ENDOSCOPY 05/21/2012 COLONOSCOPY 05/21/2012 UPPER GI ENDOSCOPY 09/09/2017 UPPER GI ENDOSCOPY 07/13/2022 COLONOSCOPY 07/13/2022 Next Appt Details Provider Name:Jamshid Loredo , 09/10/2025 09:00:00 AM, [address] [facility], [address], [place], [address], Insurance Providers Payer Name Payer Address Payer Phone Subscriber Number Group Number Insured Name Patient Relationship to Insured Coverage Start Date Coverage End Date MEDICARE OF [place] [address] [place] [id number] [phone] [id number] IZABELLA HUANG Self - patient is the insured [email or web address] ([employer]) [address] [place] [address] [id number] IZABELLA HUANG Self - patient is the insured Medical (General) History Medical History History ICD Code EGD 07/05/2007 Weiner's esophagus on endos copy in 2004--- normal duodenal biopsies and gastric biopsies were negative for H. pylori. Hep C that was successfully treated with Interferon TIW and Ribavirin for 1 year in [id number]---in 2009 she had a negative hepatitis C viral load, normal liver profile, normal alpha-fetoprotein level, and normal liver ultrasound. Migraines Miitral valve prolapse SVT in 2010-was on a Beta-lynette tempor arily-fine since Sees Dr. Muñoz for thrombocytopenia Negative colonoscopy in 2001 2012--negative colonoscopy e xcept for diverticulosis and internal hemorrhoids, and EGD was negative for Weiner's---no appreciable hiatal hernia Abdominal ultrasound in January of 2017 was negative except for some gallbladder sludge--no cholecystitis nor stones--LFT's and pancreatic enzymes were normal Intemittent bouts of nausea- --normal duodenal biopsies in 2004 and negative gastric biopsies for H.pylori in 2004; normal gastric emptying study in 2016 Sleep apnea---uses a mandibular advancem ent device EGD in 10/2016--small HH, oth erwise normal, including biopsies of duodenum, stomach, and EG Junction Atrial tachycardia-Dr. Perez Colonoscopy in August of 2022 with a s mall tubular adenoma removed Upper endoscopy in August of 2022 revealed some minimal changes of reflux but biopsies were negative for Weiner's esophagus/intestinal metaplasia Atrial fibrillation--going f or an ablation on 10/17/2024 and then a Watchman with Dr. Fields Surgical History Surgery Date(Month/Year) Left hip replacement 2022 Bilateral cataracts 03/2022 Right hip replacement 08/2016 Melanoma removed from right thigh 2 Bunion surgery
== END 2024-10-28 08:25 | disposition home or self-care (01) ==
LOC: HO.HMGCX 08:24
PROVIDERS: PCP Internal Medicine; Visit Provider Nurse Practitioner Family
DX: R35.1 Nocturia (principal)
CPT/HCPCS: 76770

== ENCOUNTER → 2024-10-28 08:25 | Outpatient (BNV) | payer MEDICARE, OTHER, SELFPAY | PROVIDERS: PCP Internal Medicine; Visit Provider Radiology Diagnostic Radiology | DX: R39.14 Feeling of incomplete bladder emptying (principal); N28.1 Cyst of kidney, acquired; R35.1 Nocturia | CPT/HCPCS: 76770 ==

== ENCOUNTER 2024-11-19 07:54 | Outpatient (AMB) | payer MEDICARE, OTHER, SELFPAY ==
--- NOTE | 2024-11-19 07:54 | A.OFFVIS_ITS ---
Intake Visit Reasons: 3m/US(set) Intake Note: Patient presents today for follow up on: nocturia and ultrasound results Imaging Completed: 10/28/24 Urology Medications: none Blood Thinner: Eliquis PVR: 0ml's Ultrasound Sonographer Required: No Accompanied by: Self / Same As Patient Allergies No Known Allergies Allergy (Verified 11/19/24 08:41) HPI Comments Details: Izabella is a pleasant 74-year-old female patient of Dr. Camp. She has a past medical history of osteoarthritis, obstructive sleep apnea, insomnia, cataracts, mitral valve prolapse, migraine, and bleeding disorder. She presents to the office today gfor a follow up. Of note, patient was seen approximately 3 months ago as a new patient for nocturia at which time a retroperitoneal ultrasound was ordered for further assessment evaluation. These results were reviewed and communicated with the patient today. 11/07 bilateral kidneys are normal in size and echotexture. Simple appearing cyst in the upper pole of the right kidney measuring up to 2.4 cm, unchanged. No hydronephrosis or renal calculi noted. The urinary bladder is unremarkable. Pre void bladder volume is approximately 450 mL. Postvoid bladder volume is approximately 50 mL. We did discussed potential causes of nocturia as well as further treatment options and risks and benefits of these treatment options. She does report history of sleep apnea and has a mandibular device for her sleep apnea in his due to undergo another sleep study to ensure mandibular device is working appropriately. She reports she continues to limit fluids prior to bed however does continue to experience episodes of nocturia. She does not wish to undergo further treatment options at this time. In office urinalysis results reviewed with the patient today. PVR 0 mL. She denies urinary urgency, urinary frequency, incontinence, hematuria, dysuria, foul smelling urine, changes to urinary stream, flank pain, fever, and or chills. She otherwise offers no other issues or concerns at this time. History of Present Illness The patient is a 74-year-old female presenting with nocturia. She reports ongoing issues with frequent urination at night despite discussing and implementing fluid restriction after evening meals in previous visits. An ultrasound validated the absence of anatomical issues such as blockages or stones. The patient has benign renal cysts confirmed by recent imaging, reassured by their prevalence and benign nature per radiology report. Her sleep apnea is managed with a mandibular advancement device, but nocturia persists, prompting further sleep studies. She understands the biological link between sleep apnea and nocturia, resulting in continued evaluation of her sleep management to potentially address this. Plan The current approach to managing the patient's nocturia includes focusing on her existing sleep apnea treatment, as nocturia may be influenced by apnea events. The patient will undergo further sleep tests to evaluate the effectiveness of her mandibular advancement device. Continued reassurance regarding her benign renal cysts is provided, with no additional intervention needed at this time due to their benign nature. The focus is on further optimizing sleep management to address nocturia indirectly. Patient was informed and verbally consented to the use of an ambient scribe for clinic note documentation during this visit. Discussion Notes During the consultation, we extensively reviewed the relationship between her sleep apnea and nocturia, discussing its impact on urine production through hormonal pathways influenced by nighttime oxygen levels. I emphasized to the patient the importance of ensuring effective sleep apnea management to potentially alleviate her nocturia symptoms, discussing that adjustments to her mandibular advancement device might aid in reducing apnea events. We agreed upon the necessity of follow-up sleep studies to verify her current apparatus' effec tiveness. Additionally, I reassured her about the benign nature of her renal cysts, which do not require intervention beyond routine observation at this time. [facility] Medical History Hx of fracture of rib Osteoarthritis of fingers of hands, bilateral Moderate obstructive sleep apnea Insomnia Sleep apnea in adult Sleep apnea Cataract (lens) fragments in eye following cataract surgery, bilateral Post-operative nausea and vomiting Bleeding disorder Osteoarthritis of right hip Hx of melanoma of skin MVP (mitral valve prolapse) Migraine Hx of hepatitis C History of Weiner's esophagus MTHFR gene mutation PVCs (premature ventricular contractions) PAC (premature atrial contraction) Surgical History Hx of esophagogastroduodenoscopy H/O colonoscopy History of bunionectomy of both great toes Hx of breast augmentation History of hip replacement History of melanoma excision History of foot surgery History of tonsillectomy Family History Father Leukemia Mother SLE (systemic lupus erythematosus) Sister HTN (hypertension) Hypercholesterolemia Social History Household Members: Spouse Housing: House Are you a primary patient care associate to a significant other at home: No Do you presently have visiting nurse or other home services: No Alcohol intake: current Alcohol intake frequency: 0-2 drinks per day Alcohol type: wine Patient Tobacco Use Status: Never used Tobacco e-Cigarette/Vaping Use: Never Used Advance Directives Date on File: 10/15/17 service: No Current occupational status: retired Cognitive needs: No Hearing needs: No Vision needs: Yes Review of Systems Const All systems reviewed & are unremarkable except as noted in HPI and below Physical Exam Const General: cooperative, healthy appearing, comfortable, no acute distress, well developed, alert and awake Orientation/consciousness: patient oriented x3 HEENT Head: Yes normal to inspection, Yes normocephalic and Yes atraumatic Ears: hearing grossly normal bilaterally Eyes General: appearance normal, both eyes and all related structures Neck Neck: Yes normal visual inspection and Yes trachea midline Chest Chest palpation & inspection: normal inspection of the chest Resp Effort & Inspection: normal respiratory effort and able to speak in complete sentences Cardio Rate: regular rate GI Inspection: Yes normal to inspection General: Yes no CVA tenderness Back/Spine/Pelvis Back: no CVA tenderness Skin General skin exam: no rashes or lesions noted Neuro General: patient oriented x3 Extrem General: Yes normal to inspection Psych Appearance: grossly normal and well kempt Mental Status: mental status grossly normal Speech and movement: Normal speech and movement present and Clear speech present Affect: normal affect Attitude: cooperative Thought process: Normal thought process present Thought content: Normal thought content present Insight: Fair insight present (Psych) Judgement: Fair judgement present (Psych) Office Procedures Post Void Residual Post Residual Void Post Void Residual (PVR): 0 35520-Absq Void Residual by ultrasound Results AMB Urinalysis, Automated UA Leukoctes 125 [place]/uL Last Edit by Juarez Cuadra on 11/19/24 08:43 UA Nitrite Last Edit by Juarez Cuadra on 11/19/24 08:43 UA Urobilinogen 0.2 mg/dL Last Edit by Juarez Cuadra on 11/19/24 08:43 UA Protein 0 mg/dL Last Edit by Juarez Cuadra on 11/19/24 08:43 UA pH 6.0 Last Edit by Juarez Cuadra on 11/19/24 08:43 UA Blood 10 [place]/uL Last Edit by Juarez Cuadra on 11/19/24 08:43 UA Specific [place] 1.025 Last Edit by Juarez Cuadra on 11/19/24 08:43 UA Ketone Last Edit by Juarez Cuadra on 11/19/24 08:43 UA Bilirubin 0 mg/dL Last Edit by Juarez Cuadra on 11/19/24 08:43 UA Glucose 0 mg/dL Last Edit by Juarez Cuadra on 11/19/24 08:43 Results Reviewed Results Reviewed: Laboratory Last Values Urine pH (Auto) 6.0 11/19/24 08:42 Specific [place] (Auto) 1.025 11/19/24 08:42 Urine Protein (Auto) 0 mg/dL 11/19/24 08:42 Glucose (UA)(Auto) 0 mg/dL 11/19/24 08:42 Urine Blood (Auto) 10 [place]/uL 11/19/24 08:42 Urine Bilirubin (Auto) 0 mg/dL 11/19/24 08:42 Urine Urobilinogen (Auto) 0.2 mg/dL 11/19/24 08:42 Leukocyte Esterase (Auto) 125 [place]/uL 11/19/24 08:42 Date of Service: 10/28/24 Procedure(s): US retroperitoneal comp US Renal Findings: Right kidney normal size and echotexture, 11.6 cm length. Simple appearing cyst in the upper pole measuring up to 2.4 cm, Unchanged. Left kidney normal size and echotexture, 11.0 cm length. No hydronephrosis of either kidney. Normal color Doppler. Urinary bladder is unremarkable. Prevoid volume 449 mL. Postvoid volume 51 mL. Bilateral ureteral jets are visualized. IMPRESSION: 1. Benign-appearing right renal cyst. Otherwise unremarkable kidneys. 2. Postvoid residual in the bladder of 51 mL. Assessment & Plan Assessment & Plan (1) Nocturia: Code(s): R35.1 - Nocturia Category: Medical Plan In office urinalysis results reviewed with the patient today; as noted above. PVR 0 mL. We discussed at length potential causes of nocturia. Recent retroperitoneal ultrasound results reviewed with the patient today We discussed correlation of sleep apnea with nocturia as well as other causes of nocturia Continue with lifestyle modifications to assist with nocturia as discussed. Follow-up PRN Orders: Orders AMB Urinalysis Automated Today Z13.9 - Encounter for screening, unspecified AMB Post Void Residual by ultrasound Today R35.1 - Nocturia Patient Instructions: The patient had an opportunity to ask questions regarding the treatment plan. All questions were answered. Physical exam, labs, and imaging were discussed and reviewed in detail. As well as risks, benefits, and discussion of treatment choices. No major barriers to understanding were identified. The patient expressed understanding and agreement with the above treatment plan. The patient was made aware they should contact our office by phone for worsening of their current condition, the appearance of new symptoms, or with any questions or concerns. Compliance is encouraged with any medications and follow up testing that is ordered. It is a privilege to be allowed the opportunity to participate in? your urological care.? Again, if you have any questions or concerns If you have any questions or concerns please do not hesitate to contact me. The office is [phone]. This note is constructed using voice recognition software. While every effort has been made to ensure accuracy ultrasound sonographer errors may have been included. Yours sincerely, CALLUM Morrison Coding Level of Care Code Est Pt Level 3 (98662) Diagnoses Nocturia R35.1 CPT Codes Post Residual Void - PVR CPT Code: 10994-Kwul Void Residual by ultrasound ([id number])
--- OUTSIDE RECORDS SUMMARY | 2024-11-19 07:56 | XMS_ITS | Data Portability ---
Author Organization [place] - [facility], [facility] - INPATIENT Address [address] [place] [address] Care Team Providers Care Flavoring Maker Name Role Phone BARBIE HENDERSON Primary Care Provider Assessment Encounter Date Assessment Date Assessment LastModified by Organization Details LastModified Time 11/23/2020 11/23/2020 DATA: Review of recently obtained MRI shows high-grade partial-thickness tearing of the gluteus minimus tendon with associated fatty atrophy. There is no significant inflammation or tearing of the gluteus medius tendon seen. There is a subtle insufficiency fracture at the left sacrum. IMPRESSION: It is unclear where the primary source of this pain is. She does have some tearing of the right gluteus minimus tendon; however, her exam does not correlate directly with that being the source of the pain. We did discuss at length the nature of her discomfort. We spent a significant portion of the time talking about left gluteus medius and minimus function, pathology, tearing, and treatment options. These include activity modification, oral anti-inflammatorie s, physical therapy, and injections, as well as surgery. It is unclear if this is the primary source of her pain, though. As such, we would like to move forward with a diagnostic injection into this area to see how much of her overall pain is improved. We discussed the pros and cons of cortisone in this setting with some partial-thickness tearing and atrophy. Following that discussion, she would like to move forward with cortisone in the injection. TREATMENT GIVEN: After discussion of the risks including, but not limited to infection, localized soreness and swelling, reaction to medications, the patient presented for their right hip cortisone injection. Confirmed that the patient does not have history of prior adverse reactions, active infections, or relevant allergies. There was no effusion, erythema, or warmth, and the skin was clear. The skin was sterilized with alcohol & Betadine. Ultrasound was used to visualize the greater trochanter, gluteus medius, and gluteus minimus tendons. Topical anesthesia was achieved with 3 cc of 2% lidocaine on a 21-gauge needle. Flutter Ultrasound was used to ensure accuracy of placement of the injection. After re-prepping with Betadine, 1 cc of Kenalog (40 mg/mL), 2 cc of 0.5% Marcaine, and 2 cc 1% lidocaine was injected with a 20-gauge spinal needle under ultrasound guidance using sterile gel and a sterile probe cover into the peritrochanteric space. Injection was visualized and confirmed on ultrasound. The injection was completed without complication and a Band-Aid was applied. The patient tolerated the procedure well and was instructed to avoid strenuous activity for the next 24-48 hours and use ice, NSAIDs or Tylenol for pain as needed. The patient will call immediately with any signs of infection or allergic reaction. PLAN: We will follow up with her in 6-8 weeks for reevaluation. She was in agreement with the plan. All questions were answered. The patient did complete the COVID-19 screening handout and was deemed healthy to move forward with this appointment. This visit is a aejk-tx-ahzj visit during the COVID-19 pandemic Public Health Emergency. Based on my clinical judgment, I felt that this visit could not be provided safely and appropriately via TeleHealth. Based on available information prior to presentation, the patient had a high risk of significant worsening and potential functional impairment affecting ADLs if the visit was not completed today. The patient was seen in the office after following PPE use, Workforce Safety, Patient Safety and Infection Control protocols for all services provided today in accordance with [facility] and CDC guidelines. There was additional practice expense incurred due to the Public Health Emergency. This additional expense includes but is not limited to: ? Additional clinical staff and medical technical marketing consultant time for pre-screening ? Time spent reviewing COVID social distancing guidelines, precautions, instructions, and signage ? Patient symptom checking upon arrival ? Application, removal, and purchasing of additional PPE ? Additional cleaning of exam room, equipment, supplies, as well as cleaning supplies for that purpose. Not available 11/25/2020 16:51:06 01/19/2021 01/19/2021 IMPRESSION: The patient is overall improved status post right hip gluteus medius and minimus tendon injection. PLAN: At this point she will continue with activity as tolerated and focus on strengthening. Ultimately, should the pain return we would consider a possible repeat injection versus PRP versus Tenex. I will follow up with her on an as-needed basis. She will call with any questions or concerns. All questions were answered today. Not available 03/03/2021 10:34:34 Plan of Treatment Reminders Order Date Submit Date Provider Last Modified By Organization Details Last Modified Time Details Appointments None recorded. Lab None recorded. Referral None recorded. Procedures None recorded. Surgeries None recorded. Imaging None recorded. Medication Orders Kenalog 40 mg/mL suspension for injection 2020 021 jeancarlos [facility] #[id number], [address] [place], [address], 12:16:56 Patient TargetsNo targets recorded. Patient InstructionsNo instructions recorded. Reason for Referral None Reported. Results Created Date Observation Date Name Description Value Unit Range Abnormal Flag Note LastModifiedBy Organization Detail LastModifiedTime 11/23/1908/26/2020 MRI, hip, w/o contr ast No observ ation record ed. [email or web address] Not Available 2020 15:21:10 Result Notes None recorded. Procedures Surgical History Date Name Laterality Status Provider Name and Address Organization Details Recorded Time 08/29/19 17 Orthopaedic Surgery completed Alvina Abernathy [place] - [facility] 01/19/2021 12:17:23 Imaging Results Imaging Date Name Status LastModified by Organiz ation Details LastModified Time 08/26/2020 MRI, hip, w/o contrast completed [email or web address] Information not available 11/22/2020 15:21:10 Procedure Notes None recorded. Medical Equipment None Reported. Allergies No known drug allergies Medications Name Sig Start Date Stop Date Status Note LastModified by Organization Details LastModified Time Vitamin B-2 100 mg tablet TAKE 4 TABLETS BY MOUTH ONCE A DAY active Not Available Not Available No t Available fluorouraci l 5 % topical cream APPLY ONE DAY PER WEEK, AM AND PM (IE SUNDAY AM /PM AND REPEAT WEEKLY) FOR SUN DAMAGE FOR 3 MONTHS active Not Available Not Available No t Available Kenalog 40 mg/mL suspension for injection Take 1 mL by injection route. 01/19 completed Not Available Not Available Not Available flecainide 50 mg tablet TAKE 1 TABLET BY MOUTH TWICE A DAY active Not Available Not Available No t Available betamethaso ne dipropionat e 0.05 % topical cream APPLY SPARINGLY TOPICALLY TWICE A DAY FOR ECZEMA ON FEET. active Not Available Not Available No t Available metoprolol succinate ER 25 mg tablet,exte nded release 24 hr TAKE 1/2 TABLET BY MOUTH ONCE DAILY active Not Available Not Available No t Available timolol maleate 0.5 % eye drops INSTILL 1 DROP IN RIGHT EYE EVERY MORNING active Not Available Not Available No t Available Vitamin B-12 1,000 mcg tablet Take by oral route. active Not Available Not Available No t Available neomycin 3.5 mg/g-polymy chadd B 10,000 unit/g-dexa meth 0.1 % eye oint APPLY 1/4 INCH STRIP TO AFFECTED AREA THREE TO FOUR TIMES A DAY AFTER HOT PACK AND MASSAGE 11/10 completed Not Available Not Available Not Available eletriptan 40 mg tablet HTAKE 1 TABLET BY MOUTH MAY REPEAT DOSE IN HOURS IF NEEDED MAX 2TAB/24HR S active Not Available Not Available No t Available Vitamin D active Not Available Not Yazmin ilable Not Available Vitals Date Recorded Body height Body mass index (BMI) Body weight Provider Name and Address Organization Details Last Updated DateTime 11/23/2020 177.8 cm 24.7 kg/m2 78444.89 g Alan Encinas [facility] 11/23/2020 11:01:09 Date Recorded Body height Body mass index (BMI) Body weight Provider Name and Address Organization Details Last Updated DateTime 01/19/2021 177.8 cm 24.7 kg/m2 08412.89 g Alvina Abernathy [facility] 01/19/2021 12:15:52 Social History Question Answer Notes LastModified by Organizat ion Details LastModified Time Tobacco Smoking Status Never Smoker Maggie rouse [place] - [facility] 11/23/2020 10:48:50 What Is Your Level Of Alcohol Consumption? Moderate Information not available 11/23/2020 Auto Related Injury? No Information not available 11/23/2020 What Is Your Level Of Caffeine Consumption? None Information not available 11/23/2020 Do You Or Have You Ever Used E-cigarettes Or Vape? 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 No Information not available 11/23/2020 Do You Or Have You Ever Used Smokeless Tobacco? Never Used Smokeless Tobacco Information not available 11/23/2020 What Types Of Sporting Activities Do You Participate In? I Belong To A Gym. I Lift Weights , Take Step Classes, Walk 4 Miles 3x Per Week. Use An Elliptical Machine , Treadmill, Stationary Bike And Rowing Machine Information not available 11/23/2020 Work Related Injury? No Information not available 11/23/2020 Sex: Unknown Functional Status Question Answer Note LastModified by Organization D etails LastModified Time What is your exercise level? Moderate Information not available 11/23/2020 Mental Status None recorded. Family History Relationship Description Onset Age of this Age Resolved Age Notes LastModified by Organization Details LastModified Time Father Family history of malignant neoplasm Leukem ia sdorrian Not available 11/23/2020 11:02:15 Medical History Condition Response Blood Clots / Phlebitis N Heart Problems N HIV or AIDS N Depression or Anxiety N High Blood Pressure N Irregular Heartbeat Y MRSA N Emphysema / Chronic Bronchitis N Any Other Significant Medical Issues Y Reaction to General/Local Anesthesia Y Weight Gain / Loss N Hepatitis / Jaundice N Kidney / Bladder Infections N Diabetes N Bleeding Disorder Y Hearing Loss N Angina, Heart Failure or Attack N Night Sweats N Seizures / Epilepsy N Osteoarthritis / Rheumatoid arthritis / Other Y Cancer N Stroke N Chemical Dependency / Alcoholism N Ulcer / Stomach Bleeding / Indigestion N Visual Loss or Glaucoma N Psoriasis / Skin Rash N Thyroid Disorder N Heart Disease N Asthma / Shortness of Breath / Sleep Sales Compensation Analyst ea (please specify) N Pulmonary Embolism N Gynecological HistoryNo gynecological history recorded. Obstetrics History GPAL:G 0 P 0 0 0 0 Immunizations Vaccine Type Date Status Note Provider Nam e and Address Organization Details Recorded Time SARS-COV-2 (COVID-19) vaccine, UNSPECIFIED 07/02/2020 completed Alan rouse [facility] 11/23/2020 11:01:47 SARS-COV-2 (COVID-19) vaccine, UNSPECIFIED 07/23/2020 completed Alan rouse [facility] 11/23/2020 11:01:40 Past Encounters Encounter ID Performer Location Encounter Start Date Encounter Closed Date Diagnosis/Indication Diagnosis SNOMED-CT Code Diagnosis ICD10 Code Diagnosis Note [id number] LU SHIN [facility] Office [address] [place] [phone] 11/23/2020 10:09:40 11/24/2020 10:08:31 Gluteal tendinitis 69550542 M76.01 Acetabular labrum tear 791326942 M24.151 [id number] LU SHIN [facility] [address] 01/19/2021 11:52:36 01/19/2021 14:40:08 Gluteal tendinitis 75712867 M76.01 Health Concerns Section Related Observation LastModified by Organization Detai ls LastModified Time None Recorded Concern Status LastModified by Organization Details LastModified Time None Recorded Advance Directives Directive None Recorded Payers Insurance Date Sequence Insurance Name Policy Number Policy Lopez Covered Member ID Lopez Member ID Guarantor Name 01/14/2021 1 [place] [employer]MENT [place] Izabella E Siria [id number] Izabella De La Garzapentier 03/04/2021 2 UNICARE - SENIOR SERVICES PLAN F (MEDICARE SUPPLEMENT) [id number] 38 Faraz Beverly [id number] Izabella Siria Notes Date Note Type Note Provider Name and Address Organization Details Recorded Time 11/23/2020 text/html CC: Right hip pa in. HX: Izabella is a very pleasant 70-year-old female who presents today with ongoing right hip pain. She did have a right hip total hip replacement with Dr. Fountain done at [facility] in 2017. She states that overall she has done well since that surgery, though she does state she has had a significant leg length discrepancy with the right leg significantly longer than the left since then. More recently, over the past 2 years, she has had an increase in discomfort primarily located on the lateral aspect of the hip. She did see Dr. Fountain for this, who ordered an MRI that showed partial-thickness tearing of the gluteus medius tendon with associated fatty atrophy. She states that she certainly is able to function on a day-to-day basis. She does go on 4-6 mile walks, and is quite active in the gym with quite a significant amount of weight lifting. She states that she does have somewhat of a hard time when she is trying to step up onto something as she has some weakness. However, pain is more of a complaint than weakness at this point. She locates the pain as primarily posterior in nature. She believes that the pain is fairly deep, though she does have some pain on the side of her hip. LU SHIN [address] [place] [address], [phone], [facility] 11/26/2020 09:05:27 01/19/2021 text/html COVID-19 STATEME NT: This visit was conducted as a real-time interactive audiovisual TeleHealth visit done over the [employer] mora. due to the National Emergency and ongoing COVID-19 Pandemic restrictions on movement. She was identified by name and date of , and consented to this visit conducted by TeleHealth. She was at her home in [place], and I was at my office in [place], [place]. This was done over the course of 20 minutes, including record review.HX: Izabella returns today for follow up regarding her right hip. She did previously have a right hip peritrochanteric injection done in November, which did give her significant relief of her symptoms. She still is noticing some improvement. Overall, she is pleased with her progress. She denies any numbness or tingling, and certainly has been able to return to more activity than prior to the injection. LU SHIN [address] [place] [address], [phone], [facility] 03/03/2021 17:01:51 OBGyn Episode No OBEpisode recorded.
--- OUTSIDE RECORDS SUMMARY | 2024-11-19 07:56 | XMS_ITS | Patient Health Record ---
Author Organization [facility] Address [address] [place] [address] Care Team Providers Care Mold Mover Name Role Phone Conrado SANDERS, Ree Hall Primary Care Provider Un available Barrett Caceres Unavailable [phone] Allergies No Known Allergies Reason For Referral [...] Administration Date Status Comme nts Influenza Unknown 05/24/2022 Administered COVID-19 Pfizer BioNTech Vaccine Unknown 10/21/2021 Administered 07/02/20,07/23/20 04/17/21 Social History Tobacco Use: Social History Observation [...] Problem Status W/U Status Risk Notes Problem Primary osteoarthritis, left ankle and foot (M19.072) Active confirmed Problem [id number] Leg length discrepancy (M21.70) Active confirmed Plan Of Treatment Pending Test Test Name Order Date X ray : Foot, left 3V 09/07/2022 Insurance Providers Payer Name Payer Address Payer Phone Subscriber Number Group Number Insured Name Patient Relationship to Insured Coverage Start Date Coverage End Date Medicare [facility] [employer] [address] [place] [address] [id number] Izabella Estrella Self - patient is the insured [employer]) [address] [place] [address] [id number] Faraz Estrella Spouse - patient is [...]
--- OUTSIDE RECORDS SUMMARY | 2024-11-19 07:56 | XMS_ITS ---
Author Organization [facility] Address [address] [place] [address] Care Team Providers Care Rn Imcu Name Role Phone Conrado SANDERS, Ree Primary Care Provider Jamshid Dang [phone] REASON FOR VISIT please complete 09-11-24 note Encounters Encounter Location Date Provider Diagnosis [facility] [address] [place] [address] 10/08/2024 Jamshid Loredo Plan Of Treatment Next Appt Details Provider Name:Jamshid Loredo , 09/10/2025 09:00:00 AM, [address], [address], [place], [address], Progress Notes * BING GOODMAN EDOB: (74 yo F)Acc No.[id number]:10/08/2024 Patient:?BING GOODMAN :1950???Age:74 Y???Sex:Female [address] [place] [address] * true * Date:? Generated for Anita henning/Maribeth/eTransmitting on:?11/19/2024 07:56 AM EDT
--- OUTSIDE RECORDS SUMMARY | 2024-11-19 07:56 | XMS_ITS ---
Author Organization [facility] Address [address] [place] [address] Care Team Providers Care General Adjuster Name Role Phone Conrado SANDERS, Ree Primary Care Provider Jamshid Dang [phone] Allergies No Known Allergies Results Component Value Reference Range Notes Prothrombin Time INR Reviewed date:09/11/2024 10:44:32 AM Interpretation: Performing Lab:[facility], [address] [place] [phone] Notes/Report: Prothrombin Time 10.7 10.9-12.4 SEC [employer]NATIONAL [...] Pnl Reviewed date:09/16/2024 12:46:34 PM Interpretation: Performing Lab:[facility], [address] [place] [phone] Notes/Report: Liver Fibrosis Score 0.15 Liver Fibrosis [...] a>0.62 and a<=1.00 : A3 (severe activity) TSH-Tkfvy-9-Macroglobulin 201 106-279 mg/dL FIB-Haptoglobin 180 43-212 mg/dL FIB-Apolipoprotein A1 192 101-198 mg/dL FIB-Total Bilirubin 0.6 0.2-1.2 mg/dL FIB-GGT 14 3-65 U/L FIB-ALT 11 6-29 U/L Reference ID [id number] Footnote SEE NOTE The reliability of results is dependent on compliance with the preanalytical and analytical conditions recommended by [employer].. The tests have to be deferred for: [...] The performance characteristics have been determined by [employer] [facility]. It has not been cleared or approved by the U.S. Food and Drug Administration. Performance characteristics refer to the analytical performance of the test. [employer], the associated logo, [employer] and all associated [employer] are the registered trademarks of [employer]. All third libertarian quiroga - (R) and (TM) - are the property of their respective owners. (C) [id number] [employer]. All rights reserved. THIS TEST WAS PERFORMED AT: [email or web address] [facility] [address] [place] [address] MOUNIKA MALDONADO MD,PHD,JACKIE REASON FOR VISIT Patient [...] Status W/U Status Risk Notes Problem Constipation (11303554) Constipation (K59.00) Active confirmed Vital Signs Blood pressure systolic 111 mm Hg 09/11/19 25 Blood pressure diastolic 11 mm Hg 025 Height 70 in 09/11/2024 Weight 170 lbs 09/11/2024 BMI 24.39 kg/m2 09/11/2024 Encounters Encounter Location Date Provider Diagnosis [facility] [address] [place] [address] 09/11/2024 Jamshid Loredo Gastroesophageal ref lux disease [...] Name:Jamshid Loredo , 09/10/2025 09:00:00 AM, [address], [address], [place], [address], Progress Notes * BING GOODMAN EDOB: (74 yo F)Acc No.[id number]:09/11/2024 Progress Notes Patient:?MAXINEBING BUNDY Provider:?Jamshid Loredo MD :1950???Age:74 Y???Sex:Female D ate:09/11/2024 Address:[address], [place] Pcp:Ree Camp MD Subjective: * Chief Complaints: [...] Inflam Act Interpretation SEE NOTE - * ?YPZ-Ejluk-9-Macroglobulin 201 106-279 - mg/dL * ?FIB-Haptoglobin 180 43-212 - mg/dL * ?FIB-Apolipoprotein A1 192 1 01-198 - mg/dL * ?FIB-Total Bilirubin 0.6 0.2 -1.2 - mg/dL * ?FIB-GGT 14 3-65 - U/L * ?FIB-ALT 11 6-29 - U/L * ?Reference ID [id number] - * ?Footnote SEE NOTE - ?Imaging: US abdomen comp w elastography* sched for 10/13/24 at 8:30 am [facility] ultrasound Dept 2nd Floorfasting 8 hrs prior * 2.?Constipation? Notes: Try adding 2 Metamucil fiber pills with a lot of water to the daily Senokot. Use the Miralaxas needed.?? * Procedure Codes:?1036F TOBAC CO [id number]-WAOCS1561 BP SCR NOT PRFRM REC REASON NOS [...] Loredo MD Date:? 025 Generated for Anita henning/Maribeth/eTjuliansmitting on:?11/19/2024 07:56 AM EDT
--- OUTSIDE RECORDS SUMMARY | 2024-11-19 07:57 | XMS_ITS ---
Author Organization [facility] Address [address] [place] [address] Care Team Providers Care Shredder Picker Name Role Phone Ree Camp MD Primary Care Provider Jamshid Dang Unavailable [phone] Allergies No Known Allergies REASON FOR VISIT Patient presents today for HEP C Medications Medication SIG (Take, Route, Frequency, Duration) Notes Start Date End Date Status Flecainide Acetate 50 MG as directed Orally bid Active Metoprolol Tartrate 25 MG 1/2 tablet wit h food Orally once a day Active Relpax 40 MG TAKE 1 TABLET BY November REPEAT DOSE IN HOURS IF NEEDED MAX [...] 09/11/2023 Encounters Encounter Location Date Provider Diagnosis [facility] [address] [place] [address] 09/11/2023 Jamshid Loredo 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 ??Urinary Incontinence:?Urinary Incontinence?Assessment:?Absent,?Plan of care documented:?No, reason not specified.? * Follow Up:?1 Year * * Sign off status: Completed true * Provider:?Jamshid Loredo MD Date:? 024 Generated for Anita henning/Maribeth/Radhasmitting on:?11/19/2024 07:57 AM EDT History and Physical Notes * [...]
--- OUTSIDE RECORDS SUMMARY | 2024-11-19 07:57 | XMS_ITS | Data Portability ---
Author Organization [facility], OFFICE Address [address] [address] Assessment Encounter Date Assessment Date Assessment LastModified [...] resul t No observ ation record ed. [email or web address] Not Available 08/30 10:58:32 Result Notes None recorded. 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 Leticia Blandon MA - Comp-Assistd and Rcnstrctive Surgry 01/26/2023 14:20:41 Ankle/Foot Surgery completed Juve Fountain MD [address], [place], [address], [place] - Comp-Assistd and Rcnstrctive Surgry 05/17/2016 15:06:23 General Surgery completed Juve Fountain MD [address], [place], [address], [place] - Comp-Assistd and Rcnstrctive Surgry 05/17/2016 15:06:57 Tonsillectomy/A denoidectomy completed Juve Fountain MD [address], [place], [address], [place] - Comp-Assistd and Rcnstrctive Surgry 05/17/2016 15:07:05 Hand Surgery completed Juve Fountain MD [address], [place], [address], [place] - Comp-Assistd and Rcnstrctive Surgry 05/17/2016 15:07:23 Imaging Results Imaging Date Name Status [facility] Details LastModified Time 08/30/2020 imaging/diag nostic result completed [email or web address] Information not available 08/30/2020 10:58:32 Procedure Notes [...] Updated DateTime 05/15/2022 177.8 cm 23 kg/m2 67116.78 g Leticia Blandon MA - Comp-Assistd and Rcnstrctive Surgry 05/15/2022 10:22:23 Date Recorded Body height Body mass index (BMI) Body weight Provider Name and Address Organization Details Last Updated DateTime 01/26/2023 177.8 cm 23.4 kg/m2 47832.56 g Leticia Blandon MA - Comp-Assistd and Rcnstrctive Surgry 01/26/2023 14:21:07 Social History Question Answer Notes LastModified by Organizat ion Details LastModified Time Tobacco Smoking Status Never Smoker Juve Fountain MD [address] [place] [address],[facility] [address], [place], [address], [place] - Comp-Assistd and Rcnstrctive Surgry 05/17/2016 15:06:04 Do You Have An Advance Directive? Yes [email or web address] Information not available 05/15/2022 Do You Have A Medical Power Of Vice President [employer]? Yes [email or web address] Information not available 05/15/2022 What Was The Date Of Your Most Recent Tobacco Screening? 05/15/2022 [email or web address] Information not available 05/15/2022 Do You Or Have You Ever Used Any Other Forms Of Tobacco Or Nicotine? No [email or web address] Information not available 05/15/2022 Sex: Unknown Functional Status Question Answer Note LastModified by Organization D etails LastModified Time Are you able to care for yourself? Yes [email or web address] Information n ot available 05/15/2022 Mental Status None recorded. Family History Relationship Description Onset Age of this Age Resolved Age Notes LastModified by Organization Details LastModified Time Paternal Grandmother Arthritis [email or web address] Not available 08/2015 15:05:52 Medical History Condition Response Coronary Artery Disease N Gout N Anxiety/Depression N Blood Transfusion N Hernia N COPD N Pacemaker N Orthotics N Arthritis N Blood Clot N Cancer N Stroke N High Cholesterol N Liver Disease N Rheumatoid Arthritis N Kidney Disease N Heart Problems N Migraines Y Thyroid Problems N Anemia N Heart Attack ([place]) N Ulcers N Diabetes N Bleeding Disorder Y Seizures/Epilepsy N Tuberculosis N AIDS/HIV N Asthma N Peripheral Vascular Disease N Hepatitis Y Pulmonary Embolism N Hypertension N Osteoporosis N Gynecological HistoryNo gynecological history recorded. Obstetrics History GPAL:G 0 P 0 0 0 0 Past Encounters Encounter ID Performer Location Encounter Start Date Encounter Closed Date Diagnosis/Indication Diagnosis SNOMED-CT Code Diagnosis ICD10 Code Diagnosis Note [id number] Juve Fountain MD OFFICE 125 [facility] [place], [address] [address] 05/17/2016 13:13:11 05/17/2016 16:28:53 [id number] Juve Fountain MD OFFICE [address] [facility] [place], [address] [address] 09/22/2016 10:07:50 12/01/2016 16:26:04 [id number] Juve Fountain MD OFFICE [address] [facility] [place], [address] [address] 11/29/2016 09:31:35 12/06/2016 15:17:52 [id number] Juve Fountain MD OFFICE 125 [facility] [address] [address] 12/12/2017 09:55:50 01/23/2018 10:53:07 [id number] Ju[facility] MD [facility] [address] [place] [address] 08/02/2020 12:21:04 08/02/2020 16:08:49 [id number] [facility] [place] [address] 09/06/2020 14:49:29 09/06/2020 21:08:21 [id number] Juve Fountain MD [facility] [address] [place] [address] 11/08/2020 09:39:24 11/08/2020 17:31:01 [id number] Juve Fountain MD OFFICE [address] [facility] [address] [place] [address] 05/15/2022 09:55:26 05/16/2022 02:37:55 [id number] Juve Fountain MD [facility] [address] [place] [address] 01/26/2023 14:19:34 01/28/2023 12:24:59 Health Concerns Section Related Observation LastModified by Organization Detai ls LastModified Time None Recorded Concern Status LastModified by Organization Details LastModified Time None Recorded Advance Directives Directive Y: Payers Encounter Date Sequence Insurance Name Policy Number Policy Lopez Covered Member ID Lopez Member ID Guarantor Name 08/02/2020 2 [facility] IN[facility] - UNICARE [id number] 38 Faraz E Siria [id number] Izabella Siria 08/02/2020 1 [place] [employer] Izabella E Siria [id number] Izabella Siria 09/06/2020 2 [facility] IN[employer]MN[employer] [facility] - [employer] [id number] Faraz E Siria [id number] Izabella Siria 09/06/2020 1 [place] [employer] Izabella E Siria [id number] Izabella Siria 11/08/2020 2 [facility] IN[employer]MN[employer] [facility] - [employer] [id number] Faraz E Siria [id number] Izabella Siria 11/08/2020 1 [place] [employer] Izabella E Siria [id number] Izabella Siria 05/15/2022 2 [facility] IN[facility]MN[facility] - [employer]IC[employer] [id number] Far[address] E Siria [id number] Izabella Siria 05/15/2022 1 [place] [employer] Izabella E Siria [id number] Izabella Beverly 01/26/2023 2 [facility] [id number] 38 Faraz Beverly [id number] Izabella Beverly 01/26/2023 1 [place] [facility] Izabella Beverly [id number] Izaeblla Beverly Notes Date Note Type Note Provider [...] change in bowel/bladder habits Juve Fountain MD [address] [place] [address], [address], [place] - Comp-Assistd and Rcnstrctive Surgry 08/02/2020 [...] Juve Fountain MD [address], [place], [address], [place] - Comp-Assistd and Rcnstrctive Surgry 09/06/2020 [...] Juve Fountain MD [address], [place], [address], [place] - Comp-Assistd and Rcnstrctive Surgry 11/08/2020 [...] Juve Fountain MD [address], [place], [address], [place] - Comp-Assistd and Rcnstrctive Surgry 05/15/2022 [...] scan Previous PT:helped significantly Juve Fountain MD [address] [place] [address],[facility] [address], [place], [address], [place] - Comp-Assistd and Rcnstrctive Surgry 01/26/2023 18:47:34 OBGyn Episode No OBEpisode recorded.
--- OUTSIDE RECORDS SUMMARY | 2024-11-19 07:57 | XMS_ITS | Patient Health Record ---
Author Organization [facility] Address [address] [place] [address] Care Team Providers Care Document Preparation Specialist Name Role Phone Conrado SANDERS, Ree Primary Care Provider Jamshid Dang Unavailable [phone] Allergies No Known Allergies Results Component Value Reference Range Notes Prothrombin Time INR Reviewed date:09/11/2024 10:44:32 AM Interpretation: Performing Lab:[facility], [address] [place] [phone] Notes/Report: Prothrombin Time 10.7 10.9-12.4 SEC [employer] [...] Pnl Reviewed date:09/16/2024 12:46:34 PM Interpretation: Performing Lab:[facility], [address] [place] [address] Notes/Report: Liver Fibrosis Score 0.15 Liver Fibrosis [...] a>0.62 and a<=1.00 : A3 (severe activity) SAY-Yzdpt-1-Macroglobuli n 201 106-279 mg/dL FIB-Haptoglobin 180 43-212 mg/dL FIB-Apolipoprotein A1 192 101-198 mg/dL FIB-Total Bilirubin 0.6 0.2-1.2 mg/dL FIB-GGT 14 3-65 U/L FIB-ALT 11 6-29 U/L Reference ID [id number] Footnote SEE NOTE The reliability of results is dependent on compliance with the preanalytical and analytical conditions recommended by Cleo. The tests have to be deferred for: [...] The performance characteristics have been determined by [facility]. It has not been cleared or approved by the U.S. Food and Drug Administration. Performance characteristics refer to the analytical performance of the test. [employer], the associated logo, [employer] and all associated [employer] quiroga are the registered trademarks of [employer]. All third republican quiroga - (R) and (TM) - are the property of their respective owners. (C) 9191-4418 [employer]. All rights reserved. THIS TEST WAS PERFORMED AT: [employer] [facility] [address] [place] [address] MOUNIKA MALDONADO MD,PHD,JACKIE Complete Blood Count Auto Di ff Reviewed date:09/11/2024 11:02:14 AM Interpretation: Performing Lab:[facility], [address] [place] [address] Notes/Report: White Blood Count 6.3 4.8-10.8 X10*3/uL [...] Panel Reviewed date:09/11/2024 11:55:27 AM Interpretation: Performing Lab:[address] [address] Notes/Report: Bilirubin Total 0.7 0.0-1.0 mg/dL Bilirubin Direct 0.2 0.0-0.5 mg/dL Aspartate Amino Transferase 22 5-31 U/L Alanine Aminotransferase 20 0-31 U/L Total Protein 7.9 6.5-8.0 g/dL Albumin Level 4.3 3.5-5.0 g/dL Alkaline Phosphatase 63 39-117 U/L Alpha Fetoprotein Reviewed date:09/16/2024 12:45:47 PM Interpretation: Performing Lab:[facility], [address] [place] [address] Notes/Report: Alpha Fetoprotein 4.5 Reference Range: <6.1 [...] of disease. THIS TEST WAS PERFORMED AT: [employer] [address] [place] [address] BRIE MALAGON MD SLIDE REVIEW Reviewed date:09/11/2024 11:02:22 AM Interpretation: Performing Lab:[facility], [address] [place] [address] Notes/Report: SLIDE REVIEW VERIFIED US abdomen comp w elastograp hy Reviewed date:10/15/2024 08:03:36 AM Interpretation: Performing Lab: Notes/Report: [address] [address] Ultrasound Report Signed Patient: Izabella Beverly MR#: [id number] : 1950 Acct:[id number] Age/Sex: 74 / F ADM Date: 10/13/24 Loc: HO.US Attending Dr: Jamshid Loredo MD Ordering Physician: Jamshid Loredo MD Date of Service: 10/13/24 Procedure(s): US abdomen comp w elastography Accession Number(s): [id number] cc: Ree Camp MD; Jamshid Loredo MD [...] of Radiologists in Ultrasound Liver Stiffness Thresholds (2019): LIVER [...] in OV> 10/13/24935 DD/ 2 TD/TT: 10/13/24902 [employer]: [place] [address] Ultrasound Report Signed Patient: Izabella Beverly MR#: [id number] : 1950 Acct:[id number] Age/Sex: 74 / F ADM Date: 10/13/24 Loc: HO.US Attending Dr: Jamshid Loredo MD Ordering Physician: Jamshid Loredo MD Date of Service: 10/13/24 Procedure(s): US abdomen comp w elastography Accession Number(s): [id number] cc: Ree Camp MD; Jamshid Loredo MD [...] Jamshid Wright MD 10/13/2024 09:36 AM EDT Dictated By: Jamshid Wright MD Signed By: <Electronically signed by Jamshid Wright MD in OV> 10/13/24935 DD/ 2 TD/TT: 10/13/24902 [employer]: Reason For Referral No Information Medications Medication [...] Problem Status W/U Status Risk Notes Problem 916801093 Colon cancer screening (Z12.11) Active confirmed Problem Esophageal reflux (003458783) Esophageal reflux (K21.9) Active confirmed Problem Constipation (81370062) Constipation (K59.00) Active confirmed Problem Change in bowel habit (23911474) Change in bowel habits (R19.4) Active confirmed Problem 295613821 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 Problem 668416922 Nausea (R11.0) Active confirmed Problem 550253593 Gastroesophageal reflux disease without esophagitis (K21.9) Active confirmed Problem Weiner esophagus (434701112) Weiner esophagus (K22.70) Active confirmed Problem History of hepatitis C (17651455086054) History of hepatitis C (Z86.19) Active confirmed Problem 598183916 Indigestion (K30) Active confirmed Problem Diverticulosis of colon (240142530) Diverticulosis of colon (K57.30) Active confirmed Problem 00507894 Bleeding disorde r (D69.9) Active confirmed Problem 671570573 Platelet disease , 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 Vital Signs Blood pressure diastolic 11 mm Hg 09/11/2024 Height 70 in 09/11/2024 Blood pressure systolic 111 mm Hg 09/11/2024 Weight 170 lbs 09/11/2024 BMI 24.39 kg/m2 09/11/2024 Encounters Encounter Location Date Provider Diagnosis [facility] [address] [facility] [address] [place] [address] 09/11/2024 Jamshid Loredo Gastroesophageal ref lux disease without esophagitis K21.9 ; History of hepatitis C Z86.19 and Constipation K59.00 [facility] [address] [place] [address] 10/08/2024 Jamshid Loredo Assessments Encounter Date Diagnosis [...] Test Name Order Date LIVER PROFILE 09/11/2024 LIVER PROFILE 07/13/2022 LIVER PROFILE 09/11/2023 CBC w DIFF 09/11/2024 CBC w DIFF 07/13/2022 CBC w DIFF 09/11/2023 TYPE AND SCREEN DONE NEED TRANSFUSION ALPHA-FETOPROTEIN,TUMOR MARKER 5 ALPHA-FETOPROTEIN,TUMOR MARKER 2 US ABD 07/29/2020 HCV LIVER FIBROSIS, FIBRO TEST 2 US ABDOMEN COMP WITH ELASTOGRAPHY 2021 Prothrombin Time INR 09/11/2023 Prothrombin Time INR 07/13/2022 Alpha Fetoprotein 09/11/2023 Liver Fibrosis Pnl 09/11/2023 US abdomen comp w elastography 4 US abdomen comp w elastography 5 US abdomen comp w elastography 4 SLIDE REVIEW 11/15/2023 Future Test Test Name Order Date UPPER GI ENDOSCOPY 05/21/2012 COLONOSCOPY 05/21/2012 UPPER GI ENDOSCOPY 09/09/2017 UPPER GI ENDOSCOPY 07/13/2022 COLONOSCOPY 07/13/2022 Next Appt Details Provider Name:Jamshid Loredo , 09/10/2025 09:00:00 AM, [address], [address], [place], [address], Insurance Providers Payer Name Payer Address Payer Phone Subscriber Number Group Number Insured Name Patient Relationship to Insured Coverage Start Date Coverage End Date [place]ARE OF [place] [address] [place] [id number] [phone] [id number] IZABELLA HUANG Self - patient is the insured [employer] ([employer]) [address] [place] [address] [id number] IZABELLA HUANG Self - patient is the insured Medical (General) History Medical History History ICD Code EGD 07/05/2007 Weiner's esophagus on endos copy in 2004--- normal duodenal biopsies and gastric biopsies were negative for H. pylori. Hep C that was successfully treated with Interferon TIW and Ribavirin for 1 year in 4022-8894---in 2009 she had a negative hepatitis C [...]
== END 2024-11-19 08:21 | disposition home or self-care (01) ==
LOC: HO.HUSH 07:54
PROVIDERS: PCP Internal Medicine; Visit Provider Nurse Practitioner Family
DX: Z13.9 Encounter for screening, unspecified (principal); R35.1 Nocturia
CPT/HCPCS: 99213

== ENCOUNTER → 2024-11-19 07:54 | Outpatient (BNVA) | payer MEDICARE, OTHER, SELFPAY | PROVIDERS: PCP Internal Medicine; Visit Provider Nurse Practitioner Family | DX: R35.1 Nocturia (principal) | CPT/HCPCS: 51798; 81003; 99212 ==

== ENCOUNTER 2025-03-24 14:32 | Outpatient (AMB) | payer MEDICARE, OTHER, SELFPAY ==
[2025-03-24 14:52] VITALS: BP 122/60; PULSE 75; BMI 23.7
--- NOTE | 2025-03-24 14:52 | MHC.OFFVIS ---
Vital Signs 03/24/25 14:52 Height 5 ft 10 in Weight 165 lb 5.547 oz BMI 23.7 BP 122/60 Blood Pressure Location Lt brachial Position Sitting Pulse 75 Pulse Source Monitor Intake Visit Reasons: 6 month f/up Allergies No Known Allergies Allergy (Verified 11/19/24 08:41) Medication List - Last Reconciled 03/24/25 by Ulices Perez MD aspirin 81 mg PO DAILY clopidogrel 75 mg PO DAILY eletriptan 40 mg PO BID PRN eszopiclone 2 mg PO BEDTIME PRN lysine 1,000 mg PO DAILY metoprolol succinate ER 25 mg PO DAILY 90 days senna 600 mg PO BID HPI Comments Details: Izabella returns for follow-up. She was followed up for the last several years for palpitations thought to be from frequent PACs. However, in the last year she has had atrial fibrillation as well. Tried different medications including Multaq, flecainide but did not have a good response and hence sent for EP evaluation. She has had atrial fibrillation ablation. Additionally, she has got some long-term bleeding disorder and hence felt not to be a good anticoagulation candidate. Hence underwent Watchman device. Overall, she has recovered well from these procedures. She is not known to have coronary disease. She has obstructive sleep apnea and she uses a mandibular device. [facility] Medical History Hx of fracture of rib Osteoarthritis of fingers of hands, bilateral Moderate obstructive sleep apnea Insomnia Sleep apnea in adult Sleep apnea Cataract (lens) fragments in eye following cataract surgery, bilateral Post-operative nausea and vomiting Bleeding disorder Osteoarthritis of right hip Hx of melanoma of skin MVP (mitral valve prolapse) Migraine Hx of hepatitis C History of Weiner's esophagus MTHFR gene mutation PVCs (premature ventricular contractions) PAC (premature atrial contraction) Surgical History Hx of esophagogastroduodenoscopy H/O colonoscopy History of bunionectomy of both great toes Hx of breast augmentation History of hip replacement History of melanoma excision History of foot surgery History of tonsillectomy Family History Father Leukemia Mother SLE (systemic lupus erythematosus) Sister HTN (hypertension) Hypercholesterolemia Social History (Reviewed 11/19/24 @ 08:42 by Juarez Cuadra [facility]) Household Members: Spouse Housing: House Are you a primary manager respiratory care to a significant other at home: No Do you presently have visiting nurse or other home services: No Alcohol intake: current Alcohol intake frequency: 0-2 drinks per day Alcohol type: wine Patient Tobacco Use Status: Never used Tobacco e-Cigarette/Vaping Use: Never Used Advance Directives Date on File: 10/15/17 service: No Current occupational status: retired Cognitive needs: No Hearing needs: No Vision needs: Yes Review of Systems Const Denies weakness ENT Denies dizziness Card Denies chest pain, Denies chest pain with activity, Denies syncope, Denies rapid heart rate, Denies pedal edema, Denies edema, Denies leg edema, Denies lightheadedness, Denies palpitations, Denies dyspnea, Denies dyspnea on exertion and Denies orthopnea Resp Denies cough, Denies dyspnea and Denies dyspnea on exertion GI Denies hematochezia and Denies change in stool character Musc Denies abnormal gait, Denies muscle cramps, Denies muscle weakness, Denies numbness, Denies radiating pain into limb and Denies tingling Neuro Denies abnormal gait, Denies dizziness, Denies syncope, Denies numbness, Denies tingling and Denies weakness Endo Denies palpitations Physical Exam Vital Signs: Last Vital Signs Pulse 75 03/24/25 14:52 BP 122/60 03/24/25 14:52 BMI result Body Mass Index 23.7 Const General: comfortable and no acute distress Orientation/consciousness: patient oriented x3 HEENT Other: Unremarkable Head: Yes normal to inspection Neck Neck: Yes normal visual inspection Chest Chest palpation & inspection: normal inspection of the chest Resp Auscultation: clear to auscultation bilaterally Cardio Palpation: normal PMI Heart sounds: S1 normal heart sound present, S2 normal heart sound present, no gallops, no murmurs and no rubs GI Palpation (GI): Soft to palpation Back/Spine/Pelvis Other: unremarkable Skin General skin exam: no rashes or lesions noted Neuro General: patient oriented x3 Extrem General: Yes normal to inspection Psych Mental Status: mental status grossly normal Office Procedures EKG Details: EKG with underlying sinus rhythm at 75/Min; no ischemic changes; [place]. [address]-Rmgmzanxfoloxslgk, Complete Assessment & Plan Assessment & Plan (1) PAF (paroxysmal atrial fibrillation): Code(s): I48.0 - Paroxysmal atrial fibrillation Category: Medical (2) PAC (premature atrial contraction): Code(s): I49.1 - Atrial premature depolarization Category: Medical (3) PVCs (premature ventricular contractions): Code(s): I49.3 - Ventricular premature depolarization Category: Medical Plan Cardiac studies reviewed. In the recent transesophageal echocardiogram from [facility], preserved LVEF, iatrogenic ASD and no significant valvular findings. Myocardial perfusion imaging study from 10/2024 with reversible lateral defect thought to be from breast implants/soft tissue attenuation. Coronary CTA 2018- does not show any significant coronary disease. In the last Holter from before ablation, underlying rhythm is sinus at an average rate of 78/Min. Supraventricular/ventricular ectopy and one episode of NSVT for 7 beats. Transient Mobitz type one AV block during sleep hours. Currently, status post atrial fibrillation ablation. It seems that she did have a couple of episodes of short atrial fibrillation but hopefully they will resolve. She can continue the beta-blockers. She is off all antiarrhythmics. We will check another Holter before the follow-up appointment. With regard to the Watchman device, she can stay on the regimen of aspirin/Plavix as recommended and then eventually just go on aspirin only. For the obstructive sleep apnea, she uses a mandibular sleep device. Follow up in 2 months. Discussion Notes I discussed with the patient the management of her atrial fibrillation and the importance of medication adherence, particularly with aspirin and Plavix post-Watchman device implantation. We reviewed the potential need for further monitoring and the possibility of additional procedures if arrhythmias persist. The patient was advised to maintain regular follow-ups and to report any new or worsening symptoms promptly. Patient was informed and verbally consented to the use of an ambient scribe for clinic note documentation during this visit. Orders: Orders ECG 7 day holter monitor 03/24/25 I48.0 - Paroxysmal atrial fibrillation Patient Instructions: - Continue taking aspirin and Plavix as prescribed. - Monitor for any new or worsening symptoms and report them immediately. - Attend all scheduled follow-up appointments. - Maintain a healthy lifestyle and adhere to medication regimen. Coding Level of Care Code Est Pt Level 4 (11727) Complex EM visit Add On G2211 Diagnoses PAF (paroxysmal atrial fibrillation) I48.0 PAC (premature atrial contraction) I49.1 PVCs (premature ventricular contractions) I49.3 CPT Codes EKG - CPT: 24136-Vycikqgttudvwucfa, Complete ([id number])
--- OUTSIDE RECORDS SUMMARY | 2025-03-24 17:05 | XMS_ITS | Encounter Summary ---
Author Organization [facility] Address [address] [facility] [address] [place] [address] Phone Care Team Providers Care Olive Grower Name Role Phone Apollo Patino MD Primary Care Provider + [phone] Reason for Referral * MRI/CAT Scan - Closed Specialty Diagnoses / Procedures Referred By Contac t Referred To Contact Radiology Diagnoses Recurrent sinusitis Nasal polyp Procedures CT Face Blake Salvador MD [address] [place] [address] [place] [address] Phone: tel: fax: Referral ID Status Reason Start Date Expiration Date Visits Re quested Visits Authorized [id number] Closed 02/28/2024 02/27/2025 1 1 Encounter Details Date Type Department Care Team (Late st Contact Info) Description 02/28/2024 Transcribe Orders Virtual Department [address] [place] [address] Blake Salvador MD [address] [place] [address] Dr SAHNI [place], [place] [phone] Recurrent sinusitis (Primary Dx); Nasal polyp Social History Tobacco Use Types Packs/Day Years Used Date Smoking Tobacco: Never Assessed Education Answer Date Recorded Are you interested in more education? Not on itzel e 02/29/2024 Are you concerned about learning? Not on file 02/29/2024 No 02/29/2024 No 02/29/2024 Digital Access Answer Date Recorded No 02/29/2024 No 02/29/2024 Reliable internet access at home? Not on file 02/29/2024 Device with a working camera? Not on file Comments Unknown Sex and Gender Information Value Date Recorded Sex Assigned at Not on file Legal Sex Female 10:05 PM EDT Gender Identity Not on file Sexual Orientation Not on file documented as of this encounter Plan of Treatment Not on file documented as of this encounter Results * CT FACE (SINUS) WITHOUT CONTRAST (04/07/2024 3:09 PM EDT) Anatomical Region Laterality Modality Face Computed Tomogra phy 04/08/2024 9:14 AM EDT Impressions 04/08/2024 9:23 AM EDT Minimal paranasal sinus disease. Narrative 04/08/2024 9:[address] FACE (SINUS) WITHOUT CONTRAST Referring clinician's provided indication for this examination in Epic: Outside Radiology Order; Recurrent sinusitis TECHNIQUE: Multidetector-row CT of the sinuses was performed without intravenous contrast using tailored dose modulation techniques. Images were reconstructed in the axial, coronal, and sagittal planes. COMPARISON: None available. FINDINGS: Frontal sinuses and frontoethmoidal junctions: Mild mucosal thickening around the frontoethmoidal junctions bilaterally. Anterior and posterior ethmoid air cells: Mild mucosal thickening. Maxillary sinuses and infundibula: Normal. Clear. Sphenoid sinuses and sphenoethmoidal recesses: Normal. Clear. Nasal cavity: Mild leftward nasal septal deviation. The right middle turbinate is pneumatized. Surgical anatomy: Ostiomeatal units: Intact. Infundibula: Bordered laterally and superiorly by orbital alvarez;ethmoid air cells. Onodi air cells or infraorbital air cells: Infraorbital air cell is noted on the left. Laminae papyracea: Intact. Ethmoid roofs and cribriform plates: Symmetric. Optic canals and carotid canals: Variant pneumatization pattern of the sphenoid sinuses with pneumatization of the left anterior clinoid process and bilateral lateral recesses. Imaged maxillary teeth: No periapical lucencies. Mastoid air cells and middle ear cavities: The middle ear cavities and right mastoid air cells are clear. There is partial opacification of the left mastoid air cells with surrounding hyperostosis. Temporomandibular joints: No significant degenerative remodeling. Brain: Images of the brain parenchyma are not of diagnostic quality for the soft tissues. No focal abnormality is visible with this technique. Orbits and globes: Patient is status post bilateral lens replacements. Procedure Note Hussein Soto MD - 04/08/2024 CT FACE (SINUS) WITHOUT CONTRAST Referring clinician's provided indication for this examination in [facility]:Outside Radiology Order; Recurrent sinusitis TECHNIQUE: Multidetector-row CT of the sinuses was performed withoutintravenous contrast using tailored dose modulation techniques. Imageswere reconstructed in the axial, coronal, and sagittal planes. COMPARISON: None available. FINDINGS: Frontal sinuses and frontoethmoidal junctions: Mild mucosal thickeningaround the frontoethmoidal junctions bilaterally. Anterior and posterior ethmoid air cells: Mild mucosal thickening. Maxillary sinuses and infundibula: Normal. Clear. Sphenoid sinuses and sphenoethmoidal recesses: Normal. Clear. Nasal cavity: Mild leftward nasal septal deviation. The right middleturbinate is pneumatized. Surgical anatomy: Ostiomeatal units: Intact. Infundibula: Bordered laterally and superiorly by orbital alvarez;ethmoidair cells. Onodi air cells or infraorbital air cells: Infraorbital air cell is notedon the left. Laminae papyracea: Intact. Ethmoid roofs and cribriform plates: Symmetric. Optic canals and carotid canals: Variant pneumatization pattern of thesphenoid sinuses with pneumatization of the left anterior clinoid processand bilateral lateral recesses. Imaged maxillary teeth: No periapical lucencies. Mastoid air cells and middle ear cavities: The middle ear cavities andright mastoid air cells are clear. There is partial opacification of theleft mastoid air cells with surrounding hyperostosis. Temporomandibular joints: No significant degenerative remodeling. Brain: Images of the brain parenchyma are not of diagnostic quality forthe soft tissues. No focal abnormality is visible with this technique. Orbits and globes: Patient is status post bilateral lens replacements. IMPRESSION: Minimal paranasal sinus disease. Blake Salvador MD IM CT HEAD/NECK Final Resul t documented in this encounter Visit Diagnoses Diagnosis Recurrent sinusitis- Primary Unspecified sinusitis (chronic) Nasal polyp Unspecified nasal polyp Recurrent sinusitis Unspecified sinusitis (chronic) Nasal polyp Unspecified nasal polyp documented in this encounter Care Teams Olive Grower Relationship Specialty Start Date End Date Apollo Patino MD [address] [place] [address] PCP - General 07/19/17 documented as of this encounter Additional Source Comments The information contained in this document represents components of the legal health record. It is not the complete legal health record.[facility]
--- OUTSIDE RECORDS SUMMARY | 2025-03-24 17:05 | XMS_ITS | Patient Health Record ---
Author Organization [facility] Address [address] [place] [address] Care Team Providers Care Woven Wood Shade Assembler Name Role Phone Conrado SANDERS, Ree Hall Primary Care Provider Un available Barrett Caceres Unavailable [phone] Allergies No Known Allergies Reason For Referral No Information Medications Medication SIG (Take, Route, Frequency, Duration) Notes Start Date End Date Status Vitamin D3 Active Walking Boot/Pneumatic As directed Wear Daily; Duration: Until further notice 09/07/2022 Not-Taking Relpax PRN Active Vitamin B12 Not-Taki ng Physical Therapy . . . 2-3x/week--use U S and ES and or iontophoresis; Duration: 30 days Active Metoprolol Succinate ER 25 MG Oral; Duration: 90 Active Senokot S Senna Active L-Lysine Active Metamucil Active Flecainide Acetate 50 MG Oral; Duration: 90 Active Latanoprost 0.005 % Ophthalmic; Duration : 90 Not-Taking Immunizations Vaccine Route Administration Date [...] primary osteoarthritis of the ankle and/or foot (024811795) Primary osteoarthritis, left ankle and foot (M19.072) Active confirmed Problem Leg length discrepancy (980627926) Leg length discrepancy (M21.70) Active confirmed Plan Of Treatment Pending Test Test Name Order Date X ray : Foot, left 3V 09/07/2022 Insurance Providers Payer Name Payer Address Payer Phone Subscriber Number Group Number Insured Name Patient Relationship to Insured Coverage Start Date Coverage End Date Medicare National Govt [employer] [facility] [address] [place] [address] [id number] Izabella Estrella Self - patient is the insured [facility] [address] [place] [address] [id number] Faraz Estrella Spouse - patient is [...]
--- OUTSIDE RECORDS SUMMARY | 2025-03-24 17:05 | XMS_ITS | Encounter Summary ---
Author Organization [facility] Address [address] [place] [address] Phone Care Team Providers Care Medical Staff Manager Name Role Phone Apollo Patino MD Primary Care Provider Encounter Details Date Type Department Care Team (Late st Contact Info) Description 02/28/2024 Procedure [facility], Ct Scan - [address] [address] Social History Tobacco Use Types Packs/Day Years [...] on file documented as of this encounter Visit Diagnoses Not on filedocumented in this encounter Care Teams Medical Staff Manager Relationship Specialty Start Date End Date Apollo Patino MD [address] [place] [address] PCP - General 07/19/17 documented as of this encounter Additional Source Comments The information contained in this document represents components of the legal health record. It is not the complete legal health record.[facility]
--- OUTSIDE RECORDS SUMMARY | 2025-03-24 17:06 | XMS_ITS | Clinical Summary ---
Author Organization [facility] Address [address] [id number] Phone Care Team Providers Care Bilingual Receptionist Name Role Phone Apollo Patino MD Primary Care Provider Social History Tobacco Use Types Packs/Day Years [...] on file Sexual Orientation Not on file Last Filed Vital Signs Vital Sign Reading Time Taken Comments Blood Pressure 126/64 02/19/2013 8:51 AM EDT Pulse 80 02/19/2013 8:51 AM EDT Temperature - - Respiratory Rate - - Oxygen Saturation - - Inhaled Oxygen Concentration - - Weight 80.3 kg (177 lb) 02/19/2013 8:51 AM EDT Height 177.8 cm (5' 10 ) 02/19/2013 8:51 AM EDT Body Mass Index 25.4 02/19/2013 8:51 AM EDT Plan of Treatment Not on file Medical Devices Not on file Insurance MEDICARE PART A & B Member Subscriber Plan / Payer (Ef fective 2013-Present) Name:Izabella Goodman Member ID:[id number] Relation to Subscriber:Self Name:Izabella Goodman Subscriber ID:[id number] Payer ID:[id number] Group ID:Not on file Type:Medicare Address: [facility] [employer] [facility] [address] [place] [address] [employer] MEDICARE SUPPLEMENT MEDICARE PART A & B Member Subscriber Plan / Payer (Ef fective 2013-Present) Name:Izabella Goodman Member ID:[id number] Relation to Subscriber:Self Name:Izabella Goodman Subscriber ID:[id number] Payer ID:[id number] Group ID:Not on file Type:Medicare Address: [employer] [facility] [address] [place] [address] [place] [address] [employer]ENSION MEDICARE SUPPLEMENT [place], [place] MEDICARE PART A & B MEDICARE PART A & B [place] MEDICARE PART A & B [facility] MEDICARE SUPPLEMENT MEDICARE PART A & B MEDICARE PART A & B [facility] [employer] MEDICARE SUPPLEMENT MEDICARE PART A & B [facility] [employer] MEDICARE SUPPLEMENT MEDICARE PART A & B [facility] [employer] MEDICARE SUPPLEMENT Care Teams Bilingual Receptionist Relationship Specialty Start Date End Date Apollo Patino MD [address] [place] [address] PCP - General 07/19/17 Additional Source Comments The information contained in this document represents components of the legal health record. It is not the complete legal health record.[facility]
--- OUTSIDE RECORDS SUMMARY | 2025-03-24 17:06 | XMS_ITS | Patient Health Record ---
Author Organization [facility] Address [address] [place] [address] Care Team Providers Care Supervisor Electronics Inspection Name Role Phone Conrado SANDERS, Ree Primary Care Provider Jamshid Dang Unavailable [phone] Allergies No Known Allergies Results Component Value Reference Range Notes Prothrombin Time INR Reviewed date:09/11/2024 10:44:32 AM Interpretation: Performing Lab:[facility], [address] [place] [phone] Notes/Report: Prothrombin Time 10.7 10.9-12.4 [employer] [...] Pnl Reviewed date:09/16/2024 12:46:34 PM Interpretation: Performing Lab:[facility], [address] [place] [phone] Notes/Report: Liver Fibrosis Score 0.15 Liver Fibrosis [...] a>0.62 and a<=1.00 : A3 (severe activity) STO-Ycnqx-5-Macroglobulin 201 106-279 mg/dL FIB-Haptoglobin 180 43-212 mg/dL FIB-Apolipoprotein A1 192 101-198 mg/dL FIB-Total Bilirubin 0.6 0.2-1.2 mg/dL FIB-GGT 14 3-65 U/L FIB-ALT 11 6-29 U/L Reference ID [id number] Footnote SEE NOTE The reliability of results is dependent on compliance with the preanalytical and analytical conditions recommended by [employer]. The tests have to be deferred for: [...] The performance characteristics have been determined by [employer] [facility]. It has not been cleared or approved by the U.S. Food and Drug Administration. Performance characteristics refer to the analytical performance of the test. [employer], the associated logo, [employer] and all associated [employer]roga are the registered trademarks of [employer]. All third democrat quiroga - (R) and (TM) - are the property of their respective owners. (C) 5708-4345 [employer]. All rights reserved. THIS TEST WAS PERFORMED AT: [facility] [facility] [address] [address] MOUNIKA MALDONADO MD,PHD,JACKIE Complete Blood Count Auto Di ff Reviewed date:09/11/2024 11:02:14 AM Interpretation: Performing Lab:[facility], [address] [place] [phone] Notes/Report: White Blood Count 6.3 4.8-10.8 X10*3/uL [...] 0.0-0.2 /100WBC Neutrophils Absolute Auto 3.8 2.0-8.3 x10*3/u L Imm Gran Abs Auto 0.03 0.00-0.03 X10*3/uL Lymphocytes Absolute Auto 1.4 1.2-4.9 X10*3/u L Monocytes Absolute Auto 0.6 0.1-1.2 X10*3/uL Eosinophils Absolute Auto 0.4 0.0-0.4 X10*3/u L Basophils Absolute Auto 0.0 0.0-0.2 X10*3/uL NRBC [...] 0.0-0.2 /100WBC Neutrophils Absolute Auto 3.8 2.0-8.3 x10*3/u L Imm Gran Abs Auto 0.03 0.00-0.03 X10*3/uL Lymphocytes Absolute Auto 1.4 1.2-4.9 X10*3/u L Monocytes Absolute Auto 0.6 0.1-1.2 X10*3/uL Eosinophils Absolute Auto 0.4 0.0-0.4 X10*3/u L Basophils Absolute Auto 0.0 0.0-0.2 X10*3/uL NRBC Abs Auto 0.000 0.0-0.012 X10*3/uL Liver Panel Reviewed date:09/11/2024 11:55:27 AM Interpretation: Performing Lab:[address] [address] Notes/Report: Bilirubin Total 0.7 0.0-1.0 mg/dL Bilirubin Direct 0.2 0.0-0.5 mg/dL Aspartate Amino Transferase 22 5-31 U/L Alanine Aminotransferase 20 0-31 U/L Total Protein 7.9 6.5-8.0 g/dL Albumin Level 4.3 3.5-5.0 g/dL Alkaline Phosphatase 63 39-117 U/L Alpha Fetoprotein Reviewed date:09/16/2024 12:45:47 PM Interpretation: Performing Lab:[address] [address] Notes/Report: Alpha Fetoprotein 4.5 Reference Range: <6.1 [...] of disease. THIS TEST WAS PERFORMED AT: [facility] [address] [address] BRIE MALAGON MD SLIDE REVIEW Reviewed date:09/11/2024 11:02:22 AM Interpretation: Performing Lab:[facility], [address] [place] [phone] Notes/Report: SLIDE REVIEW VERIFIED US abdomen comp w elastograp hy Reviewed date:10/15/2024 08:03:36 AM Interpretation: Performing Lab: Notes/Report: [address] [address] Ultrasound Report Signed Patient: Bing Beverly MR#: [id number] : 1950 Acct:[id number] Age/Sex: 74 / F ADM Date: 10/13/24 Loc: HO.US Attending Dr: Jamshid Loredo MD Ordering Physician: Jamshid Loredo MD Date of Service: 10/13/24 Procedure(s): US abdomen comp w elastography Accession Number(s): [id number] cc: Ree Camp MD; Jamshid Loredo MD [...] in OV> 10/13/24935 DD/ 2 TD/TT: 10/13/24902 Marine Fireman: Reason For Referral No Information Medications Medication [...] 40 MG TAKE 1 TABLET BY [facility] November REPEAT DOSE IN HOURS IF NEEDED [...] Problem Status W/U Status Risk Notes Problem 672746741 Colon cancer screening (Z12.11) Active confirmed Problem Esophageal reflux (437022853) Esophageal reflux (K21.9) Active confirmed Problem Constipation (46813197) Constipation (K59.00) Active confirmed Problem Change in bowel habit (80420830) Change in bowel habits (R19.4) Active confirmed Problem 680410839 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 Problem 133838867 Nausea (R11.0) Active confirmed Problem 789070677 Gastroesophageal reflux disease without esophagitis (K21.9) Active confirmed Problem Weiner esophagus (316015965) Weiner esophagus (K22.70) Active confirmed Problem History of hepatitis C (55104141836224) History of hepatitis C (Z86.19) Active confirmed Problem 232130570 Indigestion (K30) Active confirmed Problem Diverticulosis of colon (421158630) Diverticulosis of colon (K57.30) Active confirmed Problem 94450316 Bleeding disorde r (D69.9) Active confirmed Problem 857248550 Platelet disease , 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 Vital Signs Blood pressure diastolic 11 mm Hg 09/11/2024 Height 70 in 09/11/2024 Blood pressure systolic 111 mm Hg 09/11/2024 Weight 170 lbs 09/11/2024 BMI 24.39 kg/m2 09/11/2024 Encounters Encounter Location Date Provider Diagnosis [facility] [address] [place] [phone] 09/11/2024 Jamshid Loredo Gastroesophageal ref lux disease without esophagitis K21.9 ; History of hepatitis C Z86.19 and Constipation K59.00 [facility] [address] [place] [phone] 10/08/2024 Jamshid Loredo Assessments Encounter Date Diagnosis [...] 07/13/2022 LIVER PROFILE 09/11/2023 CBC w DIFF 09/11/2023 CBC w DIFF 09/11/2024 CBC w DIFF 07/13/2022 TYPE AND SCREEN DONE NEED TRANSFUSION ALPHA-FETOPROTEIN,TUMOR [...] COLONOSCOPY 07/13/2022 Next Appt Details Provider Name:Jamshid Mauricio Facundo , 09/10/2025 09:00:00 AM, [address] [facility] [address], [address], [place], [address], Insurance Providers Payer Name Payer Address Payer Phone Subscriber Number Group Number Insured Name Patient Relationship to Insured Coverage Start Date Coverage End Date MEDICARE OF [place] [address] [place] [phone] [id number] BING HUANG Self - patient is the insured [employer] ([employer]) [address] [place] [address] [id number] BING HUANG Self - patient is the insured Medical (General) History Medical History History ICD Code EGD 07/05/2007 Weiner's esophagus on endos copy in 2004--- normal duodenal biopsies and gastric biopsies were negative for H. pylori. Hep C that was successfully treated with Interferon TIW and Ribavirin for 1 year in 8637-9223---in 2009 she had a negative hepatitis C [...]
== END 2025-03-24 15:25 | disposition home or self-care (01) ==
LOC: HO.HCS 14:33
PROVIDERS: PCP Internal Medicine; Visit Provider Internal Medicine
DX: I48.0 Paroxysmal atrial fibrillation (principal); I49.1 Atrial premature depolarization; I49.3 Ventricular premature depolarization
CPT/HCPCS: 93010; 99214; G2211

== ENCOUNTER → 2025-03-24 14:32 | Outpatient (BNVA) | payer MEDICARE, OTHER, SELFPAY | PROVIDERS: PCP Internal Medicine; Visit Provider Internal Medicine | DX: I49.3 Ventricular premature depolarization (principal); I49.1 Atrial premature depolarization; I48.0 Paroxysmal atrial fibrillation; Z98.890 Other specified postprocedural states | CPT/HCPCS: 93005; 99212 ==

== ENCOUNTER → 2025-04-13 13:19 | Outpatient (REF) | payer MEDICARE, OTHER, SELFPAY ==
--- NOTE | 2025-04-13 13:21 | HM_ITS ---
Conclusion: 1. Patient was monitored for total period of 7 days 2. Baseline was normal sinus rhythm with average heart rate of 81 beats per minute 3. Frequent PVCs noted with total burden of 3.06% with frequent nonsustained ventricular tachycardia, total of 11 of them with longest lasting 6 beats at 187 beats per minute 4. Frequent PACs noted with total burden of about 4% with frequent SVT noted, longest lasting 1 minute and 2 seconds at 199 beats per minute 5. No significant pauses 6. No patient marked events MTDD
--- OUTSIDE RECORDS SUMMARY | 2025-04-13 14:45 | XMS_ITS | Patient Health Record ---
Author Organization [facility] [place] Address [address] [place] [address] Care Team Providers Care Remote Inpatient Coder Name Role Phone Conrado SANDERS, Ree Hall Primary Care Provider Un available Barrett Caceres Unavailable [phone] Allergies No Known Allergies Reason For Referral [...] primary osteoarthritis of the ankle and/or foot (426254323) Primary osteoarthritis, left ankle and foot (M19.072) Active confirmed Problem Leg length discrepancy (266148011) Leg length discrepancy (M21.70) Active confirmed Plan Of Treatment Pending Test Test Name Order Date X ray : Foot, left 3V 09/07/2022 Insurance Providers Payer Name Payer Address Payer Phone Subscriber Number Group Number Insured Name Patient Relationship to Insured Coverage Start Date Coverage End Date Medicare National Govt [facility] [address] [place] [address] [id number] Izabella Estrella Self - patient is the insured [facility] [address] [place] [address] [id number] Faraz Estrella Spouse - patient is [...]
--- OUTSIDE RECORDS SUMMARY | 2025-04-13 14:46 | XMS_ITS | Patient Health Record ---
Author Organization [facility] Address [address] [place] [address] Care Team Providers Care Can Sealer Name Role Phone Conrado SANDERS, Ree Primary Care Provider Jamshid Dang Unavailable [phone] Allergies No Known Allergies Results Component Value Reference Range Notes Prothrombin Time INR Reviewed date:09/11/2024 10:44:32 AM Interpretation: Performing Lab:[facility], [address] [place] [phone] Notes/Report: Prothrombin Time 10.7 10.9-12.4 SEC INTERNATIONAL [...] Pnl Reviewed date:09/16/2024 12:46:34 PM Interpretation: Performing Lab:[facility], [address] [place] [phone] Notes/Report: Liver Fibrosis Score 0.15 Liver Fibrosis [...] a>0.62 and a<=1.00 : A3 (severe activity) DAA-Nebcu-9-Macroglobulin 201 106-279 mg/dL FIB-Haptoglobin 180 43-212 mg/dL FIB-Apolipoprotein A1 192 101-198 mg/dL FIB-Total Bilirubin 0.6 0.2-1.2 mg/dL FIB-GGT 14 3-65 U/L FIB-ALT 11 6-29 U/L Reference ID [id number] Footnote SEE NOTE The reliability of results is dependent on compliance with the preanalytical and analytical conditions recommended by [employer]. The tests have to be deferred for: [...] The performance characteristics have been determined by [employer] [facility]. It has not been cleared or approved by the U.S. Food and Drug Administration. Performance characteristics refer to the analytical performance of the test. [employer], the associated logo, [employer] and all associated [employer] are the registered trademarks of [employer]. All third libertarian quiroga - (R) and (TM) - are the property of their respective owners. (C) 1290-1426 [employer]. All rights reserved. THIS TEST WAS PERFORMED AT: [facility] [address] [address] MOUNIKA MALDONADO MD,PHD,JACKIE Complete Blood Count Auto Di ff Reviewed date:09/11/2024 11:02:14 AM Interpretation: Performing Lab:[facility], [address] [place] [phone] Notes/Report: White Blood Count 6.3 4.8-10.8 X10*3/uL [...] Panel Reviewed date:09/11/2024 11:55:27 AM Interpretation: Performing Lab:[address] [address] Notes/Report: Bilirubin Total 0.7 0.0-1.0 mg/dL Bilirubin Direct 0.2 0.0-0.5 mg/dL Aspartate Amino Transferase 22 5-31 U/L Alanine Aminotransferase 20 0-31 U/L Total Protein 7.9 6.5-8.0 g/dL Albumin Level 4.3 3.5-5.0 g/dL Alkaline Phosphatase 63 39-117 U/L Alpha Fetoprotein Reviewed date:09/16/2024 12:45:47 PM Interpretation: Performing Lab:[address] [address] Notes/Report: Alpha Fetoprotein 4.5 Reference Range: <6.1 [...] of disease. THIS TEST WAS PERFORMED AT: [facility] [address] [address] BRIE MALAGON MD SLIDE REVIEW Reviewed date:09/11/2024 11:02:22 AM Interpretation: Performing Lab:[facility], [address] [place] [phone] Notes/Report: SLIDE REVIEW VERIFIED US abdomen comp w elastograp hy Reviewed date:10/15/2024 08:03:36 AM Interpretation: Performing Lab: Notes/Report: [address] [address] Ultrasound Report Signed Patient: Bing Beverly MR#: [id number] : 1950 Acct:[id number] Age/Sex: 74 / F ADM Date: 10/13/24 Loc: HO.US Attending Dr: Jamshid Loredo MD Ordering Physician: Jamshid Loredo MD Date of Service: 10/13/24 Procedure(s): US abdomen comp w elastography Accession Number(s): [id number] cc: Ree Camp MD; Jamshid Loredo MD [...] in OV> 10/13/24935 DD/ 2 TD/TT: 10/13/24902 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 Off Operator Scorer: Reason For Referral No Information Medications Medication [...] Problem Status W/U Status Risk Notes Problem 992252215 Colon cancer screening (Z12.11) Active confirmed Problem Esophageal reflux (927232705) Esophageal reflux (K21.9) Active confirmed Problem Constipation (06217851) Constipation (K59.00) Active confirmed Problem Change in bowel habit (13185452) Change in bowel habits (R19.4) Active confirmed Problem 296790837 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 Problem 957024544 Nausea (R11.0) Active confirmed Problem 006898518 Gastroesophageal reflux disease without esophagitis (K21.9) Active confirmed Problem Weiner esophagus (873956409) Weiner esophagus (K22.70) Active confirmed Problem History of hepatitis C (70320066466434) History of hepatitis C (Z86.19) Active confirmed Problem 335742363 Indigestion (K30) Active confirmed Problem Diverticulosis of colon (571703002) Diverticulosis of colon (K57.30) Active confirmed Problem 32460096 Bleeding disorde r (D69.9) Active confirmed Problem 926742064 Platelet disease , 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 Vital Signs Blood pressure diastolic 11 mm Hg 09/11/2024 Height 70 in 09/11/2024 Blood pressure systolic 111 mm Hg 09/11/2024 Weight 170 lbs 09/11/2024 BMI 24.39 kg/m2 09/11/2024 Encounters Encounter Location Date Provider Diagnosis [facility] [address] [place] [phone] 09/11/2024 Jamshid Loredo Gastroesophageal ref lux disease without esophagitis K21.9 ; History of hepatitis C Z86.19 and Constipation K59.00 [facility] [address] [place] [phone] 10/08/2024 Jamshid Loredo Assessments Encounter Date Diagnosis [...] Mauricio Facundo , 09/10/2025 09:00:00 AM, [address], [address], [place], [address], Insurance Providers Payer Name Payer Address Payer Phone Subscriber Number Group Number Insured Name Patient Relationship to Insured Coverage Start Date Coverage End Date MEDICARE OF [place] [address] [place] [phone] [id number] BING HUANG Self - patient is the insured [employer] ([employer]) [address] [place] [address] [id number] BING HUANG Self - patient is the insured Medical (General) History Medical History History ICD Code EGD 07/05/2007 Weiner's esophagus on endos copy in 2004--- normal duodenal biopsies and gastric biopsies were negative for H. pylori. Hep C that was successfully treated with Interferon TIW and Ribavirin for 1 year in [id number]---in 2009 she had a negative hepatitis C [...]
--- OUTSIDE RECORDS SUMMARY | 2025-04-13 14:46 | XMS_ITS | Encounter Summary ---
Author Organization [facility] Address [address] [place] [address] Phone Care Team Providers Care Senior Director Insight Name Role Phone Apollo Patino MD Primary Care Provider Encounter Details Date Type Department Care Team (Late st Contact Info) Description 02/28/2024 Procedure Pass [facility], Ct Scan - [address] [address] Social History Tobacco Use Types Packs/Day Years [...] on filedocumented in this encounter Care Teams Senior Director Insight Relationship Specialty Start Date End Date Apollo Patino MD [address] [place] [address] PCP - General 07/19/17 documented as of this encounter Additional Source Comments The information contained in this document represents components of the legal health record. It is not the complete legal health record.[facility]
--- OUTSIDE RECORDS SUMMARY | 2025-04-13 14:46 | XMS_ITS | Encounter Summary ---
Author Organization [facility] Address [address] [place] [address] Phone Care Team Providers Care Nursery Supervisor Name Role Phone Apollo Patino MD Primary Care Provider + [phone] Reason for Referral * MRI/CAT Scan - Closed Specialty Diagnoses / Procedures Referred By Contac t Referred To Contact Radiology Diagnoses Recurrent sinusitis Nasal polyp Procedures CT Face Blake Salvador MD [address] [place] [address] [place] [address] Phone: tel: fax: Referral ID Status Reason Start Date Expiration Date Visits Re quested Visits Authorized [id number] Closed 02/28/2024 02/27/2025 1 1 Encounter Details Date Type Department Care Team (Late st Contact Info) Description 02/28/2024 Transcribe Orders Virtual Department [address] [place] [address] Blake Salvador MD [address] [place] [address] Dr [place], [place] [phone] Recurrent sinusitis (Primary Dx); Nasal polyp Social [...] clinician's provided indication for this examination in [facility]:Outside Radiology Order; Recurrent sinusitis TECHNIQUE: Multidetector-row CT [...] polyp documented in this encounter Care Teams Nursery Supervisor Relationship Specialty Start Date End Date Apollo Patino MD [address] [place] [address] PCP - General 07/19/17 documented as of this encounter Additional Source Comments The information contained in this document represents components of the legal health record. It is not the complete legal health record.[facility]
--- OUTSIDE RECORDS SUMMARY | 2025-04-13 14:46 | XMS_ITS | Clinical Summary ---
Author Organization [facility] Address [address] [phone] Phone Care Team Providers Care Command Center Analyst Name Role Phone Apollo Patino MD Primary Care Provider [phone] Social History Tobacco Use Types Packs/Day Years [...] file Insurance MEDICARE PART A & B [employer] SUPPLEMENT MEDICARE PART A & B Member Subscriber Plan / Payer (Ef fective 2013-Present) Name:Izabella Goodman Member ID:[id number] Relation to Subscriber:Self Name:Izabella Goodman Subscriber ID:[id number] Payer ID:[id number] Group ID:Not on file Type:Medicare Address: [employer] [facility] [address] [place] [address] [place] [address] EXTENSION MEDICARE SUPPLEMENT [place], [place] MEDICARE PART A & B MEDICARE PART A & B [place] MEDICARE PART A & B [facility] MEDICARE SUPPLEMENT MEDICARE PART A & B MEDICARE PART A & B [facility] [employer] MEDICARE SUPPLEMENT MEDICARE PART A & B [facility] [employer] MEDICARE SUPPLEMENT MEDICARE PART A & B [facility] [employer] MEDICARE SUPPLEMENT Care Teams Command Center Analyst Relationship Specialty Start Date End Date Apollo Patino MD [address] [place] [address] PCP - General 07/19/17 Additional Source Comments The information contained in this document represents components of the legal health record. It is not the complete legal health record.[facility]
== END ==
LOC: HO.CARD 13:19
PROVIDERS: PCP Internal Medicine; Visit Provider Internal Medicine
DX: I48.0 Paroxysmal atrial fibrillation (principal)
CPT/HCPCS: 93242

== ENCOUNTER → 2025-04-13 13:21 | Outpatient (BNV) | payer MEDICARE, OTHER, SELFPAY | PROVIDERS: PCP Internal Medicine; Visit Provider Internal Medicine Cardiovascular Disease | DX: I49.1 Atrial premature depolarization (principal); I49.3 Ventricular premature depolarization; I47.10 Supraventricular tachycardia, unspecified | CPT/HCPCS: 93244 ==

== ENCOUNTER 2025-06-09 10:38 | Outpatient (AMB) | payer MEDICARE, OTHER, SELFPAY ==
[2025-06-09 10:51] VITALS: BP 110/64; PULSE 67; BMI 24.7
--- NOTE | 2025-06-09 10:51 | MHC.OFFVIS ---
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 She was followed up for the last several years for palpitations thought to be from frequent PACs. However, in the last year she has had atrial fibrillation as well. Tried different medications including Multaq, flecainide but did not have a good response and hence sent for EP evaluation. She has had atrial fibrillation ablation. Additionally, she has got some long-term bleeding disorder and hence felt not to be a good anticoagulation candidate. Underwent Watchman device. Overall, she has recovered well from these procedures. She is not known to have coronary disease. She has obstructive sleep apnea and she uses a mandibular device. Overall, she is generally okay but still feels intermittent palpitations. [facility], [facility] Medical History Hx of fracture of rib Osteoarthritis of fingers of hands, bilateral Moderate obstructive sleep apnea Insomnia Sleep apnea in adult Sleep apnea Cataract (lens) fragments in eye following cataract surgery, bilateral Post-operative nausea and vomiting Bleeding disorder Osteoarthritis of right hip Hx of melanoma of skin MVP (mitral valve prolapse) Migraine Hx of hepatitis C History of Weiner's esophagus MTHFR gene mutation PVCs (premature ventricular contractions) PAC (premature atrial contraction) Surgical History Hx of esophagogastroduodenoscopy H/O colonoscopy History of bunionectomy of both great toes Hx of breast augmentation History of hip replacement History of melanoma excision History of foot surgery History of tonsillectomy Family History Father Leukemia Mother SLE (systemic lupus erythematosus) Sister HTN (hypertension) Hypercholesterolemia Social History Household Members: Spouse Housing: House Are you a primary primary care physician to a significant other at home: No Do you presently have visiting nurse or other home services: No Alcohol intake: current Alcohol intake frequency: 0-2 drinks per day Alcohol type: wine Patient Tobacco Use Status: Never used Tobacco e-Cigarette/Vaping Use: Never Used Advance Directives Date on File: 10/15/17 service: No Current occupational status: retired Cognitive needs: No Hearing needs: No Vision needs: Yes Review of Systems Const Denies chills, Denies fatigue, Denies fever(s), Denies frequent falls, Denies weakness, Denies weight gain and Denies weight loss ENT Denies dizziness Card Denies chest pain, Denies leg edema, Denies lightheadedness, Denies palpitations, Denies dyspnea and Denies dyspnea on exertion Resp Denies cough, Denies dyspnea and Denies dyspnea on exertion GI Denies hematochezia Musc Denies abnormal gait, Denies muscle weakness, Denies numbness, Denies radiating pain into limb and Denies tingling Neuro Denies abnormal gait, Denies dizziness, Denies frequent falls, Denies numbness, Denies tingling and Denies weakness Endo Denies fatigue and Denies palpitations Physical Exam Vital Signs: Last Vital Signs Pulse 67 06/09/25 10:51 BP 110/64 06/09/25 10:51 BMI result Body Mass Index 24.7 Const General: comfortable and no acute distress Orientation/consciousness: patient oriented x3 HEENT Other: Unremarkable Head: Yes normal to inspection Neck Neck: Yes normal visual inspection Chest Chest palpation & inspection: normal inspection of the chest Resp Auscultation: clear to auscultation bilaterally Cardio Palpation: normal PMI Heart sounds: S1 normal heart sound present, S2 normal heart sound present, no gallops, no murmurs and no rubs GI Palpation (GI): Soft to palpation Back/Spine/Pelvis Other: unremarkable Skin General skin exam: no rashes or lesions noted Neuro General: patient oriented x3 Extrem General: Yes normal to inspection Psych Mental Status: mental status grossly normal Assessment & Plan Assessment & Plan (1) PAF (paroxysmal atrial fibrillation): Code(s): I48.0 - Paroxysmal atrial fibrillation Category: Medical (2) PAC (premature atrial contraction): Code(s): I49.1 - Atrial premature depolarization Category: Medical (3) PVCs (premature ventricular contractions): Code(s): I49.3 - Ventricular premature depolarization Category: Medical Plan Cardiac studies reviewed. In the MICHELLE from [facility], preserved LVEF, iatrogenic ASD and no significant valvular findings. Myocardial perfusion imaging study from 10/2024 with reversible lateral defect thought to be from breast implants/soft tissue attenuation. Coronary CTA 2018- does not show any significant coronary disease. In the most recent Holter, underlying rhythm is sinus with an average rate of 81/Min. Frequent PACs with short runs as well as frequent PVCs with a burden of 3% and short runs, up to 6 beats. Overall, status post atrial fibrillation ablation/Watchman but still with palpitations, presumably from PACs/PVCs. She is describing some nonspecific side effects like tiredness from metoprolol and possibly try atenolol in the future. With regard to the Watchman device, follow regimen from [facility] with regard to aspirin/Plavix. For the obstructive sleep apnea, she uses a mandibular sleep device. Due to her concern for PACs/PVCs getting worse with exercise, we will do an ETT for further evaluation. Discussion Notes I reviewed the recent week-long Holter monitor results with the patient, noting episodes of non-sustained ventricular tachycardia (NSVT), premature ventricular contractions (PVCs) at a 3% burden, and premature atrial contractions (PACs) at a ~4% burden. I reassured the patient that the NSVT episodes are momentary and carry an exceptionally rare risk of causing cardiac arrest. We discussed the patient's side effect of feeling draggy on metoprolol and considered atenolol, a water-soluble alternative that may cause less drowsiness. I recommended a stress test to evaluate the arrhythmias during exertion before making any medication changes. I advised the patient to continue the current metoprolol dose through the stress test. Regarding the patient's desire to discontinue Plavix, I advised that one form of antiplatelet therapy, either Plavix or aspirin, must be continued. We also discussed that a more detailed letter from a physician to the insurance company about the patient's bleeding history might help with the denied appeal for the Watchman device. A follow-up is scheduled in a couple of months to review the stress test results. Patient was informed and verbally consented to the use of an ambient scribe for clinic note documentation during this visit. Orders: Orders CA stress test Today I49.3 - Ventricular premature depolarization Patient Instructions: - You will be scheduled for a stress test to check your heart rhythm during exercise. - For now, continue to take your metoprolol medication as prescribed, including the night before your stress test. - We will discuss possibly changing your medication to atenolol, which may cause less tiredness, after your stress test is completed. - Do not stop taking all your blood-thinning medications; you must continue with either Plavix or a baby aspirin. - Schedule a follow-up visit in a couple of months to review your test results. Coding Level of Care Code Est Pt Level 4 (23811) Complex visit Add On G2211 Diagnoses PAF (paroxysmal atrial fibrillation) I48.0 PAC (premature atrial contraction) I49.1 PVCs (premature ventricular contractions) I49.3
--- OUTSIDE RECORDS SUMMARY | 2025-06-09 13:35 | XMS_ITS | Data Portability ---
Author Organization [facility], OFFICE Address [address] [address] Assessment Encounter Date Assessment Date Assessment LastModified [...] resul t No observ ation record ed. [email or web address] Not Available 08/30 10:58:32 Result Notes None recorded. 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 Leticia Blandon [place] - [facility] 01/26/2023 14:20:41 Ankle/Foot Surgery completed Juve Fountain MD [address], [place], [address], [place] - [facility] 05/17/2016 15:06:23 General Surgery completed Juve Fountain MD [address], [place], [address], [place] - [facility] 05/17/2016 15:06:57 Tonsillectomy/A denoidectomy completed Juve Fountain MD [address], [place], [address], [place] - [facility] 05/17/2016 15:07:05 Hand Surgery completed Juve Fountain MD [address], [place], [address], [place] - [facility] 05/17/2016 15:07:23 Imaging Results None recorded. Procedure Notes None recorded. Medical Equipment None [...] No t Available amoxicillin 500 mg capsule TAKE 4 CAPSULES 1 HOUR PRIOR TO DENTAL WORK active Not Available Not Available No t Available latanoprost 0.005 % eye drops PUT 1 [...] active Not Available Not Available Not Available amiodarone 200 mg tablet TAKE 1 TABLET BY MOUTH EVERY DAY active Not Available Not Available No t Available ranitidine 300 mg tablet active Not [...] % topical cream APPLY ONE DAY PER WEEK (IE. 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 active Not Available Not Available No t Available ranitidine 300 mg capsule active Not [...] Not Available Not Available No t Available digoxin 125 mcg (0.125 mg) tablet TAKE 1 TABLET BY MOUTH EVERY DAY active Not Available Not Available No t Available gabapentin 100 mg capsule active Not Available Not Available Not Available metoprolol succinate ER 25 mg tablet,exte nded release 24 hr TAKE 1 TABLET BY MOUTH EVERY DAY active Not Available Not Available No t Available warfarin 1 mg tablet Pre op: Starting 7 days prior to surgery take 1 tablet po nightly, Post op: Take as directed, up to 10 tablets, nightly po. 11/29 completed Not Available Not Available Not Available methylpredn isolone 4 mg tablets in a dose pack TAKE DIRECTED active Not Available Not Available No t Available timolol maleate 0.5 % eye drops INSTILL 1 DROP IN RIGHT EYE EVERY MORNING active Not Available Not Available No t Available cefdinir 300 mg capsule TAKE 1 CAPSULE BY MOUTH TWICE A DAY active Not Available Not Available No t Available naproxen 500 mg tablet PLEASE SEE [...] Not Available Not Available No t Available prednisolon e sodium phosphate 5 mg base/5 mL (6.7 mg/5 mL) oral soln TAKE 1 TEASPOON BY MOUTH GARGLE AND SWISH TWICE A DAY FOR 7 DAYS active Not Available Not Available No t Available ezetimibe 10 mg tablet active Not Available Not Available Not Available divalproex ER 250 mg tablet,exte nded release 24 hr active Not Available Not Available Not Available eletriptan 40 mg tablet TAKE 1 TABLET ORALLY 2 TIMES A DAY NEEDED FOR MIGRAINE HEADACHE active Not Available Not Available No t Available eszopiclone 2 mg tablet TAKE 1 TABLET BY MOUTH AT BEDTIME NEEDED FOR INSOMNIA active Not Available Not Available No t Available levomefolat e calcium 7.5 mg tablet active Not Available Not Available Not Available dexamethaso ne sodium phosphate (PF) 10 mg/mL injection solution APPLY TOPICALLY VIA IONTOPHOR ESIS DURING PHYSICAL THERAPY active Not Available Not Available No t Available Multaq 400 mg tablet TAKE ONE TABLET BY MOUTH TWO TIMES A DAY FOR 90TAKE WITH MEAL/FOOD active Not Available Not Available No t Available Eliquis 2.5 mg tablet TAKE 2.5 MG BY MOUTH 2 TIMES A DAY,X30 DAYS active Not Available Not Available No t Available BinaxNOW COVID-19 Ag Self Test kit REFER TO MANUFACTU RER INSTRUCTI ONS INCLUDED IN PACKAGING active Not Available Not Available No t Available Vitals Date Recorded Body height Body mass index (BMI) Body weight Provider Name and Address Organization Details Last Updated DateTime 01/26/2023 177.8 cm 23.4 kg/m2 54118.56 g Leticia Blandon MA - [facility] 01/26/2023 14:21:07 Date Recorded Body height Body mass index (BMI) Body weight Provider Name and Address Organization Details Last Updated DateTime 05/15/2022 177.8 cm 23 kg/m2 41222.78 g Leticia Blandon MA - [facility] 05/15/2022 10:22:23 Social History Question Answer Notes LastModified by Organizat ion Details LastModified Time Tobacco Smoking Status Never Smoker Juve Fountain MD [address] [place] [address],[address], [place], [address], [place] - [facility] 05/17/2016 15:06:04 Do You Have An Advance Directive? Yes [email or web address] Information not available 05/15/2022 Do You Have A Medical Power Of Mica Inspector? Yes [email or web address] Information not available 05/15/2022 What Was The Date Of Your Most Recent Tobacco Screening? 05/15/2022 [email or web address] Information not available 05/15/2022 Sex: Unknown Functional Status Question Answer Note LastModified by Organization D etails LastModified Time Do you or have you ever used any other forms of tobacco or nicotine? No [email or web address] Information not available 05/15/2022 Are you able to care for yourself independently? Yes Information not available 05/15/2022 Mental Status None recorded. Family History Relationship Description Onset Age of this Age Resolved Age Notes LastModified by Organization Details LastModified Time Paternal Grandmother Arthritis [email or web address] Not available 08/2015 15:05:52 Medical History Condition Response Coronary Artery Disease N Anxiety/Depression N Gout N Blood Transfusion N Hernia N COPD N Pacemaker N Orthotics N Arthritis N Blood Clot N Cancer N Stroke N High Cholesterol N Liver Disease N Rheumatoid Arthritis N Kidney Disease N Heart Problems N Migraines Y Thyroid Problems N Anemia N Ulcers N Heart Attack ([place]) N Diabetes N Bleeding Disorder Y Seizures/Epilepsy N Tuberculosis N AIDS/HIV N Asthma N Peripheral Vascular Disease N Hepatitis Y Pulmonary Embolism N Hypertension N Osteoporosis N Gynecological HistoryNo gynecological history recorded. Obstetrics History GPAL:G 0 P 0 0 0 0 Past Encounters Encounter ID Performer Location Encounter Start Date Encounter Closed Date Diagnosis/Indication Diagnosis SNOMED-CT Code Diagnosis ICD10 Code Diagnosis IMO Codes Diagnosis Note [id number] Juve Fountain MD OFFICE [address], [address] [address] 05/17/2016 13:13:11 05/17/2016 16:28:53 [id number] Juve Fountain MD OFFICE [address], [address] [address] 09/22/2016 10:07:50 12/01/2016 16:26:04 [id number] Juve Fountain MD OFFICE [address], [address] [address] 11/29/2016 09:31:35 12/06/2016 15:17:52 [id number] Juve Fountain MD OFFICE [address] [address] [place] [address] 12/12/2017 09:55:50 01/23/2018 10:53:07 [id number] Juve Fountain MD [facility] [address] [place] [address] 08/02/2020 12:21:04 08/02/2020 16:08:49 [id number] Juve Fountain MD [facility] [address] [place] [address] 09/06/2020 14:49:29 09/06/2020 21:08:21 [id number] Juve Fountain MD [facility] [address] [place] [address] 11/08/2020 09:39:24 11/08/2020 17:31:01 [id number] Juve Fountain MD OFFICE [address] [address] 05/15/2022 09:55:26 05/16/2022 02:37:55 [id number] Juve Fountain MD [facility] [address] [facility] [place] [address] 01/26/2023 14:19:34 01/28/2023 12:24:59 Health Concerns Section Related Observation LastModified by Organization Detai ls LastModified Time None Recorded Concern Status LastModified by Organization Details LastModified Time None Recorded Advance Directives Directive Y: Payers Insurance Date Sequence Insurance Name Policy Number Policy Lopez Covered Member ID Lopez Member ID Guarantor Name 01/29/2023 2 [facility] IN[facility]MNITY [facility]AN (INDEMNITY) [id number] 38 Faraz Beverly [id number] Izabella Beverly 01/23/2023 1 MEDICARE B-CA: [facility] Izabella Beverly [id number] Izabella Beverly Notes Date Note Type Note Provider Name and Address Organization Details Recorded Time 08/02/2020 text/html Hip(s) AthenaRep orted by PatientHPIFor location, patient reportsrightandgroin. For severity, patient reportsmild. For alleviating factors, patient reportsrest. For aggravating factors, patient reportstwisting(turni ng when standing can hurt in the groin. leg presses made it worse. not really changing now. step class for an hour is fine.). For associated symptoms, patient reportsno weakness,no numbness,no tingling,no swelling,no redness,no warmth,no ecchymosis,no catching/locking,no popping/clicking,no buckling,no grinding,no instability,no radiation down leg,no drainage,no fever,no chills,no weight loss, andno change in bowel/bladder habits. Juve Fountain MD [address],[facility] [address], [place], [address], [place] - [facility] 08/02/2020 15:10:35 09/06/2020 text/html Hip(s) AthenaRep orted by PatientHPIFor location, patient reportsrightandgroin( unchanged. fine until the fall of 2018, possibly precipitated by leg presses. pain sometimes transferring weight and after distance especially. sometimes feels unready for a step.). For severity, patient reportsmild. For alleviating factors, patient reportsrest. For aggravating factors, patient reportstwisting(stand ing and turn and make it feel unreliable.). For associated symptoms, patient reportsno weakness,no numbness,no tingling,no swelling,no redness,no warmth,no ecchymosis,no catching/locking,no popping/clicking,no buckling,no grinding,no instability,no radiation down leg,no drainage,no fever,no chills,no weight loss, andno change in bowel/bladder habits. For prior imaging, patient reportsx ray,mri, andct scan.ROS as noted in the HPI Juve Fountain MD [address], [place], [address], [place] - [facility] 09/06/2020 20:11:15 11/08/2020 text/html Hip(s) AthenaRep orted by PatientHPIFor location, patient reportsrightandgroin( unchanged. again, felt fine until the fall of 2018, possibly precipitated by leg presses. pain sometimes transferring weight and after distance especially. sometimes feels unready for a step.). For severity, patient reportsmild. For alleviating factors, patient reportsrest. For aggravating factors, patient reportstwisting(stand ing and turn and make it feel unreliable.). For associated symptoms, patient reportsno weakness,no numbness,no tingling,no swelling,no redness,no warmth,no ecchymosis,no catching/locking,no popping/clicking,no buckling,no grinding,no instability,no radiation down leg,no drainage,no fever,no chills,no weight loss, andno change in bowel/bladder habits. For prior imaging, patient reportsx ray,mri, andct scan.ROS as noted in the [facility] Juve Fountain MD [address], [place], [address], [place] - [facility]Assistd and [facility] 11/08/2020 12:27:59 05/15/2022 text/html Hip(s) AthenaRep orted by PatientIFor location, patient reportsleftandbuttock s. For severity, patient reportsmoderate. For duration, patient reports8 months. For alleviating factors, patient reportsrest. For aggravating factors, patient reportsgoing from sit to stand. For associated symptoms, patient reportsno weakness,no numbness,no tingling,no swelling,no redness,no warmth,no ecchymosis,no catching/locking,no popping/clicking,no buckling,no grinding,no instability,no radiation down leg,no drainage,no fever,no chills,no weight loss, andno change in bowel/bladder habits. For prior imaging, patient reportsx rayandct scan. For previous pt, patient reportsdid not help.ROS as noted in the [facility] Juve Fountain MD [address], [place], [address], [place] - [facility]Ass[facility]d and [facility] 05/15/2022 12:03:52 01/26/2023 text/html Hip(s) AthenaRep orted by PatientHPIFor location, patient reportsleftandgroin. For severity, patient reportsmild. For alleviating factors, patient reportsrestandstretch ing. For aggravating factors, patient reportsexercise. For associated symptoms, patient reportsno weakness,no numbness,no tingling,no swelling,no redness,no warmth,no ecchymosis,no catching/locking,no popping/clicking,no buckling,no grinding,no instability,no radiation down leg,no drainage,no fever,no chills,no weight loss, andno change in bowel/bladder habits. For prior imaging, patient reportsx rayandct scan. For previous pt, patient reportshelped significantly.ROS as noted in the HPI Juve Fountain MD [address] [place] [address],[facility] [address], [place], [address], [place] - Comp-Assistd and [facility] 01/26/2023 18:47:34 OBGyn Episode No OBEpisode recorded.
== END 2025-06-09 11:23 | disposition home or self-care (01) ==
LOC: HO.HCS 10:39
PROVIDERS: PCP Internal Medicine; Visit Provider Internal Medicine
DX: I48.0 Paroxysmal atrial fibrillation (principal); I49.1 Atrial premature depolarization; I49.3 Ventricular premature depolarization
CPT/HCPCS: 99214; G2211

== ENCOUNTER → 2025-06-09 10:38 | Outpatient (BNVA) | payer MEDICARE, OTHER, SELFPAY | PROVIDERS: PCP Internal Medicine; Visit Provider Internal Medicine | DX: I48.0 Paroxysmal atrial fibrillation (principal); I49.1 Atrial premature depolarization; I49.3 Ventricular premature depolarization; R00.2 Palpitations | CPT/HCPCS: 99212 ==

== ENCOUNTER 2025-06-18 12:49 | Outpatient (AMB) | payer MEDICARE, OTHER, SELFPAY ==
[2025-06-18 13:02] VITALS: BP 110/70; PULSE 84; O2SAT 98; BMI 24.7
--- NOTE | 2025-06-18 13:02 | A.OFFPC_ITS ---
Vital Signs 06/18/25 13:02 Height 5 ft 10 in Weight 172 lb BMI 24.7 BP 110/70 Blood Pressure Location Lt brachial Position Sitting Pulse 84 Pulse Source Pulse Oximeter Pulse Oximetry (%) 98 Intake Visit Reasons: PE Intake Note: Pt is here today for her PE: Last mammogram 06/30/24, bone density scan 07/24/24, colonoscopy 09/06/22 Allergies No Known Allergies Allergy (Verified 06/22/25 03:25) Medication List - Last Reconciled 06/22/25 by Ree Camp MD aspirin 81 mg PO DAILY clopidogrel 75 mg PO DAILY doxepin (Silenor) 6 mg PO BEDTIME PRN lysine 1,000 mg PO DAILY metoprolol succinate ER 25 mg PO DAILY 90 days senna 600 mg PO BID Tobacco use date assessed: 06/18/25 Fall risk assessment: No Falls in past year Last assessed Fall Risk: 06/18/25 Dental Screening Dental Screen Date: 06/18/25 Did you have a dental visit in the last 12 months?: Yes Did you have a dental problem in the last 6 months where you did not have access to dental care?: No Was dental information given to patient?: Patient has dentist HPI PE HPI Details The patient is a 75 year old female presenting today for her physical exam She is followed by cardiology for a history of ventricular tachycardia and supraventricular tachycardia, with episodes noted on a Holter monitor to occur between 3 and 7 PM, even while at rest. Her premature atrial contractions (PACs) have improved from a 9% burden to 4.3%, and she has had episodes of nonsustained V-tach, with the longest lasting six beats, which her network development coordinator does not find concerning. She has a history of an aborted cardiac ablation and subsequent Watchman device placement. Her current cardiac medications include Plavix, which she will discontinue on July 24, and a low dose of metoprolol. She reports daytime grogginess on metoprolol and has low blood pressure, so her network development coordinator is considering switching to atenolol after a pending stress test. She reports easy bruising and bleeding on Plavix, and recently developed a skin blister after bumping herself in the shower. Regarding her gastrointestinal health, she reports alternating constipation and loose stools, bloating, and difficulty with bowel movements. She has tried probiotics without significant relief. Her installation & maintenance executive, Dr. Loredo, whom she will see in August, does not believe another colonoscopy is warranted at this time. For health maintenance, her last bone density scan revealed osteopenia in her wrist with a T-score of -1.2, while her lower back density was normal. She is scheduled for a mammogram on July 01. The patient has a history of herpes simplex cold sores, which are well-managed with lysine. She takes doxepin as needed for insomnia. She experiences arthritis with morning stiffness, which improves in warmer climates. She has lifelong issues with dry skin and sees a outpatient phlebotomist, Dr. Sanon, every six months. [facility] Medical History (Updated 06/18/25 @ 13:55 by Ree Camp MD) Osteopenia Dyslipidemia Hx of fracture of rib Osteoarthritis of fingers of hands, bilateral Moderate obstructive sleep apnea Insomnia Sleep apnea in adult Sleep apnea Cataract (lens) fragments in eye following cataract surgery, bilateral Post-operative nausea and vomiting Bleeding disorder Osteoarthritis of right hip Hx of melanoma of skin MVP (mitral valve prolapse) Migraine Hx of hepatitis C History of Weiner's esophagus MTHFR gene mutation PVCs (premature ventricular contractions) PAC (premature atrial contraction) Surgical History Hx of esophagogastroduodenoscopy H/O colonoscopy History of bunionectomy of both great toes Hx of breast augmentation History of hip replacement History of melanoma excision History of foot surgery History of tonsillectomy Family History Father Leukemia Mother SLE (systemic lupus erythematosus) Sister HTN (hypertension) Hypercholesterolemia Social History Household Members: Spouse Housing: House Are you a primary insurance healthcare representative to a significant other at home: No Do you presently have visiting nurse or other home services: No Alcohol intake: current Alcohol intake frequency: 0-2 drinks per day Alcohol type: wine Patient Tobacco Use Status: Never used Tobacco e-Cigarette/Vaping Use: Never Used Advance Directives Date on File: 10/15/17 service: No Current occupational status: retired Cognitive needs: No Hearing needs: No Vision needs: Yes Questionnaire PHQ-9 Over the last 2 weeks, how often have you been bothered by any of the following problems? 1. Little interest or pleasure in doing things: not at all 2. Feeling down, depressed, or hopeless: not at all 3. Trouble falling or staying asleep, or sleeping too much: several days 4. Feeling tired or having little energy: not at all 5. Poor appetite or overeating: not at all 6. Feeling bad about yourself - or that you are a failure or have let yourself or your family down: not at all 7. Trouble concentrating on things, such as reading the newspaper or watching television: not at all 8. Moving or speaking so slowly that other people could have noticed. Or the opposite - being so fidgety or restless that you have been moving around a lot more than usual: not at all 9. Thoughts that you would be better off or of hurting yourself in some way: not at all Total score: 1 Depression Screening Interpretation: Negative Depression Screening Done: Yes 00573 - PHQ-9 Billing: Yes Source: Developed by Drs. Jamshid Martines, Charu Valdes, Christopher Lee and colleagues, with an educational gary from [employer]. Thrive Questionnaire Date Thrive assessed: 06/18/25 I am a: Patient What is your living situation today?: I have a steady place to live Within the past 12 months, did the food you bought not last and you didn't have the money to get more?: Never true Within the past 12 months, did you worry whether your food would run out before you got money to buy more?: Never true Do you have trouble paying for medicines?: No Do you have trouble getting transportation to medical appointments?: No Do you have trouble paying your heating and electricity bill?: No Do you have trouble taking care of your child, family member or friend?: No Do you have trouble with day-to-day activities such as bathing, preparing meals, shopping, managing finances, etc.?: No Are you currently unemployed and looking for a job?: No Are you interested in more education?: No Please select the resources that you would like help with: None Currently or been in a relationship where the following occur: No concerns reported THRIVE Score: 0 AUDIT C Alcohol Use Questionnaire (AUDIT-C) 1. How often do you have a drink containing alcohol?: 2-4 times a month 2. How many drinks containing alcohol do you have on a typical day when you are drinking?: 1 or 2 3. How often do you have six or more drinks on one occasion?: Never Total Score: 2 Score Reviewed/Action Taken: Yes SREE-7 AMB Questionnaire SREE-7 Date SREE - 7 assessed: 06/18/25 Feeling nervous, anxious, or on edge: 0 = Not at all Not being able to stop or control worryin = Not at all Worrying too much about different things: 0 = Not at all Trouble relaxin = Not at all Being so restless that it is hard to sit still: 0 = Not at all Becoming easily annoyed or irritable: 0 = Not at all Feeling afraid as if something awful might happen: 0 = Not at all Total SREE-7 score (0-4 normal; 5-9 mild; 10-14 moderate; 15-21 severe): 0 Source: Developed by Drs. Jamshid Martines, Charu Valdes, Christopher Lee and colleagues, with an educational gary from [employer]. SREE-7 Assessment Billing SREE-7 Assessment Tool: SREE-7 Assessment 35148 Review of Systems Const Reports fatigue, Denies fever(s), Denies frequent falls and Denies weakness Eyes Details: Wears contact lenses for reading after cataract surgery ENT Denies dizziness Card Denies chest pain, Denies leg edema, Denies lightheadedness, Reports palpitations (with exercise), Denies dyspnea and Denies dyspnea on exertion Resp Denies cough, Denies dyspnea and Denies dyspnea on exertion GI Details: Reports alternating constipation and loose stools, bloating , and straining during a bowel movement Denies hematochezia Reports no additional complaints Musc Denies abnormal gait, Denies muscle weakness, Denies numbness, Denies radiating pain into limb and Denies tingling Skin/Breast Denies breast pain, Denies breast mass and Denies rash Neuro Denies abnormal gait, Denies dizziness, Denies frequent falls, Denies numbness, Denies tingling and Denies weakness Psych Reports no additional complaints Endo Reports fatigue and Reports palpitations (with exercise) Jonatan/Lymph Reports as per HPI and Reports easy bruising Aller/Immun Reports no additional complaints Physical exam (Primary Care) Vital Signs: Last Vital Signs Pulse 84 06/18/25 13:02 BP 110/70 06/18/25 13:02 Pulse Ox 98 06/18/25 13:02 BMI result Body Mass Index 24.7 Tobacco/Smoking Status: Tobacco use Status Tobacco use date assessed 06/18/25 06/18/25 13:06 Patient Tobacco Use Status Never used Tobacco 06/18/25 13:06 e-Cigarette/Vaping Use Never Used 06/18/25 13:06 PHQ-9: PHQ-9 Score PHQ-9: Total score 1 06/18/25 13:55 Depression Screening Interpretation: Negative Thrive Assessment: Date of Thrive Assessment Date Thrive assessed 06/18/25 06/18/25 13:06 Currently or been in a relationship where the following occur: No concerns reported Const Other: Alert oriented x3, in no acute distress noted , ambulatory, no acute distress Orientation/consciousness: patient oriented x3 HENIL General nose exam: Normal external nose present Face and sinus: Yes face symmetric Mouth: Normal oral and palatal mucosa present and oropharynx normal Eyes General: appearance normal, both eyes and all related structures Neck Neck: Yes full ROM, Yes no lymphadenopathy and Yes supple Thyroid: Thyroid normal Chest Breast/axilla palpation: normal palpation of the breasts Resp Effort & Inspection: normal respiratory effort and able to speak in complete sentences Auscultation: clear to auscultation bilaterally Cardio Other: S1-S2 present regular rate and rhythm GI Inspection: Yes normal to inspection Palpation (GI): Soft to palpation, nontender, no guarding and no masses Auscultation: normal bowel sounds General: Yes no CVA tenderness Back/Spine/Pelvis Back: no CVA tenderness and No back tenderness Skin Other: Healing hematoma with crusting on right lower leg General skin exam: dry skin Neuro General: patient oriented x3, gait normal, moves all extremities, Normal light touch and pain sensation and no focal motor deficits Extrem General: Yes full ROM, Yes no joint enlargement, Yes no pedal edema and Yes normal gait Psych Appearance: grossly normal Mental Status: mental status grossly normal Speech and movement: Normal speech and movement present Affect: normal affect Coding Level of Care Code Est Pt Prev Care >65y(80416) Diagnoses Annual visit for general adult medical examination with abnormal findings Z00.01 PAC (premature atrial contraction) I49.1 MTHFR gene mutation Z15.89 Bleeding disorder D69.9 Primary insomnia F51.01 Insomnia type: primary Dyslipidemia E78.5 Additional Codes SREE-7 Assessment Billing - SREE-7 Assessment Tool: SREE-7 Assessment 76882 ([id number]) PHQ-9 - 89445 - PHQ-9 Billing: Yes ([id number]) Assessment & Plan Assessment & Plan (1) Annual visit for general adult medical examination with abnormal findings: Code(s): Z00.01 - Encounter for general adult medical examination with abnormal findings Plan: Will check appropriate labs. Continue regular dental visit every 6 months and regular eye exams, at least every 2 years. Take adequate calcium in diet and vitamin-D 3 at 2000 IU per cap once a day, in addition to weight-bearing exercises to help maintain good muscle tone and weight control. Instructed to do self-breast exam, and continue to get yearly mammogram, will get updated mammogram results from [facility]. Had a bone density done earlier this year which showed presence of normal bone density in lumbar spine but beginning osteopenia in radius . Per GI, no further colonoscopies indicated. Reminded to get her yearly flu vaccine, up-to-date with her pneumonia vaccines shingles, Tdap and RSV vaccination (2) PAC (premature atrial contraction): Code(s): I49.1 - Atrial premature depolarization Category: Medical Plan: Followed by Cardiology (3) MTHFR gene mutation: Code(s): Z15.89 - Genetic susceptibility to other disease Category: Medical Plan: Followed by Dr. Muñoz (4) Bleeding disorder: Comment: ff'd by Dr Muñoz at [facility] Code(s): D69.9 - Hemorrhagic condition, unspecified Category: Medical Plan: Followed by vascular surgery, Dr. Darlene tijerina (5) Insomnia: Code(s): G47.00 - Insomnia, unspecified Category: Medical Qualifiers: Insomnia type: primary Qualified Code(s): F51.01 - Primary insomnia Plan: Continue doxepin 6 mg at bedtime as needed for difficulty sleeping (6) Dyslipidemia: Code(s): E78.5 - Hyperlipidemia, unspecified Category: Medical Plan: Fasting lipid panel ordered Orders: Orders Lipid Panel 06/18/25 D69.9 - Hemorrhagic condition, unspecified, E78.5 - Hyperlipidemia, unspecified, F51.01 - Primary insomnia, I49.1 - Atrial premature depolarization, M85.80 - Other specified disorders of bone density and structure, unspecified site, Z15.89 - Genetic susceptibility to other disease Glucose Fasting 06/18/25 D69.9 - Hemorrhagic condition, unspecified, E78.5 - Hyperlipidemia, unspecified, F51.01 - Primary insomnia, I49.1 - Atrial premature depolarization, M85.80 - Other specified disorders of bone density and structure, unspecified site, Z15.89 - Genetic susceptibility to other disease Vitamin D 25-OH Total 06/18/25 D69.9 - Hemorrhagic condition, unspecified, E78.5 - Hyperlipidemia, unspecified, F51.01 - Primary insomnia, I49.1 - Atrial premature depolarization, M85.80 - Other specified disorders of bone density and structure, unspecified site, Z15.89 - Genetic susceptibility to other disease Complete Blood Count Auto Diff 06/18/25 D69.9 - Hemorrhagic condition, unspecified, E78.5 - Hyperlipidemia, unspecified, F51.01 - Primary insomnia, I49.1 - Atrial premature depolarization, M85.80 - Other specified disorders of bone density and structure, unspecified site, Z15.89 - Genetic susceptibility to other disease Aspartate Amino Transferase 06/18/25 D69.9 - Hemorrhagic condition, unspecified, E78.5 - Hyperlipidemia, unspecified, F51.01 - Primary insomnia, I49.1 - Atrial premature depolarization, M85.80 - Other specified disorders of bone density and structure, unspecified site, Z15.89 - Genetic susceptibility to other disease Alanine Aminotransferase 06/18/25 D69.9 - Hemorrhagic condition, unspecified, E78.5 - Hyperlipidemia, unspecified, F51.01 - Primary insomnia, I49.1 - Atrial premature depolarization, M85.80 - Other specified disorders of bone density and structure, unspecified site, Z15.89 - Genetic susceptibility to other disease Medications: Refilled doxepin (Silenor) 6 mg PO BEDTIME PRN 30 tabs 5RF insomnia
== END 2025-06-18 13:54 | disposition home or self-care (01) ==
LOC: HO.HMCC 12:50
PROVIDERS: PCP Internal Medicine; Visit Provider Internal Medicine
DX: Z00.01 Encounter for general adult medical examination with abnormal findings (principal); I49.1 Atrial premature depolarization; D69.9 Hemorrhagic condition, unspecified; F51.01 Primary insomnia; E78.5 Hyperlipidemia, unspecified; Z15.89 Genetic susceptibility to other disease

== ENCOUNTER → 2025-06-18 12:49 | Outpatient (BNVA) | payer MEDICARE, OTHER, SELFPAY | PROVIDERS: PCP Internal Medicine; Visit Provider Internal Medicine | DX: Z00.01 Encounter for general adult medical examination with abnormal findings (principal); M85.839 Other specified disorders of bone density and structure, unspecified forearm; I49.1 Atrial premature depolarization; Z15.89 Genetic susceptibility to other disease; D69.9 Hemorrhagic condition, unspecified; F51.01 Primary insomnia; E78.5 Hyperlipidemia, unspecified; Z13.31 Encounter for screening for depression; Z13.39 Encounter for screening examination for other mental health and behavioral disorders; Z79.899 Other long term (current) drug therapy | CPT/HCPCS: 96127; 99397 ==

== ENCOUNTER → 2025-07-13 10:17 | Outpatient (REF) | payer MEDICARE, OTHER, SELFPAY ==
--- NOTE | 2025-07-13 10:25 | CA_ITS ---
Acquisition Time: 2025-07-13 10:50:32 Total Exercise Time: 00:05:30 Test Indications: PVS'S Medications: Protocol: JAIDEN Max HR: 150 BPM 104% of Pred: 143 BPM Max BP: 128/74 mmHG Max Work Load: 7.0 METS Exercise stress test with exercise 5 mins 30 secs of Jaiden Protocol, achieving 102% MPHR, with reports of SOB, no chets pain, with frequent PACs- brief atrials runs- max 6 beats, with isolated PVCs- one couplet, with normotensive response to exercise. Without any EKG changes meeting criteria for ischemia. In recovery, breathing returned to baseline. Test reveiwed with Dr. Perez. Referred By: Ulices Perez Electronically Signed By: Pierce Francois
[2025-07-13 11:18] LABS: Hematocrit 42.0 % (37.0-47.0); Hemoglobin 13.2 g/dl (12.0-16.0); Imm Gran Abs Auto 0.01 X10*3/uL (0.00-0.03); Imm Gran Pct Auto 0.2 % (0.0-0.4); Lymphocytes Absolute Auto 1.4 X10*3/uL (1.2-4.9); MANUAL DIFF FLAG SCAN; Mean Corpuscular HGB Conc 31.4 g/dl (31.0-35.0); Mean Corpuscular Hemoglobin 29.9 pg (27.0-33.0); Mean Corpuscular Volume 95.0 fL (80.0-98.0); NRBC Abs Auto 0.000 X10*3/uL (0.0-0.012); NRBC Pct Auto 0.0 /100WBC (0.0-0.2); PLT CLUMP 1; Red Blood Count 4.42 X10*6/uL (4.20-5.50); SCAN SMEAR FLAG 1
--- OUTSIDE RECORDS SUMMARY | 2025-07-13 11:38 | XMS_ITS | Encounter Summary ---
Author Organization [facility] Address [address] [place] [id number] Phone Care Team Providers Care Clinical Programmer Name Role Phone Apollo Patino MD Primary Care Provider + [phone] Reason for Referral * MRI/CAT Scan - Closed Specialty Diagnoses / Procedures Referred By Contac t Referred To Contact Radiology Diagnoses Recurrent sinusitis Nasal polyp Procedures CT Face Blake Salvador MD [address] [place] [address] [place] [address] Phone: tel: fax: Referral ID Status Reason Start Date Expiration Date Visits Re quested Visits Authorized [id number] Closed 02/28/2024 02/27/2025 1 1 Encounter Details Date Type Department Care Team (Late st Contact Info) Description 02/28/2024 Transcribe Orders Virtual Department [address] [place] [address] Blake Salvador MD [address] [place] [address] Dr [place], [place] [phone] Recurrent sinusitis (Primary Dx); Nasal polyp Social [...] clinician's provided indication for this examination in [facility]:Outside Radiology Order; Recurrent sinusitis TECHNIQUE: Multidetector-row [...] polyp documented in this encounter Care Teams Clinical Programmer Relationship Specialty Start Date End Date Apollo Patino MD [address] [place] [address] PCP - General 07/19/17 documented as of this encounter Additional Source Comments The information contained in this document represents components of the legal health record. It is not the complete legal health record.[facility]
--- OUTSIDE RECORDS SUMMARY | 2025-07-13 11:38 | XMS_ITS | Clinical Summary ---
Author Organization [facility] Address [address] [place] [address] Care Team Providers Care Public Health Technician Name Role Phone Unavailable Primary Care Provider Unavailabl e Medications acetaminophen (TYLENOL) 325 MG tablet 3 tablet oral every eight hours PRN Reason: pain Active bisacodyl (DULCOLAX) 10 mg suppository 1 suppository per rectum daily PRN Reason: constipation Active eletriptan (RELPAX) 40 MG tablet 1 tablet oral daily PRN Reason: headache Active flecainide (TAMBOCOR) 50 MG tablet 1 tablet oral twice a day Active methocarbamoL (ROBAXIN) 500 MG tablet 1 tablet oral every six hours PRN Reason: spasms/pain Active metoprolol ER (TOPROL-XL) 25 MG 24 hr tablet 0.5 tablet oral daily Active oxyCODONE (ROXICODONE) 5 MG immediate release tablet 0.5 to 1.5 tablets oral every four hours PRN Reason: Postop pain s/p L DEMARIO Active polyethylene glycol (MIRALAX) 17 gram packet 1 each oral daily Active sennosides (SENOKOT) 8.6 mg tablet 2 tablet oral daily Active Social History Tobacco Use Types Packs/Day Years Used Date Smoking Tobacco: Never Assessed Comments Unknown Sex and Gender Information Value Date Recorded Sex Assigned at Not on file Legal Sex Female 11:20 PM EST Gender Identity Not on file Sexual Orientation Not on file Last Filed Vital Signs Vital Sign Reading Time Taken Comments Blood Pressure - - Pulse - - Temperature - - Respiratory Rate - - Oxygen Saturation - - Inhaled Oxygen Concentration - - Weight 76.5 kg (168 lb 9 oz) 12/12/2022 6:21 PM EDT Height 176.5 cm (5' 9.5 ) 12/12/2022 6:21 PM EDT Body Mass Index 24.54 12/12/2022 6:21 PM EDT Plan of Treatment Health Maintenance Due Date Last Done Comments Blood Pressure 1950 Depression Screening 1960 Hepatitis C Screening 1966 DTaP,Tdap,and Td Vaccines (1 - Tdap) 1967 Pneumococcal Vaccine: 50+ Ye ars (1 of 1 - PCV) 1998 Zoster Vaccine (1 of 2) 1998 Osteoporosis Screening 2013 COVID-19 Vaccine (1 - 2024-2 6 season) 2025 Influenza Vaccine (#1) 2025 Meningococcal B Vaccines Aged Out No longer eligible based on patient's age to complete this topic Meningococcal Vaccines Aged Out No lo nger eligible based on patient's age to complete this topic Advance Directives Documents on File Type Date Recorded Patient Web Press Roll Tender Expl anation Health Care Proxy 12/12/2022 6:00 AM Healt Care Proxy - Internal
--- OUTSIDE RECORDS SUMMARY | 2025-07-13 11:38 | XMS_ITS | Patient Health Record ---
Author Organization [facility] Address [address] [place] [address] Care Team Providers Care Design Tech Name Role Phone Conrado SANDERS, Ree Primary Care Provider Jamshid Dang Unavailable [phone] Allergies No Known Allergies Results Component Value Reference Range Flag Notes Prothrombin Time INR Reviewed date:09/11/2024 10:44:32 AM Interpretation: Performing Lab:[facility], [address] [place] [phone] Notes/Report: Prothrombin Time 10.7 10.9-12.4 SEC L INTERNATIONAL NORM RATIO 0.9 0.9-1.1 N INTERNATIONAL NORMALIZED RATIO (INR) REFERENCE RANGES Reference [...] Pnl Reviewed date:09/16/2024 12:46:34 PM Interpretation: Performing Lab:[facility], [address] [place] [phone] Notes/Report: Liver Fibrosis Score 0.15 Liver Fibrosis [...] a>0.62 and a<=1.00 : A3 (severe activity) NOD-Jmknj-5-Macroglobulin 201 106-279 mg/dL FIB-Haptoglobin 180 43-212 mg/dL FIB-Apolipoprotein A1 192 101-198 mg/dL FIB-Total Bilirubin 0.6 0.2-1.2 mg/dL FIB-GGT 14 3-65 U/L FIB-ALT 11 6-29 U/L Reference ID [id number] Footnote SEE NOTE The reliability of results is dependent on compliance with the preanalytical and analytical conditions recommended by [employer]. The tests have to be deferred for: [...] The performance characteristics have been determined by [employer] [facility]. It has not been cleared or approved by the U.S. Food and Drug Administration. Performance characteristics refer to the analytical performance of the test. HTP, the associated logo, [employer] and all associated [employer]ga are the registered trademarks of [employer]. All third green party quiroga - (R) and (TM) - are the property of their respective owners. (C) 3608-4569 [employer]. All rights reserved. THIS TEST WAS PERFORMED AT: [employer] [facility] [place] [address] [place] [address] MOUNIKA MALDONADO MD,PHD,JACKIE Complete Blood Count Auto Di ff Reviewed date:09/11/2024 11:02:14 AM Interpretation: Performing Lab:[facility], [address] [place] [phone] Notes/Report: White Blood Count 6.3 4.8-10.8 X10*3/uL N Red Blood Count 4.71 4.20-5.50 X10*6/uL N Hemoglobin 14.5 12.0-16.0 g/dl N Hematocrit 44.2 37.0-47.0 % N Mean Corpuscular Volume 93.8 80.0-98.0 fL N Mean Corpuscular Hemoglobin 30.8 27.0-33.0 pg N Mean Corpuscular HGB Conc 32.8 31.0-35.0 g/dl N Red Cell Distribution Width 12.3 11.0-16.0 % N Platelet Count TNP 160-400 X10*3/uL Platelet clumps noted. Platelet count will not be accurate. Recollecting the platelet count in a blue top tube may eliminate platelet clumps. Order platelet count blue top tube. A lavender top tube must be drawn if CBC is required. Platelet clumps noted. Platelet count will not be accurate. Recollecting the platelet count in a blue top tube may eliminate platelet clumps. Order platelet count blue top tube. A lavender top tube must be drawn if CBC is required. Mean Platelet Volume TNP 9.4-12.3 fL Neutrophils Percent Auto 59.9 45-73 % N Imm Gran Pct Auto 0.5 0.0-0.4 % H Lymphocytes Percent Auto 22.8 20-40 % N Monocytes Percent Auto 10.2 2-11 % N Eosinophils Percent Auto 6.1 0-4 % H Basophils Percent Auto 0.5 0-2 % N NRBC Pct Auto 0.0 0.0-0.2 /100WBC N Neutrophils Absolute Auto 3.8 2.0-8.3 x10*3/uL N Imm Gran Abs Auto 0.03 0.00-0.03 X10*3/uL N Lymphocytes Absolute Auto 1.4 1.2-4.9 X10*3/uL N Monocytes Absolute Auto 0.6 0.1-1.2 X10*3/uL N Eosinophils Absolute Auto 0.4 0.0-0.4 X10*3/uL N Basophils Absolute Auto 0.0 0.0-0.2 X10*3/uL N NRBC Abs Auto 0.000 0.0-0.012 X10*3/uL N White Blood Count 6.3 4.8-10.8 X10*3/uL N Red Blood Count 4.71 4.20-5.50 X10*6/uL N Hemoglobin 14.5 12.0-16.0 g/dl N Hematocrit 44.2 37.0-47.0 % N Mean Corpuscular Volume 93.8 80.0-98.0 fL N Mean Corpuscular Hemoglobin 30.8 27.0-33.0 pg N Mean Corpuscular HGB Conc 32.8 31.0-35.0 g/dl N Red Cell Distribution Width 12.3 11.0-16.0 % N Platelet Count TNP 160-400 X10*3/uL Platelet clumps noted. Platelet count will not be accurate. Recollecting the platelet count in a blue top tube may eliminate platelet clumps. Order platelet count blue top tube. A lavender top tube must be drawn if CBC is required. Platelet clumps noted. Platelet count will not be accurate. Recollecting the platelet count in a blue top tube may eliminate platelet clumps. Order platelet count blue top tube. A lavender top tube must be drawn if CBC is required. Mean Platelet Volume TNP 9.4-12.3 fL Neutrophils Percent Auto 59.9 45-73 % N Imm Gran Pct Auto 0.5 0.0-0.4 % H Lymphocytes Percent Auto 22.8 20-40 % N Monocytes Percent Auto 10.2 2-11 % N Eosinophils Percent Auto 6.1 0-4 % H Basophils Percent Auto 0.5 0-2 % N NRBC Pct Auto 0.0 0.0-0.2 /100WBC N Neutrophils Absolute Auto 3.8 2.0-8.3 x10*3/uL N Imm Gran Abs Auto 0.03 0.00-0.03 X10*3/uL N Lymphocytes Absolute Auto 1.4 1.2-4.9 X10*3/uL N Monocytes Absolute Auto 0.6 0.1-1.2 X10*3/uL N Eosinophils Absolute Auto 0.4 0.0-0.4 X10*3/uL N Basophils Absolute Auto 0.0 0.0-0.2 X10*3/uL N NRBC Abs Auto 0.000 0.0-0.012 X10*3/uL N Liver Panel Reviewed date:09/11/2024 11:55:27 AM Interpretation: Performing Lab:[address] [address] Notes/Report: Bilirubin Total 0.7 0.0-1.0 mg/dL N Bilirubin Direct 0.2 0.0-0.5 mg/dL N Aspartate Amino Transferase 22 5-31 U/L N Alanine Aminotransferase 20 0-31 U/L N Total Protein 7.9 6.5-8.0 g/dL N Albumin Level 4.3 3.5-5.0 g/dL N Alkaline Phosphatase 63 39-117 U/L N SLIDE REVIEW Reviewed date:09/11/2024 11:02:22 AM Interpretation: Performing Lab:[address] [address] Notes/Report: SLIDE REVIEW VERIFIED US abdomen comp w elastograp hy Reviewed date:10/15/2024 08:03:36 AM Interpretation: Performing Lab: Notes/Report: [address] [address] Ultrasound Report Signed Patient: Bing Goodman MR#: [id number] : 1950 Acct:[id number] Age/Sex: 74 / F ADM Date: 10/13/24 Loc: HO.US Attending Dr: Jamshid Loredo MD Ordering Physician: Jamshid Loredo MD Date of Service: 10/13/24 Procedure(s): US abdomen comp w elastography Accession Number(s): [id number] cc: Ree Camp MD; Jamshid Loredo MD [...] signed by Jamshid Wright MD in OV> 10/13/2436 DD/ 2 TD/TT: 10/13/24902 Space Buyer: Alpha Fetoprotein Reviewed date:09/16/2024 12:45:47 PM Interpretation: Performing Lab:[facility], [address] [place] [phone] Notes/Report: Alpha Fetoprotein 4.5 N Reference Range: <6.1 The use of AFP as a tumor marker in females is not recommended. This test was performed using the Coleman [place] chemiluminescent method. Values obtained from different assay methods cannot be used interchangeably. AFP levels, regardless of value, should not be interpreted as absolute evidence of the presence or absence of disease. THIS TEST WAS PERFORMED AT: [facility] [address] [place] [phone] BRIE MALAGON MD Reason For Referral No Information Medications Medication SIG (Take, Route, Frequency, Duration) Notes Start Date End Date Status Lunesta 2 MG Oral Tablet Active Betamethasone Dipropionate prn Not-Taking/PRN Amiodarone HCl 200 MG Tablet Oral; Duration: 14 Days Active Senna Laxative 8.6 MG Tablet 1tablets at am Orally daily Active Metoprolol Tartrate 25 MG Tablet 1 tablet with food Orally once a day Active Relpax 40 MG Tablet TAKE 1 TABLET BY MOUTH MAY REPEAT DOSE IN HOURS IF NEEDED MAX 2TAB/24HRS Oral; Duration: 5 Active Lysine 1000mg Active Metamucil 0.36 GM Capsule 5 capsules once a day once a day prn Active Hair Skin Nails - Capsule as directed Orally Active Immunizations Vaccine Route Administration Date Status Comme nts Influenza Unknown 04/18/2017 Administered Influenza Unknown 03/16/2020 Administered Influenza Unknown 05/24/2022 Administered Social History Social History Drugs/Alcohol: Social Info Question Answer Notes Alcohol Screen Did you have a drink containing alcohol in the past year? Yes How often did you have a drink containing alcohol in the past year? 2 to 4 times a month (2 points) How many drinks did you have on a typical day when you were drinking in the past year? 1 or 2 drinks (0 point) How often did you have 6 or more drinks on one occasion in the past year? Never (0 point) Points 2 Interpretation Negative Additional Details Category Social Info Options Details Miscellaneous: Marital status: Occupation: retired Section Notes: Nonsmoker; 1 drink QD Nonsmoker; 1 drink QD Nonsmoker; 1 drink QD Nonsmoker; 1 drink QD Nonsmoker; 1 drink QD Nonsmoker; 1 drink QD Nonsmoker; 1-2 drinks going out socially on weekend Problems Problem Type SNOMED Code ICD Code Onset Dates Problem Status W/U Status Risk Notes Problem Colon cancer screening (977598785) Colon cancer screening (Z12.11) Active confirmed Problem Esophageal reflux (691878715) Esophageal reflux (K21.9) Active confirmed Problem Constipation (07255955) Constipation (K59.00) Active confirmed Problem Change in bowel habit (89575824) Change in bowel habits (R19.4) Active confirmed Problem Weiner's esophagus (357064826) Weiner's esophagus without dysplasia (K22.70) Active confirmed Problem Nausea (462812242) Nausea (R11.0) Active confir med Problem Gastroesophageal reflux disease without esophagitis (536592425) Gastroesophageal reflux disease without esophagitis (K21.9) Active confirmed Problem Weiner esophagus (343444157) Weiner esophagus (K22.70) Active confirmed Problem History of hepatitis C (93647547993907) History of hepatitis C (Z86.19) Active confirmed Problem Indigestion (796667045) Indigestion (K30) Active confirmed Problem Diverticulosis of colon (806041063) Diverticulosis of colon (K57.30) Active confirmed Problem Bleeding disorder (14315988) Bleeding disorder (D69.9) Active confirmed Problem 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, 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 Vital Signs Blood pressure diastolic 11 mm Hg 09/11/2024 Height 70 in 09/11/2024 Blood pressure systolic 111 mm Hg 09/11/2024 Weight 170 lbs 09/11/2024 BMI 24.39 kg/m2 09/11/2024 Encounters Encounter Location Date Provider Diagnosis [facility] [address] [place] [phone] 09/11/2024 Jamshid Loredo Gastroesophageal ref lux disease without esophagitis K21.9 ; History of hepatitis C Z86.19 and Constipation K59.00 [facility] [address] [place] [phone] 10/08/2024 Jamshid Loredo Assessments Encounter Date Diagnosis [...] Test Test Name Order Date LIVER PROFILE 07/13/2022 LIVER PROFILE 09/11/2023 LIVER PROFILE 09/11/2024 CBC w DIFF 09/11/2023 CBC w DIFF [...] Name:Jamshid Mauricio Facundo , 09/10/2025 09:00:00 AM, [address] [place] [address], [address], [place], [address], Insurance Providers Payer Name Payer Address Payer Phone Subscriber Number Group Number Insured Name Patient Relationship to Insured Coverage Start Date Coverage End Date MEDICARE OF [place] [address] [place] [id number] BING HUANG Self - patient is the insured [facility] [address] [place] [address] [phone] [id number] BING HUANG Self - patient is the insured Medical (General) History Medical History History ICD Code EGD 07/05/2007 Weiner's esophagus on endos copy in 2004--- normal duodenal biopsies and gastric biopsies were negative for H. pylori. Hep C that was successfully treated with Interferon TIW and Ribavirin for 1 year in 5155-3447---in 2009 she had a negative hepatitis C [...] with Dr. Fields Surgical History Surgery Date(Month/Year) Bunion surgery Melanoma removed from right thigh 2 Right hip replacement 08/2016 Bilateral cataracts 03/2022 Left hip replacement 2022
--- OUTSIDE RECORDS SUMMARY | 2025-07-13 11:38 | XMS_ITS | Encounter Summary ---
Author Organization [facility] Address [address] [place] [address] Phone Care Team Providers Care Communications Agent Name Role Phone Apollo Patino MD Primary Care Provider Encounter Details Date Type Department Care Team (Late st Contact Info) Description 02/28/2024 Procedure Pass [facility], Ct Scan - [address] [address] Social History Tobacco Use Types Packs/Day Years [...] on filedocumented in this encounter Care Teams Communications Agent Relationship Specialty Start Date End Date Apollo Patino MD [address] [place] [address] PCP - General 07/19/17 documented as of this encounter Additional Source Comments The information contained in this document represents components of the legal health record. It is not the complete legal health record.[facility]
--- OUTSIDE RECORDS SUMMARY | 2025-07-13 11:38 | XMS_ITS | Patient Health Record ---
Author Organization [facility] Address [address] [place] [address] Care Team Providers Care Security And Compliance Project Manager Name Role Phone Conrado SANDERS, Ree Hall Primary Care Provider Un available Barrett Ambrocio Unavailable [phone] Allergies No Known Allergies Reason For Referral [...] primary osteoarthritis of the ankle and/or foot (568416468) Primary osteoarthritis, left ankle and foot (M19.072) Active confirmed Problem Leg length discrepancy (656565355) Leg length discrepancy (M21.70) Active confirmed Plan Of Treatment Pending Test Test Name Order Date X ray : Foot, left 3V 09/07/2022 Insurance Providers Payer Name Payer Address Payer Phone Subscriber Number Group Number Insured Name Patient Relationship to Insured Coverage Start Date Coverage End Date Medicare National [employer] [address] [place] [address] [id number] Izabella Estrella Self - patient is the insured [facility] ([facility]) [address] [place] [address] [id number] Faraz Estrella Spouse - patient is [...]
--- OUTSIDE RECORDS SUMMARY | 2025-07-13 11:38 | XMS_ITS | Clinical Summary ---
Author Organization [facility] Address [address] [id number] Phone Care Team Providers Care Silverware Etcher Name Role Phone Apollo Patino MD Primary [...] Payer (Ef fective 2013-Present) Name:Izabella Goodman Member ID:[id number] Relation to Subscriber:Self Name:Izabella Goodman Subscriber ID:[id number] Payer ID:[id number] Group ID:Not on file Type:Medicare Address: [employer] [facility] [address] [place] [address] [place] [address] [employer] SU[employer]MENT [place], [place] MEDICARE PART A & B MEDICARE PART A & B [place], [place] MEDICARE PART A & B [facility] MEDICARE SUPPLEMENT MEDICARE PART A & B MEDICARE PART A & B [facility] [employer] MEDICARE SUPPLEMENT MEDICARE PART A & B [facility] [employer] MEDICARE SUPPLEMENT MEDICARE PART A & B [facility] [employer] MEDICARE SUPPLEMENT Care Teams Silverware Etcher Relationship Specialty Start Date End Date Apollo Patino MD [address] [place] [address] PCP - General 07/19/17 Additional Source Comments The information contained in this document represents components of the legal health record. It is not the complete legal health record.[facility]
[2025-07-13 11:40] LABS: White Blood Count 5.2 X10*3/uL (4.8-10.8)
[2025-07-13 11:51] LABS: Alanine Aminotransferase 15 U/L (0-31); Aspartate Amino Transferase 26 U/L (5-31); Cholesterol 211 mg/dL (<200); HDL Cholesterol 76 mg/dL (>40); Triglycerides 78 mg/dL (<150)
== END ==
LOC: HO.CARD 10:17
PROVIDERS: Absent Provider Internal Medicine; PCP Internal Medicine; Visit Provider Internal Medicine
DX: I49.1 Atrial premature depolarization (principal); I49.3 Ventricular premature depolarization; D69.9 Hemorrhagic condition, unspecified; F51.01 Primary insomnia; E78.5 Hyperlipidemia, unspecified; M85.80 Other specified disorders of bone density and structure, unspecified site; Z15.89 Genetic susceptibility to other disease
CPT/HCPCS: 36415; 80061; 82306; 82947; 84450; 84460; 85025; 93017

== ENCOUNTER → 2025-07-13 10:25 | Outpatient (BNV) | payer MEDICARE, OTHER, SELFPAY | PROVIDERS: Absent Provider Internal Medicine; PCP Internal Medicine | DX: I49.1 Atrial premature depolarization (principal); I49.3 Ventricular premature depolarization | CPT/HCPCS: 93016; 93018 ==